=== PATIENT | female | born 1980 | race Hispanic/Latino ===

== ENCOUNTER 2018-06-11 21:26 | Emergency (ER) | payer MEDICAID | END 2018-06-11 21:52 | disposition home or self-care (01) | LOC: EDH 21:26 | DX: L73.8 Other specified follicular disorders (principal); E11.9 Type 2 diabetes mellitus without complications ==

== ENCOUNTER 2019-02-23 21:07 | Emergency (ER) | payer MEDICAID, OTHER ==
[2019-02-23] MEDS ORDERED: TETRACAINE HCL 0.5% 4 ML OPHTH SOLN ONE (21:20)
[2019-02-23] MEDS ORDERED: FLUORESCEIN SODIUM 1 STRIP STRIP ONE (21:21)
[2019-02-23] MEDS ORDERED: TETANUS/DIPHTHERIA TOXOID [ADULT] 0.5 ML VIAL IM ONE (21:21)
[2019-02-23] MEDS ORDERED: NA BORATE/BORIC AC/H2O/NACL 120 ML OPHTH IRRIG SOLN ONE (21:21)
[2019-02-23] MEDS ORDERED: ERYTHROMYCIN BASE 0.5% OPHTH OINT 1 GM TUBE ONE (21:48)
== END 2019-02-23 22:01 | disposition home or self-care (01) ==
LOC: EDH 21:07
DX: S05.01XA Injury of conjunctiva and corneal abrasion without foreign body, right eye, initial encounter (principal); E11.9 Type 2 diabetes mellitus without complications; I10 Essential (primary) hypertension; Z98.890 Other specified postprocedural states; Z98.51 Tubal ligation status; Z90.49 Acquired absence of other specified parts of digestive tract; X58.XXXA Exposure to other specified factors, initial encounter; Y93.89 Activity, other specified; Y92.89 Other specified places as the place of occurrence of the external cause; Y99.8 Other external cause status
CPT/HCPCS: 90471; 90714

== ENCOUNTER 2023-05-17 21:02 | Emergency (ER) | payer BC, OTHER ==
[~2023-05-17] VITALS: Ht 160 cm; Wt 97.1 kg
[2023-05-17 21:03] VITALS: BP 119/73; PULSE 87; RESP 16
[2023-05-17 21:47] LABS: SARS-CoV-2, RNA, NAAT NEGATIVE SARS CoV-2 (NEGATIVE)
[2023-05-17 21:51] LABS: INFLUENZA TYPE A Negative For Type A (NEGATIVE); INFLUENZA TYPE B Negative For Type B (NEGATIVE)
== END 2023-05-17 22:32 | disposition left against medical advice (07) ==
LOC: EDH 21:02
DX: H57.12 Ocular pain, left eye (principal); Z20.822 Contact with and (suspected) exposure to COVID-19; Z53.21 Procedure and treatment not carried out due to patient leaving prior to being seen by health care provider
CPT/HCPCS: 87635; 87804 ×2; C9803

== ENCOUNTER 2024-01-01 18:02 | Emergency (ER) | payer BC, OTHER ==
[~2024-01-01] VITALS: Ht 167.6 cm; Wt 90.7 kg
[2024-01-01 18:19] LABS: BASOPHILS # (AUTO) 0.04 K/uL (0.00-0.20); BASOPHILS % (AUTO) 0.3 % (0.0-5.0); EOSINOPHILS # (AUTO) 0.02 K/uL (0.00-0.70); EOSINOPHILS % (AUTO) 0.2 % (0.0-8.0); HEMATOCRIT 47.1 % (36-48); IMMATURE GRANULOCYTE ABSOLUTE 0.05 K/uL (0-1); LYMPHOCYTES # (AUTO) 2.2 K/uL (1.0-4.8); LYMPHOCYTES % (AUTO) 16.6 % (21.0-51.0); MEAN CORPUSCULAR HEMOGLOBIN 28.8 pg (27.0-33.0); MEAN CORPUSCULAR HGB CONC 34.4 g/dL (32.0-36.0); MEAN CORPUSCULAR VOLUME 83.8 fL (79-99); MONOCYTES # (AUTO) 0.6 K/uL (0.1-1.0); MONOCYTES % (AUTO) 4.3 % (3.0-13.0); NEUTROPHILS # (AUTO) 10.2 K/uL (1.8-7.7); NEUTROPHILS % (AUTO) 78.2 % (40.0-77.0); PLATELET COUNT (AUTO) 272 K/uL (130-400); RED BLOOD CELL COUNT(AUTO) 5.62 MIL/uL (4.00-5.50); RED CELL DISTRIBUTION WIDTH 12.7 % (11.0-15.5); WHITE BLOOD COUNT (AUTO) 13.1 K/uL (4.8-10.8)
[2024-01-01 18:38] LABS: MAGNESIUM 1.9 mg/dL (1.80-2.40)
[2024-01-01 19:35] VITALS: BP 148/84; PULSE 106; RESP 18; O2SAT 97
[2024-01-01] MEDS: INSULIN HUMULIN R 100 UNIT/ML 3ML IV ONE (20:03)
[2024-01-01] MEDS: 0.9%NACL 1000ML 1,000 ML IV ONE (20:06)
[2024-01-01] MEDS ORDERED: METF-446 PO (21:38)
== END 2024-01-01 21:52 | disposition home or self-care (01) ==
LOC: EDH 18:02
DX: R07.89 Other chest pain (principal); F41.1 Generalized anxiety disorder; F43.0 Acute stress reaction; E11.65 Type 2 diabetes mellitus with hyperglycemia; E86.0 Dehydration; E87.1 Hypo-osmolality and hyponatremia; E78.00 Pure hypercholesterolemia, unspecified; I10 Essential (primary) hypertension; M19.90 Unspecified osteoarthritis, unspecified site; Z79.84 Long term (current) use of oral hypoglycemic drugs; Z90.49 Acquired absence of other specified parts of digestive tract
CPT/HCPCS: 99285; 96374; 71045; 96361; 83735; 84484; 80048; 85025; 82948; 36415; 93005; J1815; J7030

== ENCOUNTER 2025-01-18 15:43 | Inpatient (IN) | payer SELFPAY ==
[~2025-01-18] VITALS: Ht 167.6 cm; Wt 103.7 kg
[~2025-01-18 15:43] MED LIST: METF-446 PO
[2025-01-18 18:24] LABS: IMMATURE GRANULOCYTE ABSOLUTE 1.06 K/uL (0-1); NUCLEATED RED BLOOD CELLS 0.0 % (0.0-0.19); PLATELET COUNT (AUTO) 351 K/uL (130-400); RED BLOOD CELL COUNT(AUTO) 4.67 MIL/uL (4.00-5.50); RED CELL DISTRIBUTION WIDTH 13.3 % (11.0-15.5)
[2025-01-18 18:26] LABS: WHITE BLOOD COUNT (AUTO) 32.8 K/uL (4.8-10.8)
[2025-01-18 18:30] LABS: CREATININE 0.7 mg/dL (0.5-1.0); GLOMERULAR FILTR. RATE CALC 109.0 mL/min (>90); GLUCOSE,RANDOM 327.0 mg/dL (70-105); SODIUM SERUM 134.0 mmol/L (136-145); UREA NITROGEN, BLOOD 15.0 mg/dL (7-18)
[2025-01-18 18:39] LABS: CREATINE KINASE, TOTAL 21.0 U/L (21-232)
[2025-01-18 18:47] LABS: PLATELET MORPHOLOGY COMMENT PLT CLUMPS PRESENT
[2025-01-18 18:56] LABS: ADD UA MICROSCOPIC YES; APPEARANCE,URINE CLEAR (CLEAR); GLUCOSE, URINE (UA) >=1000 mg/dL (NEGATIVE); LEUKOCYTE ESTERASE ,URINE NEGATIVE Leu/uL (NEGATIVE); NITRATE,URINE NEGATIVE (NEGATIVE); OCCULT BLOOD,URINE MODERATE (NEGATIVE)
[2025-01-18 18:57] LABS: SQUAMOUS EPITHELIAL CELL,UR FEW /HPF (0-2); YEAST,URINE BUDDING RARE /HPF (None Seen)
[2025-01-18] MEDS ORDERED: VANCOMYCIN HCL 1.5 GM/250 ML BAG IV STA (19:14)
--- NOTE | 2025-01-18 19:30 | NUR ---
PT CARE ASSUMED AT THIS TIME
[2025-01-18 19:32] LABS: ERYTHROCYTE SEDIMENTATION RATE 100 MM/HR (0-20)
--- NOTE | 2025-01-18 19:33 | ERN ---
ED Note History of Present Illness Stated Complaint: LEG PAIN, TOE ISSUE Chief Complaint: Wound Check Time Seen by MD: 16:21 Time Seen by Midlevel: 17:00 Dictation: 44-year-old female with a history of diabetes, noncompliant coming in with complaining of pain in wound to the right great toe. Patient states this has been going on since Friday, was seen by PCP but states did not give her any medications for the infection. Patient denies having any fevers at home, nausea vomiting or diarrhea. No other complaints. Allergies: Coded Allergies: No Known Allergies (Unverified Allergy, Unknown, 05/17/23) Home Meds Active Scripts Metformin HCl (Metformin HCl) 1,000 Mg Tablet, 1000 MG PO BIDMEALS, #60 TAB 1 Refill Prov:MARCELINA GOINS RECRUITING SCHEDULER 01/01/24 Past Medical History Past Medical History: Arthritis, Diabetes-Type II, High Cholesterol, Hypertension Surgical History: Cholecystectomy, History: Not Applicable Review of System Dictation Constitutional: Negative for fever,chills, and weight loss Eyes: Negative for injury, pain,redness, and discharge ENT: Negative for injury,pain or swelling Cardiovascular: Negative for chest pain, palpitations, and edema Respiratory: Negative for shortness of breath, cough, and wheezing, Abdomen/GI: Negative for abdominal pain, nausea, vomiting, diarrhea, and constipation Back: Negative for injury and pain : Negative for injury, bleeding and discharge MS/Extremity: Negative for injury and deformity Skin: Negative for rash, and discoloration, diabetic foot ulcer to the right toe Neuro: Negative for headache, weakness, numbness, tingling, and seizure Psych: Negative for suicide ideation, homicidal ideation, and hallucinations Review of Systems: was completed Initial Vital Sign VS Vital Signs Date Time Temp Pulse Resp B/P (MAP) Pulse Ox O2 Delivery O2 Flow Rate FiO2 01/18/25 15:54 100.2 105 16 131/75 97 Room Air 0 Physical Exam Dictation General: awake, alert, NAD Head/Face: Normocephalic, atraumatic Eyes: PERRL, EOMI, vision at baseline ENT: oral cavity clear, TMs clear, no signs of infection Neck: Trachea midline, supple, no nuchal rigidity Cardiovascular: RRR, normal S1/S2, No MRGs, no JVD Respiratory: CTAB, no respiratory distress, No rales or wheezes Abdomen: Soft, non-tender, non-distended, normal bowel sounds, no guarding or rebound. Skin: Warm, dry, normal turgor, no rash, diabetic foot ulcer to the right toe, extending senior living through the dose of the foot, red, streaking, foul smell MS/Extremity: Pulses equal, no cyanosis, neurovascular intact, FROM Neuro: COAx4, GCS 15, strength 5/5, CN 2-12 intact, normal cerebellar exam, normal gait, Psych: Normal behavior, mood, and affect normal Results (Laboratory/Radiology) Laboratory/Radiology Laboratory Tests Test 01/18/25 18:12 01/18/25 18:16 White Blood Count 32.8 K/uL (4.8-10.8) *H Red Blood Count 4.67 MIL/uL (4.00-5.50) Hemoglobin 13.3 g/dL (12.0-16.0) Hematocrit 41.1 % (36-48) Mean Corpuscular Volume 88.0 fL (79-99) Mean Corpuscular Hemoglobin 28.5 pg (27.0-33.0) Mean Corpuscular Hemoglobin Concent 32.4 g/dL (32.0-36.0) Red Cell Distribution Width 13.3 % (11.0-15.5) Platelet Count 351 K/uL (130-400) Mean Platelet Volume 11.0 fL (7.5-10.5) H Immature Granulocyte % (Auto) 3.2 % (0-1) H Neutrophils (%) (Auto) 80.8 % (40.0-77.0) H Lymphocytes (%) (Auto) 9.7 % (21.0-51.0) L Monocytes (%) (Auto) 5.9 % (3.0-13.0) Eosinophils (%) (Auto) 0.1 % (0.0-8.0) Basophils (%) (Auto) 0.3 % (0.0-5.0) Neutrophils # (Auto) 26.5 K/uL (1.8-7.7) H Lymphocytes # (Auto) 3.2 K/uL (1.0-4.8) Monocytes # (Auto) 1.9 K/uL (0.1-1.0) H Eosinophils # (Auto) 0.02 K/uL (0.00-0.70) Basophils # (Auto) 0.11 K/uL (0.00-0.20) Absolute Immature Granulocyte (auto 1.06 K/uL (0-1) H Nucleated Red Blood Cells 0.0 % (0.0-0.19) Differential Comment White Cell Morphology Comment See comments Platelet Morphology Comment PLT CLUMPS PRESENT Red Blood Cell Morphology Sodium Level 134 mmol/L (136-145) L Potassium Level 4.1 mmol/L (3.5-5.1) Chloride Level 97 mmol/L (101-111) L Carbon Dioxide Level 24 mmol/L (21-32) Blood Urea Nitrogen 15 mg/dL (7-18) Creatinine 0.7 mg/dL (0.5-1.0) Glomerular Filtration Rate Calc 109 mL/min (>90) Random Glucose 327 mg/dL (70-105) H Lactic Acid Level 1.7 mmol/L (0.8-2.5) Total Calcium 9.3 mg/dL (8.5-10.1) Total Creatine Kinase 21 U/L (21-232) Troponin I High Sensitivity < 4 ng/L (4-50) L C-Reactive Protein, Quantitative 338.00 mg/L (0.5-3.0) H Procalcitonin 0.69 ng/mL (0.05-0.5) H Urine Color LIGHT-YELLOW (YELLOW) Urine Appearance CLEAR (CLEAR) Urine pH 5.5 (5.0-8.0) Urine Specific [place] 1.040 (1.001-1.031) Urine Protein 10 mg/dL (NEGATIVE) H Urine Glucose (UA) >=1000 mg/dL (NEGATIVE) H Urine Ketones 150 mg/dL (NEGATIVE) H Urine Occult Blood MODERATE (NEGATIVE) H Urine Nitrate NEGATIVE (NEGATIVE) Urine Bilirubin NEGATIVE mg/dL (NEGATIVE) Urine Urobilinogen 0.2 mg/dL (0.2-1.0) Urine Leukocyte Esterase NEGATIVE Ericka/uL Labs Reviewed?: Yes ED Course ED Course Orders Procedure Category Date Status Time Cbc With Differential LAB 01/18/25 In Process 17:47 Blood Cult SOHAM 01/18/25 In Process 17:47 Urinalysis Profile LAB 01/18/25 In Process 17:47 Culture Urine SOHAM 01/18/25 Logged 17:47 0.9%Nacl 1000ml (Ns PHA 01/18/25 In Process 1000ml) 18:00 Creatine Kinase, Total LAB 01/18/25 Complete 17:47 Troponin I High LAB 01/18/25 Complete Sensitivity 17:47 Lactic Acid LAB 01/18/25 Complete 17:47 Basic Metabolic Panel LAB 01/18/25 Complete 17:47 Erythrocyte LAB 01/18/25 In Process Sedimentation Rate 17:47 Crp Quantitative LAB 01/18/25 Complete 17:47 Procalcitonin LAB 01/18/25 Complete 17:47 Foot Comp 3+Vws Rt RAD 01/18/25 Taken 17:47 Zosyn 3.375gm+Ns 50ml PHA 01/18/25 Complete (Zosyn 3.375gm+Ns 17:47 Manual Differential LAB 01/18/25 In Process 18:12 Current Medications Medications (Trade) Dose Ordered Sig/Padilla Route PRN Reason Start Time Stop Time Status Last Admin Dose Admin Piperacillin Sod/ Tazobactam Sod (Zosyn 3.375gm+NS 50ml) 3.375 gm ONCE STAT IVPB 01/18/25 17:47 01/18/25 17:51 DC Sodium Chloride 2,952 ml @ 984 mls/hr ONCE ONCE IV 01/18/25 18:00 01/18/25 20:59 Vital Signs Date Time Temp Pulse Resp B/P (MAP) Pulse Ox O2 Delivery O2 Flow Rate FiO2 01/18/25 15:54 100.2 105 16 131/75 97 Room Air 0 Medical Decision Making MDM MDM: 44-year-old female with a history of diabetes, noncompliant coming in with complaining of pain in wound to the right great toe. Patient states this has been going on since Friday, was seen by PCP but states did not give her any medications for the infection. Patient denies having any fevers at home, nausea vomiting or diarrhea. No other complaints.CBC shows leukocytosis of 32, no anemia, no thrombocytopenia. Chemistry shows hyperglycemia at 3:27 a.m.. Normal kidney function. C-reactive protein is 338. Procalcitonin is 0.69. Fluids and antibiotics initiated in the emergency room. Pending results from x- ray and ESR. Admitted the patient for diabetic foot ulcer, cellulitis, rule out osteomyelitis. Spoke to Concetta RECRUITING SCHEDULER for hospitalist. Okay to admit patient. Differential diagnosis: Cellulitis, osteomyelitis Rationale: Tests considered and ordered secondary to shared decision making include: labs, ECG and radiology Previous outside records reviewed: Old ER visits. Risk of complication and/or morbidity or mortality of patient management: None Medications-Per medication reconciliation Need for hospitalization: Patient does meet criteria for hospitalization. Need for emergency major/minor surgery: No There are no social concerns with this patient. Prescription drug management Prescriptions will include symptomatic care Patient's prior external medical records from other ER visits were reviewed by me as indicated. Prior testing and results from previous visits were reviewed. Prior tests were taken into account with medical decision making and resource utilization, independent historian/historians were used to obtain complete medical history. I independently interpreted the test that were performed, results were reviewed by me and considered findings on radiology if ordered. Medical management and examination interpretation discussions were had by me with other qualified healthcare professionals as indicated for the patient's care. DX & DISP Disposition: Inpatient Decision to Admit Date: Jan 18, 2025 Decision to Admit Time: 19:32 Departure Impression: Primary Impression: Diabetes mellitus with hyperglycemia Additional Impressions: Diabetic foot ulcer, Cellulitis, Osteomyelitis Condition: Stable Referrals: SELF,REFERRAL (PCP) Time of Disposition: 19:33 I have reviewed the case, and I agree with, Diagnosis and Plan SHARON ZHAO NP Jan 18, 2025 19:33
[2025-01-18] MEDS: ZOSYN 3.375GM +NS 50ML IVPB STA (19:34)
[2025-01-18] MEDS: [UNRECOGNIZED DRUG - OTHER] IV ONE (19:34)
--- NOTE | 2025-01-18 19:36 | HMCIMG ---
EXAM: CR right foot, 3 View. CLINICAL HISTORY: great toe wound COMPARISON: None provided. FINDINGS: Soft tissue edema and emphysema within the right great toe. There is no radiopaque foreign body identified. Bones appear within normal limits without fracture or evidence of periostitis. Joint spaces remain anatomically aligned. IMPRESSION: 1. Soft tissue edema and emphysema of the right great toe. There is no radiographic evidence for osteomyelitis; however, if clinical concern persists recommend contrast-enhanced MRI of the forefoot for further evaluation. /[place]
[2025-01-18] MEDS ORDERED: DEXTROSE 50%-WATER 50 ML DISP.SYRIN IV PRN (20:00)
[2025-01-18] MEDS ORDERED: GLUCAGON 1MG KIT 1 MG ML IM PRN (20:00)
[2025-01-18] MEDS ORDERED: PoTASSium chl 10% ELIXIR 20MEQ 20 MEQ/15 ML UDCUP PO PRN (20:00)
[2025-01-18] MEDS ORDERED: VANCOMYCIN 1G/250ML KIT 250 ML IV SCH (20:00)
[2025-01-18] MEDS ORDERED: MAGNESIUM 2GM PREMIX 50ML 50 ML IV PRN (20:00)
--- NOTE | 2025-01-18 20:00 | HP ---
[facility] HISTORY AND PHYSICAL Date of Service: Jan 18, 2025 Time of Service: 19:54 PCP: Self-referral HISTORY OF PRESENT ILLNESS: This is a 44-year-old female with past medical history of diabetes and medical noncompliance who presents to the ED for complaints of right great toe wound ulcer and right foot pain.Patient reports on of last week she did not feel good ,she was dizzy,having chills and shortness of breath so she went to a Day and night clinic were she was told she has Flu and was prescribed with prednisone 10 mg daily,Naproxen and Tamiflu and after taking it the following day she noticed her right great toe has purple and whitish discoloration so she went to [place] today where she was given an IM injection was told for infection she said and on her way back home she noticed that her right great toe was hurting and her foot was getting swollen and red and her right great toe ulcer was smelling foul odor .Patient states she does not have a PCP and that sheis not taking any medication at home except for those 3 new med prescribed for her Flu she said. Seen and examined patient in the ER awake,alert and coherent,appears comf ortable,patient denies sore throat, cough, nausea,vomiting ,abdominal pain,chest pain,palpitation and shortness of breath. Latest vital signs temperature a 100.2, heart rate 86, blood pressure 121/67 saturation 98% room air. WBC 32 with negative left shift of neutrophils 80, hemoglobin 13, hematocrit 41, platelet count 351. Sodium 124, chloride 97, glucose 327, CRP 338, procalc itonin 0.69. Urinalysis significant for protein, glucose, ketones, urine RBC 11-25, urine WBC 6-10. X-ray of the right foot result revealed soft tissues edema and emphysema of the right great toe there is no radiographic evidence for osteomyelitis however if clinical concern persists recommend contrast enhanced MRI of the right foot for further evaluation. While in the ER patient received fluid resuscitation of NS 30 mL/kilogram over 3 hours, Zosyn IV and vancomycin IV we will admit patient for further medical management. REVIEW OF SYSTEMS CONSTITUTIONAL: Positive fever Denies chills, or night sweats. No unintentional weight loss reported. NEUROLOGICAL: Denies headache, amaurosis fugax, motor weakness, sensory deficit, vertigo/spinning sensation, gait abnormalities, or tremors. ENT: No hearing loss, otalgia, otorrhea, rhinitis, rhinorrhea, hoarseness, or sore throat. CARDIOVASCULAR: Denies any exertional angina, dyspnea on exertion, orthopnea, paroxysmal nocturnal dyspnea, palpitations, life-threatening arrhythmias, claudication. PULMONARY: Denies any shortness of breath, cough, phlegm/sputum, hemoptysis, pleuritic chest pain. SLEEP: Denies morning headaches, daytime somnolence or napping. Denies difficulty falling asleep, staying asleep, waking from sleep. Denies knowledge of snoring. GASTROINTESTINAL: Denies any type of dysphagia to either liquids or solids. Denies nausea, vomiting, pyrosis, early satiety, abdominal pain, diarrhea, constipation, or changes in stool consistency or caliber. Denies coffee-ground emesis, hematemesis, hematochezia, or melanotic stools. GENITOURINARY: Denies frequency, urgency, nocturia, hematuria or incontinence (Storage/Irritative symptoms.) Low urinary stream, straining to void, urinary intermittency or hesitancy, splitting of the voiding stream, terminal dribbling. ENDOCRINOLOGIC: Denies polyuria, polydipsia, polyphagia or heat/cold intoleran master. HEMATOLOGIC: Denies thrombophilia/previous clots, or coagulopathy/bleeding disorders. ONCOLOGIC: Denies personal history of malignancy. DERMATOLOGIC: Denies rashes or pruritus. PSYCHIATRIC: Denies any suicidal or homicidal ideation. Denies hallucinations. PAST MEDICAL HISTORY: [ Diabetes ] PAST SURGICAL HISTORY: [ x4 and cholecystectomy ] PAST SOCIAL HISTORY: [Patient lives with family. Patient denies alcohol tobacco and recreational drug use ] FAMILY HISTORY: [ Noncontributory ] Coded Allergies: No Known Allergies (Unverified Allergy, Unknown, 05/17/23) PHYSICAL EXAM GENERAL APPEARANCE: The patient is awake, alert, and oriented, in no acute cardiopulmonary distress. NEUROLOGICAL: Cranial nerves II-XII grossly intact. Motor is 5/5 in bilateral upper and lower extremities proximal to distal. No sensory deficits. HEENT: Face is symmetric. Pupils are equal and reactive. Extraocular movements are intact. NECK: Supple. No JVD. No thyromegaly. No submental, submandibular, pre- /postauricular, occipital or supraclavicular lymphadenopathy. CHEST: Normal chest expansion. No Telemetry. LUNGS: Absence of any rales, rhonchi or any wheezing. CARDIOVASCULAR: Regular. S1 and S2 normal. No appreciable rubs, murmurs or gallops. ABDOMEN: Soft, nontender, and nondistended. There is no rebound, voluntary guarding, or rigidity. : Deferred. No [place]. EXTREMITIES: Right foot swollen positive erythema SKIN: Right great toe wound ulcer Vital Sign (Last 24 Hours) 01/18/25 19:47 Temp 100.2 Pulse 86 Resp 20 B/P (MAP) 121/67 Pulse Ox 98 O2 Delivery Room Air* O2 Flow Rate 0 FiO2 21 LABS: Laboratory: Test 01/18/25 18:16 01/18/25 18:12 Range/Units Urine Color LIGHT-YELLOW YELLOW Urine Appearance CLEAR CLEAR Urine pH 5.5 5.0-8.0 Urine Specific [place] 1.040 H 1.001-1.031 Urine Protein 10 H NEGATIVE mg/dL Urine Glucose (UA) >=1000 H NEGATIVE mg/dL Urine Ketones 150 H NEGATIVE mg/dL Urine Occult Blood MODERATE H NEGATIVE Urine Nitrate NEGATIVE NEGATIVE Urine Bilirubin NEGATIVE NEGATIVE mg/dL Urine Urobilinogen 0.2 0.2-1.0 mg/dL Urine Leukocyte Esterase NEGATIVE NEGATIVE Ericka/uL Urine RBC 11-25 H 0-1 /HPF Urine WBC 6-10 H 0-1 /HPF Urine Squamous Epithelial Cells FEW 0-2 /HPF Urine Bacteria RARE None Seen /HPF Urine Yeast RARE None Seen /HPF White Blood Count 32.8 *H 4.8-10.8 K/uL Red Blood Count 4.67 4.00-5.50 MIL/uL Hemoglobin 13.3 12.0-16.0 g/dL Hematocrit 41.1 36-48 % Mean Corpuscular Volume 88.0 79-99 fL Mean Corpuscular Hemoglobin 28.5 27.0-33.0 pg Mean Corpuscular Hemoglobin Concent 32.4 32.0-36.0 g/dL Red Cell Distribution Width 13.3 11.0-15.5 % Platelet Count 351 130-400 K/uL Mean Platelet Volume 11.0 H 7.5-10.5 fL Immature Granulocyte % (Auto) 3.2 H 0-1 % Neutrophils (%) (Auto) 80.8 H 40.0-77.0 % Lymphocytes (%) (Auto) 9.7 L 21.0-51.0 % Monocytes (%) (Auto) 5.9 3.0-13.0 % Eosinophils (%) (Auto) 0.1 0.0-8.0 % Basophils (%) (Auto) 0.3 0.0-5.0 % Neutrophils # (Auto) 26.5 H 1.8-7.7 K/uL Lymphocytes # (Auto) 3.2 1.0-4.8 K/uL Monocytes # (Auto) 1.9 H 0.1-1.0 K/uL Eosinophils # (Auto) 0.02 0.00-0.70 K/uL Basophils # (Auto) 0.11 0.00-0.20 K/uL Absolute Immature Granulocyte (auto 1.06 H 0-1 K/uL Nucleated Red Blood Cells 0.0 0.0-0.19 % Differential Comment White Cell Morphology Comment See comments Platelet Morphology Comment PLT CLUMPS PRESENT Red Blood Cell Morphology Erythrocyte Sedimentation Rate 100 H 0-20 MM/HR Sodium Level 134 L 136-145 mmol/L Potassium Level 4.1 3.5-5.1 mmol/L Chloride Level 97 L 101-111 mmol/L Carbon Dioxide Level 24 21-32 mmol/L Blood Urea Nitrogen 15 7-18 mg/dL Creatinine 0.7 0.5-1.0 mg/dL Glomerular Filtration Rate Calc 109 >90 mL/min Random Glucose 327 H 70-105 mg/dL Lactic Acid Level 1.7 0.8-2.5 mmol/L Total Calcium 9.3 8.5-10.1 mg/dL Total Creatine Kinase 21 21-232 U/L Troponin I High Sensitivity < 4 L 4-50 ng/L C-Reactive Protein, Quantitative 338.00 H 0.5-3.0 mg/L Procalcitonin 0.69 H 0.05-0.5 ng/mL Current Medications Medications (Trade) Dose Ordered Sig/Padilla Route PRN Reason Start Time Stop Time Status Last Admin Dose Admin Piperacillin Sod/ Tazobactam Sod (Zosyn 3.375gm+NS 50ml) 3.375 gm ONCE STAT IVPB 01/18/25 17:47 01/18/25 17:51 DC 01/18/25 19:34 3.375 GM Vancomycin HCl (Vancomycin 1.5 Gm/250 ml Bag) 1.5 gm ONCE STAT IV 01/18/25 19:14 01/18/25 19:36 DC DIAGNOSTICS / RADIOLOGY: [ ] ASSESSMENT: Infected right great toe diabetic wound ulcer rule out osteomyelitis POA Right foot cellulitis POA Hyperglycemia due to uncontrolled diabetes POA Severe leukocytosis POA Medical noncompliance POA Obesity POA Sirs with organ dysfunction POA Suspected urinary tract infection POA PLAN: We will admit patient in medical surgical We will start on consistent carb diet We will start NS @ 100 ml / hr x2 bags and re evaluate We will continue Zosyn and vancomycin for broad-spectrum coverage We will start on Famotidine 20 mg p.o. bid for GI prophylaxis We will replace electrolytes as needed per protocol We will start on insulin sliding scale AC & HS with hypoglycemia protocol We will add prn medication for fever,pain,cough, nausea and vomiting We will request neurovascular check q.4 hoursI We will seek podiatry consultation We will seek Infectious Disease consultation We will obtain MRI without contrast of the right foot We will request labs in am Follow-up urine culture result Further orders to follow depending on above results Case discussed with attending physician and came up with above treatment and plan of care. ADVANCED CARE PLANNING 1. Which of the following were discussed? Hospice Care - No Therapeutic options - Yes Advance Directives - No Other discussions - 2. Discussed with who? Patient 3. Voluntary nature of this service was explained to the patient? Yes 4. Amount of time spent - _22 5. Reviewed by Physician? (if this service was performed by NPP) Yes Patient seen and examined by me. Agree with note by AN/SYQ 13 NAV/C2 OPERATOR SEE ADDITIONAL ORDERS PER CHART DISCUSSED WITH NURSING STAFF IOGR GÓMEZP Jan 18, 2025 20:00
[2025-01-18] MEDS: VANCOMYCIN 1.5 GM/250 ML BAG 250 ML IV ONE (20:06)
[2025-01-18] MEDS ORDERED: VANCOMYCIN PROTOCOL PER PHARMACY IV SCH (21:00)
[2025-01-18] MEDS: FAMOTIDINE 20MG TAB PO SCH (21:17)
[2025-01-18] MEDS: 0.9%NACL 1000ML 1,779 ML IV ONE (21:36)
[2025-01-18] MEDS: 0.9%NACL 1000ML 1,000 ML IV SCH (21:37)
[2025-01-19] VITALS (18 sets, daily range): BP systolic 100–145; BP diastolic 57–85; PULSE 71–85; RESP 14–19; TEMP 96.2–98.8; O2SAT 98
[2025-01-19] MEDS: ZOSYN 3.375GM+NS 50ML 50 ML IV SCH (04:52)
[2025-01-19 07:16] LABS: IMMATURE GRANULOCYTE ABSOLUTE 0.67 K/uL (0-1); NUCLEATED RED BLOOD CELLS 0.0 % (0.0-0.19); PLATELET COUNT (AUTO) 334 K/uL (130-400); RED BLOOD CELL COUNT(AUTO) 4.12 MIL/uL (4.00-5.50); RED CELL DISTRIBUTION WIDTH 13.4 % (11.0-15.5); WHITE BLOOD COUNT (AUTO) 26.9 K/uL (4.8-10.8)
[2025-01-19 07:36] LABS: ASPARTATE AMINOTRANSFERASE 11.0 U/L (10-37); CREATININE 0.6 mg/dL (0.5-1.0); GLOMERULAR FILTR. RATE CALC 113.0 mL/min (>90); GLUCOSE,RANDOM 343.0 mg/dL (70-105); SODIUM SERUM 135.0 mmol/L (136-145); TOTAL PROTEIN, SERUM 6.8 g/dL (6.0-8.3); UREA NITROGEN, BLOOD 12.0 mg/dL (7-18)
[2025-01-19] MEDS: VANCOMYCIN 1.5 GM/250 ML BAG 250 ML IV SCH (08:00)
[2025-01-19 08:29] LABS: ERYTHROCYTE SEDIMENTATION RATE 105 MM/HR (0-20)
--- NOTE | 2025-01-19 09:41 | NUR ---
DCP: HOME Pt and her 4 kids live with her father Richard Hunter [phone] and his home. 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 Pt states despite her infection in toe/foot, she was able to walk with out DME and be independent of ADLS and driving. Pt has no insurance, no PCP, no in home care services. Sw provided community resources for future use. DCP is home Guero Maritza Leavitt [phone] Addendum: 01/19/25 at 0942 by CARLOS LOAIZA Amended: Links added.
--- NOTE | 2025-01-19 09:59 | CONS ---
CONSULTATION NOTE Date of Service: Jan 19, 2025 Reason for Consultation: This 44 years old female was admitted through the emergency room after two week duration infection on her right foot. History of diabetes. Seen two weeks ago by [facility] was started on antibiotics. Subsequently was seen in [place] also was given antibiotics at this time presented to the emergency room with worsening condition. Patient does not have primary care physician. Requesting Physician: Cris BOOTH HISTORY OF PRESENT ILLNESS: As stated above REVIEW OF SYSTEMS CONSTITUTIONAL: Positive for fevers and chills HEAD/FACE: No signs of trauma. EENT: Denies eye pain, blurred vision, double vision, or light sensitivity. RESPIRATORY: Denies shortness of breath, cough, wheezing CARDIOVASCULAR: Denies chest pain, palpitation, syncope foot warm but nonpalpable pulses on right foot GASTROINTESTINAL/ABDOMINAL: Denies abdominal pain, constipation, diarrhea, nausea or vomiting GENITOURINARY: Denies dysuria or hematuria. MUSCULOSKELETAL: Denies joint pain, tenderness, or trauma. INTEGUMENTARY: Gangrene cellulitis blister formation on right foot 1st toe and 1st metatarsal area arch and dorsal aspect of the foot. NEUROLOGICAL/PSYCH: Denies anxiety, depression, heat or cold intolerance. PAST MEDICAL HISTORY: Diabetes uncontrolled with no medical follow up as an outpatient. PAST SURGICAL HISTORY: by two and cholecystectomy PAST SOCIAL HISTORY: Denies any smoking or drinking or illicit drugs. FAMILY HISTORY: Noncontributory Coded Allergies: No Known Allergies (Unverified Allergy, Unknown, 05/17/23) PHYSICAL EXAM EYES: Anicteric. Pupils equal and reactive. HENT: No oral thrush seen, moist Oral mucosa NECK: Supple, no JVD or thyromegaly. LUNGS: Good air entry. No rales, no rhonchi. CARDIOVASCULAR: S1, S2 regular. No murmur heard. Nonpalpable pulses on foot right foot warm to touch. ABDOMEN: Soft, non tender, bowel sounds present, no organomegaly CENTRAL NERVOUS SYSTEM: Awake, alert, oriented x 3. No focal deficits. Loss of sensation possibly secondary to diabetic polyneuropathy SKIN: Right hallux gangrene with cellulitis and blister formation of the skin cellulitis extending to the dorsal and plantar aspect of the foot midfoot level. Medial aspect. LYMPHATICS: No peripheral lymphadenopathy MUSCULOSKELETAL: No joint swelling, erythema or tenderness. Gangrene to hallux right x-ray contributory for osteomyelitis and gas on the soft tissue. EXTREMITIES: No cyanosis or clubbing BACK: No deformity, no pressure ulcer. GENITOURINARY: No dysuria or hematuria Vital Sign (Last 24 Hours) 01/19/25 09:04 Temp 99.5 Pulse 89 Resp 17 B/P (MAP) 117/70 Pulse Ox 95 O2 Delivery Room Air* O2 Flow Rate 0 FiO2 21 LABS: Laboratory: Test 01/19/25 08:48 01/19/25 06:56 01/18/25 18:16 01/18/25 18:12 Range/Units Whole Blood Glucose 293 H 70-110 MG/DL White Blood Count 26.9 H 4.8-10.8 K/uL Red Blood Count 4.12 4.00-5.50 MIL/uL Hemoglobin 11.8 L 12.0-16.0 g/dL Hematocrit 35.7 L 36-48 % Mean Corpuscular Volume 86.7 79-99 fL Mean Corpuscular Hemoglobin 28.6 27.0-33.0 pg Mean Corpuscular Hemoglobin Concent 33.1 32.0-36.0 g/dL Red Cell Distribution Width 13.4 11.0-15.5 % Platelet Count 334 130-400 K/uL Mean Platelet Volume 11.0 H 7.5-10.5 fL Immature Granulocyte % (Auto) 2.5 H 0-1 % Neutrophils (%) (Auto) 77.4 H 40.0-77.0 % Lymphocytes (%) (Auto) 12.7 L 21.0-51.0 % Monocytes (%) (Auto) 7.1 3.0-13.0 % Eosinophils (%) (Auto) 0.0 0.0-8.0 % Basophils (%) (Auto) 0.3 0.0-5.0 % Neutrophils # (Auto) 20.8 H 1.8-7.7 K/uL Lymphocytes # (Auto) 3.4 1.0-4.8 K/uL Monocytes # (Auto) 1.9 H 0.1-1.0 K/uL Eosinophils # (Auto) 0.01 0.00-0.70 K/uL Basophils # (Auto) 0.07 0.00-0.20 K/uL Absolute Immature Granulocyte (auto 0.67 0-1 K/uL Nucleated Red Blood Cells 0.0 0.0-0.19 % Erythrocyte Sedimentation Rate 105 H 0-20 MM/HR Sodium Level 135 L 136-145 mmol/L Potassium Level 4.0 3.5-5.1 mmol/L Chloride Level 101 101-111 mmol/L Carbon Dioxide Level 23 21-32 mmol/L Blood Urea Nitrogen 12 7-18 mg/dL Creatinine 0.6 0.5-1.0 mg/dL Glomerular Filtration Rate Calc 113 >90 mL/min Random Glucose 343 H 70-105 mg/dL Total Calcium 8.2 L 8.5-10.1 mg/dL Magnesium Level 2.00 1.80-2.40 mg/dL Total Bilirubin 0.4 0.2-1.0 mg/dL Aspartate Amino Transf (AST/SGOT) 11 10-37 U/L Alanine Aminotransferase (ALT/SGPT) 24 12-78 U/L Alkaline Phosphatase 149 H 50-136 U/L C-Reactive Protein, Quantitative 311.80 H 0.5-3.0 mg/L Total Protein 6.8 6.0-8.3 g/dL Albumin 1.6 L 3.5-5.0 g/dL Urine Color LIGHT-YELLOW YELLOW Urine Appearance CLEAR CLEAR Urine pH 5.5 5.0-8.0 Urine Specific [place] 1.040 H 1.001-1.031 Urine Protein 10 H NEGATIVE mg/dL Urine Glucose (UA) >=1000 H NEGATIVE mg/dL Urine Ketones 150 H NEGATIVE mg/dL Urine Occult Blood MODERATE H NEGATIVE Urine Nitrate NEGATIVE NEGATIVE Urine Bilirubin NEGATIVE NEGATIVE mg/dL Urine Urobilinogen 0.2 0.2-1.0 mg/dL Urine Leukocyte Esterase NEGATIVE NEGATIVE Ericka/uL Urine RBC 11-25 H 0-1 /HPF Urine WBC 6-10 H 0-1 /HPF Urine Squamous Epithelial Cells FEW 0-2 /HPF Urine Bacteria RARE None Seen /HPF Urine Yeast RARE None Seen /HPF Differential Comment White Cell Morphology Comment See comments Platelet Morphology Comment PLT CLUMPS PRESENT Red Blood Cell Morphology Lactic Acid Level 1.7 0.8-2.5 mmol/L Total Creatine Kinase 21 21-232 U/L Troponin I High Sensitivity < 4 L 4-50 ng/L Procalcitonin 0.69 H 0.05-0.5 ng/mL DIAGNOSTICS / RADIOLOGY: X-ray demonstrated osteomyelitis gas gangrene of the soft tissue 1st metatarsal and hallux right. ASSESSMENT: Gas gangrene. Osteomyelitis of the right foot hallux and 1st metatarsal. Peripheral vascular disease. Diabetic polyneuropathy. Cellulitis and diabetic foot infection. Leukocytosis. PLAN: Due to the emergent situation on this case at this moment the recommendation is for 1st ray amputation as an emergency procedure to the gas gangrene patient is at high risk of losing the extremity right. Patient refuses amputation at this time she stated that she will like to go home and discuss it with her family members. The severity of the case was explained by myself and medical team at this moment the risk of losing the extremity loss of life sepsis and this or imminent in this type of infections. Early intervention is imperative at this point in order to salvage the extremity and prevent further complications. Patient voices that she will like to sign AMA we we will notify the emergency room team. Please reconsult if patient has change decisions. Patient was placed NPO if you change decision we will schedule her for surgery today. KIRK DURHAM DPM Jan 19, 2025 09:59
--- NOTE | 2025-01-19 11:36 | NUR ---
[facility] Consult: Patient assessed by wound healing team. See wound assessment. Assessment and recommendations provided. Education provided. Addendum: 01/19/25 at 1415 by CHON RAMÍREZ RN RN/CORRIE Amended: Links added.
--- NOTE | 2025-01-19 14:17 | PN ---
[facility] PROGRESS NOTE Date of Service: Jan 19, 2025 Time of Service: 14:16 SUBJECTIVE: This is a 44-year-old female with past medical history of diabetes and medical noncompliance who presents to the ED for complaints of right great toe wound ulcer and right foot pain.Patient reports on of last week she did not feel good ,she was dizzy,having chills and shortness of breath so she went to a Day and night clinic were she was told she has Flu and was prescribed with prednisone 10 mg daily,Naproxen and Tamiflu and after taking it the following day she noticed her right great toe has purple and whitish discoloration so she went to [place] today where she was given an IM injection was told for infection she said and on her way back home she noticed that her right great toe was hurting and her foot was getting swollen and red and her right great toe ulcer was smelling foul odor .Patient states she does not have a PCP and that sheis not taking any medication at home except for those 3 new med prescribed for her Flu she said. Seen and examined patient in the ER awake,alert and coherent,appears comfortable,patient denies sore throat, cough, nausea,vomiting ,abdominal pain,chest pain,palpitation and shortness of breath. Latest vital signs temperature a 100.2, heart rate 86, blood pressure 121/67 saturation 98% room air. WBC 32 with negative left shift of neutrophils 80, hemoglobin 13, he matocrit 41, platelet count 351. Sodium 124, chloride 97, glucose 327, CRP 338, procalcitonin 0.69. Urinalysis significant for protein, glucose, ketones, urine RBC 11-25, urine WBC 6-10. X-ray of the right foot result revealed soft tissues edema and emphysema of the right great toe there is no radiographic evidence for osteomyelitis however if clinical concern persists recommend contrast enhanced MRI of the right foot for further evaluation. While in the ER patient received fluid resuscitation of NS 30 mL/kilogram over 3 hours, Zosyn IV and vancomycin IV we will admit patient for further medical management. 01/19/25 Patient was seen and examined at bedside. She had a temperature of 100 last night, other vitals are stable. She does not take medications for diabetes and does not have a PCP. She first noticed an ulcer on her right foot two weeks ago that eventually developed into foul smelling gas gangrene. Podiatry consult was placed as X-rays showed evidence of osteomyelitis and soft tissue gangrene involving the right first metatarsal. Given the emergent nature of the infection, podiatry recommended a first-ray amputation on the same day. However, the patient initially declined the procedure, expressing a desire to first discuss the situation with family members. She also mentioned the possibility of signing AMA but was advised to reconsider if she changes her decision. In the meantime, an orthopedic surgery consult was placed to evaluate for the possibility of a below-knee amputation , given the extent of infection and urgency of intervention. REVIEW OF SYSTEMS CONSTITUTIONAL: Positive fever Denies chills, or night sweats. No unintentional weight loss reported. NEUROLOGICAL: Denies headache, amaurosis fugax, motor weakness, sensory deficit, vertigo/spinning sensation, gait abnormalities, or tremors. ENT: No hearing loss, otalgia, otorrhea, rhinitis, rhinorrhea, hoarseness, or sore throat. CARDIOVASCULAR: Denies any exertional angina, dyspnea on exertion, orthopnea, paroxysmal nocturnal dyspnea, palpitations, life-threatening arrhythmias, claudication. PULMONARY: Denies any shortness of breath, cough, phlegm/sputum, hemoptysis, pleuritic chest pain. SLEEP: Denies morning headaches, daytime somnolence or napping. Denies difficulty falling asleep, staying asleep, waking from sleep. Denies knowledge of snoring. GASTROINTESTINAL: Denies any type of dysphagia to either liquids or solids. Denies nausea, vomiting, pyrosis, early satiety, abdominal pain, diarrhea, constipation, or changes in stool consistency or caliber. Denies coffee-ground emesis, hematemesis, hematochezia, or melanotic stools. GENITOURINARY: Denies frequency, urgency, nocturia, hematuria or incontinence (Storage/Irritative symptoms.) Low urinary stream, straining to void, urinary intermittency or hesitancy, splitting of the voiding stream, terminal dribbling. ENDOCRINOLOGIC: Denies polyuria, polydipsia, polyphagia or heat/cold intolerances. HEMATOLOGIC: Denies thrombophilia/previous clots, or coagulopathy/bleeding di sorders. ONCOLOGIC: Denies personal history of malignancy. DERMATOLOGIC: Denies rashes or pruritus. PSYCHIATRIC: Denies any suicidal or homicidal ideation. Denies hallucinations. PHYSICAL EXAM GENERAL APPEARANCE: The patient is awake, alert, and oriented, in no acute cardiopulmonary distress. NEUROLOGICAL: Cranial nerves II-XII grossly intact. Motor is 5/5 in bilateral upper and lower extremities proximal to distal. No sensory deficits. HEENT: Face is symmetric. Pupils are equal and reactive. Extraocular movements are intact. NECK: Supple. No JVD. No thyromegaly. No submental, submandibular, pre- /postauricular, occipital or supraclavicular lymphadenopathy. CHEST: Normal chest expansion. No Telemetry. LUNGS: Absence of any rales, rhonchi or any wheezing. CARDIOVASCULAR: Regular. S1 and S2 normal. No appreciable rubs, murmurs or gallops. ABDOMEN: Soft, nontender, and nondistended. There is no rebound, voluntary guarding, or rigidity. : Deferred. No [place]. EXTREMITIES: Right foot swollen positive erythema SKIN: Right great toe wound ulcer Vital Signs (last 8hr) Date Time Temp Pulse Resp B/P (MAP) Pulse Ox O2 Delivery O2 Flow Rate FiO2 01/19/25 09:04 99.5 89 17 117/70 95 Room Air* 0 21 01/19/25 06:45 99.5 99 20 107/47 100 Room Air* 0 21 LABS: Laboratory: Test 01/19/25 12:54 01/19/25 06:56 01/18/25 18:16 01/18/25 18:12 Range/Units Whole Blood Glucose 198 H 70-110 MG/DL White Blood Count 26.9 H 4.8-10.8 K/uL Red Blood Count 4.12 4.00-5.50 MIL/uL Hemoglobin 11.8 L 12.0-16.0 g/dL Hematocrit 35.7 L 36-48 % Mean Corpuscular Volume 86.7 79-99 fL Mean Corpuscular Hemoglobin 28.6 27.0-33.0 pg Mean Corpuscular Hemoglobin Concent 33.1 32.0-36.0 g/dL Red Cell Distribution Width 13.4 11.0-15.5 % Platelet Count 334 130-400 K/uL Mean Platelet Volume 11.0 H 7.5-10.5 fL Immature Granulocyte % (Auto) 2.5 H 0-1 % Neutrophils (%) (Auto) 77.4 H 40.0-77.0 % Lymphocytes (%) (Auto) 12.7 L 21.0-51.0 % Monocytes (%) (Auto) 7.1 3.0-13.0 % Eosinophils (%) (Auto) 0.0 0.0-8.0 % Basophils (%) (Auto) 0.3 0.0-5.0 % Neutrophils # (Auto) 20.8 H 1.8-7.7 K/uL Lymphocytes # (Auto) 3.4 1.0-4.8 K/uL Monocytes # (Auto) 1.9 H 0.1-1.0 K/uL Eosinophils # (Auto) 0.01 0.00-0.70 K/uL Basophils # (Auto) 0.07 0.00-0.20 K/uL Absolute Immature Granulocyte (auto 0.67 0-1 K/uL Nucleated Red Blood Cells 0.0 0.0-0.19 % Erythrocyte Sedimentation Rate 105 H 0-20 MM/HR Sodium Level 135 L 136-145 mmol/L Potassium Level 4.0 3.5-5.1 mmol/L Chloride Level 101 101-111 mmol/L Carbon Dioxide Level 23 21-32 mmol/L Blood Urea Nitrogen 12 7-18 mg/dL Creatinine 0.6 0.5-1.0 mg/dL Glomerular Filtration Rate Calc 113 >90 mL/min Random Glucose 343 H 70-105 mg/dL Total Calcium 8.2 L 8.5-10.1 mg/dL Magnesium Level 2.00 1.80-2.40 mg/dL Total Bilirubin 0.4 0.2-1.0 mg/dL Aspartate Amino Transf (AST/SGOT) 11 10-37 U/L Alanine Aminotransferase (ALT/SGPT) 24 12-78 U/L Alkaline Phosphatase 149 H 50-136 U/L C-Reactive Protein, Quantitative 311.80 H 0.5-3.0 mg/L Total Protein 6.8 6.0-8.3 g/dL Albumin 1.6 L 3.5-5.0 g/dL Urine Color LIGHT-YELLOW YELLOW Urine Appearance CLEAR CLEAR Urine pH 5.5 5.0-8.0 Urine Specific [place] 1.040 H 1.001-1.031 Urine Protein 10 H NEGATIVE mg/dL Urine Glucose (UA) >=1000 H NEGATIVE mg/dL Urine Ketones 150 H NEGATIVE mg/dL Urine Occult Blood MODERATE H NEGATIVE Urine Nitrate NEGATIVE NEGATIVE Urine Bilirubin NEGATIVE NEGATIVE mg/dL Urine Urobilinogen 0.2 0.2-1.0 mg/dL Urine Leukocyte Esterase NEGATIVE NEGATIVE Ericka/uL Urine RBC 11-25 H 0-1 /HPF Urine WBC 6-10 H 0-1 /HPF Urine Squamous Epithelial Cells FEW 0-2 /HPF Urine Bacteria RARE None Seen /HPF Urine Yeast RARE None Seen /HPF Differential Comment White Cell Morphology Comment See comments Platelet Morphology Comment PLT CLUMPS PRESENT Red Blood Cell Morphology Lactic Acid Level 1.7 0.8-2.5 mmol/L Total Creatine Kinase 21 21-232 U/L Troponin I High Sensitivity < 4 L 4-50 ng/L Procalcitonin 0.69 H 0.05-0.5 ng/mL Current Medications Medications (Trade) Dose Ordered Sig/[place] Route PRN Reason Start Time Stop Time Status Last Admin Dose Admin Acetaminophen (TYLenol 325MG TAB) 650 mg Q4H PRN PO MILD PAIN (1-3) 01/18/25 20:00 02/17/25 19:59 Acetaminophen (TYLenol 325MG TAB) 650 mg Q6H PRN PO TEMPERATURE GREATER THAN 101.5 01/18/25 20:00 02/17/25 19:59 Acetaminophen/ Hydrocodone Bitart (NORco 5/325MG) 1 tab Q4H PRN PO MODERATE PAIN (4-6) 01/18/25 20:00 01/23/25 19:59 Acetaminophen/ Hydrocodone Bitart (NORco 5/325MG) 2 tab Q4H PRN PO SEVERE PAIN (7-10) 01/18/25 20:00 01/23/25 19:59 Dextrose (D50w) 50 ml AD PRN IV HYPOGLYCEMIA PROTOCOL 01/18/25 20:00 02/17/25 19:59 Famotidine (Pepcid 20mg Tab) 20 mg BID PO 01/18/25 21:00 02/17/25 20:59 01/18/25 21:17 20 MG Glucagon (Glucagon 1mg Kit) 1 mg AD PRN IM HYPOGLYCEMIA PROTOCOL 01/18/25 20:00 02/17/25 19:59 Insulin Human Regular (humuLIN R 100 UNIT/ML 3ML) INSULIN SLIDING SCAL... ACHS SQ 01/18/25 21:00 02/17/25 20:59 01/19/25 07:30 6 UNIT Magnesium Sulfate 50 ml @ 0 mls/hr PROTOCOL PRN IV OTHER [SEE ORDER COMMENTS] 01/18/25 20:00 02/17/25 19:59 Ondansetron HCl (zoFRAN 4MG INJ) 4 mg Q6H PRN IV NAUSEA/VOMITING 01/18/25 20:00 02/17/25 19:59 Piperacillin Sod/ Tazobactam Sod 50 ml @ 12.5 mls/hr Q8H IV 01/19/25 04:00 01/29/25 03:59 01/19/25 13:29 12.5 MLS/HR Piperacillin Sod/ Tazobactam Sod (Zosyn 3.375gm+NS 50ml) 3.375 gm ONCE STAT IVPB 01/18/25 17:47 01/18/25 17:51 DC 01/18/25 19:34 3.375 GM Potassium Chloride 100 ml @ 100 mls/hr AD PRN IV POTASSIUM PROTOCOL 01/18/25 20:00 02/17/25 19:59 Potassium Chloride (K-Dur/Klor-Con 20meq) 20 meq AD PRN PO POTASSIUM PROTOCOL 01/18/25 20:00 02/17/25 19:59 Potassium Chloride (KCl 10% Elixir 20meq/15ml) 20 meq AD PRN PO POTASSIUM PROTOCOL 01/18/25 20:00 02/17/25 19:59 Sodium Chloride 1,000 ml @ 100 mls/hr Q10H IV 01/18/25 20:00 01/19/25 15:59 01/19/25 06:15 100 MLS/HR Vancomycin HCl 250 ml @ 125 mls/hr ONCE IV 01/18/25 20:00 01/18/25 20:33 DC Vancomycin HCl 250 ml @ 125 mls/hr Q12H IV 01/19/25 08:00 01/29/25 07:59 01/19/25 08:00 125 MLS/HR Vancomycin HCl (Vancomycin Protocol) 1 each AD IV 01/18/25 21:00 02/01/25 20:59 Vancomycin HCl (Vancomycin 1.5 Gm/250 ml Bag) 1.5 gm ONCE STAT IV 01/18/25 19:14 01/18/25 19:36 DC DIAGNOSTICS / RADIOLOGY: [ ] ASSESSMENT: Infected right great toe diabetic wound ulcer rule out osteomyelitis POA Right foot cellulitis POA Hyperglycemia due to uncontrolled diabetes POA Severe leukocytosis POA Medical noncompliance POA Obesity POA Sirs with organ dysfunction POA Suspected urinary tract infection POA PLAN: We will admit patient in medical surgical We will start on consistent carb diet We will start NS @ 100 ml / hr x2 bags and re evaluate We will continue Zosyn and vancomycin for broad-spectrum coverage We will start on Famotidine 20 mg p.o. bid for GI prophylaxis We will replace electrolytes as needed per protocol We will start on insulin sliding scale AC & HS with hypoglycemia protocol We will add prn medication for fever,pain,cough, nausea and vomiting We will request neurovascular check q.4 hoursI We will seek podiatry consultation We will seek Infectious Disease consultation We will obtain MRI without contrast of the right foot We will request labs in am Follow-up urine culture result Further orders to follow depending on above results Case discussed with attending physician and came up with above treatment and plan of care. ATTESTATION BY PHYSICIAN I have seen and examined the patient. I reviewed the documentation, medical decision making, and treatment plan as noted by the resident provider above. I agree with the findings and plan of care. Aston Rascon MD, NIHITHA MD Jan 19, 2025 14:17
[2025-01-19] MEDS ORDERED: MIDAZOLAM HCL 1 MG/ML 2ML VIAL ONE ×2 (16:22→17:14)
[2025-01-19] MEDS ORDERED: LIDOCAINE PF 100MG/5ML (2%) SYRINGE 5ML ONE (16:22)
[2025-01-19] MEDS ORDERED: GLYCOPYRROLATE 0.2 MG/ML 5 ML VIAL ONE (16:24)
--- NOTE | 2025-01-19 17:53 | NUR ---
Attempted PT eval , Per order patient in ER 9. Per ER Charge patient went to OR. Per EMR patient out of surgery at 1740. PT team to follow in am
--- NOTE | 2025-01-19 19:35 | CONS ---
INFECTIOUS DISEASE CONSULTATION NOTE Date of Service: Jan 19, 2025 Reason for Consultation: [ ] Requesting Physician: [ ] HISTORY OF PRESENT ILLNESS: Patient is a 44 yr old female with a past medical history of Diabetes mellitus and medication non-compliance who presented to the emergency room with a 2 week history of ulceration and pain to the right great toe. Patient states that he went to [employer] was tolf he had an infection and was given an intramuscular injection. Patient states that the discoloration, selling and pain increased and she noticed a foul odor from the wound. Patient decided to come to the ER for evaluation and management. There is associated fever, chills, nausea or vomiting. States she has no PCP and does not take medications for her Diabetes. In the ED, patient was febrile with a temperature of 100.2F. Labs showed a WBC of 32 with a negative left shift of neutrophils, CRP 311, Procal 0.69 and [id number]. Xray of the foot showed soft tissue edema and emphysema within the right great toe. . No radiographihc evidence of osteomyelitis see. An MRI was ordered. Pending the results. Lying in bed at the time of evaluation. Alert and oriented and in no obvious distress. Patient was afebrile with a temperature of 99.5F Assessment of the patient showed a gangrenous right great toe with a foul odor emanating. Patient is currently on Vancomycin and Zosyn. Patient was seen by Dr Ariza the core man this morning. The need for an amputation was explained however patient refused to consent to the procedure. We will continue with the antibiotics and fluids as ordered. Pending results of blood, urine and wound cultures. REVIEW OF SYSTEMS CONSTITUTIONAL: Denies fever, chills, or fatigue. HEAD/FACE: No signs of trauma. EENT: Denies eye pain, blurred vision, double vision, or light sensitivity. RESPIRATORY: Denies shortness of breath, cough, wheezing CARDIOVASCULAR: Denies chest pain, palpitation, syncope GASTROINTESTINAL/ABDOMINAL: Denies abdominal pain, constipation, diarrhea, nausea or vomiting GENITOURINARY: Denies dysuria or hematuria. MUSCULOSKELETAL: Denies joint pain, Pain , discoloration and swelling of right great toe. INTEGUMENTARY: Denies rash or itchiness NEUROLOGICAL/PSYCH: Denies anxiety, depression, heat or cold intolerance. PAST MEDICAL HISTORY: Diabetes mellitus type 2 PAST SURGICAL HISTORY: [ ] PAST SOCIAL HISTORY: [ ] FAMILY HISTORY: [ ] Coded Allergies: No Known Allergies (Unverified Allergy, Unknown, 05/17/23) PHYSICAL EXAM EYES: Anicteric. Pupils equal and reactive. HENT: No oral thrush seen, moist Oral mucosa NECK: Supple, no JVD or thyromegaly. LUNGS: Good air entry. No rales, no rhonchi. CARDIOVASCULAR: S1, S2 regular. No murmur heard. ABDOMEN: Soft, non tender, bowel sounds present, no organomegaly CENTRAL NERVOUS SYSTEM: Awake, alert, oriented x 3. No focal deficits. SKIN: No rashes, no swelling. LYMPHATICS: No peripheral lymphadenopathy MUSCULOSKELETAL: No joint swelling, erythema or tenderness. EXTREMITIES: Gangrenous , foul smelling right great toe BACK: No deformity, no pressure ulcer. GENITOURINARY: No dysuria or hematuria Vital Sign (Last 24 Hours) 01/19/25 01/19/25 01/19/25 09:04 17:45 18:15 Temp 97.2 Pulse 73 Resp 16 B/P (MAP) 119/61 Pulse Ox 100 O2 Delivery Room Air O2 Flow Rate 10.0 FiO2 21 LABS: Laboratory: Test 01/19/25 12:54 01/19/25 06:56 01/18/25 18:16 01/18/25 18:12 Range/Units Whole Blood Glucose 198 H 70-110 MG/DL White Blood Count 26.9 H 4.8-10.8 K/uL Red Blood Count 4.12 4.00-5.50 MIL/uL Hemoglobin 11.8 L 12.0-16.0 g/dL Hematocrit 35.7 L 36-48 % Mean Corpuscular Volume 86.7 79-99 fL Mean Corpuscular Hemoglobin 28.6 27.0-33.0 pg Mean Corpuscular Hemoglobin Concent 33.1 32.0-36.0 g/dL Red Cell Distribution Width 13.4 11.0-15.5 % Platelet Count 334 130-400 K/uL Mean Platelet Volume 11.0 H 7.5-10.5 fL Immature Granulocyte % (Auto) 2.5 H 0-1 % Neutrophils (%) (Auto) 77.4 H 40.0-77.0 % Lymphocytes (%) (Auto) 12.7 L 21.0-51.0 % Monocytes (%) (Auto) 7.1 3.0-13.0 % Eosinophils (%) (Auto) 0.0 0.0-8.0 % Basophils (%) (Auto) 0.3 0.0-5.0 % Neutrophils # (Auto) 20.8 H 1.8-7.7 K/uL Lymphocytes # (Auto) 3.4 1.0-4.8 K/uL Monocytes # (Auto) 1.9 H 0.1-1.0 K/uL Eosinophils # (Auto) 0.01 0.00-0.70 K/uL Basophils # (Auto) 0.07 0.00-0.20 K/uL Absolute Immature Granulocyte (auto 0.67 0-1 K/uL Nucleated Red Blood Cells 0.0 0.0-0.19 % Erythrocyte Sedimentation Rate 105 H 0-20 MM/HR Sodium Level 135 L 136-145 mmol/L Potassium Level 4.0 3.5-5.1 mmol/L Chloride Level 101 101-111 mmol/L Carbon Dioxide Level 23 21-32 mmol/L Blood Urea Nitrogen 12 7-18 mg/dL Creatinine 0.6 0.5-1.0 mg/dL Glomerular Filtration Rate Calc 113 >90 mL/min Random Glucose 343 H 70-105 mg/dL Total Calcium 8.2 L 8.5-10.1 mg/dL Magnesium Level 2.00 1.80-2.40 mg/dL Total Bilirubin 0.4 0.2-1.0 mg/dL Aspartate Amino Transf (AST/SGOT) 11 10-37 U/L Alanine Aminotransferase (ALT/SGPT) 24 12-78 U/L Alkaline Phosphatase 149 H 50-136 U/L C-Reactive Protein, Quantitative 311.80 H 0.5-3.0 mg/L Total Protein 6.8 6.0-8.3 g/dL Albumin 1.6 L 3.5-5.0 g/dL Urine Color LIGHT-YELLOW YELLOW Urine Appearance CLEAR CLEAR Urine pH 5.5 5.0-8.0 Urine Specific [place] 1.040 H 1.001-1.031 Urine Protein 10 H NEGATIVE mg/dL Urine Glucose (UA) >=1000 H NEGATIVE mg/dL Urine Ketones 150 H NEGATIVE mg/dL Urine Occult Blood MODERATE H NEGATIVE Urine Nitrate NEGATIVE NEGATIVE Urine Bilirubin NEGATIVE NEGATIVE mg/dL Urine Urobilinogen 0.2 0.2-1.0 mg/dL Urine Leukocyte Esterase NEGATIVE NEGATIVE Ericka/uL Urine RBC 11-25 H 0-1 /HPF Urine WBC 6-10 H 0-1 /HPF Urine Squamous Epithelial Cells FEW 0-2 /HPF Urine Bacteria RARE None Seen /HPF Urine Yeast RARE None Seen /HPF Differential Comment White Cell Morphology Comment See comments Platelet Morphology Comment PLT CLUMPS PRESENT Red Blood Cell Morphology Lactic Acid Level 1.7 0.8-2.5 mmol/L Total Creatine Kinase 21 21-232 U/L Troponin I High Sensitivity < 4 L 4-50 ng/L Procalcitonin 0.69 H 0.05-0.5 ng/mL DIAGNOSTICS / RADIOLOGY: PATIENT: BHUMIKA OSWALD MR#: [id number] : 1980 SEX: F AGE: 44 LOCATION: [facility] ORDER 48 STATUS: [facility] REPORT#: [id number] SERVICE 46 REASON: great toe wound ORDERING PHYSICIAN: SHARON ZHAO NP PROCEDURE: FT 3VW RT - FOOT COMP 3+VWS RT EXAM: CR right foot, 3 View. CLINICAL HISTORY: great toe wound COMPARISON: None provided. FINDINGS: Soft tissue edema and emphysema within the right great toe. There is no radiopaque foreign body identified. Bones appear within normal limits without fracture or evidence of periostitis. Joint spaces remain anatomically aligned. IMPRESSION: 1. Soft tissue edema and emphysema of the right great toe. There is no radiographic evidence for osteomyelitis; however, if clinical concern persists recommend contrast-enhanced MRI of the forefoot for further evaluation. /[place] DICTATED BY: CEDRIC ROY Jr., MD DATE: 01/18/252034 ELECTRONICALLY SIGNED BY: CEDRIC ROY Jr., MD DATE: 01/18/252034 ASSESSMENT: Gangrenous right great toe POA Right foot cellulitis POA Hyperglycemia due to uncontrolled diabetes POA Severe leukocytosis POA Medical noncompliance POA Obesity PLAN: Continue Zosyn and vancomycin for broad-spectrum coverage Continue on NS @ 100 ml / hr x2 bags for adequate hydration Continue on Famotidine 20 mg p.o. bid for GI prophylaxis Replace electrolytes as needed per protocol Continue on insulin sliding scale AC & HS with hypoglycemia protocol Continue on prn medication for fever,pain,cough, nausea and vomiting Podiatry is on the case. MRI without contrast of the right foot ordered We will request labs in am Follow-up urine culture result ATTESTATION BY PHYSICIAN I have seen and examined the patient. I reviewed the documentation, medical decision making, and treatment plan as noted by the resident provider above. I agree with the findings and plan of care. Hunter Dewitt MD OBI,MARQUISE Diaz MD Jan 19, 2025 19:35
[2025-01-19] MEDS: HYDROcodone/APAP 5/325 1 TAB TABLET PO PRN (21:51)
[2025-01-20] VITALS (7 sets, daily range): BP systolic 102–138; BP diastolic 63–79; PULSE 83–91; RESP 18–19; TEMP 97.7–99.6; O2SAT 94–96
[2025-01-20] MEDS: CLINDAMYCIN IVPB 900MG/50ML 50 ML IV SCH (00:44)
[2025-01-20 06:48] LABS: IMMATURE GRANULOCYTE ABSOLUTE 0.47 K/uL (0-1); NUCLEATED RED BLOOD CELLS 0.0 % (0.0-0.19); PLATELET COUNT (AUTO) 293 K/uL (130-400); RED BLOOD CELL COUNT(AUTO) 3.85 MIL/uL (4.00-5.50); RED CELL DISTRIBUTION WIDTH 13.6 % (11.0-15.5); WHITE BLOOD COUNT (AUTO) 25.8 K/uL (4.8-10.8)
[2025-01-20 06:59] LABS: CREATININE 0.6 mg/dL (0.5-1.0); GLOMERULAR FILTR. RATE CALC 113.0 mL/min (>90); GLUCOSE,RANDOM 268.0 mg/dL (70-105); SODIUM SERUM 138.0 mmol/L (136-145); UREA NITROGEN, BLOOD 9.0 mg/dL (7-18)
--- NOTE | 2025-01-20 07:23 | HMCIMG ---
EXAMINATION: NONCONTRAST MRI OF THE RIGHT FOOT. CLINICAL HISTORY: Right foot pain. Suspected osteomyelitis. COMPARISON: None provided. TECHNIQUE: Multiplanar, multisequence MR images of the right foot were obtained. FINDINGS: There is cutaneous and subcutaneous irregularity involving the great toe with multifocal great toe distal phalanx erosions, osseous remodeling and associated mild marrow edema. There is diffuse moderate to marked forefoot cutaneous thickening along the medial aspect with associated moderate to marked subcutaneous edema and associated marked plantar intrinsic foot muscle edema. There is no discrete drainable collection is seen. There is advanced first metatarsophalangeal joint osteoarthrosis with joint fluid. There is small second and third metatarsophalangeal joint fluid. There is small second and third webspace fluid and metatarsal head level. Visualized extensor and flexor tendons are normal in course and morphology without evidence of tenosynovitis. IMPRESSION: 1. Findings concerning for right great toe osteomyelitis with osseous erosions, marrow edema, and associated soft tissue inflammation. 2. Advanced first metatarsophalangeal joint osteoarthrosis with joint effusion. /[place]
--- NOTE | 2025-01-20 09:23 | OP ---
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 PROCEDURE PERFORMED: Right transmetatarsal amputation. SURGEON: Maninder Pacheco MD ANESTHESIA: Sedation and block by BOO García. 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 ESTIMATED BLOOD LOSS: 100 mL. SPECIMEN: Right forefoot. COMPLICATIONS: None. INDICATIONS FOR PROCEDURE: This is a 44-year-old female, a longstanding diabetic who quit taking her metformin and insulin because she lost her insurance and could not afford it. She then began having pain and swelling in her great toe that progressed to her toe turning black, then became foul smelling. She came to the Emergency Room where she was diagnosed to have wet gangrene. Originally seen by Dr. Ariza and at the time, she was refusing surgery. After she consented to consider surgery, I was called for consultation. I recommended TMA and after lengthy discussions, the patient consented for the TMA. OPERATIVE COURSE: After informed written consent and identification of the correct operative site in the preoperative holding area, the patient was taken to the operating suite and placed in the supine position. She was then given blocks and sedation by BOO García, and the right lower extremity was prepped and draped in the usual sterile manner using Betadine scrub. After a timeout, we made a fish mouth incision slightly more distal on the plantar side and the mid forefoot. This was taken through the subcutaneous deep fascia. We opened across the metatarsals beveling proximally. We used electrocautery and 2-0 Vicryl sutures to obtain hemostasis. We completed full-thickness along the periosteum on the plantar side as well. We then used an oscillating microsaw doing osteotomies on all 5 metatarsals. We were then able to pass off the specimen. Again, using electrocautery and 2-0 Vicryl stitches for hemostasis. We then beveled, contoured our osteotomies with a saw. We irrigated thoroughly with saline. We removed some of the flexor tendons and extensor tendons that were exposed. We then closed full-thickness flaps, brought the plantar fascia up and placed multiple interrupted vertical mattress sutures. We then placed simple interrupted 2-0 nylon sutures. We applied a clean and dry sterile dressing to include Xeroform, 4 x 4's, and a Kerlix. The drapes were removed, the patient was transferred to the hospital bed, revived, and taken to the recovery room in satisfactory condition. All needle counts, sponge counts, and instrument counts were correct. TID: [id number] RECEIPT: [id number] [facility]
--- NOTE | 2025-01-20 10:24 | PN ---
INFECTIOUS DISEASE FOLLOWUP NOTE DATE OF SERVICE: 01/19/2025 SUBJECTIVE: The patient is seen and examined at bedside. The patient initially was evaluated by Podiatry and was refusing surgery. The patient remains septic. Tolerating antibiotics. PHYSICAL EXAMINATION: VITAL SIGNS: Temperature 99.8. EYES: No icterus. Pupils equal and reactive. HENT: No oral thrush seen. Moist oral mucosa. NECK: Supple. No JVD or thyromegaly. LUNGS: Good air entry. No rales. No rhonchi. CARDIOVASCULAR SYSTEM: S1 and S2 regular. No murmur heard. ABDOMEN: Full, soft, nontender. Bowel sounds are present. Obese. No organomegaly. CENTRAL NERVOUS SYSTEM: Awake, alert, oriented x 3. No focal deficits. SKIN: No rashes, no itchiness. LYMPHATIC: There is right inguinal lymphadenopathy. BACK: No deformity. No pressure ulcer. EXTREMITIES: Necrosis and gangrene involving the right foot particulary into right great toe. LABORATORY DATA: WBC 26.9, hemoglobin 11.8, platelets 334. Sodium 135, potassium 4.0, BUN 12, creatinine 0.6. ASSESSMENT: A 44-year-old female presented with right foot pain. CURRENT PROBLEMS: Include: * Right foot osteomyelitis. * Right foot gas gangrene. * Diabetic foot ulcer. * Leukocytosis. * The patient with medical noncompliance. PLAN: * Continue Zosyn. * Continue vancomycin. * The patient will be given . * Continue pain management. * Continue antidiabetic. * Continue nutritional support. * Monitor electrolytes. * The patient will be followed up closely. TID: [id number] RECEIPT: [id number]
--- NOTE | 2025-01-20 10:32 | PN ---
[facility] PROGRESS NOTE Date of Service: Jan 20, 2025 Time of Service: 10:13 SUBJECTIVE: This is a 44-year-old female with past medical history of diabetes and medical noncompliance who presents to the ED for complaints of right great toe wound ulcer and right foot pain.Patient reports on of last week she did not feel good ,she was dizzy,having chills and shortness of breath so she went to a [facility] clinic were she was told she has Flu and was prescribed with prednisone 10 mg daily,Naproxen and Tamiflu and after taking it the following day she noticed her right great toe has purple and whitish discoloration so she went to [place] today where she was given an IM injection was told for infection she said and on her way back home she noticed that her right great toe was hurting and her foot was getting swollen and red and her right great toe ulcer was smelling foul odor .Patient states she does not have a PCP and that sheis not taking any medication at home except for those 3 new med prescribed for her Flu she said. Seen and examined patient in the ER awake,alert and coherent,appears comfortable,patient denies sore throat, cough, nausea,vomiting ,abdominal pain,chest pain,palpitation and shortness of breath. Latest vital signs temperature a 100.2, heart rate 86, blood pressure 121/67 saturation 98% room air. WBC 32 with negative left shift of neutrophils 80, hemoglobin 13, he matocrit 41, platelet count 351. Sodium 124, chloride 97, glucose 327, CRP 338, procalcitonin 0.69. Urinalysis significant for protein, glucose, ketones, urine RBC 11-25, urine WBC 6-10. X-ray of the right foot result revealed soft tissues edema and emphysema of the right great toe there is no radiographic evidence for osteomyelitis however if clinical concern persists recommend contrast enhanced MRI of the right foot for further evaluation. While in the ER patient received fluid resuscitation of NS 30 mL/kilogram over 3 hours, Zosyn IV and vancomycin IV we will admit patient for further medical management. 01/19/25 Patient was seen and examined at bedside. She had a temperature of 100 last night, other vitals are stable. She does not take medications for diabetes and does not have a PCP. She first noticed an ulcer on her right foot two weeks ago that eventually developed into foul smelling gas gangrene. Podiatry consult was placed as X-rays showed evidence of osteomyelitis and soft tissue gangrene involving the right first metatarsal. Given the emergent nature of the infection, podiatry recommended a first-ray amputation on the same day. However, the patient initially declined the procedure, expressing a desire to first discuss the situation with family members. She also mentioned the possibility of signing AMA but was advised to reconsider if she changes her decision. In the meantime, an orthopedic surgery consult was placed to evaluate for the possibility of a below-knee amputation , given the extent of infection and urgency of intervention. 01/20/25 Patient was seen and examined at bedside. She had a TMA done by Dr. Pacheco yesterday with no complications. She is currently on vancomycin and zosyn. We will follow ID recommendations on IV antibiotics and discharge plan whether to send her to SNF or f/u outpatient at [facility] for iv antibiotics. She denies any pain or swelling or tenderness over the surgery site. Her glucose is uncontrolled and will adjust her insulin. REVIEW OF SYSTEMS CONSTITUTIONAL: Positive fever Denies chills, or night sweats. No unintentional weight loss reported. NEUROLOGICAL: Denies headache, amaurosis fugax, motor weakness, sensory deficit, vertigo/spinning sensation, gait abnormalities, or tremors. ENT: No hearing loss, otalgia, otorrhea, rhinitis, rhinorrhea, hoarseness, or sore throat. CARDIOVASCULAR: Denies any exertional angina, dyspnea on exertion, orthopnea, paroxysmal nocturnal dyspnea, palpitations, life-threatening arrhythmias, claudication. PULMONARY: Denies any shortness of breath, cough, phlegm/sputum, hemoptysis, pleuritic chest pain. SLEEP: Denies morning headaches, daytime somnolence or napping. Denies difficulty falling asleep, staying asleep, waking from sleep. Denies knowledge of snoring. GASTROINTESTINAL: Denies any type of dysphagia to either liquids or solids. De nies nausea, vomiting, pyrosis, early satiety, abdominal pain, diarrhea, constipation, or changes in stool consistency or caliber. Denies coffee-ground emesis, hematemesis, hematochezia, or melanotic stools. GENITOURINARY: Denies frequency, urgency, nocturia, hematuria or incontinence (Storage/Irritative symptoms.) Low urinary stream, straining to void, urinary intermittency or hesitancy, splitting of the voiding stream, terminal dribbling. ENDOCRINOLOGIC: Denies polyuria, polydipsia, polyphagia or heat/cold intolerances. HEMATOLOGIC: Denies thrombophilia/previous clots, or coagulopathy/bleeding disorders. ONCOLOGIC: Denies personal history of malignancy. DERMATOLOGIC: Denies rashes or pruritus. PSYCHIATRIC: Denies any suicidal or homicidal ideation. Denies hallucinations. PHYSICAL EXAM GENERAL APPEARANCE: The patient is awake, alert, and oriented, in no acute cardiopulmonary distress. NEUROLOGICAL: Cranial nerves II-XII grossly intact. Motor is 5/5 in bilateral upper and lower extremities proximal to distal. No sensory deficits. HEENT: Face is symmetric. Pupils are equal and reactive. Extraocular movements are intact. NECK: Supple. No JVD. No thyromegaly. No submental, submandibular, pre- /postauricular, occipital or supraclavicular lymphadenopathy. CHEST: Normal chest expansion. No Telemetry. LUNGS: Absence of any rales, rhonchi or any wheezing. CARDIOVASCULAR: Regular. S1 and S2 normal. No appreciable rubs, murmurs or gallops. ABDOMEN: Soft, nontender, and nondistended. There is no rebound, voluntary guarding, or rigidity. : Deferred. No [place]. EXTREMITIES: Right foot swollen positive erythema SKIN: Right great toe wound ulcer Vital Signs (last 8hr) Date Time Temp Pulse Resp B/P (MAP) Pulse Ox O2 Delivery O2 Flow Rate FiO2 01/20/25 08:00 99.5 84 18 138/69 99 Room Air 01/20/25 04:50 98.4 83 19 124/79 96 Room Air LABS: Laboratory: Test 01/20/25 06:41 01/20/25 06:13 01/19/25 06:56 01/18/25 18:16 Range/Units White Blood Count 25.8 H 4.8-10.8 K/uL Red Blood Count 3.85 L 4.00-5.50 MIL/uL Hemoglobin 11.0 L 12.0-16.0 g/dL Hematocrit 33.4 L 36-48 % Mean Corpuscular Volume 86.8 79-99 fL Mean Corpuscular Hemoglobin 28.6 27.0-33.0 pg Mean Corpuscular Hemoglobin Concent 32.9 32.0-36.0 g/dL Red Cell Distribution Width 13.6 11.0-15.5 % Platelet Count 293 130-400 K/uL Mean Platelet Volume 10.7 H 7.5-10.5 fL Immature Granulocyte % (Auto) 1.8 H 0-1 % Neutrophils (%) (Auto) 78.0 H 40.0-77.0 % Lymphocytes (%) (Auto) 12.1 L 21.0-51.0 % Monocytes (%) (Auto) 7.8 3.0-13.0 % Eosinophils (%) (Auto) 0.1 0.0-8.0 % Basophils (%) (Auto) 0.2 0.0-5.0 % Neutrophils # (Auto) 20.1 H 1.8-7.7 K/uL Lymphocytes # (Auto) 3.1 1.0-4.8 K/uL Monocytes # (Auto) 2.0 H 0.1-1.0 K/uL Eosinophils # (Auto) 0.03 0.00-0.70 K/uL Basophils # (Auto) 0.06 0.00-0.20 K/uL Absolute Immature Granulocyte (auto 0.47 0-1 K/uL Nucleated Red Blood Cells 0.0 0.0-0.19 % Sodium Level 138 136-145 mmol/L Potassium Level 3.9 3.5-5.1 mmol/L Chloride Level 104 101-111 mmol/L Carbon Dioxide Level 24 21-32 mmol/L Blood Urea Nitrogen 9 7-18 mg/dL Creatinine 0.6 0.5-1.0 mg/dL Glomerular Filtration Rate Calc 113 >90 mL/min Random Glucose 268 H 70-105 mg/dL Total Calcium 8.0 L 8.5-10.1 mg/dL Vancomycin Level Trough 11.4 10.0-20.0 UG/ML Whole Blood Glucose 254 H 70-110 MG/DL Erythrocyte Sedimentation Rate 105 H 0-20 MM/HR Magnesium Level 2.00 1.80-2.40 mg/dL Total Bilirubin 0.4 0.2-1.0 mg/dL Aspartate Amino Transf (AST/SGOT) 11 10-37 U/L Alanine Aminotransferase (ALT/SGPT) 24 12-78 U/L Alkaline Phosphatase 149 H 50-136 U/L C-Reactive Protein, Quantitative 311.80 H 0.5-3.0 mg/L Total Protein 6.8 6.0-8.3 g/dL Albumin 1.6 L 3.5-5.0 g/dL Urine Color LIGHT-YELLOW YELLOW Urine Appearance CLEAR CLEAR Urine pH 5.5 5.0-8.0 Urine Specific [place] 1.040 H 1.001-1.031 Urine Protein 10 H NEGATIVE mg/dL Urine Glucose (UA) >=1000 H NEGATIVE mg/dL Urine Ketones 150 H NEGATIVE mg/dL Urine Occult Blood MODERATE H NEGATIVE Urine Nitrate NEGATIVE NEGATIVE Urine Bilirubin NEGATIVE NEGATIVE mg/dL Urine Urobilinogen 0.2 0.2-1.0 mg/dL Urine Leukocyte Esterase NEGATIVE NEGATIVE Ericka/uL Urine RBC 11-25 H 0-1 /HPF Urine WBC 6-10 H 0-1 /HPF Urine Squamous Epithelial Cells FEW 0-2 /HPF Urine Bacteria RARE None Seen /HPF Urine Yeast RARE None Seen /HPF Test 01/18/25 18:12 Range/Units Differential Comment White Cell Morphology Comment See comments Platelet Morphology Comment PLT CLUMPS PRESENT Red Blood Cell Morphology Lactic Acid Level 1.7 0.8-2.5 mmol/L Total Creatine Kinase 21 21-232 U/L Troponin I High Sensitivity < 4 L 4-50 ng/L Procalcitonin 0.69 H 0.05-0.5 ng/mL Current Medications Medications (Trade) Dose Ordered Sig/Padilla Route PRN Reason Start Time Stop Time Status Last Admin Dose Admin Acetaminophen (TYLenol 325MG TAB) 650 mg Q4H PRN PO MILD PAIN (1-3) 01/18/25 20:00 02/17/25 19:59 Acetaminophen (TYLenol 325MG TAB) 650 mg Q6H PRN PO TEMPERATURE GREATER THAN 101.5 01/18/25 20:00 02/17/25 19:59 Acetaminophen/ Hydrocodone Bitart (NORco 5/325MG) 1 tab Q4H PRN PO MODERATE PAIN (4-6) 01/18/25 20:00 01/23/25 19:59 01/19/25 21:51 1 TAB Acetaminophen/ Hydrocodone Bitart (NORco 5/325MG) 2 tab Q4H PRN PO SEVERE PAIN (7-10) 01/18/25 20:00 01/23/25 19:59 Clindamycin HCl/ Dextrose 50 ml @ 100 mls/hr Q8H IV 01/20/25 00:30 01/20/25 09:36 DC 01/20/25 09:02 100 MLS/HR Dextrose (D50w) 50 ml AD PRN IV HYPOGLYCEMIA PROTOCOL 01/18/25 20:00 02/17/25 19:59 Famotidine (Pepcid 20mg Tab) 20 mg BID PO 01/18/25 21:00 02/17/25 20:59 01/20/25 09:02 20 MG Glucagon (Glucagon 1mg Kit) 1 mg AD PRN IM HYPOGLYCEMIA PROTOCOL 01/18/25 20:00 02/17/25 19:59 Insulin Human Regular (humuLIN R 100 UNIT/ML 3ML) INSULIN SLIDING SCAL... ACHS SQ 01/18/25 21:00 02/17/25 20:59 01/20/25 06:29 5 UNIT Magnesium Sulfate 50 ml @ 0 mls/hr PROTOCOL PRN IV OTHER [SEE ORDER COMMENTS] 01/18/25 20:00 02/17/25 19:59 Ondansetron HCl (zoFRAN 4MG INJ) 4 mg Q6H PRN IV NAUSEA/VOMITING 01/18/25 20:00 02/17/25 19:59 Piperacillin Sod/ Tazobactam Sod 50 ml @ 12.5 mls/hr Q8H IV 01/19/25 04:00 01/29/25 03:59 01/20/25 04:07 12.5 MLS/HR Piperacillin Sod/ Tazobactam Sod (Zosyn 3.375gm+NS 50ml) 3.375 gm ONCE STAT IVPB 01/18/25 17:47 01/18/25 17:51 DC 01/18/25 19:34 3.375 GM Potassium Chloride 100 ml @ 100 mls/hr AD PRN IV POTASSIUM PROTOCOL 01/18/25 20:00 02/17/25 19:59 Potassium Chloride (K-Dur/Klor-Con 20meq) 20 meq AD PRN PO POTASSIUM PROTOCOL 01/18/25 20:00 02/17/25 19:59 Potassium Chloride (KCl 10% Elixir 20meq/15ml) 20 meq AD PRN PO POTASSIUM PROTOCOL 01/18/25 20:00 02/17/25 19:59 Sodium Chloride 1,000 ml @ 100 mls/hr Q10H IV 01/18/25 20:00 01/19/25 15:59 DC 01/19/25 06:15 100 MLS/HR Vancomycin HCl 250 ml @ 125 mls/hr ONCE IV 01/18/25 20:00 01/18/25 20:33 DC Vancomycin HCl 250 ml @ 125 mls/hr Q12H IV 01/19/25 08:00 01/29/25 07:59 01/20/25 09:02 125 MLS/HR Vancomycin HCl (Vancomycin Protocol) 1 each AD IV 01/18/25 21:00 02/01/25 20:59 Vancomycin HCl (Vancomycin 1.5 Gm/250 ml Bag) 1.5 gm ONCE STAT IV 01/18/25 19:14 01/18/25 19:36 DC DIAGNOSTICS / RADIOLOGY: [ ] ASSESSMENT: Sepsis due to right freat toe osteomyelitis POA Infected right great toe diabetic wound ulcer rule out osteomyelitis POA Right foot cellulitis POA Hyperglycemia due to uncontrolled diabetes POA Severe leukocytosis POA Medical noncompliance POA Obesity POA Suspected urinary tract infection POA Post TMA of right foot day 1 PLAN: Everyday dressings and touch down weight bearing RLE with walker Consistent carb diet Continue Zosyn and vancomycin for broad-spectrum coverage Start on Famotidine 20 mg p.o. bid for GI prophylaxis Replace electrolytes as needed per protocol PT evaluation and CM evaluation ID, Ortho, Podiatry recommendations We will start on insulin sliding scale AC & HS with hypoglycemia protocol We will add prn medication for fever,pain,cough, nausea and vomiting We will request neurovascular check q.4 hours We will request labs in am Follow-up urine culture result Further orders to follow depending on above results ATTESTATION BY PHYSICIAN I have seen and examined the patient. I reviewed the documentation, medical decision making, and treatment plan as noted by the resident provider above. I agree with the findings and plan of care. Aston Rascon MD, NIHITHA MD Jan 20, 2025 10:32
--- NOTE | 2025-01-20 13:05 | CONS ---
ORTHOPEDIC CONSULTATION CHIEF COMPLAINT: Right foot and great toe pain, turning black and foul smelling. HISTORY OF PRESENT ILLNESS: This 44-year-old female who knows she has been a diabetic for many years, states that not long ago she lost her insurance. She had been taking metformin and insulin for her diabetes, but discontinued it due to her inability to buy it. Then, she states about a week ago, she noticed that her toe started swelling and then turning black and slowly worsening and began going up into the forefoot of her right foot. She subsequently came to the emergency room. She was diagnosed having dry gangrene of her right great toe with osteomyelitis and gas gangrene of the forefoot. Initially, Dr. Ariza saw her and recommended a first ray amputation that she initially refused. Subsequently, she consented, but Dr. Ariza has already doing cases, was not going to be able to see her until the next day and so, I was called for consultation. PAST MEDICAL HISTORY: The patient has a history of the above-mentioned longstanding diabetes and obesity. PAST SURGICAL HISTORY: Positive for cholecystectomy and section x 4. ALLERGIES: The patient has no known drug allergies. PHYSICAL EXAMINATION: GENERAL: A well-developed adult female appearing stated age of 44 years. She is pleasant, but very anxious and concerned. Her father and two children are at the bedside. EXTREMITIES: The patient's right foot is swollen and red with blisters around the medial and plantar side of her forefoot. Her great toe has frankly dry gangrenous up to the MTP joint. I cannot palpate a dorsal pedal pulse. Her foot is warm to the touch. 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 This tissue is relaxed and of normal color. It has more of a color distally of chronic vascular insufficiency. LABORATORY DATA: Upon admission, the patient's white count was 32.8 with a hemoglobin of 13.3. The patient's blood sugar was 268. IMAGING STUDIES: X-rays do show gas gangrene on the plantar side of her foot, more on the medial side. MRI scan demonstrates osteomyelitis of the toe with concerning for septic MTP joint. ASSESSMENT: Wet gangrene of the right forefoot. PLAN: After extensive discussions and explanations, the patient has consented to a TMA. I explained that she may eventually need a BKA, which she is very aggressive option and she is absolutely at this point is refusing. TID: [id number] RECEIPT: [id number] MTDD
--- NOTE | 2025-01-20 15:31 | PN ---
INFECTIOUS DISEASE PROGRESS NOTE Date of Service: Jan 20, 2025 SUBJECTIVE: Patient was seen at bedside in room 306. Patient is awake, alert and oriented x3. Patient is status post right transmetatarsal amputation day #1. Physical therapy to evaluate today. Patient had a low-grade fever of 99.5 this morning. There was a slight trending down of the WBC to 25.8. We will continue vancomycin and Zosyn and follow up on the cu ltures. PHYSICAL EXAM EYES: Anicteric. Pupils equal and reactive. HENT: No oral thrush seen, moist Oral mucosa. NECK: Supple, no JVD or thyromegaly. LUNGS: Good air entry. No rales, no rhonchi. CARDIOVASCULAR: S1, S2 regular. No murmur heard. ABDOMEN: Soft, non tender, bowel sounds present, no organomegaly. CENTRAL NERVOUS SYSTEM: Awake, alert, oriented x 3. SKIN: No rashes, no swelling. LYMPHATICS: No peripheral lymphadenopathy MUSCULOSKELETAL: No joint swelling, erythema or tenderness. EXTREMITIES: Right foot diabetic ulcer with gangrene, s/p right TMA BACK: No deformity, no pressure ulcer. GENITOURINARY: No dysuria or hematuria. Vital Sign (Last 12 Hours) 01/20/25 01/20/25 01/20/25 04:50 08:00 12:13 Temp 98.4 99.5 99.7 Pulse 83 84 91 Resp 19 18 18 B/P (MAP) 124/79 138/69 124/73 Pulse Ox 96 99 96 O2 Delivery Room Air Room Air Room Air LABS: Laboratory: Test 01/20/25 11:39 01/20/25 06:41 01/19/25 06:56 01/18/25 18:16 Range/Units Whole Blood Glucose 221 H 70-110 MG/DL White Blood Count 25.8 H 4.8-10.8 K/uL Red Blood Count 3.85 L 4.00-5.50 MIL/uL Hemoglobin 11.0 L 12.0-16.0 g/dL Hematocrit 33.4 L 36-48 % Mean Corpuscular Volume 86.8 79-99 fL Mean Corpuscular Hemoglobin 28.6 27.0-33.0 pg Mean Corpuscular Hemoglobin Concent 32.9 32.0-36.0 g/dL Red Cell Distribution Width 13.6 11.0-15.5 % Platelet Count 293 130-400 K/uL Mean Platelet Volume 10.7 H 7.5-10.5 fL Immature Granulocyte % (Auto) 1.8 H 0-1 % Neutrophils (%) (Auto) 78.0 H 40.0-77.0 % Lymphocytes (%) (Auto) 12.1 L 21.0-51.0 % Monocytes (%) (Auto) 7.8 3.0-13.0 % Eosinophils (%) (Auto) 0.1 0.0-8.0 % Basophils (%) (Auto) 0.2 0.0-5.0 % Neutrophils # (Auto) 20.1 H 1.8-7.7 K/uL Lymphocytes # (Auto) 3.1 1.0-4.8 K/uL Monocytes # (Auto) 2.0 H 0.1-1.0 K/uL Eosinophils # (Auto) 0.03 0.00-0.70 K/uL Basophils # (Auto) 0.06 0.00-0.20 K/uL Absolute Immature Granulocyte (auto 0.47 0-1 K/uL Nucleated Red Blood Cells 0.0 0.0-0.19 % Sodium Level 138 136-145 mmol/L Potassium Level 3.9 3.5-5.1 mmol/L Chloride Level 104 101-111 mmol/L Carbon Dioxide Level 24 21-32 mmol/L Blood Urea Nitrogen 9 7-18 mg/dL Creatinine 0.6 0.5-1.0 mg/dL Glomerular Filtration Rate Calc 113 >90 mL/min Random Glucose 268 H 70-105 mg/dL Total Calcium 8.0 L 8.5-10.1 mg/dL Vancomycin Level Trough 11.4 10.0-20.0 UG/ML Erythrocyte Sedimentation Rate 105 H 0-20 MM/HR Magnesium Level 2.00 1.80-2.40 mg/dL Total Bilirubin 0.4 0.2-1.0 mg/dL Aspartate Amino Transf (AST/SGOT) 11 10-37 U/L Alanine Aminotransferase (ALT/SGPT) 24 12-78 U/L Alkaline Phosphatase 149 H 50-136 U/L C-Reactive Protein, Quantitative 311.80 H 0.5-3.0 mg/L Total Protein 6.8 6.0-8.3 g/dL Albumin 1.6 L 3.5-5.0 g/dL Urine Color LIGHT-YELLOW YELLOW Urine Appearance CLEAR CLEAR Urine pH 5.5 5.0-8.0 Urine Specific [place] 1.040 H 1.001-1.031 Urine Protein 10 H NEGATIVE mg/dL Urine Glucose (UA) >=1000 H NEGATIVE mg/dL Urine Ketones 150 H NEGATIVE mg/dL Urine Occult Blood MODERATE H NEGATIVE Urine Nitrate NEGATIVE NEGATIVE Urine Bilirubin NEGATIVE NEGATIVE mg/dL Urine Urobilinogen 0.2 0.2-1.0 mg/dL Urine Leukocyte Esterase NEGATIVE NEGATIVE Ericka/uL Urine RBC 11-25 H 0-1 /HPF Urine WBC 6-10 H 0-1 /HPF Urine Squamous Epithelial Cells FEW 0-2 /HPF Urine Bacteria RARE None Seen /HPF Urine Yeast RARE None Seen /HPF Test 01/18/25 18:12 Range/Units Differential Comment White Cell Morphology Comment See comments Platelet Morphology Comment PLT CLUMPS PRESENT Red Blood Cell Morphology Hemoglobin A1c 13.9 H 4.8-5.6 % Lactic Acid Level 1.7 0.8-2.5 mmol/L Total Creatine Kinase 21 21-232 U/L Troponin I High Sensitivity < 4 L 4-50 ng/L Procalcitonin 0.69 H 0.05-0.5 ng/mL ASSESSMENT: Right foot diabetic ulcer with gas gangrene and osteomyelitis, s/p right transmetatarsal amputation. Leukocytosis. Uncontrolled diabetes mellitus, hemoglobin A1c 13.9.. Medical noncompliance. Obesity PLAN: Continue vancomycin per pharmacy protocol. Continue Zosyn. Continue GI prophylaxis. Continue antidiabetics. Continue pain management. Continue insulin coverage per pr protocol sliding scale. We will follow-up on the culture results This case was reviewed and discussed with my supervising physician and the above assessment and plan was formulated and agreed upon. ATTESTATION BY PHYSICIAN I have seen and examined the patient. I reviewed the documentation, medical decision making, and treatment plan as noted by the mid-level provider above. I agree with the findings and plan of care. GAUDENCIO SHANKAR MD, MIRTA L PSYCH SALES SPECIALIST Jan 20, 2025 15:31
[2025-01-20] MEDS: HYDROcodone/APAP 5/325 1 TAB TABLET PO PRN (16:03)
--- NOTE | 2025-01-20 19:53 | PN ---
PROGRESS NOTE SUBJECTIVE: The patient is postop day #1 from a right [facility]. She states she is already feeling better. She is having minimal pain. PHYSICAL EXAMINATION: GENERAL: The patient is lying in bed with her foot elevated and her daughter is at the bedside. The dressing is clean, dry, and in place. VITAL SIGNS: She is afebrile at 98.4 with a pulse of 82, respirations 19, blood pressure 124/79. LABORATORY DATA: White count has come down from 32.8 to 25.8, her hemoglobin is from 13.3 down to 11.0. The patient's blood sugar this morning is 293. ASSESSMENT: Postop day #1, right [facility]. PLAN: We will allow Internal Medicine to contour and prescribe antibiotic therapy. Pain medicines have already been written. She used to be touchdown weightbearing right lower extremity with a walker for transfers with physical therapy. TID: [id number] RECEIPT: [id number]
[2025-01-21] VITALS (9 sets, daily range): BP systolic 108–141; BP diastolic 63–78; PULSE 80–99; RESP 16–20; TEMP 97.4–99; O2SAT 94–97
[2025-01-21 06:06] LABS: IMMATURE GRANULOCYTE ABSOLUTE 0.58 K/uL (0-1); NUCLEATED RED BLOOD CELLS 0.0 % (0.0-0.19); PLATELET COUNT (AUTO) 281 K/uL (130-400); RED BLOOD CELL COUNT(AUTO) 3.60 MIL/uL (4.00-5.50); RED CELL DISTRIBUTION WIDTH 13.6 % (11.0-15.5); WHITE BLOOD COUNT (AUTO) 26.0 K/uL (4.8-10.8)
[2025-01-21 06:22] LABS: CREATININE 0.4 mg/dL (0.5-1.0); GLOMERULAR FILTR. RATE CALC 124.0 mL/min (>90); GLUCOSE,RANDOM 274.0 mg/dL (70-105); SODIUM SERUM 136.0 mmol/L (136-145); UREA NITROGEN, BLOOD 10.0 mg/dL (7-18)
[2025-01-21] MEDS: PoTASSium chloRIDE 20MEQ ER 20 MEQ ERTAB PO PRN (06:45)
--- NOTE | 2025-01-21 14:21 | PN ---
[facility] PROGRESS NOTE Date of Service: Jan 21, 2025 Time of Service: 14:18 SUBJECTIVE: This is a 44-year-old female with past medical history of diabetes and medical noncompliance who presents to the ED for complaints of right great toe wound ulcer and right foot pain.Patient reports on of last week she did not feel good ,she was dizzy,having chills and shortness of breath so she went to a [facility] night clinic were she was told she has Flu and was prescribed with prednisone 10 mg daily,Naproxen and Tamiflu and after taking it the following day she noticed her right great toe has purple and whitish discoloration so she went to [place] today where she was given an IM injection was told for infection she said and on her way back home she noticed that her right great toe was hurting and her foot was getting swollen and red and her right great toe ulcer was smelling foul odor .Patient states she does not have a PCP and that sheis not taking any medication at home except for those 3 new med prescribed for her Flu she said. Seen and examined patient in the ER awake,alert and coherent,appears comfortable,patient denies sore throat, cough, nausea,vomiting ,abdominal pain,chest pain,palpitation and shortness of breath. Latest vital signs temperature a 100.2, heart rate 86, blood pressure 121/67 saturation 98% room air. WBC 32 with negative left shift of neutrophils 80, hemoglobin 13, he matocrit 41, platelet count 351. Sodium 124, chloride 97, glucose 327, CRP 338, procalcitonin 0.69. Urinalysis significant for protein, glucose, ketones, urine RBC 11-25, urine WBC 6-10. X-ray of the right foot result revealed soft tissues edema and emphysema of the right great toe there is no radiographic evidence for osteomyelitis however if clinical concern persists recommend contrast enhanced MRI of the right foot for further evaluation. While in the ER patient received fluid resuscitation of NS 30 mL/kilogram over 3 hours, Zosyn IV and vancomycin IV we will admit patient for further medical management. 01/19/25 Patient was seen and examined at bedside. She had a temperature of 100 last night, other vitals are stable. She does not take medications for diabetes and does not have a PCP. She first noticed an ulcer on her right foot two weeks ago that eventually developed into foul smelling gas gangrene. Podiatry consult was placed as X-rays showed evidence of osteomyelitis and soft tissue gangrene involving the right first metatarsal. Given the emergent nature of the infection, podiatry recommended a first-ray amputation on the same day. However, the patient initially declined the procedure, expressing a desire to first discuss the situation with family members. She also mentioned the possibility of signing AMA but was advised to reconsider if she changes her decision. In the meantime, an orthopedic surgery consult was placed to evaluate for the possibility of a below-knee amputation , given the extent of infection and urgency of intervention. 01/20/25 Patient was seen and examined at bedside. She had a TMA done by Dr. Pacheco yesterday with no complications. She is currently on vancomycin and zosyn. We will follow ID recommendations on IV antibiotics and discharge plan whether to send her to SNF or f/u outpatient at [facility] for iv antibiotics. She denies any pain or swelling or tenderness over the surgery site. Her glucose is uncontrolled and will adjust her insulin. 01/21/25 Patient was seen and examined at bedside. She is hemodynamically stable, no acute events overnigt. She reports minimal pain to surgical site. As per Dr. Dewitt patient will stay over the weekend to complete the course of antibiotics. She is working with PT and is progressing towards goals. She denies any pain or swelling or tenderness over the surgery site REVIEW OF SYSTEMS CONSTITUTIONAL: Positive fever Denies chills, or night sweats. No unintentional weight loss reported. NEUROLOGICAL: Denies headache, amaurosis fugax, motor weakness, sensory deficit, vertigo/spinning sensation, gait abnormalities, or tremors. ENT: No hearing loss, otalgia, otorrhea, rhinitis, rhinorrhea, hoarseness, or so re throat. CARDIOVASCULAR: Denies any exertional angina, dyspnea on exertion, orthopnea, paroxysmal nocturnal dyspnea, palpitations, life-threatening arrhythmias, claudication. PULMONARY: Denies any shortness of breath, cough, phlegm/sputum, hemoptysis, pleuritic chest pain. SLEEP: Denies morning headaches, daytime somnolence or napping. Denies difficulty falling asleep, staying asleep, waking from sleep. Denies knowledge of snoring. GASTROINTESTINAL: Denies any type of dysphagia to either liquids or solids. Denies nausea, vomiting, pyrosis, early satiety, abdominal pain, diarrhea, constipation, or changes in stool consistency or caliber. Denies coffee-ground emesis, hematemesis, hematochezia, or melanotic stools. GENITOURINARY: Denies frequency, urgency, nocturia, hematuria or incontinence (Storage/Irritative symptoms.) Low urinary stream, straining to void, urinary intermittency or hesitancy, splitting of the voiding stream, terminal dribbling. ENDOCRINOLOGIC: Denies polyuria, polydipsia, polyphagia or heat/cold intolerances. HEMATOLOGIC: Denies thrombophilia/previous clots, or coagulopathy/bleeding disorders. ONCOLOGIC: Denies personal history of malignancy. DERMATOLOGIC: Denies rashes or pruritus. PSYCHIATRIC: Denies any suicidal or homicidal ideation. Denies hallucinations. PHYSICAL EXAM GENERAL APPEARANCE: The patient is awake, alert, and oriented, in no acute cardiopulmonary distress. NEUROLOGICAL: Cranial nerves II-XII grossly intact. Motor is 5/5 in bilateral upper and lower extremities proximal to distal. No sensory deficits. HEENT: Face is symmetric. Pupils are equal and reactive. Extraocular movements are intact. NECK: Supple. No JVD. No thyromegaly. No submental, submandibular, pre- /postauricular, occipital or supraclavicular lymphadenopathy. CHEST: Normal chest expansion. No Telemetry. LUNGS: Absence of any rales, rhonchi or any wheezing. CARDIOVASCULAR: Regular. S1 and S2 normal. No appreciable rubs, murmurs or gallops. ABDOMEN: Soft, nontender, and nondistended. There is no rebound, voluntary guarding, or rigidity. : Deferred. No Hyde. EXTREMITIES: Right foot swollen positive erythema SKIN: Right great toe wound ulcer Vital Signs (last 8hr) Date Time Temp Pulse Resp B/P (MAP) Pulse Ox O2 Delivery O2 Flow Rate FiO2 01/21/25 12:00 98.1 80 20 120/72 96 Room Air 21 01/21/25 08:59 97 Room Air* 0 21 01/21/25 08:00 97.9 85 19 118/74 97 Room Air 21 LABS: Laboratory: Test 01/21/25 11:39 01/21/25 05:26 01/20/25 06:41 Range/Units Whole Blood Glucose 260 H 70-110 MG/DL Bedside Glucose Comment Notified Nurse White Blood Count 26.0 H 4.8-10.8 K/uL Red Blood Count 3.60 L 4.00-5.50 MIL/uL Hemoglobin 10.2 L 12.0-16.0 g/dL Hematocrit 31.7 L 36-48 % Mean Corpuscular Volume 88.1 79-99 fL Mean Corpuscular Hemoglobin 28.3 27.0-33.0 pg Mean Corpuscular Hemoglobin Concent 32.2 32.0-36.0 g/dL Red Cell Distribution Width 13.6 11.0-15.5 % Platelet Count 281 130-400 K/uL Mean Platelet Volume 10.6 H 7.5-10.5 fL Immature Granulocyte % (Auto) 2.2 H 0-1 % Neutrophils (%) (Auto) 78.9 H 40.0-77.0 % Lymphocytes (%) (Auto) 11.5 L 21.0-51.0 % Monocytes (%) (Auto) 7.0 3.0-13.0 % Eosinophils (%) (Auto) 0.2 0.0-8.0 % Basophils (%) (Auto) 0.2 0.0-5.0 % Neutrophils # (Auto) 20.5 H 1.8-7.7 K/uL Lymphocytes # (Auto) 3.0 1.0-4.8 K/uL Monocytes # (Auto) 1.8 H 0.1-1.0 K/uL Eosinophils # (Auto) 0.06 0.00-0.70 K/uL Basophils # (Auto) 0.05 0.00-0.20 K/uL Absolute Immature Granulocyte (auto 0.58 0-1 K/uL Nucleated Red Blood Cells 0.0 0.0-0.19 % Sodium Level 136 136-145 mmol/L Potassium Level 3.5 3.5-5.1 mmol/L Chloride Level 103 101-111 mmol/L Carbon Dioxide Level 25 21-32 mmol/L Blood Urea Nitrogen 10 7-18 mg/dL Creatinine 0.4 L 0.5-1.0 mg/dL Glomerular Filtration Rate Calc 124 >90 mL/min Random Glucose 274 H 70-105 mg/dL Total Calcium 8.3 L 8.5-10.1 mg/dL Procalcitonin 0.30 0.05-0.5 ng/mL Vancomycin Level Trough 11.4 10.0-20.0 UG/ML Current Medications Medications (Trade) Dose Ordered Sig/Padilla Route PRN Reason Start Time Stop Time Status Last Admin Dose Admin Acetaminophen (TYLenol 325MG TAB) 650 mg Q4H PRN PO MILD PAIN (1-3) 01/18/25 20:00 02/17/25 19:59 Acetaminophen (TYLenol 325MG TAB) 650 mg Q6H PRN PO TEMPERATURE GREATER THAN 101.5 01/18/25 20:00 02/17/25 19:59 Acetaminophen/ Hydrocodone Bitart (NORco 5/325MG) 1 tab Q4H PRN PO MODERATE PAIN (4-6) 01/18/25 20:00 01/23/25 19:59 01/19/25 21:51 1 TAB Acetaminophen/ Hydrocodone Bitart (NORco 5/325MG) 2 tab Q4H PRN PO SEVERE PAIN (7-10) 01/18/25 20:00 01/23/25 19:59 01/20/25 22:27 2 TAB Clindamycin HCl/ Dextrose 50 ml @ 100 mls/hr Q8H IV 01/20/25 00:30 01/20/25 09:36 DC 01/20/25 09:02 100 MLS/HR Dextrose (D50w) 50 ml AD PRN IV HYPOGLYCEMIA PROTOCOL 01/18/25 20:00 02/17/25 19:59 Famotidine (Pepcid 20mg Tab) 20 mg BID PO 01/18/25 21:00 02/17/25 20:59 01/21/25 08:59 20 MG Glucagon (Glucagon 1mg Kit) 1 mg AD PRN IM HYPOGLYCEMIA PROTOCOL 01/18/25 20:00 02/17/25 19:59 Heparin Sodium (Porcine) (HEParin 5,000 UNIT VIAL) 5,000 unit Q12H SQ 01/21/25 09:00 02/20/25 08:59 01/21/25 09:06 5,000 UNIT Insulin Glargine (LANtus 100 UNITS/ML 10 ML VIAL) 9 units HS SQ 01/20/25 21:00 02/19/25 20:59 01/20/25 20:18 9 UNITS Insulin Human Regular (humuLIN R 100 UNIT/ML 3ML) 3 unit TIDAC SQ 01/21/25 07:30 02/20/25 07:29 01/21/25 13:03 3 UNIT Insulin Human Regular (humuLIN R 100 UNIT/ML 3ML) INSULIN SLIDING SCAL... ACHS SQ 01/18/25 21:00 02/17/25 20:59 01/21/25 13:04 5 UNIT Magnesium Sulfate 50 ml @ 0 mls/hr PROTOCOL PRN IV OTHER [SEE ORDER COMMENTS] 01/18/25 20:00 02/17/25 19:59 Ondansetron HCl (zoFRAN 4MG INJ) 4 mg Q6H PRN IV NAUSEA/VOMITING 01/18/25 20:00 02/17/25 19:59 Piperacillin Sod/ Tazobactam Sod 50 ml @ 12.5 mls/hr Q8H IV 01/19/25 04:00 01/29/25 03:59 01/21/25 12:57 12.5 MLS/HR Piperacillin Sod/ Tazobactam Sod (Zosyn 3.375gm+NS 50ml) 3.375 gm ONCE STAT IVPB 01/18/25 17:47 01/18/25 17:51 DC 01/18/25 19:34 3.375 GM Potassium Chloride 100 ml @ 100 mls/hr AD PRN IV POTASSIUM PROTOCOL 01/18/25 20:00 02/17/25 19:59 Potassium Chloride (K-Dur/Klor-Con 20meq) 20 meq AD PRN PO POTASSIUM PROTOCOL 01/18/25 20:00 02/17/25 19:59 01/21/25 06:45 20 MEQ Potassium Chloride (KCl 10% Elixir 20meq/15ml) 20 meq AD PRN PO POTASSIUM PROTOCOL 01/18/25 20:00 02/17/25 19:59 Sodium Chloride 1,000 ml @ 100 mls/hr Q10H IV 01/18/25 20:00 01/19/25 15:59 DC 01/19/25 06:15 100 MLS/HR Vancomycin HCl 250 ml @ 125 mls/hr ONCE IV 01/18/25 20:00 01/18/25 20:33 DC Vancomycin HCl 250 ml @ 125 mls/hr Q12H IV 01/19/25 08:00 01/29/25 07:59 01/21/25 08:59 125 MLS/HR Vancomycin HCl (Vancomycin Protocol) 1 each AD IV 01/18/25 21:00 02/01/25 20:59 Vancomycin HCl (Vancomycin 1.5 Gm/250 ml Bag) 1.5 gm ONCE STAT IV 01/18/25 19:14 01/18/25 19:36 DC DIAGNOSTICS / RADIOLOGY: [ ] ASSESSMENT: Sepsis due to right freat toe osteomyelitis POA Infected right great toe diabetic wound ulcer rule out osteomyelitis POA Right foot cellulitis POA Hyperglycemia due to uncontrolled diabetes POA Severe leukocytosis POA Medical noncompliance POA Obesity POA Suspected urinary tract infection POA Post TMA of right foot day 2 PLAN: Everyday dressings and touch down weight bearing RLE with walker Consistent carb diet Continue Zosyn and vancomycin for broad-spectrum coverage Start on Famotidine 20 mg p.o. bid for GI prophylaxis Replace electrolytes as needed per protocol PT evaluation and CM evaluation ID, Ortho, Podiatry recommendations We will start on insulin sliding scale AC & HS with hypoglycemia protocol We will add prn medication for fever,pain,cough, nausea and vomiting We will request neurovascular check q.4 hours We will request labs in am Follow-up urine culture result Further orders to follow depending on above results ATTESTATION BY PHYSICIAN I have seen and examined the patient. I reviewed the documentation, medical decision making, and treatment plan as noted by the resident provider above. I agree with the findings and plan of care. Aston Rascon MD, NIHITHA MD Jan 21, 2025 14:21
--- NOTE | 2025-01-21 14:31 | PN ---
SUBJECTIVE: The patient is postop day #2 from a right foot TMA for gangrene of the foot. She is having less pain today. Her dressing is removed and she still has one questionable area on the medial side just behind the base of the first metatarsal. Otherwise, the skin and the color looks good. There is trace drainage. Her white count is 26.0, hemoglobin of 10.2, hematocrit of 31.7, and 281,000 platelets. Her sodium 136, potassium 3.5, chloride of 101, and her blood sugar of 260. ASSESSMENT: Postop day #2 TMA, right foot. PLAN: We are going to have the nurse do daily dressing changes and let this declare itself. As I explained to her, the only other option surgically is a [id number] amputation. She is of course resisting and hoping to escape that. We will reassess tomorrow. TID: [id number] RECEIPT: [id number]
--- NOTE | 2025-01-21 14:46 | PN ---
INFECTIOUS DISEASE PROGRESS NOTE Date of Service: Jan 21, 2025 SUBJECTIVE: Patient was seen at bedside in room 306. Patient is awake, alert and oriented x3. Patient is status post right transmetatarsal amputation on 01/19/2025. Patient has remained afebrile for 24 hours and the WBC remaining at 26.0. We will follow-up on the final culture results and possibly keep patient over the weekend for IV antibiotics. We will continue vancomycin and Zosyn. PHYSICAL EXAM EYES: Anicteric. Pupils equal and reactive. HENT: No oral thrush seen, moist Oral mucosa. NECK: Supple, no JVD or thyromegaly. LUNGS: Good air entry. No rales, no rhonchi. CARDIOVASCULAR: S1, S2 regular. No murmur heard. ABDOMEN: Soft, non tender, bowel sounds present, no organomegaly. CENTRAL NERVOUS SYSTEM: Awake, alert, oriented x 3. SKIN: No rashes, no swelling. LYMPHATICS: No peripheral lymphadenopathy MUSCULOSKELETAL: No joint swelling, erythema or tenderness. EXTREMITIES: Right foot diabetic ulcer with gangrene, s/p right TMA BACK: No deformity, no pressure ulcer. GENITOURINARY: No dysuria or hematuria. Vital Sign (Last 12 Hours) 01/21/25 01/21/25 01/21/25 01/21/25 04:08 08:00 08:59 12:00 Temp 98.1 97.9 98.1 Pulse 82 85 80 Resp 19 19 20 B/P (MAP) 133/78 118/74 120/72 Pulse Ox 94 97 97 96 O2 Delivery Room Air Room Air Room Air* Room Air O2 Flow Rate 0 FiO2 21 21 21 Intake & Output (last 24hrs) 01/20/25 01/20/25 01/21/25 15:00 23:00 07:00 Intake Total 480 ml 240 ml Output Total 1300 ml 700 ml Balance -820 ml -460 ml LABS: Laboratory: Test 01/21/25 11:39 01/21/25 05:26 01/20/25 06:41 Range/Units Whole Blood Glucose 260 H 70-110 MG/DL Bedside Glucose Comment Notified Nurse White Blood Count 26.0 H 4.8-10.8 K/uL Red Blood Count 3.60 L 4.00-5.50 MIL/uL Hemoglobin 10.2 L 12.0-16.0 g/dL Hematocrit 31.7 L 36-48 % Mean Corpuscular Volume 88.1 79-99 fL Mean Corpuscular Hemoglobin 28.3 27.0-33.0 pg Mean Corpuscular Hemoglobin Concent 32.2 32.0-36.0 g/dL Red Cell Distribution Width 13.6 11.0-15.5 % Platelet Count 281 130-400 K/uL Mean Platelet Volume 10.6 H 7.5-10.5 fL Immature Granulocyte % (Auto) 2.2 H 0-1 % Neutrophils (%) (Auto) 78.9 H 40.0-77.0 % Lymphocytes (%) (Auto) 11.5 L 21.0-51.0 % Monocytes (%) (Auto) 7.0 3.0-13.0 % Eosinophils (%) (Auto) 0.2 0.0-8.0 % Basophils (%) (Auto) 0.2 0.0-5.0 % Neutrophils # (Auto) 20.5 H 1.8-7.7 K/uL Lymphocytes # (Auto) 3.0 1.0-4.8 K/uL Monocytes # (Auto) 1.8 H 0.1-1.0 K/uL Eosinophils # (Auto) 0.06 0.00-0.70 K/uL Basophils # (Auto) 0.05 0.00-0.20 K/uL Absolute Immature Granulocyte (auto 0.58 0-1 K/uL Nucleated Red Blood Cells 0.0 0.0-0.19 % Sodium Level 136 136-145 mmol/L Potassium Level 3.5 3.5-5.1 mmol/L Chloride Level 103 101-111 mmol/L Carbon Dioxide Level 25 21-32 mmol/L Blood Urea Nitrogen 10 7-18 mg/dL Creatinine 0.4 L 0.5-1.0 mg/dL Glomerular Filtration Rate Calc 124 >90 mL/min Random Glucose 274 H 70-105 mg/dL Total Calcium 8.3 L 8.5-10.1 mg/dL Procalcitonin 0.30 0.05-0.5 ng/mL Vancomycin Level Trough 11.4 10.0-20.0 UG/ML PATIENT: BHUMIKA OSWALD ACCT: [id number] LOC: [facility] U: [id number] AGE/SX: 44/F ROOM: 306 RE01/18/[address]: FREDERICK CANO MD : 1980 BED: 1 DIS: STATUS: ADM IN TLOC: DIAGNOSIS LAST RADIOLOGY. 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 Leukocytosis. Urinary tract infection with lactobacillus species. Uncontrolled diabetes mellitus, hemoglobin A1c 13.9.. Medical noncompliance. Obesity PLAN: Continue vancomycin per pharmacy protocol. Continue Zosyn. Continue GI prophylaxis. Continue antidiabetics. Continue pain management. Continue insulin coverage per pr protocol sliding scale. We will follow-up on the final culture results and possibly keep patient over the weekend for IV antibiotics. This case was reviewed and discussed with my supervising physician and the above assessment and plan was formulated and agreed upon. ATTESTATION BY PHYSICIAN I have seen and examined the patient. I reviewed the documentation, medical decision making, and treatment plan as noted by the mid-level provider above. I agree with the findings and plan of care. GAUDENCIO SHANKAR MD, MIRTA L [facility] Jan 21, 2025 14:46
[2025-01-22] VITALS (7 sets, daily range): BP systolic 100–170; BP diastolic 61–70; PULSE 75–98; RESP 16–20; TEMP 97.4–98.6; O2SAT 93–95
[2025-01-22 07:39] LABS: IMMATURE GRANULOCYTE ABSOLUTE 0.44 K/uL (0-1); NUCLEATED RED BLOOD CELLS 0.0 % (0.0-0.19); PLATELET COUNT (AUTO) 280 K/uL (130-400); RED BLOOD CELL COUNT(AUTO) 3.53 MIL/uL (4.00-5.50); RED CELL DISTRIBUTION WIDTH 13.7 % (11.0-15.5); WHITE BLOOD COUNT (AUTO) 23.6 K/uL (4.8-10.8)
[2025-01-22 07:48] LABS: CREATININE 0.6 mg/dL (0.5-1.0); GLOMERULAR FILTR. RATE CALC 113.0 mL/min (>90); GLUCOSE,RANDOM 239.0 mg/dL (70-105); SODIUM SERUM 140.0 mmol/L (136-145); UREA NITROGEN, BLOOD 9.0 mg/dL (7-18)
--- NOTE | 2025-01-22 11:38 | PN ---
INFECTIOUS DISEASE PROGRESS NOTE Date of Service: Jan 22, 2025 SUBJECTIVE: This 44 year old female patient is being seen today at bedside. Has no fever or chills. No nausea or vomiting. She remains on antibiotics tolerating well. Denies chest pain or shortness of breath. Patient is seating in chair. No dry dressing noted to right lower extremity. No over night events reported by nurse at this time. PHYSICAL EXAM EYES: Anicteric. Pupils equal and reactive. HENT: No oral thrush seen, moist Oral mucosa. NECK: Supple, no JVD or thyromegaly. LUNGS: Good air entry. No rales, no rhonchi. CARDIOVASCULAR: S1, S2 regular. No murmur heard. ABDOMEN: Soft, non tender, bowel sounds present, no organomegaly. CENTRAL NERVOUS SYSTEM: Awake, alert, oriented x 3. SKIN: No rashes, no swelling. LYMPHATICS: No peripheral lymphadenopathy MUSCULOSKELETAL: No joint swelling, erythema or tenderness. EXTREMITIES: Right foot diabetic ulcer with gangrene, s/p right TMA, Dry Kerlix dressing noted to right lower extremity. BACK: No deformity, no pressure ulcer. GENITOURINARY: No dysuria or hematuria. Vital Sign (Last 12 Hours) 01/21/25 01/22/25 01/22/25 01/22/25 23:49 03:57 08:00 08:31 Temp 98.4 97.3 97.9 Pulse 99 75 81 Resp 16 16 16 B/P (MAP) 108/73 170/66 104/62 Pulse Ox 95 96 95 95 O2 Delivery Room Air Room Air Room Air Room Air* O2 Flow Rate 0 FiO2 21 21 Intake & Output (last 24hrs) 01/21/25 01/21/25 01/22/25 15:00 23:00 07:00 Output Total 600 ml Balance -600 ml LABS: Laboratory: Test 01/22/25 11:20 01/22/25 07:26 01/21/25 15:50 01/21/25 05:26 Range/Units Whole Blood Glucose 226 H 70-110 MG/DL White Blood Count 23.6 H 4.8-10.8 K/uL Red Blood Count 3.53 L 4.00-5.50 MIL/uL Hemoglobin 10.0 L 12.0-16.0 g/dL Hematocrit 30.7 L 36-48 % Mean Corpuscular Volume 87.0 79-99 fL Mean Corpuscular Hemoglobin 28.3 27.0-33.0 pg Mean Corpuscular Hemoglobin Concent 32.6 32.0-36.0 g/dL Red Cell Distribution Width 13.7 11.0-15.5 % Platelet Count 280 130-400 K/uL Mean Platelet Volume 10.1 7.5-10.5 fL Immature Granulocyte % (Auto) 1.9 H 0-1 % Neutrophils (%) (Auto) 79.0 H 40.0-77.0 % Lymphocytes (%) (Auto) 11.9 L 21.0-51.0 % Monocytes (%) (Auto) 6.7 3.0-13.0 % Eosinophils (%) (Auto) 0.3 0.0-8.0 % Basophils (%) (Auto) 0.2 0.0-5.0 % Neutrophils # (Auto) 18.6 H 1.8-7.7 K/uL Lymphocytes # (Auto) 2.8 1.0-4.8 K/uL Monocytes # (Auto) 1.6 H 0.1-1.0 K/uL Eosinophils # (Auto) 0.08 0.00-0.70 K/uL Basophils # (Auto) 0.04 0.00-0.20 K/uL Absolute Immature Granulocyte (auto 0.44 0-1 K/uL Nucleated Red Blood Cells 0.0 0.0-0.19 % Sodium Level 140 136-145 mmol/L Potassium Level 3.9 3.5-5.1 mmol/L Chloride Level 103 101-111 mmol/L Carbon Dioxide Level 25 21-32 mmol/L Blood Urea Nitrogen 9 7-18 mg/dL Creatinine 0.6 0.5-1.0 mg/dL Glomerular Filtration Rate Calc 113 >90 mL/min Random Glucose 239 H 70-105 mg/dL Total Calcium 7.8 L 8.5-10.1 mg/dL Vancomycin Level Trough 15.6 # 10.0-20.0 UG/ML Bedside Glucose Comment Notified Nurse Procalcitonin 0.30 0.05-0.5 ng/mL PATIENT: BHUMIKA OSWALD ACCT: [id number] LOC: [facility] U: [id number] AGE/SX: 44/F ROOM: [facility] RE01/18/[address]: FREDERICK CANO MD : 1980 BED: 1 DIS: STATUS: ADM IN TLOC: DIAGNOSIS LAST RADIOLOGY. 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 Leukocytosis. Urinary tract infection with lactobacillus species. Uncontrolled diabetes mellitus, hemoglobin A1c 13.9.. Medical noncompliance. Obesity PLAN: Continue vancomycin per pharmacy protocol. Continue Zosyn. Continue GI prophylaxis. Continue antidiabetics. Continue pain management. Continue insulin coverage per pr protocol sliding scale. Antibiotics to be D/C once discharge. This case was reviewed and discussed with my supervising physician and the above assessment and plan was formulated and agreed upon. SUSANNAH SHEIKH [facility] Jan 22, 2025 11:38
--- NOTE | 2025-01-22 14:36 | PN ---
[facility] PROGRESS NOTE Date of Service: Jan 22, 2025 Time of Service: 14:34 SUBJECTIVE: This is a 44-year-old female with past medical history of diabetes and medical noncompliance who presents to the ED for complaints of right great toe wound ulcer and right foot pain.Patient reports on of last week she did not feel good ,she was dizzy,having chills and shortness of breath so she went to a [facility] night clinic were she was told she has Flu and was prescribed with prednisone 10 mg daily,Naproxen and Tamiflu and after taking it the following day she noticed her right great toe has purple and whitish discoloration so she went to [facility] today where she was given an IM injection was told for infection she said and on her way back home she noticed that her right great toe was hurting and her foot was getting swollen and red and her right great toe ulcer was smelling foul odor .Patient states she does not have a PCP and that sheis not taking any medication at home except for those 3 new med prescribed for her Flu she said. Seen and examined patient in the ER awake,alert and coherent,appears comfortable,patient denies sore throat, cough, nausea,vomiting ,abdominal pain,chest pain,palpitation and shortness of breath. Latest vital signs temperature a 100.2, heart rate 86, blood pressure 121/67 saturation 98% room air. WBC 32 with negative left shift of neutrophils 80, hemoglobin 13, he matocrit 41, platelet count 351. Sodium 124, chloride 97, glucose 327, CRP 338, procalcitonin 0.69. Urinalysis significant for protein, glucose, ketones, urine RBC 11-25, urine WBC 6-10. X-ray of the right foot result revealed soft tissues edema and emphysema of the right great toe there is no radiographic evidence for osteomyelitis however if clinical concern persists recommend contrast enhanced MRI of the right foot for further evaluation. While in the ER patient received fluid resuscitation of NS 30 mL/kilogram over 3 hours, Zosyn IV and vancomycin IV we will admit patient for further medical management. 01/19/25 Patient was seen and examined at bedside. She had a temperature of 100 last night, other vitals are stable. She does not take medications for diabetes and does not have a PCP. She first noticed an ulcer on her right foot two weeks ago that eventually developed into foul smelling gas gangrene. Podiatry consult was placed as X-rays showed evidence of osteomyelitis and soft tissue gangrene involving the right first metatarsal. Given the emergent nature of the infection, podiatry recommended a first-ray amputation on the same day. However, the patient initially declined the procedure, expressing a desire to first discuss the situation with family members. She also mentioned the possibility of signing AMA but was advised to reconsider if she changes her decision. In the meantime, an orthopedic surgery consult was placed to evaluate for the possibility of a below-knee amputation , given the extent of infection and urgency of intervention. 01/20/25 Patient was seen and examined at bedside. She had a TMA done by Dr. Pacheco yesterday with no complications. She is currently on vancomycin and zosyn. We will follow ID recommendations on IV antibiotics and discharge plan whether to send her to SNF or f/u outpatient at [facility] for iv antibiotics. She denies any pain or swelling or tenderness over the surgery site. Her glucose is uncontrolled and will adjust her insulin. 01/21/25 Patient was seen and examined at bedside. She is hemodynamically stable, no acute events overnigt. She reports minimal pain to surgical site. As per Dr. Dewitt patient will stay over the weekend to complete the course of antibiotics. She is working with PT and is progressing towards goals. She denies any pain or swelling or tenderness over the surgery site 01/22/25 Patient seen at bedside. Reports no fevers or chills in the past 24 hours. WBC remains elevated at 23.6 despite ongoing treatment with vancomycin and Zosyn. No acute events overnight. Plan to continue current antibiotic therapy and follow Infectious Disease recommendations on discharge planning. REVIEW OF SYSTEMS CONSTITUTIONAL: Positive fever Denies chills, or night sweats. No unint entional weight loss reported. NEUROLOGICAL: Denies headache, amaurosis fugax, motor weakness, sensory deficit, vertigo/spinning sensation, gait abnormalities, or tremors. ENT: No hearing loss, otalgia, otorrhea, rhinitis, rhinorrhea, hoarseness, or sore throat. CARDIOVASCULAR: Denies any exertional angina, dyspnea on exertion, orthopnea, paroxysmal nocturnal dyspnea, palpitations, life-threatening arrhythmias, claudication. PULMONARY: Denies any shortness of breath, cough, phlegm/sputum, hemoptysis, pleuritic chest pain. SLEEP: Denies morning headaches, daytime somnolence or napping. Denies difficulty falling asleep, staying asleep, waking from sleep. Denies knowledge of snoring. GASTROINTESTINAL: Denies any type of dysphagia to either liquids or solids. Denies nausea, vomiting, pyrosis, early satiety, abdominal pain, diarrhea, constipation, or changes in stool consistency or caliber. Denies coffee-ground emesis, hematemesis, hematochezia, or melanotic stools. GENITOURINARY: Denies frequency, urgency, nocturia, hematuria or incontinence (Storage/Irritative symptoms.) Low urinary stream, straining to void, urinary intermittency or hesitancy, splitting of the voiding stream, terminal dribbling. ENDOCRINOLOGIC: Denies polyuria, polydipsia, polyphagia or heat/cold intolerances. HEMATOLOGIC: Denies thrombophilia/previous clots, or coagulopathy/bleeding disorders. ONCOLOGIC: Denies personal history of malignancy. DERMATOLOGIC: Denies rashes or pruritus. PSYCHIATRIC: Denies any suicidal or homicidal ideation. Denies hallucinations. PHYSICAL EXAM GENERAL APPEARANCE: The patient is awake, alert, and oriented, in no acute cardiopulmonary distress. NEUROLOGICAL: Cranial nerves II-XII grossly intact. Motor is 5/5 in bilateral upper and lower extremities proximal to distal. No sensory deficits. HEENT: Face is symmetric. Pupils are equal and reactive. Extraocular movements are intact. NECK: Supple. No JVD. No thyromegaly. No submental, submandibular, pre- /postauricular, occipital or supraclavicular lymphadenopathy. CHEST: Normal chest expansion. No Telemetry. LUNGS: Absence of any rales, rhonchi or any wheezing. CARDIOVASCULAR: Regular. S1 and S2 normal. No appreciable rubs, murmurs or gallops. ABDOMEN: Soft, nontender, and nondistended. There is no rebound, voluntary guarding, or rigidity. : Deferred. No Hyde. EXTREMITIES: Right foot swollen positive erythema SKIN: Right great toe wound ulcer Vital Signs (last 8hr) Date Time Temp Pulse Resp B/P (MAP) Pulse Ox O2 Delivery O2 Flow Rate FiO2 01/22/25 08:31 95 Room Air* 0 21 01/22/25 08:00 97.9 81 16 104/62 95 Room Air 21 LABS: Laboratory: Test 7/5/25 11:20 01/22/25 07:26 01/21/25 15:50 01/21/25 05:26 Range/Units Whole Blood Glucose 226 H 70-110 MG/DL White Blood Count 23.6 H 4.8-10.8 K/uL Red Blood Count 3.53 L 4.00-5.50 MIL/uL Hemoglobin 10.0 L 12.0-16.0 g/dL Hematocrit 30.7 L 36-48 % Mean Corpuscular Volume 87.0 79-99 fL Mean Corpuscular Hemoglobin 28.3 27.0-33.0 pg Mean Corpuscular Hemoglobin Concent 32.6 32.0-36.0 g/dL Red Cell Distribution Width 13.7 11.0-15.5 % Platelet Count 280 130-400 K/uL Mean Platelet Volume 10.1 7.5-10.5 fL Immature Granulocyte % (Auto) 1.9 H 0-1 % Neutrophils (%) (Auto) 79.0 H 40.0-77.0 % Lymphocytes (%) (Auto) 11.9 L 21.0-51.0 % Monocytes (%) (Auto) 6.7 3.0-13.0 % Eosinophils (%) (Auto) 0.3 0.0-8.0 % Basophils (%) (Auto) 0.2 0.0-5.0 % Neutrophils # (Auto) 18.6 H 1.8-7.7 K/uL Lymphocytes # (Auto) 2.8 1.0-4.8 K/uL Monocytes # (Auto) 1.6 H 0.1-1.0 K/uL Eosinophils # (Auto) 0.08 0.00-0.70 K/uL Basophils # (Auto) 0.04 0.00-0.20 K/uL Absolute Immature Granulocyte (auto 0.44 0-1 K/uL Nucleated Red Blood Cells 0.0 0.0-0.19 % Sodium Level 140 136-145 mmol/L Potassium Level 3.9 3.5-5.1 mmol/L Chloride Level 103 101-111 mmol/L Carbon Dioxide Level 25 21-32 mmol/L Blood Urea Nitrogen 9 7-18 mg/dL Creatinine 0.6 0.5-1.0 mg/dL Glomerular Filtration Rate Calc 113 >90 mL/min Random Glucose 239 H 70-105 mg/dL Total Calcium 7.8 L 8.5-10.1 mg/dL Vancomycin Level Trough 15.6 # 10.0-20.0 UG/ML Bedside Glucose Comment Notified Nurse Procalcitonin 0.30 0.05-0.5 ng/mL Current Medications Medications (Trade) Dose Ordered Sig/Padilla Route PRN Reason Start Time Stop Time Status Last Admin Dose Admin Acetaminophen (TYLenol 325MG TAB) 650 mg Q4H PRN PO MILD PAIN (1-3) 01/18/25 20:00 02/17/25 19:59 Acetaminophen (TYLenol 325MG TAB) 650 mg Q6H PRN PO TEMPERATURE GREATER THAN 101.5 01/18/25 20:00 02/17/25 19:59 Acetaminophen/ Hydrocodone Bitart (NORco 5/325MG) 1 tab Q4H PRN PO MODERATE PAIN (4-6) 01/18/25 20:00 01/23/25 19:59 01/19/25 21:51 1 TAB Acetaminophen/ Hydrocodone Bitart (NORco 5/325MG) 2 tab Q4H PRN PO SEVERE PAIN (7-10) 01/18/25 20:00 01/23/25 19:59 01/21/25 23:30 2 TAB Clindamycin HCl/ Dextrose 50 ml @ 100 mls/hr Q8H IV 01/20/25 00:30 01/20/25 09:36 DC 01/20/25 09:02 100 MLS/HR Dextrose (D50w) 50 ml AD PRN IV HYPOGLYCEMIA PROTOCOL 01/18/25 20:00 02/17/25 19:59 Famotidine (Pepcid 20mg Tab) 20 mg BID PO 01/18/25 21:00 02/17/25 20:59 01/22/25 08:31 20 MG Glucagon (Glucagon 1mg Kit) 1 mg AD PRN IM HYPOGLYCEMIA PROTOCOL 01/18/25 20:00 02/17/25 19:59 Heparin Sodium (Porcine) (HEParin 5,000 UNIT VIAL) 5,000 unit Q12H SQ 01/21/25 09:00 02/20/25 08:59 01/22/25 08:36 5,000 UNIT Insulin Glargine (LANtus 100 UNITS/ML 10 ML VIAL) 9 units HS SQ 01/20/25 21:00 02/19/25 20:59 01/21/25 21:35 9 UNITS Insulin Human Regular (humuLIN R 100 UNIT/ML 3ML) 3 unit TIDAC SQ 01/21/25 07:30 02/20/25 07:29 01/22/25 13:01 3 UNIT Insulin Human Regular (humuLIN R 100 UNIT/ML 3ML) INSULIN SLIDING SCAL... ACHS SQ 01/18/25 21:00 02/17/25 20:59 01/22/25 13:00 4 UNIT Magnesium Sulfate 50 ml @ 0 mls/hr PROTOCOL PRN IV OTHER [SEE ORDER COMMENTS] 01/18/25 20:00 02/17/25 19:59 Ondansetron HCl (zoFRAN 4MG INJ) 4 mg Q6H PRN IV NAUSEA/VOMITING 01/18/25 20:00 02/17/25 19:59 Piperacillin Sod/ Tazobactam Sod 50 ml @ 12.5 mls/hr Q8H IV 01/19/25 04:00 01/29/25 03:59 01/22/25 12:57 12.5 MLS/HR Piperacillin Sod/ Tazobactam Sod (Zosyn 3.375gm+NS 50ml) 3.375 gm ONCE STAT IVPB 01/18/25 17:47 01/18/25 17:51 DC 01/18/25 19:34 3.375 GM Potassium Chloride 100 ml @ 100 mls/hr AD PRN IV POTASSIUM PROTOCOL 01/18/25 20:00 02/17/25 19:59 Potassium Chloride (K-Dur/Klor-Con 20meq) 20 meq AD PRN PO POTASSIUM PROTOCOL 01/18/25 20:00 02/17/25 19:59 01/21/25 16:46 20 MEQ Potassium Chloride (KCl 10% Elixir 20meq/15ml) 20 meq AD PRN PO POTASSIUM PROTOCOL 01/18/25 20:00 02/17/25 19:59 Sodium Chloride 1,000 ml @ 100 mls/hr Q10H IV 01/18/25 20:00 01/19/25 15:59 DC 01/19/25 06:15 100 MLS/HR Vancomycin HCl 250 ml @ 125 mls/hr ONCE IV 01/18/25 20:00 01/18/25 20:33 DC Vancomycin HCl 250 ml @ 125 mls/hr Q12H IV 01/19/25 08:00 01/29/25 07:59 01/22/25 08:31 125 MLS/HR Vancomycin HCl (Vancomycin Protocol) 1 each AD IV 01/18/25 21:00 02/01/25 20:59 Vancomycin HCl (Vancomycin 1.5 Gm/250 ml Bag) 1.5 gm ONCE STAT IV 01/18/25 19:14 01/18/25 19:36 DC DIAGNOSTICS / RADIOLOGY: [ ] ASSESSMENT: Sepsis due to right freat toe osteomyelitis POA Infected right great toe diabetic wound ulcer rule out osteomyelitis POA Right foot cellulitis POA Hyperglycemia due to uncontrolled diabetes POA Severe leukocytosis POA Medical noncompliance POA Obesity POA Suspected urinary tract infection POA Post TMA of right foot day 3 PLAN: Everyday dressings and touch down weight bearing RLE with walker Consistent carb diet Continue Zosyn and vancomycin for broad-spectrum coverage Start on Famotidine 20 mg p.o. bid for GI prophylaxis Replace electrolytes as needed per protocol PT evaluation and CM evaluation ID, Ortho, Podiatry recommendations We will start on insulin sliding scale AC & HS with hypoglycemia protocol We will add prn medication for fever,pain,cough, nausea and vomiting We will request neurovascular check q.4 hours We will request labs in am Follow-up urine culture result Further orders to follow depending on above results ATTESTATION BY PHYSICIAN I have seen and examined the patient. I reviewed the documentation, medical decision making, and treatment plan as noted by the resident provider above. I agree with the findings and plan of care. Aston Rascon MD, NIHITHA MD Jan 22, 2025 14:36
[2025-01-22] MEDS: guaiFENesin-DM 200/20MG 10ML PO PRN (17:19)
--- NOTE | 2025-01-22 18:28 | PN ---
SUBJECTIVE: The patient is alert and pleasant, sitting in the bed. Her dressing is clean and dry on her right foot TMA. OBJECTIVE: VITAL SIGNS: She remains afebrile at 97.3 with a blood pressure of 102/70 and a pulse of 82, respirations of 16. LABORATORY DATA: Her white count today is down to 23.6 with a hemoglobin of 10.0. Her blood sugar today is 226 and vancomycin at 15.6. ASSESSMENT: Postoperative day 2 right TMA. PLAN: We will await this surgery to declare itself to see whether or not we get to heal at this level or as I explained to the patient, she may have to go for a BKA in the future. She understands this. We will follow along during her IV antibiotics. TID: [id number] RECEIPT: [id number]
--- NOTE | 2025-01-22 20:10 | NUR ---
MEDS SHIFT ASSESSMENT DONE, PLEASE REFER TO CHART. DUE MEDS ADMINISTERED, TOLERATED WELL. KEPT RESTED AND COMFORTABLE IN BED. CALL LIGHT WITHIN REACH. FAMILY AT BEDSIDE.
[2025-01-23] VITALS (8 sets, daily range): BP systolic 96–122; BP diastolic 60–71; PULSE 76–109; RESP 18–20; TEMP 97.6–100.6; O2SAT 92–93
[2025-01-23 04:39] LABS: IMMATURE GRANULOCYTE ABSOLUTE 0.48 K/uL (0-1); NUCLEATED RED BLOOD CELLS 0.1 % (0.0-0.19); PLATELET COUNT (AUTO) 305 K/uL (130-400); RED BLOOD CELL COUNT(AUTO) 3.24 MIL/uL (4.00-5.50); RED CELL DISTRIBUTION WIDTH 13.5 % (11.0-15.5); WHITE BLOOD COUNT (AUTO) 22.8 K/uL (4.8-10.8)
[2025-01-23 05:02] LABS: CREATININE 1.0 mg/dL (0.5-1.0); GLOMERULAR FILTR. RATE CALC 71.0 mL/min (>90); GLUCOSE,RANDOM 251.0 mg/dL (70-105); SODIUM SERUM 140.0 mmol/L (136-145); UREA NITROGEN, BLOOD 10.0 mg/dL (7-18)
--- NOTE | 2025-01-23 06:14 | NUR ---
MEDS PT AWAKENED WHEN ELECTRICAL SUPERVISOR ENTERED ROOM. NO CONCERNS VERBALIZED. NO DISTRESS NOTED. DUE INSULIN DOSE ADMINISTERED, TOLERATED WELL. FOR MORE CARE.
[2025-01-23 08:36] LABS: LACTATE DEHYDROGENASE 135.0 U/L (81-234)
--- NOTE | 2025-01-23 13:55 | PN ---
[facility] PROGRESS NOTE Date of Service: Jan 23, 2025 Time of Service: 13:49 SUBJECTIVE: This is a 44-year-old female with past medical history of diabetes and medical noncompliance who presents to the ED for complaints of right great toe wound ulcer and right foot pain.Patient reports on of last week she did not feel good ,she was dizzy,having chills and shortness of breath so she went to a [facility] clinic were she was told she has Flu and was prescribed with prednisone 10 mg daily,Naproxen and Tamiflu and after taking it the following day she noticed her right great toe has purple and whitish discoloration so she went to [facility] today where she was given an IM injection was told for infection she said and on her way back home she noticed that her right great toe was hurting and her foot was getting swollen and red and her right great toe ulcer was smelling foul odor .Patient states she does not have a PCP and that sheis not taking any medication at home except for those 3 new med prescribed for her Flu she said. Seen and examined patient in the ER awake,alert and coherent,appears comfortable,patient denies sore throat, cough, nausea,vomiting ,abdominal pain,chest pain,palpitation and shortness of breath. Latest vital signs temperature a 100.2, heart rate 86, blood pressure 121/67 saturation 98% room air. WBC 32 with negative left shift of neutrophils 80, hemoglobin 13, he matocrit 41, platelet count 351. Sodium 124, chloride 97, glucose 327, CRP 338, procalcitonin 0.69. Urinalysis significant for protein, glucose, ketones, urine RBC 11-25, urine WBC 6-10. X-ray of the right foot result revealed soft tissues edema and emphysema of the right great toe there is no radiographic evidence for osteomyelitis however if clinical concern persists recommend contrast enhanced MRI of the right foot for further evaluation. While in the ER patient received fluid resuscitation of NS 30 mL/kilogram over 3 hours, Zosyn IV and vancomycin IV we will admit patient for further medical management. 01/19/25 Patient was seen and examined at bedside. She had a temperature of 100 last night, other vitals are stable. She does not take medications for diabetes and does not have a PCP. She first noticed an ulcer on her right foot two weeks ago that eventually developed into foul smelling gas gangrene. Podiatry consult was placed as X-rays showed evidence of osteomyelitis and soft tissue gangrene involving the right first metatarsal. Given the emergent nature of the infection, podiatry recommended a first-ray amputation on the same day. However, the patient initially declined the procedure, expressing a desire to first discuss the situation with family members. She also mentioned the possibility of signing AMA but was advised to reconsider if she changes her decision. In the meantime, an orthopedic surgery consult was placed to evaluate for the possibility of a below-knee amputation , given the extent of infection and urgency of intervention. 01/20/25 Patient was seen and examined at bedside. She had a TMA done by Dr. Pacheco yesterday with no complications. She is currently on vancomycin and zosyn. We will follow ID recommendations on IV antibiotics and discharge plan whether to send her to SNF or f/u outpatient at [facility] for iv antibiotics. She denies any pain or swelling or tenderness over the surgery site. Her glucose is uncontrolled and will adjust her insulin. 01/21/25 Patient was seen and examined at bedside. She is hemodynamically stable, no acute events overnigt. She reports minimal pain to surgical site. As per Dr. Dewitt patient will stay over the weekend to complete the course of antibiotics. She is working with PT and is progressing towards goals. She denies any pain or swelling or tenderness over the surgery site 01/22/25 Patient seen at bedside. Reports no fevers or chills in the past 24 hours. WBC remains elevated at 23.6 despite ongoing treatment with vancomycin and Zosyn. No acute events overnight. Plan to continue current antibiotic therapy and follow Infectious Disease recommendations on discharge planning. 01/23/25 Patient was seen at bedside and appears to be doing well overall, ambulating with physical therapy without difficulty. White blood cell count remains elevated at 22.8, and she had a low-grade fever of 100.6F this morning. Blood cultures remain negative. Hemoglobin is trending down slowly, though LDH is within normal limits and stool guaiac is negative , possible dilutional effect. BNP is mildly elevated at 119, and CRP has decreased from 311 to 182. She will need to continue IV antibiotics and may require a below-knee amputation in the future given her diabetes and the non-healing wound at the TMA site. A social work consult will be requested, as the patient lacks access to a primary care provider due to financial constraints. REVIEW OF SYSTEMS CONSTITUTIONAL: Positive fever Denies chills, or night sweats. No unintentional weight loss reported. NEUROLOGICAL: Denies headache, amaurosis fugax, motor weakness, sensory deficit, vertigo/spinning sensation, gait abnormalities, or tremors. ENT: No hearing loss, otalgia, otorrhea, rhinitis, rhinorrhea, hoarseness, or sore throat. CARDIOVASCULAR: Denies any exertional angina, dyspnea on exertion, orthopnea, paroxysmal nocturnal dyspnea, palpitations, life-threatening arrhythmias, claudication. PULMONARY: Denies any shortness of breath, cough, phlegm/sputum, hemoptysis, pleuritic chest pain. SLEEP: Denies morning headaches, daytime somnolence or napping. Denies difficulty falling asleep, staying asleep, waking from sleep. Denies knowledge of snoring. GASTROINTESTINAL: Denies any type of dysphagia to either liquids or solids. Denies nausea, vomiting, pyrosis, early satiety, abdominal pain, diarrhea, constipation, or changes in stool consistency or caliber. Denies coffee-ground emesis, hematemesis, hematochezia, or melanotic stools. GENITOURINARY: Denies frequency, urgency, nocturia, hematuria or incontinence (Storage/Irritative symptoms.) Low urinary stream, straining to void, urinary intermittency or hesitancy, splitting of the voiding stream, terminal dribbling. ENDOCRINOLOGIC: Denies polyuria, polydipsia, polyphagia or heat/cold intolerances. HEMATOLOGIC: Denies thrombophilia/previous clots, or coagulopathy/bleeding disorders. ONCOLOGIC: Denies personal history of malignancy. DERMATOLOGIC: Denies rashes or pruritus. PSYCHIATRIC: Denies any suicidal or homicidal ideation. Denies hallucinations. PHYSICAL EXAM GENERAL APPEARANCE: The patient is awake, alert, and oriented, in no acute cardiopulmonary distress. NEUROLOGICAL: Cranial nerves II-XII grossly intact. Motor is 5/5 in bilateral upper and lower extremities proximal to distal. No sensory deficits. HEENT: Face is symmetric. Pupils are equal and reactive. Extraocular movements are intact. NECK: Supple. No JVD. No thyromegaly. No submental, submandibular, pre- /postauricular, occipital or supraclavicular lymphadenopathy. CHEST: Normal chest expansion. No Telemetry. LUNGS: Absence of any rales, rhonchi or any wheezing. CARDIOVASCULAR: Regular. S1 and S2 normal. No appreciable rubs, murmurs or gallops. ABDOMEN: Soft, nontender, and nondistended. There is no rebound, voluntary guarding, or rigidity. : Deferred. No Hyde. EXTREMITIES: Right foot swollen positive erythema SKIN: Right great toe wound ulcer Vital Signs (last 8hr) Date Time Temp Pulse Resp B/P (MAP) Pulse Ox O2 Delivery O2 Flow Rate FiO2 01/23/25 12:00 97.5 78 20 96/61 98 Room Air 21 01/23/25 08:36 92 Room Air* 0 21 01/23/25 08:36 100.6 01/23/25 08:01 100.6 83 18 101/71 92 Room Air LABS: Laboratory: Test 01/23/25 11:46 01/23/25 11:30 01/23/25 04:23 01/22/25 07:26 Range/Units Whole Blood Glucose 252 H 70-110 MG/DL Bedside Glucose Comment Notified Nurse Stool Occult Blood NEGATIVE NEGATIVE White Blood Count 22.8 H 4.8-10.8 K/uL Red Blood Count 3.24 L 4.00-5.50 MIL/uL Hemoglobin 9.3 L 12.0-16.0 g/dL Hematocrit 28.1 L 36-48 % Mean Corpuscular Volume 86.7 79-99 fL Mean Corpuscular Hemoglobin 28.7 27.0-33.0 pg Mean Corpuscular Hemoglobin Concent 33.1 32.0-36.0 g/dL Red Cell Distribution Width 13.5 11.0-15.5 % Platelet Count 305 130-400 K/uL Mean Platelet Volume 10.4 7.5-10.5 fL Immature Granulocyte % (Auto) 2.1 H 0-1 % Neutrophils (%) (Auto) 74.5 40.0-77.0 % Lymphocytes (%) (Auto) 14.6 L 21.0-51.0 % Monocytes (%) (Auto) 8.2 3.0-13.0 % Eosinophils (%) (Auto) 0.4 0.0-8.0 % Basophils (%) (Auto) 0.2 0.0-5.0 % Neutrophils # (Auto) 17.0 H 1.8-7.7 K/uL Lymphocytes # (Auto) 3.3 1.0-4.8 K/uL Monocytes # (Auto) 1.9 H 0.1-1.0 K/uL Eosinophils # (Auto) 0.09 0.00-0.70 K/uL Basophils # (Auto) 0.05 0.00-0.20 K/uL Absolute Immature Granulocyte (auto 0.48 0-1 K/uL Nucleated Red Blood Cells 0.1 0.0-0.19 % Sodium Level 140 136-145 mmol/L Potassium Level 3.8 3.5-5.1 mmol/L Chloride Level 105 101-111 mmol/L Carbon Dioxide Level 24 21-32 mmol/L Blood Urea Nitrogen 10 7-18 mg/dL Creatinine 1.0 0.5-1.0 mg/dL Glomerular Filtration Rate Calc 71 >90 mL/min Random Glucose 251 H 70-105 mg/dL Total Calcium 8.0 L 8.5-10.1 mg/dL Total Bilirubin 0.4 0.2-1.0 mg/dL Direct Bilirubin 0.2 0.0-0.3 mg/dL Lactate Dehydrogenase 135 81-234 U/L C-Reactive Protein, Quantitative 182.80 H 0.5-3.0 mg/L B-Type Natriuretic Peptide 119 H 0-100 pg/mL Vancomycin Level Trough 15.6 # 10.0-20.0 UG/ML Current Medications Medications (Trade) Dose Ordered Sig/Padilla Route PRN Reason Start Time Stop Time Status Last Admin Dose Admin Acetaminophen (TYLenol 325MG TAB) 650 mg Q4H PRN PO MILD PAIN (1-3) 01/18/25 20:00 02/17/25 19:59 Acetaminophen (TYLenol 325MG TAB) 650 mg Q6H PRN PO TEMPERATURE GREATER THAN 101.5 01/18/25 20:00 02/17/25 19:59 01/23/25 08:36 650 MG Acetaminophen/ Hydrocodone Bitart (NORco 5/325MG) 1 tab Q4H PRN PO MODERATE PAIN (4-6) 01/18/25 20:00 01/23/25 19:59 01/19/25 21:51 1 TAB Acetaminophen/ Hydrocodone Bitart (NORco 5/325MG) 2 tab Q4H PRN PO SEVERE PAIN (7-10) 01/18/25 20:00 01/23/25 19:59 01/21/25 23:30 2 TAB Clindamycin HCl/ Dextrose 50 ml @ 100 mls/hr Q8H IV 01/20/25 00:30 01/20/25 09:36 DC 01/20/25 09:02 100 MLS/HR Dextrose (D50w) 50 ml AD PRN IV HYPOGLYCEMIA PROTOCOL 01/18/25 20:00 02/17/25 19:59 Famotidine (Pepcid 20mg Tab) 20 mg BID PO 01/18/25 21:00 02/17/25 20:59 01/23/25 08:37 20 MG Glucagon (Glucagon 1mg Kit) 1 mg AD PRN IM HYPOGLYCEMIA PROTOCOL 01/18/25 20:00 02/17/25 19:59 Guaifenesin/ Dextromethorphan (RobiTUSSin DM 200/20MG 10ML) 10 ml Q4H PRN PO COUGH 01/22/25 17:00 02/21/25 16:59 01/22/25 23:20 10 ML Heparin Sodium (Porcine) (HEParin 5,000 UNIT VIAL) 5,000 unit Q12H SQ 01/21/25 09:00 02/20/25 08:59 01/23/25 08:46 5,000 UNIT Insulin Glargine (LANtus 100 UNITS/ML 10 ML VIAL) 9 units HS SQ 01/20/25 21:00 02/19/25 20:59 01/22/25 20:03 9 UNITS Insulin Human Regular (humuLIN R 100 UNIT/ML 3ML) 3 unit TIDAC SQ 01/21/25 07:30 02/20/25 07:29 01/23/25 12:53 3 UNIT Insulin Human Regular (humuLIN R 100 UNIT/ML 3ML) INSULIN SLIDING SCAL... ACHS SQ 01/18/25 21:00 02/17/25 20:59 01/23/25 12:52 5 UNIT Magnesium Sulfate 50 ml @ 0 mls/hr PROTOCOL PRN IV OTHER [SEE ORDER COMMENTS] 01/18/25 20:00 02/17/25 19:59 Ondansetron HCl (zoFRAN 4MG INJ) 4 mg Q6H PRN IV NAUSEA/VOMITING 01/18/25 20:00 02/17/25 19:59 7/5/25 16:13 4 MG Piperacillin Sod/ Tazobactam Sod 50 ml @ 12.5 mls/hr Q8H IV 01/19/25 04:00 01/29/25 03:59 01/23/25 12:46 12.5 MLS/HR Piperacillin Sod/ Tazobactam Sod (Zosyn 3.375gm+NS 50ml) 3.375 gm ONCE STAT IVPB 01/18/25 17:47 01/18/25 17:51 DC 01/18/25 19:34 3.375 GM Potassium Chloride 100 ml @ 100 mls/hr AD PRN IV POTASSIUM PROTOCOL 01/18/25 20:00 02/17/25 19:59 Potassium Chloride (K-Dur/Klor-Con 20meq) 20 meq AD PRN PO POTASSIUM PROTOCOL 01/18/25 20:00 02/17/25 19:59 01/21/25 16:46 20 MEQ Potassium Chloride (KCl 10% Elixir 20meq/15ml) 20 meq AD PRN PO POTASSIUM PROTOCOL 01/18/25 20:00 02/17/25 19:59 Sodium Chloride 1,000 ml @ 100 mls/hr Q10H IV 01/18/25 20:00 01/19/25 15:59 DC 01/19/25 06:15 100 MLS/HR Vancomycin HCl 250 ml @ 125 mls/hr ONCE IV 01/18/25 20:00 01/18/25 20:33 DC Vancomycin HCl 250 ml @ 125 mls/hr Q12H IV 01/19/25 08:00 01/29/25 07:59 01/23/25 08:36 125 MLS/HR Vancomycin HCl (Vancomycin Protocol) 1 each AD IV 01/18/25 21:00 02/01/25 20:59 Vancomycin HCl (Vancomycin 1.5 Gm/250 ml Bag) 1.5 gm ONCE STAT IV 01/18/25 19:14 01/18/25 19:36 DC DIAGNOSTICS / RADIOLOGY: [ ] ASSESSMENT: Sepsis due to right great toe osteomyelitis POA Infected right great toe diabetic wound ulcer rule out osteomyelitis POA Right foot cellulitis POA Hyperglycemia due to uncontrolled diabetes POA Severe leukocytosis POA Medical noncompliance POA Obesity POA Suspected urinary tract infection POA Post TMA of right foot day 4 PLAN: Everyday dressings and touch down weight bearing RLE with walker Consistent carb diet Continue Zosyn and vancomycin for broad-spectrum coverage Start on Famotidine 20 mg p.o. bid for GI prophylaxis Replace electrolytes as needed per protocol PT evaluation and CM evaluation ID, Ortho, Podiatry recommendations We will start on insulin sliding scale AC & HS with hypoglycemia protocol We will add prn medication for fever,pain,cough, nausea and vomiting We will request neurovascular check q.4 hours We will request labs in am Further orders to follow depending on above results ATTESTATION BY PHYSICIAN I have seen and examined the patient. I reviewed the documentation, medical decision making, and treatment plan as noted by the resident provider above. I agree with the findings and plan of care. Aston Rsacon MD, NIHITHA MD Jan 23, 2025 13:55
--- NOTE | 2025-01-23 18:00 | NUR ---
SOCIAL SERVICE CONSULT: REQUEST FREE CLINICS INFO [place] met with patient and daughter. Patient states she has no insurance or benefits. She states she applied for Medicaid and just received denial letter. Patient unable to recall reason for denial. Patient was provided with community resources for post hospitalization follow up. Patient was also provided with Good RX card for prescriptions and educated on [facility] $4 medication program and [facility] $5 medication program. Patient is being assisted by [facility] Eligibility Specialists for financial matters.
[2025-01-23] MEDS: VANCOMYCIN 1.5 GM/250 ML BAG 250 ML IV SCH (20:30)
--- NOTE | 2025-01-23 20:35 | NUR ---
MEDS SHIFT ASSESSMENT DONE, PLEASE REFER TO CHART. DUE MEDS ADMINISTERED, TOLERATED WELL. KEPT RESTED AND COMFORTABLE IN BED. CALL LIGHT WITHIN REACH. FAMILY AT BEDSIDE AND WILL STAY THE NIGHT.
[2025-01-24] VITALS (9 sets, daily range): BP systolic 91–133; BP diastolic 54–76; PULSE 65–91; RESP 16–20; TEMP 97.9–98.7; O2SAT 95–97
--- NOTE | 2025-01-24 05:20 | NUR ---
CHANGE PT HAD AN ACCIDENT, URINATED IN BED. BED BATH DONE AND WET LINEN AND GOWN CHANGED. RE-POSITIONED COMFORTABLY IN BED. CALL LIGHT WITHIN REACH. FOR MORE CARE.
[2025-01-24 05:40] LABS: IMMATURE GRANULOCYTE ABSOLUTE 0.36 K/uL (0-1); NUCLEATED RED BLOOD CELLS 0.0 % (0.0-0.19); PLATELET COUNT (AUTO) 329 K/uL (130-400); RED BLOOD CELL COUNT(AUTO) 3.29 MIL/uL (4.00-5.50); RED CELL DISTRIBUTION WIDTH 13.6 % (11.0-15.5); WHITE BLOOD COUNT (AUTO) 21.4 K/uL (4.8-10.8)
[2025-01-24 06:02] LABS: CREATININE 1.2 mg/dL (0.5-1.0); GLOMERULAR FILTR. RATE CALC 57.0 mL/min (>90); GLUCOSE,RANDOM 247.0 mg/dL (70-105); SODIUM SERUM 139.0 mmol/L (136-145); UREA NITROGEN, BLOOD 10.0 mg/dL (7-18)
[2025-01-24] MEDS: LACTULOSE 20 GM/30 ML UDCUP PO PRN (08:54)
[2025-01-24] MEDS: 0.9%NACL 1000ML 1,000 ML IV SCH (12:37)
[2025-01-24] MEDS: VANCOMYCIN 1G/250ML KIT 250 ML IV SCH (13:00)
--- NOTE | 2025-01-24 14:07 | PN ---
[facility] PROGRESS NOTE Date of Service: Jan 24, 2025 Time of Service: 13:54 SUBJECTIVE: This is a 44-year-old female with past medical history of diabetes and medical noncompliance who presents to the ED for complaints of right great toe wound ulcer and right foot pain.Patient reports on of last week she did not feel good ,she was dizzy,having chills and shortness of breath so she went to a [facility] clinic were she was told she has Flu and was prescribed with prednisone 10 mg daily,Naproxen and Tamiflu and after taking it the following day she noticed her right great toe has purple and whitish discoloration so she went to [facility] today where she was given an IM injection was told for infection she said and on her way back home she noticed that her right great toe was hurting and her foot was getting swollen and red and her right great toe ulcer was smelling foul odor .Patient states she does not have a PCP and that sheis not taking any medication at home except for those 3 new med prescribed for her Flu she said. Seen and examined patient in the ER awake,alert and coherent,appears comfortable,patient denies sore throat, cough, nausea,vomiting ,abdominal pain,chest pain,palpitation and shortness of breath. Latest vital signs temperature a 100.2, heart rate 86, blood pressure 121/67 saturation 98% room air. WBC 32 with negative left shift of neutrophils 80, hemoglobin 13, he matocrit 41, platelet count 351. Sodium 124, chloride 97, glucose 327, CRP 338, procalcitonin 0.69. Urinalysis significant for protein, glucose, ketones, urine RBC 11-25, urine WBC 6-10. X-ray of the right foot result revealed soft tissues edema and emphysema of the right great toe there is no radiographic evidence for osteomyelitis however if clinical concern persists recommend contrast enhanced MRI of the right foot for further evaluation. While in the ER patient received fluid resuscitation of NS 30 mL/kilogram over 3 hours, Zosyn IV and vancomycin IV we will admit patient for further medical management. 01/19/25 Patient was seen and examined at bedside. She had a temperature of 100 last night, other vitals are stable. She does not take medications for diabetes and does not have a PCP. She first noticed an ulcer on her right foot two weeks ago that eventually developed into foul smelling gas gangrene. Podiatry consult was placed as X-rays showed evidence of osteomyelitis and soft tissue gangrene involving the right first metatarsal. Given the emergent nature of the infection, podiatry recommended a first-ray amputation on the same day. However, the patient initially declined the procedure, expressing a desire to first discuss the situation with family members. She also mentioned the possibility of signing AMA but was advised to reconsider if she changes her decision. In the meantime, an orthopedic surgery consult was placed to evaluate for the possibility of a below-knee amputation , given the extent of infection and urgency of intervention. 01/20/25 Patient was seen and examined at bedside. She had a TMA done by Dr. Pacheco yesterday with no complications. She is currently on vancomycin and zosyn. We will follow ID recommendations on IV antibiotics and discharge plan whether to send her to SNF or f/u outpatient at [facility] for iv antibiotics. She denies any pain or swelling or tenderness over the surgery site. Her glucose is uncontrolled and will adjust her insulin. 01/21/25 Patient was seen and examined at bedside. She is hemodynamically stable, no acute events overnigt. She reports minimal pain to surgical site. As per Dr. Dewitt patient will stay over the weekend to complete the course of antibiotics. She is working with PT and is progressing towards goals. She denies any pain or swelling or tenderness over the surgery site 01/22/25 Patient seen at bedside. Reports no fevers or chills in the past 24 hours. WBC remains elevated at 23.6 despite ongoing treatment with vancomycin and Zosyn. No acute events overnight. Plan to continue current antibiotic therapy and follow Infectious Disease recommendations on discharge planning. 01/23/25 Patient was seen at bedside and appears to be doing well overall, ambulating with physical therapy without difficulty. White blood cell count remains elevated at 22.8, and she had a low-grade fever of 100.6F this morning. Blood cultures remain negative. Hemoglobin is trending down slowly, though LDH is within normal limits and stool guaiac is negative , possible dilutional effect. BNP is mildly elevated at 119, and CRP has decreased from 311 to 182. She will need to continue IV antibiotics and may require a below-knee amputation in the future given her diabetes and the non-healing wound at the TMA site. A social work consult will be requested, as the patient lacks access to a primary care provider due to financial constraints. 01/24/25 Patient was seen at bedside and appears to be doing well overall, ambulating with physical therapy without difficulty. White blood cell count slowly trending downwards from 22.8 to 21.4, CRP from 182.8 to 161.8. Her vancomycin trough is high at 31.7 and Cr is 1.2. We will hold vancomycin for today and give her fluids and recheck in the morning. She had no temperature in the last 24 hours. Pending ID recommendations on plan of discharge REVIEW OF SYSTEMS CONSTITUTIONAL: Positive fever Denies chills, or night sweats. No unintentional weight loss reported. NEUROLOGICAL: Denies headache, amaurosis fugax, motor weakness, sensory deficit, vertigo/spinning sensation, gait abnormalities, or tremors. ENT: No hearing loss, otalgia, otorrhea, rhinitis, rhinorrhea, hoarseness, or sore throat. CARDIOVASCULAR: Denies any exertional angina, dyspnea on exertion, orthopnea, paroxysmal nocturnal dyspnea, palpitations, life-threatening arrhythmias, claudication. PULMONARY: Denies any shortness of breath, cough, phlegm/sputum, hemoptysis, pleuritic chest pain. SLEEP: Denies morning headaches, daytime somnolence or napping. Denies difficulty falling asleep, staying asleep, waking from sleep. Denies knowledge of snoring. GASTROINTESTINAL: Denies any type of dysphagia to either liquids or solids. Denies nausea, vomiting, pyrosis, early satiety, abdominal pain, diarrhea, constipation, or changes in stool consistency or caliber. Denies coffee-ground emesis, hematemesis, hematochezia, or melanotic stools. GENITOURINARY: Denies frequency, urgency, nocturia, hematuria or incontinence (Storage/Irritative symptoms.) Low urinary stream, straining to void, urinary intermittency or hesitancy, splitting of the voiding stream, terminal dribbling. ENDOCRINOLOGIC: Denies polyuria, polydipsia, polyphagia or heat/cold intolerances. HEMATOLOGIC: Denies thrombophilia/previous clots, or coagulopathy/bleeding d isorders. ONCOLOGIC: Denies personal history of malignancy. DERMATOLOGIC: Denies rashes or pruritus. PSYCHIATRIC: Denies any suicidal or homicidal ideation. Denies hallucinations. PHYSICAL EXAM GENERAL APPEARANCE: The patient is awake, alert, and oriented, in no acute cardiopulmonary distress. NEUROLOGICAL: Cranial nerves II-XII grossly intact. Motor is 5/5 in bilateral upper and lower extremities proximal to distal. No sensory deficits. HEENT: Face is symmetric. Pupils are equal and reactive. Extraocular movements are intact. NECK: Supple. No JVD. No thyromegaly. No submental, submandibular, pre- /postauricular, occipital or supraclavicular lymphadenopathy. CHEST: Normal chest expansion. No Telemetry. LUNGS: Absence of any rales, rhonchi or any wheezing. CARDIOVASCULAR: Regular. S1 and S2 normal. No appreciable rubs, murmurs or gallops. ABDOMEN: Soft, nontender, and nondistended. There is no rebound, voluntary guarding, or rigidity. : Deferred. No Hyde. EXTREMITIES: Right foot swollen positive erythema SKIN: Right great toe wound ulcer Vital Signs (last 8hr) Date Time Temp Pulse Resp B/P (MAP) Pulse Ox O2 Delivery O2 Flow Rate FiO2 01/24/25 12:58 98.8 71 16 133/76 94 Room Air 01/24/25 08:08 98.1 76 20 128/74 95 Room Air LABS: Laboratory: Test 01/24/25 11:46 01/24/25 11:28 01/24/25 04:59 01/23/25 18:37 Range/Units Whole Blood Glucose 257 H 70-110 MG/DL Vancomycin Level 15.8 L 20.0-30.0 mcg/mL White Blood Count 21.4 H 4.8-10.8 K/uL Red Blood Count 3.29 L 4.00-5.50 MIL/uL Hemoglobin 9.3 L 12.0-16.0 g/dL Hematocrit 29.0 L 36-48 % Mean Corpuscular Volume 88.1 79-99 fL Mean Corpuscular Hemoglobin 28.3 27.0-33.0 pg Mean Corpuscular Hemoglobin Concent 32.1 32.0-36.0 g/dL Red Cell Distribution Width 13.6 11.0-15.5 % Platelet Count 329 130-400 K/uL Mean Platelet Volume 10.3 7.5-10.5 fL Immature Granulocyte % (Auto) 1.7 H 0-1 % Neutrophils (%) (Auto) 75.1 40.0-77.0 % Lymphocytes (%) (Auto) 13.8 L 21.0-51.0 % Monocytes (%) (Auto) 8.8 3.0-13.0 % Eosinophils (%) (Auto) 0.4 0.0-8.0 % Basophils (%) (Auto) 0.2 0.0-5.0 % Neutrophils # (Auto) 16.1 H 1.8-7.7 K/uL Lymphocytes # (Auto) 3.0 1.0-4.8 K/uL Monocytes # (Auto) 1.9 H 0.1-1.0 K/uL Eosinophils # (Auto) 0.08 0.00-0.70 K/uL Basophils # (Auto) 0.05 0.00-0.20 K/uL Absolute Immature Granulocyte (auto 0.36 0-1 K/uL Nucleated Red Blood Cells 0.0 0.0-0.19 % Sodium Level 139 136-145 mmol/L Potassium Level 3.9 3.5-5.1 mmol/L Chloride Level 105 101-111 mmol/L Carbon Dioxide Level 26 21-32 mmol/L Blood Urea Nitrogen 10 7-18 mg/dL Creatinine 1.2 H 0.5-1.0 mg/dL Glomerular Filtration Rate Calc 57 >90 mL/min Random Glucose 247 H 70-105 mg/dL Total Calcium 8.2 L 8.5-10.1 mg/dL C-Reactive Protein, Quantitative 161.80 H 0.5-3.0 mg/L Procalcitonin 0.40 0.05-0.5 ng/mL Vancomycin Level Trough 31.7 #*H 10.0-20.0 UG/ML Test 01/23/25 14:54 01/23/25 11:30 01/23/25 04:23 Range/Units Bedside Glucose Comment Notified Nurse Stool Occult Blood NEGATIVE NEGATIVE Total Bilirubin 0.4 0.2-1.0 mg/dL Direct Bilirubin 0.2 0.0-0.3 mg/dL Lactate Dehydrogenase 135 81-234 U/L B-Type Natriuretic Peptide 119 H 0-100 pg/mL Current Medications Medications (Trade) Dose Ordered Sig/Padilla Route PRN Reason Start Time Stop Time Status Last Admin Dose Admin Acetaminophen (TYLenol 325MG TAB) 650 mg Q4H PRN PO MILD PAIN (1-3) 01/18/25 20:00 02/17/25 19:59 01/24/25 12:43 650 MG Acetaminophen (TYLenol 325MG TAB) 650 mg Q6H PRN PO TEMPERATURE GREATER THAN 101.5 01/18/25 20:00 02/17/25 19:59 01/23/25 08:36 650 MG Acetaminophen/ Hydrocodone Bitart (NORco 5/325MG) 1 tab Q4H PRN PO MODERATE PAIN (4-6) 01/18/25 20:00 01/23/25 19:59 DC 01/19/25 21:51 1 TAB Acetaminophen/ Hydrocodone Bitart (NORco 5/325MG) 2 tab Q4H PRN PO SEVERE PAIN (7-10) 01/18/25 20:00 01/23/25 19:59 DC 01/21/25 23:30 2 TAB Clindamycin HCl/ Dextrose 50 ml @ 100 mls/hr Q8H IV 01/20/25 00:30 01/20/25 09:36 DC 01/20/25 09:02 100 MLS/HR Dextrose (D50w) 50 ml AD PRN IV HYPOGLYCEMIA PROTOCOL 01/18/25 20:00 02/17/25 19:59 Docusate Sodium (COLace 100MG CAP) 100 mg BID PO 01/24/25 09:00 02/23/25 08:59 01/24/25 08:40 100 MG Famotidine (Pepcid 20mg Tab) 20 mg BID PO 01/18/25 21:00 02/17/25 20:59 01/24/25 08:40 20 MG Glucagon (Glucagon 1mg Kit) 1 mg AD PRN IM HYPOGLYCEMIA PROTOCOL 01/18/25 20:00 02/17/25 19:59 Guaifenesin/ Dextromethorphan (RobiTUSSin DM 200/20MG 10ML) 10 ml Q4H PRN PO COUGH 01/22/25 17:00 02/21/25 16:59 01/24/25 05:58 10 ML Heparin Sodium (Porcine) (HEParin 5,000 UNIT VIAL) 5,000 unit Q12H SQ 01/21/25 09:00 02/20/25 08:59 01/24/25 08:42 5,000 UNIT Insulin Glargine (LANtus 100 UNITS/ML 10 ML VIAL) 9 units HS SQ 01/20/25 21:00 01/24/25 12:05 DC 01/23/25 20:35 9 UNITS Insulin Glargine (LANtus 100 UNITS/ML 10 ML VIAL) 12 units HS SQ 01/24/25 21:00 02/23/25 20:59 Insulin Human Regular (humuLIN R 100 UNIT/ML 3ML) 3 unit TIDAC SQ 01/21/25 07:30 01/24/25 12:05 DC 01/24/25 05:56 3 UNIT Insulin Human Regular (humuLIN R 100 UNIT/ML 3ML) 5 unit TIDAC SQ 01/24/25 17:00 02/23/25 16:59 Insulin Human Regular (humuLIN R 100 UNIT/ML 3ML) INSULIN SLIDING SCAL... ACHS SQ 01/18/25 21:00 02/17/25 20:59 01/24/25 12:13 5 UNIT Lactulose (Constulose 20gm/ 30ml Udcup) 20 gm BID PRN PO CONSTIPATION 01/24/25 04:30 02/23/25 04:29 01/24/25 08:54 20 GM Magnesium Sulfate 50 ml @ 0 mls/hr PROTOCOL PRN IV OTHER [SEE ORDER COMMENTS] 01/18/25 20:00 02/17/25 19:59 Ondansetron HCl (zoFRAN 4MG INJ) 4 mg Q6H PRN IV NAUSEA/VOMITING 01/18/25 20:00 02/17/25 19:59 01/22/25 16:13 4 MG Piperacillin Sod/ Tazobactam Sod 50 ml @ 12.5 mls/hr Q8H IV 01/19/25 04:00 01/29/25 03:59 01/24/25 12:13 12.5 MLS/HR Piperacillin Sod/ Tazobactam Sod (Zosyn 3.375gm+NS 50ml) 3.375 gm ONCE STAT IVPB 01/18/25 17:47 01/18/25 17:51 DC 01/18/25 19:34 3.375 GM Polyethylene Glycol (MIRalax 3350 17 GM POWD.PACK) 17 gm DAILY PRN PO CONSTIPATION 01/24/25 09:00 02/23/25 08:59 Potassium Chloride 100 ml @ 100 mls/hr AD PRN IV POTASSIUM PROTOCOL 01/18/25 20:00 02/17/25 19:59 Potassium Chloride (K-Dur/Klor-Con 20meq) 20 meq AD PRN PO POTASSIUM PROTOCOL 01/18/25 20:00 02/17/25 19:59 01/23/25 19:43 20 MEQ Potassium Chloride (KCl 10% Elixir 20meq/15ml) 20 meq AD PRN PO POTASSIUM PROTOCOL 01/18/25 20:00 02/17/25 19:59 Sodium Chloride 1,000 ml @ 100 mls/hr Q10H IV 01/18/25 20:00 01/19/25 15:59 DC 01/19/25 06:15 100 MLS/HR Sodium Chloride 1,000 ml @ 125 mls/hr Q8H IV 01/24/25 12:00 02/23/25 11:59 01/24/25 12:37 125 MLS/HR Vancomycin HCl 250 ml @ 125 mls/hr ONCE IV 01/18/25 20:00 01/18/25 20:33 DC Vancomycin HCl 250 ml @ 125 mls/hr Q12H IV 01/19/25 08:00 01/23/25 20:28 DC 01/23/25 08:36 125 MLS/HR Vancomycin HCl 250 ml @ 125 mls/hr Q12H IV 01/23/25 20:30 01/24/25 00:19 DC Vancomycin HCl 250 ml @ 166.667 mls/hr Q12H IV 01/24/25 13:00 02/03/25 12:59 Vancomycin HCl (Vancomycin Protocol) 1 each AD IV 01/18/25 21:00 02/01/25 20:59 Vancomycin HCl (Vancomycin 1.5 Gm/250 ml Bag) 1.5 gm ONCE STAT IV 01/18/25 19:14 01/18/25 19:36 DC DIAGNOSTICS / RADIOLOGY: [ ] ASSESSMENT: YINKA possibly secondary to vancomycin induced nephrotoxicity, not POA Sepsis due to right great toe osteomyelitis POA Infected right great toe diabetic wound ulcer rule out osteomyelitis POA Right foot cellulitis POA Hyperglycemia due to uncontrolled diabetes POA Severe leukocytosis POA Medical noncompliance POA Obesity POA Suspected urinary tract infection POA Post TMA of right foot day 4 PLAN: Everyday dressings and touch down weight bearing RLE with walker Consistent carb diet Continue Zosyn and vancomycin for broad-spectrum coverage Start on Famotidine 20 mg p.o. bid for GI prophylaxis Replace electrolytes as needed per protocol PT evaluation and CM evaluation ID, Ortho, Podiatry recommendations We will start on insulin sliding scale AC & HS with hypoglycemia protocol We will add prn medication for fever,pain,cough, nausea and vomiting We will request neurovascular check q.4 hours We will request labs in am Further orders to follow depending on above results ATTESTATION BY PHYSICIAN I have seen and examined the patient. I reviewed the documentation, medical decision making, and treatment plan as noted by the resident provider above. I agree with the findings and plan of care. Aston Rascon MD, NIHITHA MD Jan 24, 2025 14:07
--- NOTE | 2025-01-24 14:10 | NUR ---
MD ROUNDS DR SHANKAR AT BEDSIDE. WOUND DRESSING WAS REMOVED FOR MD TO ASSESS SITE.
--- NOTE | 2025-01-24 14:52 | NUR ---
WOUND CARE WOUND CARE PROVIDED. PT TOLERATED WELL. DENIES ANY PAIN AT THE MOMENT.
--- NOTE | 2025-01-24 22:55 | PN ---
INFECTIOUS DISEASE PROGRESS NOTE Date of Service: Jan 24, 2025 SUBJECTIVE: This 44 year old female patient who is status post right TMA on 01/19/2025. There is some discoloration of the right foot and large amount of drainage present. The WBC remains elevated at 21.4. Patient was explained that she may need a right BKA. Family member present at bedside. No fever this morning, temperature is 98.1. Continues on vancomycin and Zosyn IV. PHYSICAL EXAM EYES: Anicteric. Pupils equal and reactive. HENT: No oral thrush seen, moist Oral mucosa. NECK: Supple, no JVD or thyromegaly. LUNGS: Good air entry. No rales, no rhonchi. CARDIOVASCULAR: S1, S2 regular. No murmur heard. ABDOMEN: Soft, non tender, bowel sounds present, no organomegaly. CENTRAL NERVOUS SYSTEM: Awake, alert, oriented x 3. SKIN: No rashes, no swelling. LYMPHATICS: No peripheral lymphadenopathy MUSCULOSKELETAL: No joint swelling, erythema or tenderness. 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 BACK: No deformity, no pressure ulcer. GENITOURINARY: No dysuria or hematuria. Vital Sign (Last 12 Hours) 01/24/25 01/24/25 01/24/25 01/24/25 12:58 16:30 19:30 19:58 Temp 98.8 97.9 98.2 Pulse 71 65 74 Resp 16 20 18 B/P (MAP) 133/76 111/71 115/72 Pulse Ox 94 94 97 97 O2 Delivery Room Air Room Air Room Air* Room Air O2 Flow Rate 0 FiO2 21 Intake & Output (last 24hrs) 01/23/25 01/23/25 01/24/25 15:00 23:00 07:00 Intake Total 355.0 ml 200 ml 70.0 ml Balance 355.0 ml 200 ml 70.0 ml LABS: Laboratory: Test 01/24/25 19:45 01/24/25 11:28 01/24/25 04:59 01/23/25 18:37 Range/Units Whole Blood Glucose 202 H 70-110 MG/DL Vancomycin Level 15.8 L 20.0-30.0 mcg/mL White Blood Count 21.4 H 4.8-10.8 K/uL Red Blood Count 3.29 L 4.00-5.50 MIL/uL Hemoglobin 9.3 L 12.0-16.0 g/dL Hematocrit 29.0 L 36-48 % Mean Corpuscular Volume 88.1 79-99 fL Mean Corpuscular Hemoglobin 28.3 27.0-33.0 pg Mean Corpuscular Hemoglobin Concent 32.1 32.0-36.0 g/dL Red Cell Distribution Width 13.6 11.0-15.5 % Platelet Count 329 130-400 K/uL Mean Platelet Volume 10.3 7.5-10.5 fL Immature Granulocyte % (Auto) 1.7 H 0-1 % Neutrophils (%) (Auto) 75.1 40.0-77.0 % Lymphocytes (%) (Auto) 13.8 L 21.0-51.0 % Monocytes (%) (Auto) 8.8 3.0-13.0 % Eosinophils (%) (Auto) 0.4 0.0-8.0 % Basophils (%) (Auto) 0.2 0.0-5.0 % Neutrophils # (Auto) 16.1 H 1.8-7.7 K/uL Lymphocytes # (Auto) 3.0 1.0-4.8 K/uL Monocytes # (Auto) 1.9 H 0.1-1.0 K/uL Eosinophils # (Auto) 0.08 0.00-0.70 K/uL Basophils # (Auto) 0.05 0.00-0.20 K/uL Absolute Immature Granulocyte (auto 0.36 0-1 K/uL Nucleated Red Blood Cells 0.0 0.0-0.19 % Sodium Level 139 136-145 mmol/L Potassium Level 3.9 3.5-5.1 mmol/L Chloride Level 105 101-111 mmol/L Carbon Dioxide Level 26 21-32 mmol/L Blood Urea Nitrogen 10 7-18 mg/dL Creatinine 1.2 H 0.5-1.0 mg/dL Glomerular Filtration Rate Calc 57 >90 mL/min Random Glucose 247 H 70-105 mg/dL Total Calcium 8.2 L 8.5-10.1 mg/dL C-Reactive Protein, Quantitative 161.80 H 0.5-3.0 mg/L Procalcitonin 0.40 0.05-0.5 ng/mL Vancomycin Level Trough 31.7 #*H 10.0-20.0 UG/ML Test 7/6/25 14:54 01/23/25 11:30 01/23/25 04:23 Range/Units Bedside Glucose Comment Notified Nurse Stool Occult Blood NEGATIVE NEGATIVE Total Bilirubin 0.4 0.2-1.0 mg/dL Direct Bilirubin 0.2 0.0-0.3 mg/dL Lactate Dehydrogenase 135 81-234 U/L B-Type Natriuretic Peptide 119 H 0-100 pg/mL PATIENT: BHUMIKA OSWALD ACCT: [id number] LOC: [facility] U: [id number] AGE/SX: 44/F ROOM: [facility] RE01/18/[address]: FREDERICK CANO MD : 1980 BED: 1 DIS: STATUS: ADM IN TLOC: DIAGNOSIS LAST RADIOLOGY. SPEC: [id number] LAY: 01/18/25-1430 STATUS: COMP REQ: [id number] RECD: 01/20/[address]: SHARON ZHAO NP SOURCE: [facility] ENTR: 01/20/25 MELVIN JACOB: NONE SPDESC: CLEAN CAT SELF,REFERRAL ORDERED: AERO ID & SENS Procedure Result Ricky Date-Time AEROBIC ID & SENSITIVITIES Final 01/21/25-1109 MRL COLONY DESCRIPTION: DAY 1: COLONY COUNT: 10,000 - 20,000 CFU/ML LACTOBACILLUS SPECIES NO FURTHER WORK-UP DONE LACTOBACILLUS SPECIES Test(s) performed by: [facility] [address] [place] [address] ASSESSMENT: Right foot diabetic ulcer with gas gangrene and osteomyelitis, s/p right transmetatarsal amputation on 01/19/2025. Leukocytosis. Urinary tract infection with lactobacillus species. Uncontrolled diabetes mellitus, hemoglobin A1c 13.9.. Medical noncompliance. Obesity PLAN: Continue vancomycin per pharmacy protocol. Continue Zosyn. Continue GI prophylaxis. Continue pain management. Continue insulin coverage per protocol sliding scale. Continue wound care. Patient will possibly need a right BKA. This case was reviewed and discussed with my supervising physician and the above assessment and plan was formulated and agreed upon. ATTESTATION BY PHYSICIAN I have seen and examined the patient. I reviewed the documentation, medical decision making, and treatment plan as noted by the mid-level provider above. I agree with the findings and plan of care. GAUDENCIO SHANKAR MD, MIRTA L [facility] Jan 24, 2025 22:55
[2025-01-25] VITALS (8 sets, daily range): BP systolic 109–137; BP diastolic 65–77; PULSE 74–79; RESP 17–19; TEMP 97.9–98.4; O2SAT 95–97
[2025-01-25] MEDS: VANCOMYCIN 1G/250ML KIT 250 ML IV SCH (00:18)
[2025-01-25] MEDS ORDERED: VANCOMYCIN 1G/250ML KIT 250 ML IV SCH (00:30)
[2025-01-25 05:12] LABS: IMMATURE GRANULOCYTE ABSOLUTE 0.17 K/uL (0-1); NUCLEATED RED BLOOD CELLS 0.0 % (0.0-0.19); PLATELET COUNT (AUTO) 387 K/uL (130-400); RED BLOOD CELL COUNT(AUTO) 3.19 MIL/uL (4.00-5.50); RED CELL DISTRIBUTION WIDTH 13.6 % (11.0-15.5); WHITE BLOOD COUNT (AUTO) 15.6 K/uL (4.8-10.8)
[2025-01-25 05:37] LABS: CREATININE 1.1 mg/dL (0.5-1.0); GLOMERULAR FILTR. RATE CALC 63.0 mL/min (>90); GLUCOSE,RANDOM 205.0 mg/dL (70-105); SODIUM SERUM 140.0 mmol/L (136-145); UREA NITROGEN, BLOOD 8.0 mg/dL (7-18)
--- NOTE | 2025-01-25 10:37 | PN ---
[facility] PROGRESS NOTE Date of Service: Jan 25, 2025 Time of Service: 10:32 SUBJECTIVE: This is a 44-year-old female with past medical history of diabetes and medical noncompliance who presents to the ED for complaints of right great toe wound ulcer and right foot pain.Patient reports on of last week she did not feel good ,she was dizzy,having chills and shortness of breath so she went to a [facility] night clinic were she was told she has Flu and was prescribed with prednisone 10 mg daily,Naproxen and Tamiflu and after taking it the following day she noticed her right great toe has purple and whitish discoloration so she went to [facility] today where she was given an IM injection was told for infection she said and on her way back home she noticed that her right great toe was hurting and her foot was getting swollen and red and her right great toe ulcer was smelling foul odor .Patient states she does not have a PCP and that sheis not taking any medication at home except for those 3 new med prescribed for her Flu she said. Seen and examined patient in the ER awake,alert and coherent,appears comfortable,patient denies sore throat, cough, nausea,vomiting ,abdominal pain,chest pain,palpitation and shortness of breath. Latest vital signs temperature a 100.2, heart rate 86, blood pressure 121/67 saturation 98% room air. WBC 32 with negative left shift of neutrophils 80, hemoglobin 13, he matocrit 41, platelet count 351. Sodium 124, chloride 97, glucose 327, CRP 338, procalcitonin 0.69. Urinalysis significant for protein, glucose, ketones, urine RBC 11-25, urine WBC 6-10. X-ray of the right foot result revealed soft tissues edema and emphysema of the right great toe there is no radiographic evidence for osteomyelitis however if clinical concern persists recommend contrast enhanced MRI of the right foot for further evaluation. While in the ER patient received fluid resuscitation of NS 30 mL/kilogram over 3 hours, Zosyn IV and vancomycin IV we will admit patient for further medical management. 01/19/25 Patient was seen and examined at bedside. She had a temperature of 100 last night, other vitals are stable. She does not take medications for diabetes and does not have a PCP. She first noticed an ulcer on her right foot two weeks ago that eventually developed into foul smelling gas gangrene. Podiatry consult was placed as X-rays showed evidence of osteomyelitis and soft tissue gangrene involving the right first metatarsal. Given the emergent nature of the infection, podiatry recommended a first-ray amputation on the same day. However, the patient initially declined the procedure, expressing a desire to first discuss the situation with family members. She also mentioned the possibility of signing AMA but was advised to reconsider if she changes her decision. In the meantime, an orthopedic surgery consult was placed to evaluate for the possibility of a below-knee amputation , given the extent of infection and urgency of intervention. 01/20/25 Patient was seen and examined at bedside. She had a TMA done by Dr. Pacheco yesterday with no complications. She is currently on vancomycin and zosyn. We will follow ID recommendations on IV antibiotics and discharge plan whether to send her to SNF or f/u outpatient at [facility] for iv antibiotics. She denies any pain or swelling or tenderness over the surgery site. Her glucose is uncontrolled and will adjust her insulin. 01/21/25 Patient was seen and examined at bedside. She is hemodynamically stable, no acute events overnigt. She reports minimal pain to surgical site. As per Dr. Dewitt patient will stay over the weekend to complete the course of antibiotics. She is working with PT and is progressing towards goals. She denies any pain or swelling or tenderness over the surgery site 01/22/25 Patient seen at bedside. Reports no fevers or chills in the past 24 hours. WBC remains elevated at 23.6 despite ongoing treatment with vancomycin and Zosyn. No acute events overnight. Plan to continue current antibiotic therapy and follow Infectious Disease recommendations on discharge planning. 01/23/25 Patient was seen at bedside and appears to be doing well overall, ambulating with physical therapy without difficulty. White blood cell count remains elevated at 22.8, and she had a low-grade fever of 100.6F this morning. Blood cultures remain negative. Hemoglobin is trending down slowly, though LDH is within normal limits and stool guaiac is negative , possible dilutional effect. BNP is mildly elevated at 119, and CRP has decreased from 311 to 182. She will need to continue IV antibiotics and may require a below-knee amputation in the future given her diabetes and the non-healing wound at the TMA site. A social work consult will be requested, as the patient lacks access to a primary care provider due to financial constraints. 01/24/25 Patient was seen at bedside and appears to be doing well overall, ambulating with physical therapy without difficulty. White blood cell count slowly trending downwards from 22.8 to 21.4, CRP from 182.8 to 161.8. Her vancomycin trough is high at 31.7 and Cr is 1.2. We will hold vancomycin for today and give her fluids and recheck in the morning. She had no temperature in the last 24 hours. Pending ID recommendations on plan of discharge. 01/25/25 Patient was seen at bedside and appears to be doing well overall, ambulating wit h physical therapy without difficulty. Her vitals are stable. White blood cell count slowly trending downwards from 21.4 to 15.6, CRP from 161.8 to 137. Her vancomycin trough was at 31.7 on 01/24/25 and today vancomycin level is 15.8. Her serum Cr is 1.1 and ca is 8.1. She had no temperature in the last 24 hours. ID has recommended for possible below knee amputation. Case management team reemay talked with Dr Pacheco. And Dr. Paiz has been consulted for lower right limb arterial doppler ultrasound. REVIEW OF SYSTEMS CONSTITUTIONAL: Positive fever Denies chills, or night sweats. No unin tentional weight loss reported. NEUROLOGICAL: Denies headache, amaurosis fugax, motor weakness, sensory deficit, vertigo/spinning sensation, gait abnormalities, or tremors. ENT: No hearing loss, otalgia, otorrhea, rhinitis, rhinorrhea, hoarseness, or sore throat. CARDIOVASCULAR: Denies any exertional angina, dyspnea on exertion, orthopnea, paroxysmal nocturnal dyspnea, palpitations, life-threatening arrhythmias, claudication. PULMONARY: Denies any shortness of breath, cough, phlegm/sputum, hemoptysis, pleuritic chest pain. SLEEP: Denies morning headaches, daytime somnolence or napping. Denies difficulty falling asleep, staying asleep, waking from sleep. Denies knowledge of snoring. GASTROINTESTINAL: Denies any type of dysphagia to either liquids or solids. Denies nausea, vomiting, pyrosis, early satiety, abdominal pain, diarrhea, constipation, or changes in stool consistency or caliber. Denies coffee-ground emesis, hematemesis, hematochezia, or melanotic stools. GENITOURINARY: Denies frequency, urgency, nocturia, hematuria or incontinence (Storage/Irritative symptoms.) Low urinary stream, straining to void, urinary intermittency or hesitancy, splitting of the voiding stream, terminal dribbling. ENDOCRINOLOGIC: Denies polyuria, polydipsia, polyphagia or heat/cold intolerances. HEMATOLOGIC: Denies thrombophilia/previous clots, or coagulopathy/bleeding disorders. ONCOLOGIC: Denies personal history of malignancy. DERMATOLOGIC: Denies rashes or pruritus. PSYCHIATRIC: Denies any suicidal or homicidal ideation. Denies hallucinations. PHYSICAL EXAM GENERAL APPEARANCE: The patient is awake, alert, and oriented, in no acute cardiopulmonary distress. NEUROLOGICAL: Cranial nerves II-XII grossly intact. Motor is 5/5 in bilateral upper and lower extremities proximal to distal. No sensory deficits. HEENT: Face is symmetric. Pupils are equal and reactive. Extraocular movements are intact. NECK: Supple. No JVD. No thyromegaly. No submental, submandibular, pre- /postauricular, occipital or supraclavicular lymphadenopathy. CHEST: Normal chest expansion. No Telemetry. LUNGS: Absence of any rales, rhonchi or any wheezing. CARDIOVASCULAR: Regular. S1 and S2 normal. No appreciable rubs, murmurs or gallops. ABDOMEN: Soft, nontender, and nondistended. There is no rebound, voluntary guarding, or rigidity. : Deferred. No Hyde. EXTREMITIES: Right foot swollen positive erythema SKIN: Right great toe wound ulcer Vital Signs (last 8hr) Date Time Temp Pulse Resp B/P (MAP) Pulse Ox O2 Delivery O2 Flow Rate FiO2 01/25/25 08:00 98.2 76 19 109/67 97 Room Air 21 01/25/25 04:00 97.9 77 18 130/77 96 Room Air LABS: Laboratory: Test 01/25/25 05:30 01/25/25 04:42 01/24/25 11:28 01/24/25 04:59 Range/Units Whole Blood Glucose 191 H 70-110 MG/DL White Blood Count 15.6 #H 4.8-10.8 K/uL Red Blood Count 3.19 L 4.00-5.50 MIL/uL Hemoglobin 9.3 L 12.0-16.0 g/dL Hematocrit 28.1 L 36-48 % Mean Corpuscular Volume 88.1 79-99 fL Mean Corpuscular Hemoglobin 29.2 27.0-33.0 pg Mean Corpuscular Hemoglobin Concent 33.1 32.0-36.0 g/dL Red Cell Distribution Width 13.6 11.0-15.5 % Platelet Count 387 130-400 K/uL Mean Platelet Volume 10.5 7.5-10.5 fL Immature Granulocyte % (Auto) 1.1 H 0-1 % Neutrophils (%) (Auto) 69.8 40.0-77.0 % Lymphocytes (%) (Auto) 18.6 L 21.0-51.0 % Monocytes (%) (Auto) 9.1 3.0-13.0 % Eosinophils (%) (Auto) 1.1 0.0-8.0 % Basophils (%) (Auto) 0.3 0.0-5.0 % Neutrophils # (Auto) 10.9 H 1.8-7.7 K/uL Lymphocytes # (Auto) 2.9 1.0-4.8 K/uL Monocytes # (Auto) 1.4 H 0.1-1.0 K/uL Eosinophils # (Auto) 0.17 0.00-0.70 K/uL Basophils # (Auto) 0.05 0.00-0.20 K/uL Absolute Immature Granulocyte (auto 0.17 0-1 K/uL Nucleated Red Blood Cells 0.0 0.0-0.19 % Sodium Level 140 136-145 mmol/L Potassium Level 3.7 3.5-5.1 mmol/L Chloride Level 106 101-111 mmol/L Carbon Dioxide Level 27 21-32 mmol/L Blood Urea Nitrogen 8 7-18 mg/dL Creatinine 1.1 H 0.5-1.0 mg/dL Glomerular Filtration Rate Calc 63 >90 mL/min Random Glucose 205 H 70-105 mg/dL Total Calcium 8.1 L 8.5-10.1 mg/dL C-Reactive Protein, Quantitative 137.00 H 0.5-3.0 mg/L Vancomycin Level 15.8 L 20.0-30.0 mcg/mL Procalcitonin 0.40 0.05-0.5 ng/mL Test 01/23/25 18:37 01/23/25 14:54 01/23/25 11:30 Range/Units Vancomycin Level Trough 31.7 #*H 10.0-20.0 UG/ML Bedside Glucose Comment Notified Nurse Stool Occult Blood NEGATIVE NEGATIVE Current Medications Medications (Trade) Dose Ordered Sig/Padilla Route PRN Reason Start Time Stop Time Status Last Admin Dose Admin Acetaminophen (TYLenol 325MG TAB) 650 mg Q4H PRN PO MILD PAIN (1-3) 01/18/25 20:00 02/17/25 19:59 01/24/25 12:43 650 MG Acetaminophen (TYLenol 325MG TAB) 650 mg Q6H PRN PO TEMPERATURE GREATER THAN 101.5 01/18/25 20:00 02/17/25 19:59 01/23/25 08:36 650 MG Acetaminophen/ Hydrocodone Bitart (NORco 5/325MG) 1 tab Q4H PRN PO MODERATE PAIN (4-6) 01/18/25 20:00 01/23/25 19:59 DC 01/19/25 21:51 1 TAB Acetaminophen/ Hydrocodone Bitart (NORco 5/325MG) 2 tab Q4H PRN PO SEVERE PAIN (7-10) 01/18/25 20:00 01/23/25 19:59 DC 01/21/25 23:30 2 TAB Clindamycin HCl/ Dextrose 50 ml @ 100 mls/hr Q8H IV 01/20/25 00:30 01/20/25 09:36 DC 01/20/25 09:02 100 MLS/HR Dextrose (D50w) 50 ml AD PRN IV HYPOGLYCEMIA PROTOCOL 01/18/25 20:00 02/17/25 19:59 Docusate Sodium (COLace 100MG CAP) 100 mg BID PO 01/24/25 09:00 02/23/25 08:59 01/25/25 10:02 100 MG Famotidine (Pepcid 20mg Tab) 20 mg BID PO 01/18/25 21:00 02/17/25 20:59 01/25/25 10:00 20 MG Glucagon (Glucagon 1mg Kit) 1 mg AD PRN IM HYPOGLYCEMIA PROTOCOL 01/18/25 20:00 02/17/25 19:59 Guaifenesin/ Dextromethorphan (RobiTUSSin DM 200/20MG 10ML) 10 ml Q4H PRN PO COUGH 01/22/25 17:00 02/21/25 16:59 01/24/25 20:41 10 ML Heparin Sodium (Porcine) (HEParin 5,000 UNIT VIAL) 5,000 unit Q12H SQ 01/21/25 09:00 02/20/25 08:59 01/25/25 10:05 5,000 UNIT Insulin Glargine (LANtus 100 UNITS/ML 10 ML VIAL) 9 units HS SQ 01/20/25 21:00 01/24/25 12:05 DC 01/23/25 20:35 9 UNITS Insulin Glargine (LANtus 100 UNITS/ML 10 ML VIAL) 12 units HS SQ 01/24/25 21:00 02/23/25 20:59 01/24/25 20:53 12 UNITS Insulin Human Regular (humuLIN R 100 UNIT/ML 3ML) 3 unit TIDAC SQ 01/21/25 07:30 01/24/25 12:05 DC 01/24/25 05:56 3 UNIT Insulin Human Regular (humuLIN R 100 UNIT/ML 3ML) 5 unit TIDAC SQ 01/24/25 17:00 02/23/25 16:59 01/25/25 06:07 5 UNIT Insulin Human Regular (humuLIN R 100 UNIT/ML 3ML) INSULIN SLIDING SCAL... ACHS SQ 01/18/25 21:00 02/17/25 20:59 01/25/25 06:05 2 UNIT Lactulose (Constulose 20gm/ 30ml Udcup) 20 gm BID PRN PO CONSTIPATION 01/24/25 04:30 02/23/25 04:29 01/24/25 08:54 20 GM Magnesium Sulfate 50 ml @ 0 mls/hr PROTOCOL PRN IV OTHER [SEE ORDER COMMENTS] 01/18/25 20:00 02/17/25 19:59 Ondansetron HCl (zoFRAN 4MG INJ) 4 mg Q6H PRN IV NAUSEA/VOMITING 01/18/25 20:00 02/17/25 19:59 01/22/25 16:13 4 MG Piperacillin Sod/ Tazobactam Sod 50 ml @ 12.5 mls/hr Q8H IV 01/19/25 04:00 01/29/25 03:59 01/25/25 03:20 12.5 MLS/HR Piperacillin Sod/ Tazobactam Sod (Zosyn 3.375gm+NS 50ml) 3.375 gm ONCE STAT IVPB 01/18/25 17:47 01/18/25 17:51 DC 01/18/25 19:34 3.375 GM Polyethylene Glycol (MIRalax 3350 17 GM POWD.PACK) 17 gm DAILY PRN PO CONSTIPATION 01/24/25 09:00 02/23/25 08:59 Potassium Chloride 100 ml @ 100 mls/hr AD PRN IV POTASSIUM PROTOCOL 01/18/25 20:00 02/17/25 19:59 Potassium Chloride (K-Dur/Klor-Con 20meq) 20 meq AD PRN PO POTASSIUM PROTOCOL 01/18/25 20:00 02/17/25 19:59 01/25/25 05:42 20 MEQ Potassium Chloride (KCl 10% Elixir 20meq/15ml) 20 meq AD PRN PO POTASSIUM PROTOCOL 01/18/25 20:00 02/17/25 19:59 Sodium Chloride 1,000 ml @ 100 mls/hr Q10H IV 01/18/25 20:00 01/19/25 15:59 DC 01/19/25 06:15 100 MLS/HR Sodium Chloride 1,000 ml @ 125 mls/hr Q8H IV 01/24/25 12:00 02/23/25 11:59 01/24/25 12:37 125 MLS/HR Vancomycin HCl 250 ml @ 125 mls/hr ONCE IV 01/18/25 20:00 01/18/25 20:33 DC Vancomycin HCl 250 ml @ 125 mls/hr Q12H IV 01/19/25 08:00 01/23/25 20:28 DC 01/23/25 08:36 125 MLS/HR Vancomycin HCl 250 ml @ 125 mls/hr Q12H IV 01/23/25 20:30 01/24/25 00:19 DC Vancomycin HCl 250 ml @ 166.667 mls/hr Q12H IV 01/24/25 13:00 01/25/25 00:06 DC Vancomycin HCl 250 ml @ 166.667 mls/hr Q12H IV 01/25/25 00:30 01/25/25 00:09 DC Vancomycin HCl 250 ml @ 166.667 mls/hr Q12H IV 01/25/25 01:00 02/04/25 00:59 01/25/25 00:18 166.667 MLS/HR Vancomycin HCl (Vancomycin Protocol) 1 each AD IV 01/18/25 21:00 02/01/25 20:59 Vancomycin HCl (Vancomycin 1.5 Gm/250 ml Bag) 1.5 gm ONCE STAT IV 01/18/25 19:14 01/18/25 19:36 DC DIAGNOSTICS / RADIOLOGY: [ ] ASSESSMENT: YINKA possibly secondary to vancomycin induced nephrotoxicity, not POA Sepsis due to right great toe osteomyelitis POA Infected right great toe diabetic wound ulcer rule out osteomyelitis POA Right foot cellulitis POA Hyperglycemia due to uncontrolled diabetes POA Severe leukocytosis POA Medical noncompliance POA Obesity POA Suspected urinary tract infection POA Post TMA of right foot day 4 PLAN: Everyday dressings and touch down weight bearing RLE with walker Consistent carb diet Continue Zosyn and vancomycin for broad-spectrum coverage Start on Famotidine 20 mg p.o. bid for GI prophylaxis Replace electrolytes as needed per protocol PT evaluation and CM evaluation ID, Ortho, Podiatry recommendations We will start on insulin sliding scale AC & HS with hypoglycemia protocol We will add prn medication for fever,pain,cough, nausea and vomiting We will request neurovascular check q.4 hours We will request labs in am Further orders to follow depending on above results SOLE TERRY MD Jan 25, 2025 10:37
--- NOTE | 2025-01-25 11:54 | CONS ---
Cardiology Consult Note Attending Engraver Pantograph: Dr. Yaya Paiz Consulting Physician: Hospitalist Date of Service: 01/25/2025 Reason for Consult: Suspected PAD HPI: This is a 44y/o female with a past medical history of uncontrolled DM2 and noncompliance who presents with a nonhealing ulcer affecting the right foot of 2 week in duration. The patient does not know how the ulcer began, but over the ensuing timeframe, the ulcer has failed to heal and increased in size despite antibiotic therapy. Associated symptoms right foot pain. Pertinent negatives include headache, dizziness, syncope, chest pain, chest pressure, palpitations, shortness of breath, PND, orthopnea, abdominal pain, nausea, vomiting, weight g ain, lower extremity swelling, diaphoresis, fever, or chills. The patient's progression of symptoms prompted her to seek a higher level of care. Cardiology was consulted due to concern due to concern for PAD. PMH: Listed above PSH: Listed above FH: Noncontributory SH: Denies alcohol, tobacco, or illicit drug use. Allergies: Coded Allergies: No Known Allergies (Unverified Allergy, Unknown, 05/17/23) Review of systems: General: Denies fever or chills HEENT: Denies changes in vision, earache or sore throat Neck: Denies pain or stiffness Cardio: Denies chest pain, chest pressure, palpitations, or edema Pulm: Denies SOB, coughing or wheezing GI: Denies abdominal pain, nausea, vomiting, diarrhea, or constipation MSK: As per the HPI Skin: As per the HPI Heme: Denies anemia, easy bruising, or bleeding Neuro: Denies headache, dizziness, or syncope Psyche: Denies anxiety, depression, or suicidal ideation Physical Exam: Vital Signs Date Time Temp Pulse Resp B/P (MAP) Pulse Ox O2 Delivery O2 Flow Rate FiO2 01/25/25 08:00 98.2 76 19 109/67 97 Room Air 21 01/24/25 19:30 0 General: Alert and oriented. NAD HEENT: NC/AT. Oral mucosa is moist. Neck: No masses, JVD, or carotid bruits Lungs: NRD. SCM. B/L CTA. No wheezing, rales or rhonchi. Cardio: Regular rate. Normal S1 and S2. +S4. PMI was not displaced. Abdomen: Soft. NT. ND. Normal active bowel sounds x 4 quadrants. Extremities: The right foot is wrapped in a bulky dressing. Neuro: CN II-XII were grossly intact. No focal deficits. Labs: Laboratory Tests Test 01/24/25 11:46 01/24/25 16:05 01/24/25 19:45 01/25/25 04:42 Range/Units Whole Blood Glucose 257 H 241 H 202 H 70-110 MG/DL White Blood Count 15.6 #H 4.8-10.8 K/uL Red Blood Count 3.19 L 4.00-5.50 MIL/uL Hemoglobin 9.3 L 12.0-16.0 g/dL Hematocrit 28.1 L 36-48 % Mean Corpuscular Volume 88.1 79-99 fL Mean Corpuscular Hemoglobin 29.2 27.0-33.0 pg Mean Corpuscular Hemoglobin Concent 33.1 32.0-36.0 g/dL Red Cell Distribution Width 13.6 11.0-15.5 % Platelet Count 387 130-400 K/uL Mean Platelet Volume 10.5 7.5-10.5 fL Immature Granulocyte % (Auto) 1.1 H 0-1 % Neutrophils (%) (Auto) 69.8 40.0-77.0 % Lymphocytes (%) (Auto) 18.6 L 21.0-51.0 % Monocytes (%) (Auto) 9.1 3.0-13.0 % Eosinophils (%) (Auto) 1.1 0.0-8.0 % Basophils (%) (Auto) 0.3 0.0-5.0 % Neutrophils # (Auto) 10.9 H 1.8-7.7 K/uL Lymphocytes # (Auto) 2.9 1.0-4.8 K/uL Monocytes # (Auto) 1.4 H 0.1-1.0 K/uL Eosinophils # (Auto) 0.17 0.00-0.70 K/uL Basophils # (Auto) 0.05 0.00-0.20 K/uL Absolute Immature Granulocyte (auto 0.17 0-1 K/uL Nucleated Red Blood Cells 0.0 0.0-0.19 % Sodium Level 140 136-145 mmol/L Potassium Level 3.7 3.5-5.1 mmol/L Chloride Level 106 101-111 mmol/L Carbon Dioxide Level 27 21-32 mmol/L Blood Urea Nitrogen 8 7-18 mg/dL Creatinine 1.1 H 0.5-1.0 mg/dL Glomerular Filtration Rate Calc 63 >90 mL/min Random Glucose 205 H 70-105 mg/dL Total Calcium 8.1 L 8.5-10.1 mg/dL C-Reactive Protein, Quantitative 137.00 H 0.5-3.0 mg/L Test 01/25/25 05:30 01/25/25 11:29 Range/Units Whole Blood Glucose 191 H 187 H 70-110 MG/DL Assessment: -Sepsis -Leukocytosis -Wet gangrene with osteomyelitis affecting the 1st digit of the right foot s/p right TMA done on 01/19/2025 -Uncontrolled DM2 -Noncompliance Plan: 1. Wet gangrene with osteomyelitis affecting the 1st digit of the right foot s/p right TMA done on 01/19/2025 -Lower extremity arterial Dopplers are pending. -The TCOM analysis done today identified insufficient blood flow for wound healing, thus we recommend that she undergo a right lower extremity peripheral angiogram with possible intervention. The risks and benefits of the procedure have been explained to the patient and she wishes to proceed. -We will tentatively schedule the procedure for tomorrow to be done by Dr. Yaya Paiz. Access: Left COMPUTATIONAL SCIENTIST. -In addition, we will start the patient on aspirin 81 mg daily and atorvastatin 20 mg QHS (which may need to be increased depending on the results of her lipid panel). -In the meantime, the patient should continue on IV antibiotic therapy, with aggressive wound care, and recommend strict blood glucose control. Thank you for this interesting consult and allowing us to participate in the care of your patient. This case was discussed with my Supervising Physician, Dr. Yaya Paiz, and the above mentioned plan was formulated and agreed upon. -Consult Note written by Shiva Simon, MSN, HANDBOOK WRITER, AGACNP-BC SHIVA SIMON NP Jan 25, 2025 11:54
--- NOTE | 2025-01-25 13:08 | NUR ---
[facility] Follow-up: Patient re-assessed by wound healing team. See wound assessment. Assessment and recommendations provided to primary nurse. Education provided. Wound care done. Addendum: 01/25/25 at 1545 by CHON RAMÍREZ RN RN/ Amended: Links added.
[2025-01-25] MEDS: ASPIRIN 81MG CHEW TAB PO SCH (13:13)
[2025-01-25 16:22] LABS: INR 1.17 (0.85-1.15)
[2025-01-25] MEDS ORDERED: ZOSYN 3.375GM+NS 50ML 50 ML IV SCH (18:30)
--- NOTE | 2025-01-25 18:45 | PN ---
INFECTIOUS DISEASE PROGRESS NOTE Date of Service: Jan 25, 2025 SUBJECTIVE: This is a 44 year old female patient who is status post right TMA on 01/19/2025. Patient is afebrile this morning, temperature is 98.2 and the WBC has trended down to 15.6. No reports of nausea or vomiting. We will continue on vancomycin and Zosyn IV. PHYSICAL EXAM EYES: Anicteric. Pupils equal and reactive. HENT: No oral thrush seen, moist Oral mucosa. NECK: Supple, no JVD or thyromegaly. LUNGS: Good air entry. No rales, no rhonchi. CARDIOVASCULAR: S1, S2 regular. No murmur heard. ABDOMEN: Soft, non tender, bowel sounds present, no organomegaly. CENTRAL NERVOUS SYSTEM: Awake, alert, oriented x 3. SKIN: No rashes, no swelling. LYMPHATICS: No peripheral lymphadenopathy MUSCULOSKELETAL: No joint swelling, erythema or tenderness. 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 BACK: No deformity, no pressure ulcer. GENITOURINARY: No dysuria or hematuria. Vital Sign (Last 12 Hours) 01/25/25 01/25/25 01/25/25 08:00 11:51 16:00 Temp 98.2 98.2 98.4 Pulse 76 78 79 Resp 19 18 18 B/P (MAP) 109/67 113/69 137/75 Pulse Ox 97 97 91 O2 Delivery Room Air Room Air Room Air FiO2 21 21 21 Intake & Output (last 24hrs) 01/24/25 01/24/25 01/25/25 15:00 23:00 07:00 Intake Total 60.0 ml Balance 60.0 ml LABS: Laboratory: Test 01/25/25 16:03 01/25/25 15:56 01/25/25 04:42 01/24/25 11:28 Range/Units Prothrombin Time 12.2 H 9.6-11.6 SEC Prothromb Time International Ratio 1.17 H 0.85-1.15 Activated Partial Thromboplast Time 27.0 26.3-35.5 SEC Whole Blood Glucose 247 H 70-110 MG/DL White Blood Count 15.6 #H 4.8-10.8 K/uL Red Blood Count 3.19 L 4.00-5.50 MIL/uL Hemoglobin 9.3 L 12.0-16.0 g/dL Hematocrit 28.1 L 36-48 % Mean Corpuscular Volume 88.1 79-99 fL Mean Corpuscular Hemoglobin 29.2 27.0-33.0 pg Mean Corpuscular Hemoglobin Concent 33.1 32.0-36.0 g/dL Red Cell Distribution Width 13.6 11.0-15.5 % Platelet Count 387 130-400 K/uL Mean Platelet Volume 10.5 7.5-10.5 fL Immature Granulocyte % (Auto) 1.1 H 0-1 % Neutrophils (%) (Auto) 69.8 40.0-77.0 % Lymphocytes (%) (Auto) 18.6 L 21.0-51.0 % Monocytes (%) (Auto) 9.1 3.0-13.0 % Eosinophils (%) (Auto) 1.1 0.0-8.0 % Basophils (%) (Auto) 0.3 0.0-5.0 % Neutrophils # (Auto) 10.9 H 1.8-7.7 K/uL Lymphocytes # (Auto) 2.9 1.0-4.8 K/uL Monocytes # (Auto) 1.4 H 0.1-1.0 K/uL Eosinophils # (Auto) 0.17 0.00-0.70 K/uL Basophils # (Auto) 0.05 0.00-0.20 K/uL Absolute Immature Granulocyte (auto 0.17 0-1 K/uL Nucleated Red Blood Cells 0.0 0.0-0.19 % Sodium Level 140 136-145 mmol/L Potassium Level 3.7 3.5-5.1 mmol/L Chloride Level 106 101-111 mmol/L Carbon Dioxide Level 27 21-32 mmol/L Blood Urea Nitrogen 8 7-18 mg/dL Creatinine 1.1 H 0.5-1.0 mg/dL Glomerular Filtration Rate Calc 63 >90 mL/min Random Glucose 205 H 70-105 mg/dL Total Calcium 8.1 L 8.5-10.1 mg/dL C-Reactive Protein, Quantitative 137.00 H 0.5-3.0 mg/L Vancomycin Level 15.8 L 20.0-30.0 mcg/mL Test 01/24/25 04:59 Range/Units Procalcitonin 0.40 0.05-0.5 ng/mL DIAGNOSIS LAST RADIOLOGY. PATIENT: BHUMIKA OSWALD ACCT: [id number] LOC: 3B U: [id number] AGE/SX: 44/F ROOM: 306 RE01/18/[address]: FREDERICK CANO MD : 1980 BED: 1 DIS: STATUS: ADM IN TLOC: SPEC: [id number] LAY: 01/18/25-1430 STATUS: COMP REQ: [id number] RECD: 01/20/[address]: SHARON ZHAO NP SOURCE: [facility] [place] ENTR: 01/20/[address]: NONE SPDESC: CLEAN CAT SELF,REFERRAL ORDERED: AERO ID & SENS - Procedure Result Ricky Date-Time AEROBIC ID & SENSITIVITIES Final 01/21/25-1109 MRL COLONY DESCRIPTION: DAY 1: COLONY COUNT: 10,000 - 20,000 CFU/ML LACTOBACILLUS SPECIES NO FURTHER WORK-UP DONE LACTOBACILLUS SPECIES Test(s) performed by: [facility] [address] [place] [address] ASSESSMENT: 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 Leukocytosis. Urinary tract infection with lactobacillus species. Uncontrolled diabetes mellitus, hemoglobin A1c 13.9.. Medical noncompliance. Obesity PLAN: Continue vancomycin per pharmacy protocol. Continue Zosyn. Continue GI prophylaxis. Continue pain management. Continue insulin coverage per protocol sliding scale. Continue wound care. Patient will possibly need a right BKA. This case was reviewed and discussed with my supervising physician and the above assessment and plan was formulated and agreed upon. ATTESTATION BY PHYSICIAN I have seen and examined the patient. I reviewed the documentation, medical decision making, and treatment plan as noted by the mid-level provider above. I agree with the findings and plan of care. GAUDENCIO SHANKAR MD, [facility] Jan 25, 2025 18:45
[2025-01-25] MEDS: ZOSYN 3.375GM+NS 50ML 50 ML IV SCH (20:48)
[2025-01-26] VITALS (16 sets, daily range): BP systolic 102–135; BP diastolic 45–73; PULSE 60–78; RESP 16–18; TEMP 97.4–98.8; O2SAT 93–94
[2025-01-26] MEDS: VANCOMYCIN 1G/250ML KIT 250 ML IV SCH (05:16)
[2025-01-26 06:30] LABS: IMMATURE GRANULOCYTE ABSOLUTE 0.16 K/uL (0-1); NUCLEATED RED BLOOD CELLS 0.0 % (0.0-0.19); PLATELET COUNT (AUTO) 434 K/uL (130-400); RED BLOOD CELL COUNT(AUTO) 3.15 MIL/uL (4.00-5.50); RED CELL DISTRIBUTION WIDTH 13.8 % (11.0-15.5); WHITE BLOOD COUNT (AUTO) 14.1 K/uL (4.8-10.8)
--- NOTE | 2025-01-26 06:47 | HMCIMG ---
EXAMINATION: DUPLEX ULTRASOUND EXAMINATION OF THE BILATERAL LOWER EXTREMITY ARTERIES. CLINICAL HISTORY: Right great toe ulcer. COMPARISON: None. FINDINGS: Peak systolic velocities within the right lower arteries are as follows: Common femoral artery: 95 cm/s. Superficial femoral artery: 106 cm/s at proximal, 130 cm/s at mid, and 120 cm/s at distal segments. Popliteal artery: 73 cm/s at proximal and 97 cm/s at distal segments. Posterior tibial artery: 131 cm/s. Anterior tibial artery: 94 cm/s. Dorsalis pedis artery: 75 cm/s. The right lower limb arteries demonstrate monophasic waveforms in all arteries except the common femoral, proximal and mid superficial femoral arteries which demonstrate triphasic waveforms. Peak systolic velocities within the left lower arteries are as follows: Common femoral artery: 105 cm/s. Superficial femoral artery: 97 cm/s at proximal, 79 cm/s at mid, and 67 cm/s at distal segments. Popliteal artery: 87 cm/s at proximal and 78 cm/s at distal segments. Posterior tibial artery: 113 cm/s. Anterior tibial artery: 67 cm/s. Dorsalis pedis artery: 51 cm/s. The left lower limb arteries demonstrate triphasic waveforms in all arteries except the posterior tibial artery which demonstrates monophasic waveforms. There is intimal wall thickening in both the lower limb arteries. There is mild subcutaneous edema in the bilateral legs. IMPRESSION: Mild intimal wall thickening in both the lower limb arteries. The right lower limb arteries demonstrate monophasic waveforms in all arteries except the common femoral, proximal and mid superficial femoral arteries which demonstrate triphasic waveforms The left lower limb arteries demonstrate triphasic waveforms in all arteries except the posterior tibial artery which demonstrates monophasic waveforms. No flow limiting lesions. Mild subcutaneous edema in the bilateral legs. /[place]
[2025-01-26 06:52] LABS: CREATININE 1.2 mg/dL (0.5-1.0); GLOMERULAR FILTR. RATE CALC 57.0 mL/min (>90); GLUCOSE,RANDOM 226.0 mg/dL (70-105); LDL DIRECT 53.0 mg/dL (0-99); SODIUM SERUM 143.0 mmol/L (136-145); UREA NITROGEN, BLOOD 12.0 mg/dL (7-18)
--- NOTE | 2025-01-26 09:09 | PN ---
[facility] PROGRESS NOTE Date of Service: Jan 26, 2025 Time of Service: 09:05 SUBJECTIVE: This is a 44-year-old female with past medical history of diabetes and medical noncompliance who presents to the ED for complaints of right great toe wound ulcer and right foot pain.Patient reports on of last week she did not feel good ,she was dizzy,having chills and shortness of breath so she went to a Day and night clinic were she was told she has Flu and was prescribed with prednisone 10 mg daily,Naproxen and Tamiflu and after taking it the following day she noticed her right great toe has purple and whitish discoloration so she went to [place] today where she was given an IM injection was told for infection she said and on her way back home she noticed that her right great toe was hurting and her foot was getting swollen and red and her right great toe ulcer was smelling foul odor .Patient states she does not have a PCP and that sheis not taking any medication at home except for those 3 new med prescribed for her Flu she said. Seen and examined patient in the ER awake,alert and coherent,appears comfortable,patient denies sore throat, cough, nausea,vomiting ,abdominal pain,chest pain,palpitation and shortness of breath. Latest vital signs temperature a 100.2, heart rate 86, blood pressure 121/67 saturation 98% room air. WBC 32 with negative left shift of neutrophils 80, hemoglobin 13, he matocrit 41, platelet count 351. Sodium 124, chloride 97, glucose 327, CRP 338, procalcitonin 0.69. Urinalysis significant for protein, glucose, ketones, urine RBC 11-25, urine WBC 6-10. X-ray of the right foot result revealed soft tissues edema and emphysema of the right great toe there is no radiographic evidence for osteomyelitis however if clinical concern persists recommend contrast enhanced MRI of the right foot for further evaluation. While in the ER patient received fluid resuscitation of NS 30 mL/kilogram over 3 hours, Zosyn IV and vancomycin IV we will admit patient for further medical management. 01/19/25 Patient was seen and examined at bedside. She had a temperature of 100 last night, other vitals are stable. She does not take medications for diabetes and does not have a PCP. She first noticed an ulcer on her right foot two weeks ago that eventually developed into foul smelling gas gangrene. Podiatry consult was placed as X-rays showed evidence of osteomyelitis and soft tissue gangrene involving the right first metatarsal. Given the emergent nature of the infection, podiatry recommended a first-ray amputation on the same day. However, the patient initially declined the procedure, expressing a desire to first discuss the situation with family members. She also mentioned the possibility of signing AMA but was advised to reconsider if she changes her decision. In the meantime, an orthopedic surgery consult was placed to evaluate for the possibility of a below-knee amputation , given the extent of infection and urgency of intervention. 01/20/25 Patient was seen and examined at bedside. She had a TMA done by Dr. Pacheco yesterday with no complications. She is currently on vancomycin and zosyn. We will follow ID recommendations on IV antibiotics and discharge plan whether to send her to SNF or f/u outpatient at [facility] for iv antibiotics. She denies any pain or swelling or tenderness over the surgery site. Her glucose is uncontrolled and will adjust her insulin. 01/21/25 Patient was seen and examined at bedside. She is hemodynamically stable, no acute events overnigt. She reports minimal pain to surgical site. As per Dr. Dewitt patient will stay over the weekend to complete the course of antibiotics. She is working with PT and is progressing towards goals. She denies any pain or swelling or tenderness over the surgery site 01/22/25 Patient seen at bedside. Reports no fevers or chills in the past 24 hours. WBC remains elevated at 23.6 despite ongoing treatment with vancomycin and Zosyn. No acute events overnight. Plan to continue current antibiotic therapy and follow Infectious Disease recommendations on discharge planning. 01/23/25 Patient was seen at bedside and appears to be doing well overall, ambulating with physical therapy without difficulty. White blood cell count remains elevated at 22.8, and she had a low-grade fever of 100.6F this morning. Blood cultures remain negative. Hemoglobin is trending down slowly, though LDH is within normal limits and stool guaiac is negative , possible dilutional effect. BNP is mildly elevated at 119, and CRP has decreased from 311 to 182. She will need to continue IV antibiotics and may require a below-knee amputation in the future given her diabetes and the non-healing wound at the TMA site. A social work consult will be requested, as the patient lacks access to a primary care provider due to financial constraints. 01/24/25 Patient was seen at bedside and appears to be doing well overall, ambulating with physical therapy without difficulty. White blood cell count slowly trending downwards from 22.8 to 21.4, CRP from 182.8 to 161.8. Her vancomycin trough is high at 31.7 and Cr is 1.2. We will hold vancomycin for today and give her fluids and recheck in the morning. She had no temperature in the last 24 hours. Pending ID recommendations on plan of discharge. 01/25/25 Patient was seen at bedside and appears to be doing well overall, ambulating wit h physical therapy without difficulty. Her vitals are stable. White blood cell count slowly trending downwards from 21.4 to 15.6, CRP from 161.8 to 137. Her vancomycin trough was at 31.7 on 01/24/25 and today vancomycin level is 15.8. Her serum Cr is 1.1 and ca is 8.1. She had no temperature in the last 24 hours. ID has recommended for possible below knee amputation. Case management team anish talked with Dr Pacheco. And Dr. Paiz has been consulted for lower right limb arterial doppler ultrasound. 01/25/25 Patient was seen at bedside and appears to be doing well overall. Her vitals are stable. White blood cell count slowly trending downwards from 15.6 to 14.1 and Hgb is 8.9 today. She has bilateral lower limb edema, more on the right side. Her wound is slightly wet and soaked. The TCOM analysis done yesterday identified insufficient blood flow for wound healing. So, today she will undergo a right lower extremity peripheral angiogram with possible intervention. REVIEW OF SYSTEMS CONSTITUTIONAL: Positive fever Denies chills, or night sweats. No unintentional weight loss reported. NEUROLOGICAL: Denies headache, amaurosis fugax, motor weakness, sensory deficit, vertigo/spinning sensation, gait abnormalities, or tremors. ENT: No hearing loss, otalgia, otorrhea, rhinitis, rhinorrhea, hoarseness, or sore throat. CARDIOVASCULAR: Denies any exertional angina, dyspnea on exertion, orthopnea, paroxysmal nocturnal dyspnea, palpitations, life-threatening arrhythmias, claudication. PULMONARY: Denies any shortness of breath, cough, phlegm/sputum, hemoptysis, pleuritic chest pain. SLEEP: Denies morning headaches, daytime somnolence or napping. Denies difficulty falling asleep, staying asleep, waking from sleep. Denies knowledge of snoring. GASTROINTESTINAL: Denies any type of dysphagia to either liquids or solids. Denies nausea, vomiting, pyrosis, early satiety, abdominal pain, diarrhea, constipation, or changes in stool consistency or caliber. Denies coffee-ground emesis, hematemesis, hematochezia, or melanotic stools. GENITOURINARY: Denies frequency, urgency, nocturia, hematuria or incontinence (Storage/Irritative symptoms.) Low urinary stream, straining to void, urinary intermittency or hesitancy, splitting of the voiding stream, terminal dribbling. ENDOCRINOLOGIC: Denies polyuria, polydipsia, polyphagia or heat/cold intolerances. HEMATOLOGIC: Denies thrombophilia/previous clots, or coagulopathy/bleeding disorders. ONCOLOGIC: Denies personal history of malignancy. DERMATOLOGIC: Denies rashes or pruritus. PSYCHIATRIC: Denies any suicidal or homicidal ideation. Denies hallucinations. PHYSICAL EXAM GENERAL APPEARANCE: The patient is awake, alert, and oriented, in no acute cardiopulmonary distress. NEUROLOGICAL: Cranial nerves II-XII grossly intact. Motor is 5/5 in bilateral upper and lower extremities proximal to distal. No sensory deficits. HEENT: Face is symmetric. Pupils are equal and reactive. Extraocular movements are intact. NECK: Supple. No JVD. No thyromegaly. No submental, submandibular, pre- /postauricular, occipital or supraclavicular lymphadenopathy. CHEST: Normal chest expansion. No Telemetry. LUNGS: Absence of any rales, rhonchi or any wheezing. CARDIOVASCULAR: Regular. S1 and S2 normal. No appreciable rubs, murmurs or gallops. ABDOMEN: Soft, nontender, and nondistended. There is no rebound, voluntary guarding, or rigidity. : Deferred. No [place]. EXTREMITIES: Right foot swollen positive erythema SKIN: Right great toe wound ulcer Vital Signs (last 8hr) Date Time Temp Pulse Resp B/P (MAP) Pulse Ox O2 Delivery O2 Flow Rate FiO2 01/26/25 07:59 93 Room Air* 0 21 01/26/25 07:49 98.8 74 18 124/71 93 Room Air 01/26/25 04:00 98.4 78 18 120/73 97 Room Air LABS: Laboratory: Test 01/26/25 06:04 01/26/25 05:51 01/25/25 16:03 01/25/25 04:42 Range/Units Whole Blood Glucose 214 H 70-110 MG/DL White Blood Count 14.1 H 4.8-10.8 K/uL Red Blood Count 3.15 L 4.00-5.50 MIL/uL Hemoglobin 8.9 L 12.0-16.0 g/dL Hematocrit 28.4 L 36-48 % Mean Corpuscular Volume 90.2 79-99 fL Mean Corpuscular Hemoglobin 28.3 27.0-33.0 pg Mean Corpuscular Hemoglobin Concent 31.3 L 32.0-36.0 g/dL Red Cell Distribution Width 13.8 11.0-15.5 % Platelet Count 434 H 130-400 K/uL Mean Platelet Volume 10.0 7.5-10.5 fL Immature Granulocyte % (Auto) 1.1 H 0-1 % Neutrophils (%) (Auto) 70.3 40.0-77.0 % Lymphocytes (%) (Auto) 17.7 L 21.0-51.0 % Monocytes (%) (Auto) 9.3 3.0-13.0 % Eosinophils (%) (Auto) 1.4 0.0-8.0 % Basophils (%) (Auto) 0.2 0.0-5.0 % Neutrophils # (Auto) 9.9 H 1.8-7.7 K/uL Lymphocytes # (Auto) 2.5 1.0-4.8 K/uL Monocytes # (Auto) 1.3 H 0.1-1.0 K/uL Eosinophils # (Auto) 0.20 0.00-0.70 K/uL Basophils # (Auto) 0.03 0.00-0.20 K/uL Absolute Immature Granulocyte (auto 0.16 0-1 K/uL Nucleated Red Blood Cells 0.0 0.0-0.19 % Sodium Level 143 136-145 mmol/L Potassium Level 4.1 3.5-5.1 mmol/L Chloride Level 109 101-111 mmol/L Carbon Dioxide Level 27 21-32 mmol/L Blood Urea Nitrogen 12 7-18 mg/dL Creatinine 1.2 H 0.5-1.0 mg/dL Glomerular Filtration Rate Calc 57 >90 mL/min Random Glucose 226 H 70-105 mg/dL Total Calcium 8.1 L 8.5-10.1 mg/dL Triglycerides Level 136 30-200 mg/dL Cholesterol Level 90 <200 mg/dL LDL Cholesterol 53 0-99 mg/dL HDL Cholesterol 22 L 35-85 mg/dL Prothrombin Time 12.2 H 9.6-11.6 SEC Prothromb Time International Ratio 1.17 H 0.85-1.15 Activated Partial Thromboplast Time 27.0 26.3-35.5 SEC C-Reactive Protein, Quantitative 137.00 H 0.5-3.0 mg/L Test 01/24/25 11:28 Range/Units Vancomycin Level 15.8 L 20.0-30.0 mcg/mL Current Medications Medications (Trade) Dose Ordered Sig/Padilla Route PRN Reason Start Time Stop Time Status Last Admin Dose Admin Acetaminophen (TYLenol 325MG TAB) 650 mg Q4H PRN PO MILD PAIN (1-3) 01/18/25 20:00 02/17/25 19:59 01/24/25 12:43 650 MG Acetaminophen (TYLenol 325MG TAB) 650 mg Q6H PRN PO TEMPERATURE GREATER THAN 101.5 01/18/25 20:00 02/17/25 19:59 01/23/25 08:36 650 MG Acetaminophen/ Hydrocodone Bitart (NORco 5/325MG) 1 tab Q4H PRN PO MODERATE PAIN (4-6) 01/18/25 20:00 01/23/25 19:59 DC 01/19/25 21:51 1 TAB Acetaminophen/ Hydrocodone Bitart (NORco 5/325MG) 2 tab Q4H PRN PO SEVERE PAIN (7-10) 01/18/25 20:00 01/23/25 19:59 DC 01/21/25 23:30 2 TAB Aspirin (Aspirin 81mg Chew Tab) 81 mg DAILY PO 01/25/25 12:00 02/24/25 11:59 01/25/25 13:13 81 MG Atorvastatin Calcium (LIPItor 20MG) 20 mg HS PO 01/25/25 21:00 02/24/25 20:59 01/25/25 20:48 20 MG Clindamycin HCl/ Dextrose 50 ml @ 100 mls/hr Q8H IV 01/20/25 00:30 01/20/25 09:36 DC 01/20/25 09:02 100 MLS/HR Dextrose (D50w) 50 ml AD PRN IV HYPOGLYCEMIA PROTOCOL 01/18/25 20:00 02/17/25 19:59 Docusate Sodium (COLace 100MG CAP) 100 mg BID PO 01/24/25 09:00 02/23/25 08:59 01/25/25 20:48 100 MG Famotidine (Pepcid 20mg Tab) 20 mg BID PO 01/18/25 21:00 02/17/25 20:59 01/25/25 20:48 20 MG Glucagon (Glucagon 1mg Kit) 1 mg AD PRN IM HYPOGLYCEMIA PROTOCOL 01/18/25 20:00 02/17/25 19:59 Guaifenesin/ Dextromethorphan (RobiTUSSin DM 200/20MG 10ML) 10 ml Q4H PRN PO COUGH 01/22/25 17:00 02/21/25 16:59 01/26/25 00:25 10 ML Heparin Sodium (Porcine) (HEParin 5,000 UNIT VIAL) 5,000 unit Q12H SQ 01/21/25 09:00 02/20/25 08:59 01/25/25 20:51 5,000 UNIT Insulin Glargine (LANtus 100 UNITS/ML 10 ML VIAL) 9 units HS SQ 01/20/25 21:00 01/24/25 12:05 DC 01/23/25 20:35 9 UNITS Insulin Glargine (LANtus 100 UNITS/ML 10 ML VIAL) 12 units HS SQ 01/24/25 21:00 02/23/25 20:59 01/25/25 20:54 12 UNITS Insulin Human Regular (humuLIN R 100 UNIT/ML 3ML) 3 unit TIDAC SQ 01/21/25 07:30 01/24/25 12:05 DC 01/24/25 05:56 3 UNIT Insulin Human Regular (humuLIN R 100 UNIT/ML 3ML) 5 unit TIDAC SQ 01/24/25 17:00 02/23/25 16:59 01/25/25 17:29 5 UNIT Insulin Human Regular (humuLIN R 100 UNIT/ML 3ML) INSULIN SLIDING SCAL... ACHS SQ 01/18/25 21:00 02/17/25 20:59 01/26/25 06:46 3 UNIT Lactulose (Constulose 20gm/ 30ml Udcup) 20 gm BID PRN PO CONSTIPATION 01/24/25 04:30 02/23/25 04:29 01/24/25 08:54 20 GM Magnesium Sulfate 50 ml @ 0 mls/hr PROTOCOL PRN IV OTHER [SEE ORDER COMMENTS] 01/18/25 20:00 02/17/25 19:59 Ondansetron HCl (zoFRAN 4MG INJ) 4 mg Q6H PRN IV NAUSEA/VOMITING 01/18/25 20:00 02/17/25 19:59 01/22/25 16:13 4 MG Piperacillin Sod/ Tazobactam Sod 50 ml @ 12.5 mls/hr Q8H IV 01/19/25 04:00 01/25/25 16:06 DC 01/25/25 03:20 12.5 MLS/HR Piperacillin Sod/ Tazobactam Sod 50 ml @ 12.5 mls/hr Q8H IV 01/25/25 18:30 01/25/25 18:34 DC Piperacillin Sod/ Tazobactam Sod 50 ml @ 12.5 mls/hr Q8H IV 01/25/25 21:00 02/04/25 20:59 01/26/25 05:15 12.5 MLS/HR Piperacillin Sod/ Tazobactam Sod (Zosyn 3.375gm+NS 50ml) 3.375 gm ONCE STAT IVPB 01/18/25 17:47 01/18/25 17:51 DC 01/18/25 19:34 3.375 GM Polyethylene Glycol (MIRalax 3350 17 GM POWD.PACK) 17 gm DAILY PRN PO CONSTIPATION 01/24/25 09:00 02/23/25 08:59 Potassium Chloride 100 ml @ 100 mls/hr AD PRN IV POTASSIUM PROTOCOL 01/18/25 20:00 02/17/25 19:59 Potassium Chloride (K-Dur/Klor-Con 20meq) 20 meq AD PRN PO POTASSIUM PROTOCOL 01/18/25 20:00 02/17/25 19:59 01/25/25 05:42 20 MEQ Potassium Chloride (KCl 10% Elixir 20meq/15ml) 20 meq AD PRN PO POTASSIUM PROTOCOL 01/18/25 20:00 02/17/25 19:59 Sodium Chloride 1,000 ml @ 100 mls/hr Q10H IV 01/18/25 20:00 01/19/25 15:59 DC 01/19/25 06:15 100 MLS/HR Sodium Chloride 1,000 ml @ 125 mls/hr Q8H IV 01/24/25 12:00 02/23/25 11:59 01/26/25 05:16 125 MLS/HR Vancomycin HCl 250 ml @ 125 mls/hr ONCE IV 01/18/25 20:00 01/18/25 20:33 DC Vancomycin HCl 250 ml @ 125 mls/hr Q12H IV 01/19/25 08:00 01/23/25 20:28 DC 01/23/25 08:36 125 MLS/HR Vancomycin HCl 250 ml @ 125 mls/hr Q12H IV 01/23/25 20:30 01/24/25 00:19 DC Vancomycin HCl 250 ml @ 166.667 mls/hr Q12H IV 01/24/25 13:00 01/25/25 00:06 DC Vancomycin HCl 250 ml @ 166.667 mls/hr Q12H IV 01/25/25 00:30 01/25/25 00:09 DC Vancomycin HCl 250 ml @ 166.667 mls/hr Q12H IV 01/25/25 01:00 01/25/25 18:38 DC 01/25/25 12:40 166.667 MLS/HR Vancomycin HCl 250 ml @ 166.667 mls/hr Q12H IV 01/26/25 06:00 02/05/25 05:59 01/26/25 05:16 166.667 MLS/HR Vancomycin HCl (Vancomycin Protocol) 1 each AD IV 01/18/25 21:00 02/01/25 20:59 Vancomycin HCl (Vancomycin 1.5 Gm/250 ml Bag) 1.5 gm ONCE STAT IV 01/18/25 19:14 01/18/25 19:36 DC DIAGNOSTICS / RADIOLOGY: [ ] ASSESSMENT: YINKA possibly secondary to vancomycin induced nephrotoxicity, not POA Sepsis due to right great toe osteomyelitis POA Infected right great toe diabetic wound ulcer rule out osteomyelitis POA Right foot cellulitis POA Hyperglycemia due to uncontrolled diabetes POA Severe leukocytosis POA Medical noncompliance POA Obesity POA Suspected urinary tract infection POA Post TMA of right foot day 4 PLAN: Everyday dressings and touch down weight bearing RLE with walker Consistent carb diet Continue Zosyn and vancomycin for broad-spectrum coverage Start on Famotidine 20 mg p.o. bid for GI prophylaxis Replace electrolytes as needed per protocol PT evaluation and CM evaluation ID, Ortho, Podiatry recommendations We will start on insulin sliding scale AC & HS with hypoglycemia protocol We will add prn medication for fever,pain,cough, nausea and vomiting We will request neurovascular check q.4 hours We will request labs in am Further orders to follow depending on above results SOLE TERRY MD Jan 26, 2025 09:08
--- NOTE | 2025-01-26 09:13 | PN ---
[facility] PROGRESS NOTE Date of Service: Jan 26, 2025 Time of Service: 09:10 SUBJECTIVE: This is a 44-year-old female with past medical history of diabetes and medical noncompliance who presents to the ED for complaints of right great toe wound ulcer and right foot pain.Patient reports on of last week she did not feel good ,she was dizzy,having chills and shortness of breath so she went to a [facility] night clinic were she was told she has Flu and was prescribed with prednisone 10 mg daily,Naproxen and Tamiflu and after taking it the following day she noticed her right great toe has purple and whitish discoloration so she went to [place] today where she was given an IM injection was told for infection she said and on her way back home she noticed that her right great toe was hurting and her foot was getting swollen and red and her right great toe ulcer was smelling foul odor .Patient states she does not have a PCP and that sheis not taking any medication at home except for those 3 new med prescribed for her Flu she said. Seen and examined patient in the ER awake,alert and coherent,appears comfortable,patient denies sore throat, cough, nausea,vomiting ,abdominal pain,chest pain,palpitation and shortness of breath. Latest vital signs temperature a 100.2, heart rate 86, blood pressure 121/67 saturation 98% room air. WBC 32 with negative left shift of neutrophils 80, hemoglobin 13, he matocrit 41, platelet count 351. Sodium 124, chloride 97, glucose 327, CRP 338, procalcitonin 0.69. Urinalysis significant for protein, glucose, ketones, urine RBC 11-25, urine WBC 6-10. X-ray of the right foot result revealed soft tissues edema and emphysema of the right great toe there is no radiographic evidence for osteomyelitis however if clinical concern persists recommend contrast enhanced MRI of the right foot for further evaluation. While in the ER patient received fluid resuscitation of NS 30 mL/kilogram over 3 hours, Zosyn IV and vancomycin IV we will admit patient for further medical management. 01/19/25 Patient was seen and examined at bedside. She had a temperature of 100 last night, other vitals are stable. She does not take medications for diabetes and does not have a PCP. She first noticed an ulcer on her right foot two weeks ago that eventually developed into foul smelling gas gangrene. Podiatry consult was placed as X-rays showed evidence of osteomyelitis and soft tissue gangrene involving the right first metatarsal. Given the emergent nature of the infection, podiatry recommended a first-ray amputation on the same day. However, the patient initially declined the procedure, expressing a desire to first discuss the situation with family members. She also mentioned the possibility of signing AMA but was advised to reconsider if she changes her decision. In the meantime, an orthopedic surgery consult was placed to evaluate for the possibility of a below-knee amputation , given the extent of infection and urgency of intervention. 01/20/25 Patient was seen and examined at bedside. She had a TMA done by Dr. Wakefield yesterday with no complications. She is currently on vancomycin and zosyn. We will follow ID recommendations on IV antibiotics and discharge plan whether to send her to SNF or f/u outpatient at [facility] for iv antibiotics. She denies any pain or swelling or tenderness over the surgery site. Her glucose is uncontrolled and will adjust her insulin. 01/21/25 Patient was seen and examined at bedside. She is hemodynamically stable, no acute events overnigt. She reports minimal pain to surgical site. As per Dr. Dewitt patient will stay over the weekend to complete the course of antibiotics. She is working with PT and is progressing towards goals. She denies any pain or swelling or tenderness over the surgery site 01/22/25 Patient seen at bedside. Reports no fevers or chills in the past 24 hours. WBC remains elevated at 23.6 despite ongoing treatment with vancomycin and Zosyn. No acute events overnight. Plan to continue current antibiotic therapy and follow Infectious Disease recommendations on discharge planning. 01/23/25 Patient was seen at bedside and appears to be doing well overall, ambulating with physical therapy without difficulty. White blood cell count remains elevated at 22.8, and she had a low-grade fever of 100.6F this morning. Blood cultures remain negative. Hemoglobin is trending down slowly, though LDH is within normal limits and stool guaiac is negative , possible dilutional effect. BNP is mildly elevated at 119, and CRP has decreased from 311 to 182. She will need to continue IV antibiotics and may require a below-knee amputation in the future given her diabetes and the non-healing wound at the TMA site. A social work consult will be requested, as the patient lacks access to a primary care provider due to financial constraints. 01/24/25 Patient was seen at bedside and appears to be doing well overall, ambulating with physical therapy without difficulty. White blood cell count slowly trending downwards from 22.8 to 21.4, CRP from 182.8 to 161.8. Her vancomycin trough is high at 31.7 and Cr is 1.2. We will hold vancomycin for today and give her fluids and recheck in the morning. She had no temperature in the last 24 hours. Pending ID recommendations on plan of discharge. 01/25/25 Patient was seen at bedside and appears to be doing well overall, ambulating wit h physical therapy without difficulty. Her vitals are stable. White blood cell count slowly trending downwards from 21.4 to 15.6, CRP from 161.8 to 137. Her vancomycin trough was at 31.7 on 01/24/25 and today vancomycin level is 15.8. Her serum Cr is 1.1 and ca is 8.1. She had no temperature in the last 24 hours. ID has recommended for possible below knee amputation. Case management team anish talked with Dr Wakefield. And Dr. Paiz has been consulted for lower right limb arterial doppler ultrasound. 01/26/25 Patient was seen at bedside and appears to be doing well overall. Her vitals are stable. White blood cell count slowly trending downwards from 15.6 to 14.1 and Hgb is 8.9 today. She has bilateral lower limb edema, more on the right side. Her wound is slightly wet and soaked. Cardiology was consulted due to concern for PAD. The TCOM analysis done yesterday identified insufficient blood flow for wound healing. So, today she will undergo a right lower extremity peripheral angiogram with possible intervention. She will be continued on Vancomycin and IV Zoysn. Arterial ultrasound done yesterday demonstrated monophasic waveforms in p roximal artery on left lower extremity and all arteries except common femoral, proximal and mid superficial femoral arteries on right lower extremity. REVIEW OF SYSTEMS CONSTITUTIONAL: No fever, chills, or night sweats. NEUROLOGICAL: Denies headache, motor weakness, sensory deficit. CARDIOVASCULAR: Denies any exertional angina, dyspnea on exertion, orthopnea, palpitations PULMONARY: Denies any shortness of breath, cough, hemoptysis, pleuritic chest pain. GASTROINTESTINAL:Denies nausea, vomiting, abdominal pain, diarrhea, constipation GENITOURINARY: Denies frequency, urgency, nocturia, hematuria or incontinence. PHYSICAL EXAM General: Alert and oriented. Lungs: .No wheezing, rales or rhonchi. Cardio: Regular rate. Normal S1 and S2. +S4. Abdomen: Soft. NT. ND. Normal active bowel sounds x 4 quadrants. Extremities: The right foot is wrapped in a bulky dressing, s/p, right TMA. Neuro: No focal deficits. Vital Signs (last 8hr) Date Time Temp Pulse Resp B/P (MAP) Pulse Ox O2 Delivery O2 Flow Rate FiO2 01/26/25 07:59 93 Room Air* 0 21 01/26/25 07:49 98.8 74 18 124/71 93 Room Air 01/26/25 04:00 98.4 78 18 120/73 97 Room Air LABS: Laboratory: Test 01/26/25 06:04 01/26/25 05:51 01/25/25 16:03 01/25/25 04:42 Range/Units Whole Blood Glucose 214 H 70-110 MG/DL White Blood Count 14.1 H 4.8-10.8 K/uL Red Blood Count 3.15 L 4.00-5.50 MIL/uL Hemoglobin 8.9 L 12.0-16.0 g/dL Hematocrit 28.4 L 36-48 % Mean Corpuscular Volume 90.2 79-99 fL Mean Corpuscular Hemoglobin 28.3 27.0-33.0 pg Mean Corpuscular Hemoglobin Concent 31.3 L 32.0-36.0 g/dL Red Cell Distribution Width 13.8 11.0-15.5 % Platelet Count 434 H 130-400 K/uL Mean Platelet Volume 10.0 7.5-10.5 fL Immature Granulocyte % (Auto) 1.1 H 0-1 % Neutrophils (%) (Auto) 70.3 40.0-77.0 % Lymphocytes (%) (Auto) 17.7 L 21.0-51.0 % Monocytes (%) (Auto) 9.3 3.0-13.0 % Eosinophils (%) (Auto) 1.4 0.0-8.0 % Basophils (%) (Auto) 0.2 0.0-5.0 % Neutrophils # (Auto) 9.9 H 1.8-7.7 K/uL Lymphocytes # (Auto) 2.5 1.0-4.8 K/uL Monocytes # (Auto) 1.3 H 0.1-1.0 K/uL Eosinophils # (Auto) 0.20 0.00-0.70 K/uL Basophils # (Auto) 0.03 0.00-0.20 K/uL Absolute Immature Granulocyte (auto 0.16 0-1 K/uL Nucleated Red Blood Cells 0.0 0.0-0.19 % Sodium Level 143 136-145 mmol/L Potassium Level 4.1 3.5-5.1 mmol/L Chloride Level 109 101-111 mmol/L Carbon Dioxide Level 27 21-32 mmol/L Blood Urea Nitrogen 12 7-18 mg/dL Creatinine 1.2 H 0.5-1.0 mg/dL Glomerular Filtration Rate Calc 57 >90 mL/min Random Glucose 226 H 70-105 mg/dL Total Calcium 8.1 L 8.5-10.1 mg/dL Triglycerides Level 136 30-200 mg/dL Cholesterol Level 90 <200 mg/dL LDL Cholesterol 53 0-99 mg/dL HDL Cholesterol 22 L 35-85 mg/dL Prothrombin Time 12.2 H 9.6-11.6 SEC Prothromb Time International Ratio 1.17 H 0.85-1.15 Activated Partial Thromboplast Time 27.0 26.3-35.5 SEC C-Reactive Protein, Quantitative 137.00 H 0.5-3.0 mg/L Test 01/24/25 11:28 Range/Units Vancomycin Level 15.8 L 20.0-30.0 mcg/mL Current Medications Medications (Trade) Dose Ordered Sig/Padilla Route PRN Reason Start Time Stop Time Status Last Admin Dose Admin Acetaminophen (TYLenol 325MG TAB) 650 mg Q4H PRN PO MILD PAIN (1-3) 01/18/25 20:00 02/17/25 19:59 01/24/25 12:43 650 MG Acetaminophen (TYLenol 325MG TAB) 650 mg Q6H PRN PO TEMPERATURE GREATER THAN 101.5 01/18/25 20:00 02/17/25 19:59 01/23/25 08:36 650 MG Acetaminophen/ Hydrocodone Bitart (NORco 5/325MG) 1 tab Q4H PRN PO MODERATE PAIN (4-6) 01/18/25 20:00 7/6/25 19:59 DC 01/19/25 21:51 1 TAB Acetaminophen/ Hydrocodone Bitart (NORco 5/325MG) 2 tab Q4H PRN PO SEVERE PAIN (7-10) 01/18/25 20:00 01/23/25 19:59 DC 01/21/25 23:30 2 TAB Aspirin (Aspirin 81mg Chew Tab) 81 mg DAILY PO 01/25/25 12:00 02/24/25 11:59 01/25/25 13:13 81 MG Atorvastatin Calcium (LIPItor 20MG) 20 mg HS PO 01/25/25 21:00 02/24/25 20:59 01/25/25 20:48 20 MG Clindamycin HCl/ Dextrose 50 ml @ 100 mls/hr Q8H IV 01/20/25 00:30 01/20/25 09:36 DC 01/20/25 09:02 100 MLS/HR Dextrose (D50w) 50 ml AD PRN IV HYPOGLYCEMIA PROTOCOL 01/18/25 20:00 02/17/25 19:59 Docusate Sodium (COLace 100MG CAP) 100 mg BID PO 01/24/25 09:00 02/23/25 08:59 01/25/25 20:48 100 MG Famotidine (Pepcid 20mg Tab) 20 mg BID PO 01/18/25 21:00 02/17/25 20:59 01/25/25 20:48 20 MG Glucagon (Glucagon 1mg Kit) 1 mg AD PRN IM HYPOGLYCEMIA PROTOCOL 01/18/25 20:00 02/17/25 19:59 Guaifenesin/ Dextromethorphan (RobiTUSSin DM 200/20MG 10ML) 10 ml Q4H PRN PO COUGH 01/22/25 17:00 02/21/25 16:59 01/26/25 00:25 10 ML Heparin Sodium (Porcine) (HEParin 5,000 UNIT VIAL) 5,000 unit Q12H SQ 01/21/25 09:00 02/20/25 08:59 01/25/25 20:51 5,000 UNIT Insulin Glargine (LANtus 100 UNITS/ML 10 ML VIAL) 9 units HS SQ 01/20/25 21:00 01/24/25 12:05 DC 01/23/25 20:35 9 UNITS Insulin Glargine (LANtus 100 UNITS/ML 10 ML VIAL) 12 units HS SQ 01/24/25 21:00 02/23/25 20:59 01/25/25 20:54 12 UNITS Insulin Human Regular (humuLIN R 100 UNIT/ML 3ML) 3 unit TIDAC SQ 01/21/25 07:30 01/24/25 12:05 DC 01/24/25 05:56 3 UNIT Insulin Human Regular (humuLIN R 100 UNIT/ML 3ML) 5 unit TIDAC SQ 01/24/25 17:00 02/23/25 16:59 01/25/25 17:29 5 UNIT Insulin Human Regular (humuLIN R 100 UNIT/ML 3ML) INSULIN SLIDING SCAL... ACHS SQ 01/18/25 21:00 02/17/25 20:59 01/26/25 06:46 3 UNIT Lactulose (Constulose 20gm/ 30ml Udcup) 20 gm BID PRN PO CONSTIPATION 01/24/25 04:30 02/23/25 04:29 01/24/25 08:54 20 GM Magnesium Sulfate 50 ml @ 0 mls/hr PROTOCOL PRN IV OTHER [SEE ORDER COMMENTS] 01/18/25 20:00 02/17/25 19:59 Ondansetron HCl (zoFRAN 4MG INJ) 4 mg Q6H PRN IV NAUSEA/VOMITING 01/18/25 20:00 02/17/25 19:59 01/22/25 16:13 4 MG Piperacillin Sod/ Tazobactam Sod 50 ml @ 12.5 mls/hr Q8H IV 01/19/25 04:00 01/25/25 16:06 DC 01/25/25 03:20 12.5 MLS/HR Piperacillin Sod/ Tazobactam Sod 50 ml @ 12.5 mls/hr Q8H IV 01/25/25 18:30 01/25/25 18:34 DC Piperacillin Sod/ Tazobactam Sod 50 ml @ 12.5 mls/hr Q8H IV 01/25/25 21:00 02/04/25 20:59 01/26/25 05:15 12.5 MLS/HR Piperacillin Sod/ Tazobactam Sod (Zosyn 3.375gm+NS 50ml) 3.375 gm ONCE STAT IVPB 01/18/25 17:47 01/18/25 17:51 DC 01/18/25 19:34 3.375 GM Polyethylene Glycol (MIRalax 3350 17 GM POWD.PACK) 17 gm DAILY PRN PO CONSTIPATION 01/24/25 09:00 02/23/25 08:59 Potassium Chloride 100 ml @ 100 mls/hr AD PRN IV POTASSIUM PROTOCOL 01/18/25 20:00 02/17/25 19:59 Potassium Chloride (K-Dur/Klor-Con 20meq) 20 meq AD PRN PO POTASSIUM PROTOCOL 01/18/25 20:00 02/17/25 19:59 01/25/25 05:42 20 MEQ Potassium Chloride (KCl 10% Elixir 20meq/15ml) 20 meq AD PRN PO POTASSIUM PROTOCOL 01/18/25 20:00 02/17/25 19:59 Sodium Chloride 1,000 ml @ 100 mls/hr Q10H IV 01/18/25 20:00 01/19/25 15:59 DC 01/19/25 06:15 100 MLS/HR Sodium Chloride 1,000 ml @ 125 mls/hr Q8H IV 01/24/25 12:00 02/23/25 11:59 01/26/25 05:16 125 MLS/HR Vancomycin HCl 250 ml @ 125 mls/hr ONCE IV 01/18/25 20:00 01/18/25 20:33 DC Vancomycin HCl 250 ml @ 125 mls/hr Q12H IV 01/19/25 08:00 01/23/25 20:28 DC 01/23/25 08:36 125 MLS/HR Vancomycin HCl 250 ml @ 125 mls/hr Q12H IV 01/23/25 20:30 01/24/25 00:19 DC Vancomycin HCl 250 ml @ 166.667 mls/hr Q12H IV 01/24/25 13:00 01/25/25 00:06 DC Vancomycin HCl 250 ml @ 166.667 mls/hr Q12H IV 01/25/25 00:30 01/25/25 00:09 DC Vancomycin HCl 250 ml @ 166.667 mls/hr Q12H IV 01/25/25 01:00 01/25/25 18:38 DC 01/25/25 12:40 166.667 MLS/HR Vancomycin HCl 250 ml @ 166.667 mls/hr Q12H IV 01/26/25 06:00 02/05/25 05:59 01/26/25 05:16 166.667 MLS/HR Vancomycin HCl (Vancomycin Protocol) 1 each AD IV 01/18/25 21:00 02/01/25 20:59 Vancomycin HCl (Vancomycin 1.5 Gm/250 ml Bag) 1.5 gm ONCE STAT IV 01/18/25 19:14 01/18/25 19:36 DC DIAGNOSTICS / RADIOLOGY: PATIENT: BHUMIKA OSWALD MR#: [id number] : 1980 SEX: F AGE: 44 LOCATION: 3BH ORDER 1105 STATUS: ADM IN REPORT#: [id number] SERVICE 1056 REASON: right great toes ulcer/ s/p tma ORDERING PHYSICIAN: SONIA WAKEFIELD DO PROCEDURE: ART B LE - US ARTERIAL BILAT LOW EXT DUPL EXAMINATION: DUPLEX ULTRASOUND EXAMINATION OF THE BILATERAL LOWER EXTREMITY ARTERIES. CLINICAL HISTORY: Right great toe ulcer. COMPARISON: None. FINDINGS: Peak systolic velocities within the right lower arteries are as follows: Common femoral artery: 95 cm/s. Superficial femoral artery: 106 cm/s at proximal, 130 cm/s at mid, and 120 cm/s at distal segments. Popliteal artery: 73 cm/s at proximal and 97 cm/s at distal segments. Posterior tibial artery: 131 cm/s. Anterior tibial artery: 94 cm/s. Dorsalis pedis artery: 75 cm/s. The right lower limb arteries demonstrate monophasic waveforms in all arteries except the common femoral, proximal and mid superficial femoral arteries which demonstrate triphasic waveforms. Peak systolic velocities within the left lower arteries are as follows: Common femoral artery: 105 cm/s. Superficial femoral artery: 97 cm/s at proximal, 79 cm/s at mid, and 67 cm/s at distal segments. Popliteal artery: 87 cm/s at proximal and 78 cm/s at distal segments. Posterior tibial artery: 113 cm/s. Anterior tibial artery: 67 cm/s. Dorsalis pedis artery: 51 cm/s. The left lower limb arteries demonstrate triphasic waveforms in all arteries except the posterior tibial artery which demonstrates monophasic waveforms. There is intimal wall thickening in both the lower limb arteries. There is mild subcutaneous edema in the bilateral legs. IMPRESSION: Mild intimal wall thickening in both the lower limb arteries. The right lower limb arteries demonstrate monophasic waveforms in all arteries except the common femoral, proximal and mid superficial femoral arteries which demonstrate triphasic waveforms The left lower limb arteries demonstrate triphasic waveforms in all arteries except the posterior tibial artery which demonstrates monophasic waveforms. No flow limiting lesions. Mild subcutaneous edema in the bilateral legs. /[place] DICTATED BY: KIMBERLY ARTHUR MD DATE: 01/26/25745 ELECTRONICALLY SIGNED BY: KIBMERLY ARTHUR MD DATE: 01/26/25745 ASSESSMENT: YINKA possibly secondary to vancomycin induced nephrotoxicity, not POA Sepsis due to right great toe osteomyelitis POA Infected right great toe diabetic wound ulcer osteomyelitis POA Right foot cellulitis POA Hyperglycemia due to uncontrolled diabetes POA Severe leukocytosis POA Medical noncompliance POA Obesity POA Suspected urinary tract infection, ruled out PAD, POA PLAN: Right lower extremity peripheral angiogram with possible intervention by Dr Paiz today Everyday dressings and touch down weight bearing RLE with walker Started on aspirin 81mg and statin 20mg for PAD Consistent carb diet Continue Zosyn and vancomycin for broad-spectrum coverage Famotidine 20 mg p.o. bid for GI prophylaxis Replace electrolytes as needed per protocol PT evaluation and treatment CM evaluation for discharge planning, patient is uninsured Continue insulin sliding scale AC & HS with hypoglycemia protocol Continue prn medication for fever,pain,cough, nausea and vomiting Neurovascular check q.4 hours We will request labs in am Further orders to follow depending on above results ATTESTATION BY PHYSICIAN I have seen and examined the patient. I reviewed the documentation, medical decision making, and treatment plan as noted by the resident provider above. I agree with the findings and plan of care. Aston Rascon MD [facility] MD Jan 26, 2025 09:13 BRITT DE LA PAZ MD Jan 26, 2025 19:03
[2025-01-26] MEDS ORDERED: LIDOCAINE HCL 400MG/20ML VIAL ONE (13:06)
[2025-01-26] MEDS ORDERED: HEParin-NS 1,000 UNIT/500 ML 500 ML IV ONE ×2 (13:06→15:15)
[2025-01-26] MEDS ORDERED: IODIXANOL 320 MG/ML 100 ML VIAL ONE (13:06)
[2025-01-26] MEDS ORDERED: NITROGLYCERIN 50MG VIAL ONE ×2 (13:07→15:08)
--- NOTE | 2025-01-26 13:15 | NUR ---
TAKEN OFF UNIT TO ABRASIVE WORKER VIA HOSPITAL BED
[2025-01-26] MEDS ORDERED: MIDAZOLAM HCL 1 MG/ML 2ML VIAL ONE ×2 (13:32→15:40)
[2025-01-26] MEDS ORDERED: ASPIRIN 325MG EC TAB PO ONE (16:24)
--- NOTE | 2025-01-26 16:57 | PRN ---
Procedure:Peripheral Angiogram Procedure Note Procedure Note: Peripheral Angiogram Date/Time of Service: 01/26/2025 Referring Physician: Hospitalist Procedures Performed: Lower abdominal aortogram, peripheral angiogram with lower extremity arterial runoff, unsuccessful orbital atherectomy of the right anterior tibial artery, successful balloon angioplasty of the right anterior and posterior pedal arch Indications for Procedure: PAD, Winfield category 5 symptoms (right lower extremity) Nonhealing right-sided TMA surgical site Description of Procedure: [After informed consent was obtained the patient was prepped and draped in the usual sterile fashion a 6 [place]ian arterial sheath with a hemostatic valve was inserted into the left common femoral artery using a modified Salinger technique on the first pass front wall puncture. A 5 [place]ian Omni Flush catheter was then advanced over a soft angled Glidewire into the abdominal aorta and a lower abdominal aortogram with runoff was obtained. The findings are listed below. The Omni flush catheter was then advanced to the right common femoral artery and right lower extremity arteriogram was obtained. The findings listed below.] Findings: Lower abdominal aorta: patent Right common iliac artery: patent Right external iliac artery: patent Right internal iliac artery: patent Right common femoral artery: patent Right profunda artery: patent Right superficial femoral artery: patent Right popliteal artery: patent Right anterior tibial artery: 100% stenosis (TOP WADDY = 200mm) in the mid segment of the artery. The artery does not reconstitute distally Right tibialperoneal artery: patent Right peroneal artery: patent Right posterior tibial artery: patent Right pedal arch: Incomplete, with two-vessel runoff supplying the posterior segment of the pedal arch. Left common iliac artery: patent Left external iliac artery: patent Left internal iliac artery: patent Left common femoral artery: patent Left profunda artery: patent Intervention: After reviewing the above-mentioned findings the decision was made to intervene on the right anterior tibial artery. The soft angled glidewire was inserted into the Omni flush catheter and was advanced to the right popliteal artery. We then removed the Omni flush catheter and exchanged the short 6 [place]ian arterial sheath for a 65 cm 6 [place]ian destination arterial sheath, which was then placed in the mid right superficial femoral artery. We then administered heparin 75 units/kg x1 dose and clopidogrel 600 mg x 1 dose and aspirin 325 mg x 1 dose. We then advanced a 0.014 whisper guidewire and 0.014 quick cross guide catheter across the area of stenosis and into the right dorsalis pedis artery. We then removed the whisper guidewire and injected contrast into the quick cross guide catheter, which identified they were in the true lumen of the right dorsalis pedis artery. We then advanced a Viper guidewire into the Quick Cross catheter and placed it in the mid right dorsalis pedis artery. We then removed the quick cross catheter and performed multiple passes of orbital atherectomy in the proximal and mid right anterior tibial artery. We were unable to advance the orbital atherectomy yan into the distal right anterior tibial artery so the decision was made to stop and pull the orbital atherectomy yan and Viper wire out. We then injected contrast which revealed 100% stenosis in the mid right anterior tibial artery. The decision was made to then address the dorsalis pedis artery via a retrograde approach. We advanced a 0.014 whisper guidewire and quick cross catheter into the right posterior tibial artery, inferior pedal arch and into the anterior pedal arch. We then performed balloon angioplasty (1.25 x 20 mm > 2.0 x 100 mm) in the mid and distal right dorsalis pedis artery. We then pulled the balloons out and repeat angiography was performed, which revealed improved blood flow into the right dorsalis pedis artery, anterior and posterior segments of the right pedal arch. The guidewire and 65 cm 6 [place]ian destination arterial sheath were then removed and the arteriotomy site in the left common femoral artery was successfully closed using a 6 [place] Angio-Seal device. The patient tolerated the procedure well and without issue. Estimated Blood Loss: [40]mL Complications: [ None] Conclusion: 1. PAD, Winfield category 3 symptoms (right lower extremity), 100% stenosis in the mid right anterior tibial artery status post unsuccessful orbital atherectomy, 100% stenosis in the right dorsalis pedis artery/anterior pedal arch s /p successful treatment with balloon angioplasty, resulting in improved blood flow, and brisk two-vessel runoff supplying the pedal arch 2. Nonhealing right-sided TMA surgical site 3. Uncontrolled DM II 4. Medical noncompliance Recommendations/Instructions: 1. Continue Goal-directed medical therapy. 2. Start clopidogrel 75 mg daily. Continue aspirin 81 mg daily. 3. Groin precautions 4. 4 hours of bedrest 5. Start NS at 100 mL/hour x3 hours. 6. Recommend consulting Wound Care for hyperbaric oxygen therapy to ensure proper wound healing 7. Continue IV antibiotics of address infection at the TMA site. 8. We do not recommend any further intervention of the right anterior tibial artery, because it does not reconstitute distally 7. If the groins are free of significant bruising and hematoma formation, then we will discharge the patient in the AM BREE MCGRATH MD Jan 26, 2025 16:57
[2025-01-26] MEDS ORDERED: GLUCAGON 1MG KIT 1 MG ML IM PRN (17:00)
[2025-01-26] MEDS ORDERED: DEXTROSE 50%-WATER 50 ML DISP.SYRIN IV PRN (17:00)
--- NOTE | 2025-01-26 17:04 | NUR ---
RETURNED FROM ARCHITECTURE ANALYST. DRESSING TO RIGHT GROIN CLEAN AND INTACT. TO REMAIN IN BED FOR 4 HOURS.
--- NOTE | 2025-01-26 20:09 | NUR ---
WOUND CARE TO RIGHT TMA DONE. NO WEEKLY WOUND PHOTO TAKEN I PAD WAS NOT FOUND. Addendum: 01/26/25 at 2025 by FREEDOM SEXTON RN RN I PAD LOCATED AND WEEKLY WOUND PHOTO TAKEN
[2025-01-26] MEDS: 0.9%NACL 1000ML 1,000 ML IV SCH (20:36)
--- NOTE | 2025-01-26 21:35 | PN ---
INFECTIOUS DISEASE PROGRESS NOTE Date of Service: Jan 26, 2025 SUBJECTIVE: This is a 44 year old female patient who is status post right TMA on 01/19/2025. Patient is out for a scheduled peripheral angiogram for today. No reports of fever, nausea nor vomiting. and the WBC has trended down to 15.6. The WBC continues slowly trending down and is 14.1 today. We will continue on vancomycin and Zosyn IV. PHYSICAL EXAM EYES: Anicteric. Pupils equal and reactive. HENT: No oral thrush seen, moist Oral mucosa. NECK: Supple, no JVD or thyromegaly. LUNGS: Good air entry. No rales, no rhonchi. CARDIOVASCULAR: S1, S2 regular. No murmur heard. ABDOMEN: Soft, non tender, bowel sounds present, no organomegaly. CENTRAL NERVOUS SYSTEM: Awake, alert, oriented x 3. SKIN: No rashes, no swelling. LYMPHATICS: No peripheral lymphadenopathy MUSCULOSKELETAL: No joint swelling, erythema or tenderness. 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 BACK: No deformity, no pressure ulcer. GENITOURINARY: No dysuria or hematuria. Vital Sign (Last 12 Hours) 01/26/25 01/26/25 01/26/25 01/26/25 11:25 17:00 17:15 17:30 Temp 98.8 98.1 Pulse 70 67 60 74 Resp 18 18 18 18 B/P (MAP) 131/73 120/65 105/63 108/56 Pulse Ox 93 92 92 94 O2 Delivery Room Air Room Air Room Air Room Air 01/26/25 01/26/25 01/26/25 01/26/25 17:45 18:00 18:30 19:00 Pulse 69 70 64 68 Resp 18 18 18 18 B/P (MAP) 102/45 103/55 103/54 103/47 Pulse Ox 94 95 94 94 O2 Delivery Room Air Room Air Room Air Room Air 01/26/25 01/26/25 19:45 20:45 Temp 97.3 Pulse 61 66 Resp 16 B/P (MAP) 124/68 135/73 Pulse Ox 94 O2 Delivery Room Air Intake & Output (last 24hrs) 01/25/25 01/25/25 01/26/25 15:00 23:00 07:00 Intake Total 2050.0 ml Balance 2050.0 ml LABS: Laboratory: Test 01/26/25 19:55 01/26/25 17:08 01/26/25 05:51 01/25/25 16:03 Range/Units Whole Blood Glucose 328 #H 70-110 MG/DL Vancomycin Level Trough 22.4 #H 10.0-20.0 UG/ML White Blood Count 14.1 H 4.8-10.8 K/uL Red Blood Count 3.15 L 4.00-5.50 MIL/uL Hemoglobin 8.9 L 12.0-16.0 g/dL Hematocrit 28.4 L 36-48 % Mean Corpuscular Volume 90.2 79-99 fL Mean Corpuscular Hemoglobin 28.3 27.0-33.0 pg Mean Corpuscular Hemoglobin Concent 31.3 L 32.0-36.0 g/dL Red Cell Distribution Width 13.8 11.0-15.5 % Platelet Count 434 H 130-400 K/uL Mean Platelet Volume 10.0 7.5-10.5 fL Immature Granulocyte % (Auto) 1.1 H 0-1 % Neutrophils (%) (Auto) 70.3 40.0-77.0 % Lymphocytes (%) (Auto) 17.7 L 21.0-51.0 % Monocytes (%) (Auto) 9.3 3.0-13.0 % Eosinophils (%) (Auto) 1.4 0.0-8.0 % Basophils (%) (Auto) 0.2 0.0-5.0 % Neutrophils # (Auto) 9.9 H 1.8-7.7 K/uL Lymphocytes # (Auto) 2.5 1.0-4.8 K/uL Monocytes # (Auto) 1.3 H 0.1-1.0 K/uL Eosinophils # (Auto) 0.20 0.00-0.70 K/uL Basophils # (Auto) 0.03 0.00-0.20 K/uL Absolute Immature Granulocyte (auto 0.16 0-1 K/uL Nucleated Red Blood Cells 0.0 0.0-0.19 % Sodium Level 143 136-145 mmol/L Potassium Level 4.1 3.5-5.1 mmol/L Chloride Level 109 101-111 mmol/L Carbon Dioxide Level 27 21-32 mmol/L Blood Urea Nitrogen 12 7-18 mg/dL Creatinine 1.2 H 0.5-1.0 mg/dL Glomerular Filtration Rate Calc 57 >90 mL/min Random Glucose 226 H 70-105 mg/dL Total Calcium 8.1 L 8.5-10.1 mg/dL Triglycerides Level 136 30-200 mg/dL Cholesterol Level 90 <200 mg/dL LDL Cholesterol 53 0-99 mg/dL HDL Cholesterol 22 L 35-85 mg/dL Prothrombin Time 12.2 H 9.6-11.6 SEC Prothromb Time International Ratio 1.17 H 0.85-1.15 Activated Partial Thromboplast Time 27.0 26.3-35.5 SEC Test 01/25/25 04:42 Range/Units C-Reactive Protein, Quantitative 137.00 H 0.5-3.0 mg/L ASSESSMENT: 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 Leukocytosis. Urinary tract infection with lactobacillus species. Uncontrolled diabetes mellitus, hemoglobin A1c 13.9.. Medical noncompliance. Obesity PLAN: Continue vancomycin per pharmacy protocol. Continue Zosyn. Continue GI prophylaxis. Continue pain management. Continue insulin coverage per protocol sliding scale. Continue wound care. Patient will possibly need a right BKA. This case was reviewed and discussed with my supervising physician and the above assessment and plan was formulated and agreed upon. ATTESTATION BY PHYSICIAN I have seen and examined the patient. I reviewed the documentation, medical decision making, and treatment plan as noted by the mid-level provider above. I agree with the findings and plan of care. GAUDENCIO SHANKAR MD, [facility] Jan 26, 2025 21:35
[2025-01-27] VITALS (8 sets, daily range): BP systolic 94–122; BP diastolic 51–73; PULSE 69–80; RESP 17–19; TEMP 97.6–98.3; O2SAT 97
[2025-01-27] MEDS: VANCOMYCIN 1G/250ML KIT 250 ML IV SCH ×2 (05:36→18:00)
[2025-01-27 06:16] LABS: IMMATURE GRANULOCYTE ABSOLUTE 0.12 K/uL (0-1); NUCLEATED RED BLOOD CELLS 0.0 % (0.0-0.19); PLATELET COUNT (AUTO) 446 K/uL (130-400); RED BLOOD CELL COUNT(AUTO) 2.96 MIL/uL (4.00-5.50); RED CELL DISTRIBUTION WIDTH 13.7 % (11.0-15.5); WHITE BLOOD COUNT (AUTO) 12.4 K/uL (4.8-10.8)
[2025-01-27 06:30] LABS: CREATININE 1.1 mg/dL (0.5-1.0); GLOMERULAR FILTR. RATE CALC 63.0 mL/min (>90); GLUCOSE,RANDOM 185.0 mg/dL (70-105); SODIUM SERUM 143.0 mmol/L (136-145); UREA NITROGEN, BLOOD 9.0 mg/dL (7-18)
--- NOTE | 2025-01-27 10:29 | PN ---
[facility] PROGRESS NOTE Date of Service: Jan 27, 2025 Time of Service: 10:25 SUBJECTIVE: This is a 44-year-old female with past medical history of diabetes and medical noncompliance who presents to the ED for complaints of right great toe wound ulcer and right foot pain.Patient reports on of last week she did not feel good ,she was dizzy,having chills and shortness of breath so she went to a [facility] and night clinic were she was told she has Flu and was prescribed with prednisone 10 mg daily,Naproxen and Tamiflu and after taking it the following day she noticed her right great toe has purple and whitish discoloration so she went to [place] today where she was given an IM injection was told for infection she said and on her way back home she noticed that her right great toe was hurting and her foot was getting swollen and red and her right great toe ulcer was smelling foul odor .Patient states she does not have a PCP and that sheis not taking any medication at home except for those 3 new med prescribed for her Flu she said. Seen and examined patient in the ER awake,alert and coherent,appears comfortable,patient denies sore throat, cough, nausea,vomiting ,abdominal pain,chest pain,palpitation and shortness of breath. Latest vital signs temperature a 100.2, heart rate 86, blood pressure 121/67 saturation 98% room air. WBC 32 with negative left shift of neutrophils 80, hemoglobin 13, h ematocrit 41, platelet count 351. Sodium 124, chloride 97, glucose 327, CRP 338, procalcitonin 0.69. Urinalysis significant for protein, glucose, ketones, urine RBC 11-25, urine WBC 6-10. X-ray of the right foot result revealed soft tissues edema and emphysema of the right great toe there is no radiographic evidence for osteomyelitis however if clinical concern persists recommend contrast enhanced MRI of the right foot for further evaluation. While in the ER patient received fluid resuscitation of NS 30 mL/kilogram over 3 hours, Zosyn IV and vancomycin IV we will admit patient for further medical management. 01/19/25 Patient was seen and examined at bedside. She had a temperature of 100 last night, other vitals are stable. She does not take medications for diabetes and does not have a PCP. She first noticed an ulcer on her right foot two weeks ago that eventually developed into foul smelling gas gangrene. Podiatry consult was placed as X-rays showed evidence of osteomyelitis and soft tissue gangrene involving the right first metatarsal. Given the emergent nature of the infection, podiatry recommended a first-ray amputation on the same day. However, the patient initially declined the procedure, expressing a desire to first discuss the situation with family members. She also mentioned the possibility of signing AMA but was advised to reconsider if she changes her decision. In the meantime, an orthopedic surgery consult was placed to evaluate for the possibility of a below-knee amputation , given the extent of infection and urgency of intervention. 01/20/25 Patient was seen and examined at bedside. She had a TMA done by Dr. Pacheco yesterday with no complications. She is currently on vancomycin and zosyn. We will follow ID recommendations on IV antibiotics and discharge plan whether to send her to SNF or f/u outpatient at [facility] for iv antibiotics. She denies any pain or swelling or tenderness over the surgery site. Her glucose is uncontrolled and will adjust her insulin. 01/21/25 Patient was seen and examined at bedside. She is hemodynamically stable, no acute events overnigt. She reports minimal pain to surgical site. As per Dr. Dewitt patient will stay over the weekend to complete the course of antibiotics. She is working with PT and is progressing towards goals. She denies any pain or swelling or tenderness over the surgery site 01/22/25 Patient seen at bedside. Reports no fevers or chills in the past 24 hours. WBC remains elevated at 23.6 despite ongoing treatment with vancomycin and Zosyn. No acute events overnight. Plan to continue current antibiotic therapy and follow Infectious Disease recommendations on discharge planning. 01/23/25 Patient was seen at bedside and appears to be doing well overall, ambulating with physical therapy without difficulty. White blood cell count remains elevated at 22.8, and she had a low-grade fever of 100.6F this morning. Blood cultures remain negative. Hemoglobin is trending down slowly, though LDH is within normal limits and stool guaiac is negative , possible dilutional effect. BNP is mildly elevated at 119, and CRP has decreased from 311 to 182. She will need to continue IV antibiotics and may require a below-knee amputation in the future given her diabetes and the non-healing wound at the TMA site. A social work consult will be requested, as the patient lacks access to a primary care provider due to financial constraints. 01/24/25 Patient was seen at bedside and appears to be doing well overall, ambulating with physical therapy without difficulty. White blood cell count slowly trending downwards from 22.8 to 21.4, CRP from 182.8 to 161.8. Her vancomycin trough is high at 31.7 and Cr is 1.2. We will hold vancomycin for today and give her fluids and recheck in the morning. She had no temperature in the last 24 hours. Pending ID recommendations on plan of discharge. 01/25/25 Patient was seen at bedside and appears to be doing well overall, ambulating wi th physical therapy without difficulty. Her vitals are stable. White blood cell count slowly trending downwards from 21.4 to 15.6, CRP from 161.8 to 137. Her vancomycin trough was at 31.7 on 01/24/25 and today vancomycin level is 15.8. Her serum Cr is 1.1 and ca is 8.1. She had no temperature in the last 24 hours. ID has recommended for possible below knee amputation. Case management team reemay talked with Dr Pacheco. And Dr. Paiz has been consulted for lower right limb arterial doppler ultrasound. 01/26/25 Patient was seen at bedside and appears to be doing well overall. Her vitals are stable. White blood cell count slowly trending downwards from 15.6 to 14.1 and Hgb is 8.9 today. She has bilateral lower limb edema, more on the right side. Her wound is slightly wet and soaked. Cardiology was consulted due to concern for PAD. The TCOM analysis done yesterday identified insufficient blood flow for wound healing. So, today she will undergo a right lower extremity peripheral angiogram with possible intervention. She will be continued on Vancomycin and IV Zoysn. Arterial ultrasound done yesterday demonstrated monophasic waveforms in proximal artery on left lower extremity and all arteries except common femoral, proximal and mid superficial femoral arteries on right lower extremity. 01/27/25 Patient was seen at bedside and appears to be doing well overall. Her vitals are stable except her blood pressure is 98/51. White blood cell count slowly trending downwards from 14.1 to 12.4 and Hgb is 8.3 today. She has bilateral lower limb edema, more on the right side. She underwent angiogram yesterday which revealed 100% stenosis of Right anterior tibial artery. Dr Pacheco will be consulted for possible below knee amputation. She will be continued on Vancomycin and IV Zoysn along with aggressive wound care, and recommend strict blood glucose control. She will be started on Clopidogrel, Aspirin and statin for the peripheral artery disease. REVIEW OF SYSTEMS CONSTITUTIONAL: No fever, chills, or night sweats. NEUROLOGICAL: Denies headache, motor weakness, sensory deficit. CARDIOVASCULAR: Denies any exertional angina, dyspnea on exertion, orthopnea, palpitations PULMONARY: Denies any shortness of breath, cough, hemoptysis, pleuritic chest pain. GASTROINTESTINAL:Denies nausea, vomiting, abdominal pain, diarrhea, constipation GENITOURINARY: Denies frequency, urgency, nocturia, hematuria or incontinence. PHYSICAL EXAM General: Alert and oriented. Lungs: .No wheezing, rales or rhonchi. Cardio: Regular rate. Normal S1 and S2. +S4. Abdomen: Soft. NT. ND. Normal active bowel sounds x 4 quadrants. Extremities: Bilateral lower limb edema. The right foot is wrapped in a bulky dressing, s/p, right TMA. Neuro: No focal deficits. Vital Signs (last 8hr) Date Time Temp Pulse Resp B/P (MAP) Pulse Ox O2 Delivery O2 Flow Rate FiO2 01/27/25 08:15 98.2 70 18 96/54 96 Room Air 01/27/25 04:17 97.7 76 17 98/51 98 Room Air LABS: Laboratory: Test 01/27/25 05:30 01/27/25 04:55 01/26/25 17:08 01/26/25 05:51 Range/Units White Blood Count 12.4 H 4.8-10.8 K/uL Red Blood Count 2.96 L 4.00-5.50 MIL/uL Hemoglobin 8.3 L 12.0-16.0 g/dL Hematocrit 27.0 L 36-48 % Mean Corpuscular Volume 91.2 79-99 fL Mean Corpuscular Hemoglobin 28.0 27.0-33.0 pg Mean Corpuscular Hemoglobin Concent 30.7 L 32.0-36.0 g/dL Red Cell Distribution Width 13.7 11.0-15.5 % Platelet Count 446 H 130-400 K/uL Mean Platelet Volume 10.2 7.5-10.5 fL Immature Granulocyte % (Auto) 1.0 0-1 % Neutrophils (%) (Auto) 66.0 40.0-77.0 % Lymphocytes (%) (Auto) 22.1 21.0-51.0 % Monocytes (%) (Auto) 8.8 3.0-13.0 % Eosinophils (%) (Auto) 1.8 0.0-8.0 % Basophils (%) (Auto) 0.3 0.0-5.0 % Neutrophils # (Auto) 8.2 H 1.8-7.7 K/uL Lymphocytes # (Auto) 2.7 1.0-4.8 K/uL Monocytes # (Auto) 1.1 H 0.1-1.0 K/uL Eosinophils # (Auto) 0.22 0.00-0.70 K/uL Basophils # (Auto) 0.04 0.00-0.20 K/uL Absolute Immature Granulocyte (auto 0.12 0-1 K/uL Nucleated Red Blood Cells 0.0 0.0-0.19 % Red Blood Cell Morphology See comments Sodium Level 143 136-145 mmol/L Potassium Level 4.2 3.5-5.1 mmol/L Chloride Level 108 101-111 mmol/L Carbon Dioxide Level 26 21-32 mmol/L Blood Urea Nitrogen 9 7-18 mg/dL Creatinine 1.1 H 0.5-1.0 mg/dL Glomerular Filtration Rate Calc 63 >90 mL/min Random Glucose 185 H 70-105 mg/dL Total Calcium 7.6 L 8.5-10.1 mg/dL C-Reactive Protein, Quantitative 85.20 H 0.5-3.0 mg/L Whole Blood Glucose 176 H 70-110 MG/DL Vancomycin Level Trough 22.4 #H 10.0-20.0 UG/ML Triglycerides Level 136 30-200 mg/dL Cholesterol Level 90 <200 mg/dL LDL Cholesterol 53 0-99 mg/dL HDL Cholesterol 22 L 35-85 mg/dL Test 01/25/25 16:03 Range/Units Prothrombin Time 12.2 H 9.6-11.6 SEC Prothromb Time International Ratio 1.17 H 0.85-1.15 Activated Partial Thromboplast Time 27.0 26.3-35.5 SEC Current Medications Medications (Trade) Dose Ordered Sig/Padilla Route PRN Reason Start Time Stop Time Status Last Admin Dose Admin Acetaminophen (TYLenol 325MG TAB) 650 mg Q4H PRN PO MILD PAIN (1-3) 01/18/25 20:00 02/17/25 19:59 01/24/25 12:43 650 MG Acetaminophen (TYLenol 325MG TAB) 650 mg Q6H PRN PO TEMPERATURE GREATER THAN 101.5 01/18/25 20:00 02/17/25 19:59 01/23/25 08:36 650 MG Acetaminophen/ Hydrocodone Bitart (NORco 5/325MG) 1 tab Q4H PRN PO MODERATE PAIN (4-6) 01/18/25 20:00 01/23/25 19:59 DC 01/19/25 21:51 1 TAB Acetaminophen/ Hydrocodone Bitart (NORco 5/325MG) 2 tab Q4H PRN PO SEVERE PAIN (7-10) 01/18/25 20:00 01/23/25 19:59 DC 01/21/25 23:30 2 TAB Aspirin (Aspirin 81mg Chew Tab) 81 mg DAILY PO 01/25/25 12:00 02/24/25 11:59 01/27/25 08:26 81 MG Atorvastatin Calcium (LIPItor 20MG) 20 mg HS PO 01/25/25 21:00 02/24/25 20:59 01/26/25 20:53 20 MG Clindamycin HCl/ Dextrose 50 ml @ 100 mls/hr Q8H IV 01/20/25 00:30 01/20/25 09:36 DC 01/20/25 09:02 100 MLS/HR Clopidogrel Bisulfate (plaVIX 75MG) 75 mg DAILY PO 01/27/25 09:00 02/26/25 08:59 01/27/25 08:25 75 MG Dextrose (D50w) 50 ml AD PRN IV HYPOGLYCEMIA PROTOCOL 01/18/25 20:00 01/26/25 17:16 DC Dextrose (D50w) 50 ml AD PRN IV HYPOGLYCEMIA PROTOCOL 01/26/25 17:00 02/25/25 16:59 Docusate Sodium (COLace 100MG CAP) 100 mg BID PO 01/24/25 09:00 02/23/25 08:59 01/27/25 08:25 100 MG Famotidine (Pepcid 20mg Tab) 20 mg BID PO 01/18/25 21:00 02/17/25 20:59 01/27/25 08:25 20 MG Glucagon (Glucagon 1mg Kit) 1 mg AD PRN IM HYPOGLYCEMIA PROTOCOL 01/18/25 20:00 01/26/25 17:16 DC Glucagon (Glucagon 1mg Kit) 1 mg AD PRN IM HYPOGLYCEMIA PROTOCOL 01/26/25 17:00 02/25/25 16:59 Guaifenesin/ Dextromethorphan (RobiTUSSin DM 200/20MG 10ML) 10 ml Q4H PRN PO COUGH 01/22/25 17:00 02/21/25 16:59 01/27/25 00:25 10 ML Heparin Sodium (Porcine) (HEParin 5,000 UNIT VIAL) 5,000 unit Q12H SQ 01/21/25 09:00 02/20/25 08:59 01/27/25 08:24 5,000 UNIT Insulin Glargine (LANtus 100 UNITS/ML 10 ML VIAL) 9 units HS SQ 01/20/25 21:00 01/24/25 12:05 DC 01/23/25 20:35 9 UNITS Insulin Glargine (LANtus 100 UNITS/ML 10 ML VIAL) 12 units HS SQ 01/24/25 21:00 02/23/25 20:59 01/26/25 20:55 12 UNITS Insulin Human Regular (humuLIN R 100 UNIT/ML 3ML) 3 unit TIDAC SQ 01/21/25 07:30 01/24/25 12:05 DC 01/24/25 05:56 3 UNIT Insulin Human Regular (humuLIN R 100 UNIT/ML 3ML) 5 unit TIDAC SQ 01/24/25 17:00 02/23/25 16:59 01/27/25 06:22 5 UNIT Insulin Human Regular (humuLIN R 100 UNIT/ML 3ML) INSULIN SLIDING SCAL... ACHS SQ 01/18/25 21:00 02/17/25 20:59 01/27/25 06:22 2 UNIT Lactulose (Constulose 20gm/ 30ml Udcup) 20 gm BID PRN PO CONSTIPATION 01/24/25 04:30 02/23/25 04:29 01/24/25 08:54 20 GM Magnesium Sulfate 50 ml @ 0 mls/hr PROTOCOL PRN IV OTHER [SEE ORDER COMMENTS] 01/18/25 20:00 02/17/25 19:59 Ondansetron HCl (zoFRAN 4MG INJ) 4 mg Q6H PRN IV NAUSEA/VOMITING 01/18/25 20:00 02/17/25 19:59 01/22/25 16:13 4 MG Piperacillin Sod/ Tazobactam Sod 50 ml @ 12.5 mls/hr Q8H IV 01/19/25 04:00 01/25/25 16:06 DC 01/25/25 03:20 12.5 MLS/HR Piperacillin Sod/ Tazobactam Sod 50 ml @ 12.5 mls/hr Q8H IV 01/25/25 18:30 01/25/25 18:34 DC Piperacillin Sod/ Tazobactam Sod 50 ml @ 12.5 mls/hr Q8H IV 01/25/25 21:00 02/04/25 20:59 01/27/25 05:18 12.5 MLS/HR Piperacillin Sod/ Tazobactam Sod (Zosyn 3.375gm+NS 50ml) 3.375 gm ONCE STAT IVPB 01/18/25 17:47 01/18/25 17:51 DC 01/18/25 19:34 3.375 GM Polyethylene Glycol (MIRalax 3350 17 GM POWD.PACK) 17 gm DAILY PRN PO CONSTIPATION 01/24/25 09:00 02/23/25 08:59 Potassium Chloride 100 ml @ 100 mls/hr AD PRN IV POTASSIUM PROTOCOL 01/18/25 20:00 02/17/25 19:59 Potassium Chloride (K-Dur/Klor-Con 20meq) 20 meq AD PRN PO POTASSIUM PROTOCOL 01/18/25 20:00 02/17/25 19:59 01/25/25 05:42 20 MEQ Potassium Chloride (KCl 10% Elixir 20meq/15ml) 20 meq AD PRN PO POTASSIUM PROTOCOL 01/18/25 20:00 02/17/25 19:59 Sodium Chloride 1,000 ml @ 100 mls/hr Q10H IV 01/18/25 20:00 01/19/25 15:59 DC 01/19/25 06:15 100 MLS/HR Sodium Chloride 1,000 ml @ 100 mls/hr Q10H IV 01/26/25 17:00 01/26/25 19:59 DC 01/26/25 20:36 100 MLS/HR Sodium Chloride 1,000 ml @ 125 mls/hr Q8H IV 01/24/25 12:00 01/26/25 17:15 DC 01/26/25 05:16 125 MLS/HR Vancomycin HCl 250 ml @ 125 mls/hr ONCE IV 01/18/25 20:00 01/18/25 20:33 DC Vancomycin HCl 250 ml @ 125 mls/hr Q12H IV 01/27/25 06:00 02/06/25 05:59 Hold 01/27/25 05:36 125 MLS/HR Vancomycin HCl 250 ml @ 125 mls/hr Q12H IV 01/19/25 08:00 01/23/25 20:28 DC 01/23/25 08:36 125 MLS/HR Vancomycin HCl 250 ml @ 125 mls/hr Q12H IV 01/23/25 20:30 01/24/25 00:19 DC Vancomycin HCl 250 ml @ 166.667 mls/hr Q12H IV 01/24/25 13:00 01/25/25 00:06 DC Vancomycin HCl 250 ml @ 166.667 mls/hr Q12H IV 01/25/25 00:30 01/25/25 00:09 DC Vancomycin HCl 250 ml @ 166.667 mls/hr Q12H IV 01/25/25 01:00 01/25/25 18:38 DC 01/25/25 12:40 166.667 MLS/HR Vancomycin HCl 250 ml @ 166.667 mls/hr Q12H IV 01/26/25 06:00 01/26/25 17:59 DC 01/26/25 05:16 166.667 MLS/HR Vancomycin HCl (Vancomycin Protocol) 1 each AD IV 01/18/25 21:00 02/01/25 20:59 Vancomycin HCl (Vancomycin 1.5 Gm/250 ml Bag) 1.5 gm ONCE STAT IV 01/18/25 19:14 01/18/25 19:36 DC DIAGNOSTICS / RADIOLOGY: [ ] ASSESSMENT: Non healing right sided TMA surgical site YINKA possibly secondary to vancomycin induced nephrotoxicity, not POA Sepsis due to right great toe osteomyelitis POA Infected right great toe diabetic wound ulcer osteomyelitis POA Right foot cellulitis POA Hyperglycemia due to uncontrolled diabetes POA Severe leukocytosis POA Medical noncompliance POA Obesity POA Suspected urinary tract infection, ruled out PAD, POA Preble Category 3 PLAN: Per Dr Pacheco, Dr. Ariza a front counter attendant will be consulted as to whether or not there is any survival procedure at her foot. Wound care for hyperbaric oxygen Pending anemia panel Increase the dose of Insulin Right lower extremity peripheral angiogram Everyday dressings and touch down weight bearing RLE with walker Started on aspirin 81mg and statin 20mg for PAD Consistent carb diet Continue Zosyn and vancomycin for broad-spectrum coverage Famotidine 20 mg p.o. bid for GI prophylaxis Replace electrolytes as needed per protocol PT evaluation and treatment CM evaluation for discharge planning, patient is uninsured Continue insulin sliding scale AC & HS with hypoglycemia protocol Continue prn medication for fever,pain,cough, nausea and vomiting Neurovascular check q.4 hours We will request labs in am Further orders to follow depending on above results ATTESTATION BY PHYSICIAN I have seen and examined the patient. I reviewed the documentation, medical decision making, and treatment plan as noted by the resident provider above. I agree with the findings and plan of care. Aston Rascon MD [facility] Jan 27, 2025 10:29
--- NOTE | 2025-01-27 11:13 | PN ---
Cardiology Progress Note Date of Service: 01/27/2025 Attending Application Support: Dr. 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 The patient denies any active complaints including chest pain, chest pressure, palpitations, or shortness of breath. As per the nurse, there were no overnight events. Vitals/Labs Vital Signs Date Time Temp Pulse Resp B/P (MAP) Pulse Ox O2 Delivery O2 Flow Rate FiO2 01/27/25 08:15 98.2 70 18 96/54 96 Room Air 01/26/25 19:15 0 21 General: Alert and oriented. NAD HEENT: NC/AT. Oral mucosa is moist. Neck: No masses, JVD, or carotid bruits Lungs: NRD. SCM. Bilaterally CTA. No wheezing, rales or rhonchi. Cardio: Regular rate. Normal S1 and S2. +S4. PMI was not displaced. Abdomen: Soft. NT. ND. Normal active bowel sounds x 4 quadrants. Extremities:2+ edema seen in the right lower extremity. The right foot is wrapped in a bulky dressing. The left groin access site is soft to palpation and free of significant bleeding, bruising, or hematoma formation. Neuro: CN II-XII were grossly intact. No focal deficits. 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 PAD, [place] category 5 symptoms (RLE) s/p unsuccessful orbital atherectomy of the mid ANAMIKA s/p successful treatment with balloon angioplasty in the DPA/anterior pedal arch done on 01/26/2025 -The patient should continue on goal directed medical therapy which includes aspirin 81 mg daily, clopidogrel 75 mg daily, and atorvastatin 20 mg QHS. -In addition, the patient should continue on antibiotic therapy, with aggressive wound care, and with strict blood glucose control. -Lastly, we recommend that the patient undergo HBO therapy in order to further optimize her chances of wound healing. We will be signing off of the case. Please have the patient follow up with Cardiology, Dr. Yaya Paiz, 2 weeks after discharge. This case was discussed with my Supervising Physician, Dr. Yaya Paiz, and the above mentioned plan was formulated and agreed upon. -Progress Note written by Shiva Simon, MSN, [employer], AGACNP-BC SHIVA SIMON NP Jan 27, 2025 11:13
--- NOTE | 2025-01-27 15:40 | NUR ---
[facility] Follow-up: Patient re-assessed by wound healing team. Wound pending to be assessed by Dr. Pacheco, per primary nurse wound deteriorating. Recommendations provided to primary nurse. Education provided. Addendum: 01/28/25 at 1627 by CHON RAMÍREZ RN RN/ Amended: Links added.
--- NOTE | 2025-01-27 19:00 | PN ---
ORTHOPEDIC PROGRESS NOTE SUBJECTIVE: The patient is postop day 7 from a right TMA. Her white count has continued to come down and her blood sugars have continued to come down as well. We reevaluate her foot and note that she continues to have a dry necrotic area on the medial side of the plantar flap. I am concerned that this goes deeper into the bone and it is starting to generate a little bit of purulence to compression. The patient's white count today is down to 22.4 and she was 32.8 on admit. Her blood sugar today is 198. The patient was 268 upon admission and has gotten up to 328. ASSESSMENT: Diabetic peripheral vascular disease with gangrene of the right foot, status post TMA that is now beginning to dehisce. PLAN: We are going to ask Dr. 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 We will consider his recommendations and then consider further treatment at that time. TID: [id number] RECEIPT: [id number]
--- NOTE | 2025-01-27 23:37 | PN ---
INFECTIOUS DISEASE PROGRESS NOTE Date of Service: Jan 27, 2025 SUBJECTIVE: This is a 44 year old female patient who is status post right TMA on 01/19/2025. Patient with a nonhealing right TMA surgical site, status post peripheral angiogram day # 1 with abnormal findings. HBO therapy has been recommended by Cardiology. Patient is afebrile, temperature is 98.2 and the WBC continues trending down and is 12.4 today. We will continue on vancomycin and Zosyn IV. PHYSICAL EXAM EYES: Anicteric. Pupils equal and reactive. HENT: No oral thrush seen, moist Oral mucosa. NECK: Supple, no JVD or thyromegaly. LUNGS: Good air entry. No rales, no rhonchi. CARDIOVASCULAR: S1, S2 regular. No murmur heard. ABDOMEN: Soft, non tender, bowel sounds present, no organomegaly. CENTRAL NERVOUS SYSTEM: Awake, alert, oriented x 3. SKIN: No rashes, no swelling. LYMPHATICS: No peripheral lymphadenopathy MUSCULOSKELETAL: No joint swelling, erythema or tenderness. 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 Nonhealing right TMA. BACK: No deformity, no pressure ulcer. GENITOURINARY: No dysuria or hematuria. Vital Sign (Last 12 Hours) 01/27/25 01/27/25 01/27/25 01/27/25 11:53 16:02 20:00 20:35 Temp 98.2 98.2 97.5 Pulse 72 71 72 69 Resp 18 18 19 B/P (MAP) 112/63 120/68 122/64 Pulse Ox 96 97 97 O2 Delivery Room Air Room Air Room Air Intake & Output (last 24hrs) 01/26/25 01/26/25 01/27/25 15:00 23:00 07:00 Intake Total 210.0 ml 1250.0 ml Balance 210.0 ml 1250.0 ml LABS: Laboratory: Test 01/27/25 20:11 01/27/25 16:47 01/27/25 05:30 01/26/25 17:08 Range/Units Whole Blood Glucose 253 H 70-110 MG/DL Vancomycin Level 13.2 L 20.0-30.0 mcg/mL White Blood Count 12.4 H 4.8-10.8 K/uL Red Blood Count 2.96 L 4.00-5.50 MIL/uL Hemoglobin 8.3 L 12.0-16.0 g/dL Hematocrit 27.0 L 36-48 % Mean Corpuscular Volume 91.2 79-99 fL Mean Corpuscular Hemoglobin 28.0 27.0-33.0 pg Mean Corpuscular Hemoglobin Concent 30.7 L 32.0-36.0 g/dL Red Cell Distribution Width 13.7 11.0-15.5 % Platelet Count 446 H 130-400 K/uL Mean Platelet Volume 10.2 7.5-10.5 fL Immature Granulocyte % (Auto) 1.0 0-1 % Neutrophils (%) (Auto) 66.0 40.0-77.0 % Lymphocytes (%) (Auto) 22.1 21.0-51.0 % Monocytes (%) (Auto) 8.8 3.0-13.0 % Eosinophils (%) (Auto) 1.8 0.0-8.0 % Basophils (%) (Auto) 0.3 0.0-5.0 % Neutrophils # (Auto) 8.2 H 1.8-7.7 K/uL Lymphocytes # (Auto) 2.7 1.0-4.8 K/uL Monocytes # (Auto) 1.1 H 0.1-1.0 K/uL Eosinophils # (Auto) 0.22 0.00-0.70 K/uL Basophils # (Auto) 0.04 0.00-0.20 K/uL Absolute Immature Granulocyte (auto 0.12 0-1 K/uL Nucleated Red Blood Cells 0.0 0.0-0.19 % Red Blood Cell Morphology See comments Sodium Level 143 136-145 mmol/L Potassium Level 4.2 3.5-5.1 mmol/L Chloride Level 108 101-111 mmol/L Carbon Dioxide Level 26 21-32 mmol/L Blood Urea Nitrogen 9 7-18 mg/dL Creatinine 1.1 H 0.5-1.0 mg/dL Glomerular Filtration Rate Calc 63 >90 mL/min Random Glucose 185 H 70-105 mg/dL Total Calcium 7.6 L 8.5-10.1 mg/dL C-Reactive Protein, Quantitative 85.20 H 0.5-3.0 mg/L Vancomycin Level Trough 22.4 #H 10.0-20.0 UG/ML Test 01/26/25 05:51 Range/Units Triglycerides Level 136 30-200 mg/dL Cholesterol Level 90 <200 mg/dL LDL Cholesterol 53 0-99 mg/dL HDL Cholesterol 22 L 35-85 mg/dL ASSESSMENT: Right foot diabetic ulcer with gas gangrene and osteomyelitis, s/p right transmetatarsal amputation on 01/19/2025. Nonhealing right TMA surgical site, status post peripheral angiogram with abnormal findings. Leukocytosis. Urinary tract infection with lactobacillus species. Uncontrolled diabetes mellitus, hemoglobin A1c 13.9. Medical noncompliance. Obesity PLAN: Continue vancomycin per pharmacy protocol. Continue Zosyn. Continue GI prophylaxis. Continue pain management. Continue insulin coverage per protocol sliding scale. Continue wound care. Patient will possibly need a right BKA. HBO therapy has been recommended by Cardiology. This case was reviewed and discussed with my supervising physician and the above assessment and plan was formulated and agreed upon. ATTESTATION BY PHYSICIAN I have seen and examined the patient. I reviewed the documentation, medical decision making, and treatment plan as noted by the mid-level provider above. I agree with the findings and plan of care. GAUDENCIO SHANKAR MD, [facility] Jan 27, 2025 23:37
[2025-01-28] VITALS (8 sets, daily range): BP systolic 125–146; BP diastolic 59–77; PULSE 61–72; RESP 17–20; TEMP 97.5–98.7; O2SAT 95–97
[2025-01-28 05:55] LABS: NUCLEATED RED BLOOD CELLS 0.0 % (0.0-0.19); PLATELET COUNT (AUTO) 467.0 K/uL (130-400); RED BLOOD CELL COUNT(AUTO) 3.12 MIL/uL (4.00-5.50); RED CELL DISTRIBUTION WIDTH 13.5 % (11.0-15.5); WHITE BLOOD COUNT (AUTO) 12.3 K/uL (4.8-10.8)
[2025-01-28 06:09] LABS: CREATININE 1.1 mg/dL (0.5-1.0); GLOMERULAR FILTR. RATE CALC 63.0 mL/min (>90); GLUCOSE,RANDOM 156.0 mg/dL (70-105); SODIUM SERUM 142.0 mmol/L (136-145); UREA NITROGEN, BLOOD 8.0 mg/dL (7-18)
--- NOTE | 2025-01-28 12:42 | PN ---
[facility] PROGRESS NOTE Date of Service: Jan 28, 2025 Time of Service: 12:25 SUBJECTIVE: This is a 44-year-old female with past medical history of diabetes and medical noncompliance who presents to the ED for complaints of right great toe wound ulcer and right foot pain.Patient reports on of last week she did not feel good ,she was dizzy,having chills and shortness of breath so she went to a [facility] clinic were she was told she has Flu and was prescribed with prednisone 10 mg daily,Naproxen and Tamiflu and after taking it the following day she noticed her right great toe has purple and whitish discoloration so she went to [facility] today where she was given an IM injection was told for infection she said and on her way back home she noticed that her right great toe was hurting and her foot was getting swollen and red and her right great toe ulcer was smelling foul odor .Patient states she does not have a PCP and that sheis not taking any medication at home except for those 3 new med prescribed for her Flu she said. Seen and examined patient in the ER awake,alert and coherent,appears comfortable,patient denies sore throat, cough, nausea,vomiting ,abdominal pain,chest pain,palpitation and shortness of breath. Latest vital signs temperature a 100.2, heart rate 86, blood pressure 121/67 saturation 98% room air. WBC 32 with negative left shift of neutrophils 80, hemoglobin 13, h ematocrit 41, platelet count 351. Sodium 124, chloride 97, glucose 327, CRP 338, procalcitonin 0.69. Urinalysis significant for protein, glucose, ketones, urine RBC 11-25, urine WBC 6-10. X-ray of the right foot result revealed soft tissues edema and emphysema of the right great toe there is no radiographic evidence for osteomyelitis however if clinical concern persists recommend contrast enhanced MRI of the right foot for further evaluation. While in the ER patient received fluid resuscitation of NS 30 mL/kilogram over 3 hours, Zosyn IV and vancomycin IV we will admit patient for further medical management. 01/19/25 Patient was seen and examined at bedside. She had a temperature of 100 last night, other vitals are stable. She does not take medications for diabetes and does not have a PCP. She first noticed an ulcer on her right foot two weeks ago that eventually developed into foul smelling gas gangrene. Podiatry consult was placed as X-rays showed evidence of osteomyelitis and soft tissue gangrene involving the right first metatarsal. Given the emergent nature of the infection, podiatry recommended a first-ray amputation on the same day. However, the patient initially declined the procedure, expressing a desire to first discuss the situation with family members. She also mentioned the possibility of signing AMA but was advised to reconsider if she changes her decision. In the meantime, an orthopedic surgery consult was placed to evaluate for the possibility of a below-knee amputation , given the extent of infection and urgency of intervention. 01/20/25 Patient was seen and examined at bedside. She had a TMA done by Dr. Pacheco yesterday with no complications. She is currently on vancomycin and zosyn. We will follow ID recommendations on IV antibiotics and discharge plan whether to send her to SNF or f/u outpatient at [facility] for iv antibiotics. She denies any pain or swelling or tenderness over the surgery site. Her glucose is uncontrolled and will adjust her insulin. 01/21/25 Patient was seen and examined at bedside. She is hemodynamically stable, no acute events overnigt. She reports minimal pain to surgical site. As per Dr. Dewitt patient will stay over the weekend to complete the course of antibiotics. She is working with PT and is progressing towards goals. She denies any pain or swelling or tenderness over the surgery site 01/22/25 Patient seen at bedside. Reports no fevers or chills in the past 24 hours. WBC remains elevated at 23.6 despite ongoing treatment with vancomycin and Zosyn. No acute events overnight. Plan to continue current antibiotic therapy and follow Infectious Disease recommendations on discharge planning. 01/23/25 Patient was seen at bedside and appears to be doing well overall, ambulating with physical therapy without difficulty. White blood cell count remains elevated at 22.8, and she had a low-grade fever of 100.6F this morning. Blood cultures remain negative. Hemoglobin is trending down slowly, though LDH is within normal limits and stool guaiac is negative , possible dilutional effect. BNP is mildly elevated at 119, and CRP has decreased from 311 to 182. She will need to continue IV antibiotics and may require a below-knee amputation in the future given her diabetes and the non-healing wound at the TMA site. A social work consult will be requested, as the patient lacks access to a primary care provider due to financial constraints. 01/24/25 Patient was seen at bedside and appears to be doing well overall, ambulating with physical therapy without difficulty. White blood cell count slowly trending downwards from 22.8 to 21.4, CRP from 182.8 to 161.8. Her vancomycin trough is high at 31.7 and Cr is 1.2. We will hold vancomycin for today and give her fluids and recheck in the morning. She had no temperature in the last 24 hours. Pending ID recommendations on plan of discharge. 01/25/25 Patient was seen at bedside and appears to be doing well overall, ambulating wi th physical therapy without difficulty. Her vitals are stable. White blood cell count slowly trending downwards from 21.4 to 15.6, CRP from 161.8 to 137. Her vancomycin trough was at 31.7 on 01/24/25 and today vancomycin level is 15.8. Her serum Cr is 1.1 and ca is 8.1. She had no temperature in the last 24 hours. ID has recommended for possible below knee amputation. Case management team reemay talked with Dr Pacheco. And Dr. Paiz has been consulted for lower right limb arterial doppler ultrasound. 01/26/25 Patient was seen at bedside and appears to be doing well overall. Her vitals are stable. White blood cell count slowly trending downwards from 15.6 to 14.1 and Hgb is 8.9 today. She has bilateral lower limb edema, more on the right side. Her wound is slightly wet and soaked. Cardiology was consulted due to concern for PAD. The TCOM analysis done yesterday identified insufficient blood flow for wound healing. So, today she will undergo a right lower extremity peripheral angiogram with possible intervention. She will be continued on Vancomycin and IV Zoysn. Arterial ultrasound done yesterday demonstrated monophasic waveforms in proximal artery on left lower extremity and all arteries except common femoral, proximal and mid superficial femoral arteries on right lower extremity. 01/27/25 Patient was seen at bedside and appears to be doing well overall. Her vitals are stable except her blood pressure is 98/51. White blood cell count slowly trending downwards from 14.1 to 12.4 and Hgb is 8.3 today. She has bilateral lower limb edema, more on the right side. She underwent angiogram yesterday which revealed 100% stenosis of Right anterior tibial artery. Dr Pacheco will be consulted for possible below knee amputation. She will be continued on Vancomycin and IV Zoysn along with aggressive wound care, and recommend strict blood glucose control. She will be started on Clopidogrel, Aspirin and statin for the peripheral artery disease. 01/28/25 Patient was seen at bedside and appears to be doing well overall. Her vitals are stable. White blood cell count slowly trending downwards and is 12.3 and Hgb is 8.8 today. Her creatinine is 1.1 and random blood glucose is 156. She has bilateral lower limb edema, more on the right side. As per Dr Pacheco, Dr. Ariza will be consulted as a creative services director as to whether or not there is any survivable procedure at the level of the foot. She will be continued on Vancomycin and IV Zoysn along with aggressive wound care, and recommend strict blood glucose control. REVIEW OF SYSTEMS CONSTITUTIONAL: No fever, chills, or night sweats. NEUROLOGICAL: Denies headache, motor weakness, sensory deficit. CARDIOVASCULAR: Denies any exertional angina, dyspnea on exertion, orthopnea, palpitations PULMONARY: Denies any shortness of breath, cough, hemoptysis, pleuritic chest pain. GASTROINTESTINAL:Denies nausea, vomiting, abdominal pain, diarrhea, constipation GENITOURINARY: Denies frequency, urgency, nocturia, hematuria or incontinence. PHYSICAL EXAM General: Alert and oriented. Lungs: .No wheezing, rales or rhonchi. Cardio: Regular rate. Normal S1 and S2. +S4. Abdomen: Soft. NT. ND. Normal active bowel sounds x 4 quadrants. Extremities: Bilateral lower limb edema. The right foot is wrapped in a bulky dressing, s/p, right TMA. Neuro: No focal deficits. Vital Signs (last 8hr) Date Time Temp Pulse Resp B/P (MAP) Pulse Ox O2 Delivery O2 Flow Rate FiO2 01/28/25 12:00 98.8 61 18 127/67 96 Room Air 01/28/25 08:00 97.5 65 18 142/77 97 Room Air LABS: Laboratory: Test 01/28/25 11:14 01/28/25 05:32 01/27/25 16:47 01/27/25 05:30 Range/Units Whole Blood Glucose 99 70-110 MG/DL White Blood Count 12.3 H 4.8-10.8 K/uL Red Blood Count 3.12 L 4.00-5.50 MIL/uL Hemoglobin 8.8 L 12.0-16.0 g/dL Hematocrit 27.9 L 36-48 % Mean Corpuscular Volume 89.4 79-99 fL Mean Corpuscular Hemoglobin 28.2 27.0-33.0 pg Mean Corpuscular Hemoglobin Concent 31.5 L 32.0-36.0 g/dL Red Cell Distribution Width 13.5 11.0-15.5 % Platelet Count 467 H 130-400 K/uL Mean Platelet Volume 9.9 7.5-10.5 fL Nucleated Red Blood Cells 0.0 0.0-0.19 % Sodium Level 142 136-145 mmol/L Potassium Level 3.9 3.5-5.1 mmol/L Chloride Level 106 101-111 mmol/L Carbon Dioxide Level 26 21-32 mmol/L Blood Urea Nitrogen 8 7-18 mg/dL Creatinine 1.1 H 0.5-1.0 mg/dL Glomerular Filtration Rate Calc 63 >90 mL/min Random Glucose 156 H 70-105 mg/dL Total Calcium 8.1 L 8.5-10.1 mg/dL Vancomycin Level 13.2 L 20.0-30.0 mcg/mL Immature Granulocyte % (Auto) 1.0 0-1 % Neutrophils (%) (Auto) 66.0 40.0-77.0 % Lymphocytes (%) (Auto) 22.1 21.0-51.0 % Monocytes (%) (Auto) 8.8 3.0-13.0 % Eosinophils (%) (Auto) 1.8 0.0-8.0 % Basophils (%) (Auto) 0.3 0.0-5.0 % Neutrophils # (Auto) 8.2 H 1.8-7.7 K/uL Lymphocytes # (Auto) 2.7 1.0-4.8 K/uL Monocytes # (Auto) 1.1 H 0.1-1.0 K/uL Eosinophils # (Auto) 0.22 0.00-0.70 K/uL Basophils # (Auto) 0.04 0.00-0.20 K/uL Absolute Immature Granulocyte (auto 0.12 0-1 K/uL Red Blood Cell Morphology See comments C-Reactive Protein, Quantitative 85.20 H 0.5-3.0 mg/L Test 01/26/25 17:08 01/26/25 16:20 Range/Units Vancomycin Level Trough 22.4 #H 10.0-20.0 UG/ML Activated Clotting Time 236 H 100-180 SEC Current Medications Medications (Trade) Dose Ordered Sig/Padilla Route PRN Reason Start Time Stop Time Status Last Admin Dose Admin Acetaminophen (TYLenol 325MG TAB) 650 mg Q4H PRN PO MILD PAIN (1-3) 01/18/25 20:00 02/17/25 19:59 01/24/25 12:43 650 MG Acetaminophen (TYLenol 325MG TAB) 650 mg Q6H PRN PO TEMPERATURE GREATER THAN 101.5 01/18/25 20:00 02/17/25 19:59 01/23/25 08:36 650 MG Acetaminophen/ Hydrocodone Bitart (NORco 5/325MG) 1 tab Q4H PRN PO MODERATE PAIN (4-6) 01/18/25 20:00 01/23/25 19:59 DC 01/19/25 21:51 1 TAB Acetaminophen/ Hydrocodone Bitart (NORco 5/325MG) 2 tab Q4H PRN PO SEVERE PAIN (7-10) 01/18/25 20:00 01/23/25 19:59 DC 01/21/25 23:30 2 TAB Aspirin (Aspirin 81mg Chew Tab) 81 mg DAILY PO 01/25/25 12:00 02/24/25 11:59 01/28/25 11:15 81 MG Atorvastatin Calcium (LIPItor 20MG) 20 mg HS PO 01/25/25 21:00 02/24/25 20:59 01/27/25 21:10 20 MG Clindamycin HCl/ Dextrose 50 ml @ 100 mls/hr Q8H IV 01/20/25 00:30 01/20/25 09:36 DC 01/20/25 09:02 100 MLS/HR Clopidogrel Bisulfate (plaVIX 75MG) 75 mg DAILY PO 01/27/25 09:00 02/26/25 08:59 01/28/25 11:15 75 MG Dextrose (D50w) 50 ml AD PRN IV HYPOGLYCEMIA PROTOCOL 01/18/25 20:00 01/26/25 17:16 DC Dextrose (D50w) 50 ml AD PRN IV HYPOGLYCEMIA PROTOCOL 01/26/25 17:00 02/25/25 16:59 Docusate Sodium (COLace 100MG CAP) 100 mg BID PO 01/24/25 09:00 02/23/25 08:59 01/28/25 11:15 100 MG Famotidine (Pepcid 20mg Tab) 20 mg BID PO 01/18/25 21:00 02/17/25 20:59 01/28/25 11:16 20 MG Glucagon (Glucagon 1mg Kit) 1 mg AD PRN IM HYPOGLYCEMIA PROTOCOL 01/18/25 20:00 01/26/25 17:16 DC Glucagon (Glucagon 1mg Kit) 1 mg AD PRN IM HYPOGLYCEMIA PROTOCOL 01/26/25 17:00 02/25/25 16:59 Guaifenesin/ Dextromethorphan (RobiTUSSin DM 200/20MG 10ML) 10 ml Q4H PRN PO COUGH 01/22/25 17:00 02/21/25 16:59 01/27/25 00:25 10 ML Heparin Sodium (Porcine) (HEParin 5,000 UNIT VIAL) 5,000 unit Q12H SQ 01/21/25 09:00 02/20/25 08:59 01/28/25 11:22 5,000 UNIT Insulin Glargine (LANtus 100 UNITS/ML 10 ML VIAL) 9 units HS SQ 01/20/25 21:00 01/24/25 12:05 DC 01/23/25 20:35 9 UNITS Insulin Glargine (LANtus 100 UNITS/ML 10 ML VIAL) 12 units HS SQ 01/24/25 21:00 01/27/25 13:50 DC 01/26/25 20:55 12 UNITS Insulin Glargine (LANtus 100 UNITS/ML 10 ML VIAL) 17 units HS SQ 01/27/25 21:00 02/26/25 20:59 01/27/25 21:12 17 UNITS Insulin Human Regular (humuLIN R 100 UNIT/ML 3ML) 3 unit TIDAC SQ 01/21/25 07:30 01/24/25 12:05 DC 01/24/25 05:56 3 UNIT Insulin Human Regular (humuLIN R 100 UNIT/ML 3ML) 5 unit TIDAC SQ 01/24/25 17:00 01/27/25 13:50 DC 01/27/25 11:43 5 UNIT Insulin Human Regular (humuLIN R 100 UNIT/ML 3ML) 7 unit TIDAC SQ 01/27/25 17:00 02/26/25 16:59 01/28/25 06:17 7 UNIT Insulin Human Regular (humuLIN R 100 UNIT/ML 3ML) INSULIN SLIDING SCAL... ACHS SQ 01/18/25 21:00 02/17/25 20:59 01/27/25 21:13 5 UNIT Lactulose (Constulose 20gm/ 30ml Udcup) 20 gm BID PRN PO CONSTIPATION 01/24/25 04:30 02/23/25 04:29 01/24/25 08:54 20 GM Magnesium Sulfate 50 ml @ 0 mls/hr PROTOCOL PRN IV OTHER [SEE ORDER COMMENTS] 01/18/25 20:00 02/17/25 19:59 Ondansetron HCl (zoFRAN 4MG INJ) 4 mg Q6H PRN IV NAUSEA/VOMITING 01/18/25 20:00 02/17/25 19:59 01/22/25 16:13 4 MG Piperacillin Sod/ Tazobactam Sod 50 ml @ 12.5 mls/hr Q8H IV 01/19/25 04:00 01/25/25 16:06 DC 01/25/25 03:20 12.5 MLS/HR Piperacillin Sod/ Tazobactam Sod 50 ml @ 12.5 mls/hr Q8H IV 01/25/25 18:30 01/25/25 18:34 DC Piperacillin Sod/ Tazobactam Sod 50 ml @ 12.5 mls/hr Q8H IV 01/25/25 21:00 02/04/25 20:59 01/28/25 05:28 12.5 MLS/HR Piperacillin Sod/ Tazobactam Sod (Zosyn 3.375gm+NS 50ml) 3.375 gm ONCE STAT IVPB 01/18/25 17:47 01/18/25 17:51 DC 01/18/25 19:34 3.375 GM Polyethylene Glycol (MIRalax 3350 17 GM POWD.PACK) 17 gm DAILY PRN PO CONSTIPATION 01/24/25 09:00 02/23/25 08:59 Potassium Chloride 100 ml @ 100 mls/hr AD PRN IV POTASSIUM PROTOCOL 01/18/25 20:00 02/17/25 19:59 Potassium Chloride (K-Dur/Klor-Con 20meq) 20 meq AD PRN PO POTASSIUM PROTOCOL 01/18/25 20:00 02/17/25 19:59 01/25/25 05:42 20 MEQ Potassium Chloride (KCl 10% Elixir 20meq/15ml) 20 meq AD PRN PO POTASSIUM PROTOCOL 01/18/25 20:00 02/17/25 19:59 Sodium Chloride 1,000 ml @ 100 mls/hr Q10H IV 01/18/25 20:00 01/19/25 15:59 DC 01/19/25 06:15 100 MLS/HR Sodium Chloride 1,000 ml @ 100 mls/hr Q10H IV 01/26/25 17:00 01/26/25 19:59 DC 01/26/25 20:36 100 MLS/HR Sodium Chloride 1,000 ml @ 125 mls/hr Q8H IV 01/24/25 12:00 01/26/25 17:15 DC 01/26/25 05:16 125 MLS/HR Vancomycin HCl 250 ml @ 125 mls/hr ONCE IV 01/18/25 20:00 01/18/25 20:33 DC Vancomycin HCl 250 ml @ 125 mls/hr Q12H IV 01/27/25 06:00 01/27/25 17:46 DC 01/27/25 05:36 125 MLS/HR Vancomycin HCl 250 ml @ 125 mls/hr Q12H IV 01/27/25 18:00 02/06/25 17:59 01/28/25 05:50 125 MLS/HR Vancomycin HCl 250 ml @ 125 mls/hr Q12H IV 01/19/25 08:00 01/23/25 20:28 DC 01/23/25 08:36 125 MLS/HR Vancomycin HCl 250 ml @ 125 mls/hr Q12H IV 01/23/25 20:30 01/24/25 00:19 DC Vancomycin HCl 250 ml @ 166.667 mls/hr Q12H IV 01/24/25 13:00 01/25/25 00:06 DC Vancomycin HCl 250 ml @ 166.667 mls/hr Q12H IV 01/25/25 00:30 01/25/25 00:09 DC Vancomycin HCl 250 ml @ 166.667 mls/hr Q12H IV 01/25/25 01:00 01/25/25 18:38 DC 01/25/25 12:40 166.667 MLS/HR Vancomycin HCl 250 ml @ 166.667 mls/hr Q12H IV 01/26/25 06:00 01/26/25 17:59 DC 01/26/25 05:16 166.667 MLS/HR Vancomycin HCl (Vancomycin Protocol) 1 each AD IV 01/18/25 21:00 02/01/25 20:59 Vancomycin HCl (Vancomycin 1.5 Gm/250 ml Bag) 1.5 gm ONCE STAT IV 01/18/25 19:14 01/18/25 19:36 DC DIAGNOSTICS / RADIOLOGY: [ ] ASSESSMENT: Non healing right sided TMA surgical site YINKA possibly secondary to vancomycin induced nephrotoxicity, not POA Sepsis due to right great toe osteomyelitis POA Infected right great toe diabetic wound ulcer osteomyelitis POA Right foot cellulitis POA Hyperglycemia due to uncontrolled diabetes POA Severe leukocytosis POA Medical noncompliance POA Obesity POA Suspected urinary tract infection, ruled out PAD, POA [place] Category 3 PLAN: Per Dr Ariza, At this moment the recommendation will be [id number] amputation this will have better chance of healing. Wound care for hyperbaric oxygen Continue insulin coverage per protocol sliding scale. Right lower extremity peripheral angiogram, completed Everyday dressings and touch down weight bearing RLE with walker Consistent carb diet Continue Zosyn and vancomycin for broad-spectrum coverage Famotidine 20 mg p.o. bid for GI prophylaxis Replace electrolytes as needed per protocol PT evaluation and treatment CM evaluation for discharge planning, patient is uninsured Continue insulin sliding scale AC & HS with hypoglycemia protocol Continue prn medication for fever,pain,cough, nausea and vomiting Neurovascular check q.4 hours We will request labs in am Further orders to follow depending on above results ATTESTATION BY PHYSICIAN I have seen and examined the patient. I reviewed the documentation, medical decision making, and treatment plan as noted by the resident provider above. I agree with the findings and plan of care. Aston Rascon MD [facility],[place] Jan 28, 2025 12:42 BRITT DE LA PAZ MD Jan 28, 2025 21:00
--- NOTE | 2025-01-28 13:16 | CONS ---
CONSULTATION NOTE Date of Service: Jan 28, 2025 Reason for Consultation: 2nd opinion consultation regarding the possibility of distal foot amputation or surgery in an attempt to salvage the lower extremity. Requesting Physician: Dr. Pacheco HISTORY OF PRESENT ILLNESS: This 44 years old female with history of gas gangrene and severe diabetic foot infection status post transmetatarsal amputation continued with deterioration of the foot and continued with gangrene changes to the foot despite of IV antibiotics local wound care and medical management. At this time debating a [id number] amputation versus a higher foot amputation. REVIEW OF SYSTEMS CONSTITUTIONAL: Positive for fevers and chills HEAD/FACE: No signs of trauma. EENT: Denies eye pain, blurred vision, double vision, or light sensitivity. RESPIRATORY: Denies shortness of breath, cough, wheezing CARDIOVASCULAR: Denies chest pain, palpitation, syncope foot warm but nonpalpable pulses on right foot GASTROINTESTINAL/ABDOMINAL: Denies abdominal pain, constipation, diarrhea, nausea or vomiting GENITOURINARY: Denies dysuria or hematuria. MUSCULOSKELETAL: Denies joint pain, tenderness, or trauma. INTEGUMENTARY: Gangrene cellulitis blister formation on right foot 1st metatarsal area arch and dorsal aspect of the foot. NEUROLOGICAL/PSYCH: Denies anxiety, depression, heat or cold intolerance. PAST MEDICAL HISTORY: Diabetes obesity peripheral vascular disease PAST SURGICAL HISTORY: Transmetatarsal amputation PAST SOCIAL HISTORY: Denies smoking drinking or illicit drug FAMILY HISTORY: Noncontributory Coded Allergies: No Known Allergies (Unverified Allergy, Unknown, 05/17/23) PHYSICAL EXAM EYES: Anicteric. Pupils equal and reactive. HENT: No oral thrush seen, moist Oral mucosa NECK: Supple, no JVD or thyromegaly. LUNGS: Good air entry. No rales, no rhonchi. CARDIOVASCULAR: S1, S2 regular. No murmur heard. Nonpalpable pulses on foot right foot warm to touch. ABDOMEN: Soft, non tender, bowel sounds present, no organomegaly CENTRAL NERVOUS SYSTEM: Awake, alert, oriented x 3. No focal deficits. Loss of sensation possibly secondary to diabetic polyneuropathy SKIN: Right hallux gangrene with cellulitis and blister formation of the skin cellulitis extending to the dorsal and plantar aspect of the foot midfoot level. Medial aspect. LYMPHATICS: No peripheral lymphadenopathy MUSCULOSKELETAL: No joint swelling, erythema or tenderness. Gangrene gangrene 1st metatarsal area medial aspect of the foot extending to the medial arch and medial ankle. EXTREMITIES: No cyanosis or clubbing BACK: No deformity, no pressure ulcer. GENITOURINARY: No dysuria or hematuria Vital Sign (Last 24 Hours) 01/27/25 01/28/25 20:45 12:00 Temp 98.8 Pulse 61 Resp 18 B/P (MAP) 127/67 Pulse Ox 96 O2 Delivery Room Air O2 Flow Rate 0 FiO2 21 Intake & Output (last 24hrs) 01/27/25 01/27/25 01/28/25 15:00 23:00 07:00 Intake Total 300 ml 370.0 ml 300.0 ml Balance 300 ml 370.0 ml 300.0 ml LABS: Laboratory: Test 01/28/25 11:14 01/28/25 05:32 01/27/25 16:47 01/27/25 05:30 Range/Units Whole Blood Glucose 99 70-110 MG/DL White Blood Count 12.3 H 4.8-10.8 K/uL Red Blood Count 3.12 L 4.00-5.50 MIL/uL Hemoglobin 8.8 L 12.0-16.0 g/dL Hematocrit 27.9 L 36-48 % Mean Corpuscular Volume 89.4 79-99 fL Mean Corpuscular Hemoglobin 28.2 27.0-33.0 pg Mean Corpuscular Hemoglobin Concent 31.5 L 32.0-36.0 g/dL Red Cell Distribution Width 13.5 11.0-15.5 % Platelet Count 467 H 130-400 K/uL Mean Platelet Volume 9.9 7.5-10.5 fL Nucleated Red Blood Cells 0.0 0.0-0.19 % Sodium Level 142 136-145 mmol/L Potassium Level 3.9 3.5-5.1 mmol/L Chloride Level 106 101-111 mmol/L Carbon Dioxide Level 26 21-32 mmol/L Blood Urea Nitrogen 8 7-18 mg/dL Creatinine 1.1 H 0.5-1.0 mg/dL Glomerular Filtration Rate Calc 63 >90 mL/min Random Glucose 156 H 70-105 mg/dL Total Calcium 8.1 L 8.5-10.1 mg/dL Vancomycin Level 13.2 L 20.0-30.0 mcg/mL Immature Granulocyte % (Auto) 1.0 0-1 % Neutrophils (%) (Auto) 66.0 40.0-77.0 % Lymphocytes (%) (Auto) 22.1 21.0-51.0 % Monocytes (%) (Auto) 8.8 3.0-13.0 % Eosinophils (%) (Auto) 1.8 0.0-8.0 % Basophils (%) (Auto) 0.3 0.0-5.0 % Neutrophils # (Auto) 8.2 H 1.8-7.7 K/uL Lymphocytes # (Auto) 2.7 1.0-4.8 K/uL Monocytes # (Auto) 1.1 H 0.1-1.0 K/uL Eosinophils # (Auto) 0.22 0.00-0.70 K/uL Basophils # (Auto) 0.04 0.00-0.20 K/uL Absolute Immature Granulocyte (auto 0.12 0-1 K/uL Red Blood Cell Morphology See comments C-Reactive Protein, Quantitative 85.20 H 0.5-3.0 mg/L Test 01/26/25 17:08 01/26/25 16:20 Range/Units Vancomycin Level Trough 22.4 #H 10.0-20.0 UG/ML Activated Clotting Time 236 H 100-180 SEC DIAGNOSTICS / RADIOLOGY: X-ray demonstrated osteomyelitis gas gangrene of the soft tissue 1st metatarsal and hallux right. ASSESSMENT: Gas gangrene. Osteomyelitis of the right foot hallux and 1st metatarsal. Peripheral vascular disease. Diabetic polyneuropathy. Cellulitis and diabetic foot infection. Leukocytosis. PLAN: Patient educated on her problem due to the extent of the gangrene at this point distal amputation or further distal amputation has a high rate of failure also n ewly found anterior tibialis occlusion. Stenosis. At this moment the recommendation will be [id number] amputation this will have better chance of healing. We will notify Dr. Pacheco. Thank you very much for allowing to participate in this case continued IV antibiotics in the meanwhile. Questions were answered from patient and patient's family it seems that the patient will be agree into the amputation of the lower extremity. Please reconsult if necessary. Thanks KIRK DURHAM DPM Jan 28, 2025 13:16
[2025-01-29] VITALS (25 sets, daily range): BP systolic 94–133; BP diastolic 55–72; PULSE 2–102; RESP 13–20; TEMP 97.6–98.6; O2SAT 95–97
[2025-01-29 05:10] LABS: IMMATURE GRANULOCYTE ABSOLUTE 0.07 K/uL (0-1); NUCLEATED RED BLOOD CELLS 0.0 % (0.0-0.19); PLATELET COUNT (AUTO) 425 K/uL (130-400); RED BLOOD CELL COUNT(AUTO) 3.11 MIL/uL (4.00-5.50); RED CELL DISTRIBUTION WIDTH 13.6 % (11.0-15.5); WHITE BLOOD COUNT (AUTO) 9.8 K/uL (4.8-10.8)
[2025-01-29 05:32] LABS: CREATININE 1.2 mg/dL (0.5-1.0); GLOMERULAR FILTR. RATE CALC 57.0 mL/min (>90); GLUCOSE,RANDOM 174.0 mg/dL (70-105); SODIUM SERUM 143.0 mmol/L (136-145); UREA NITROGEN, BLOOD 7.0 mg/dL (7-18)
[2025-01-29 05:33] LABS: VANCOMYCIN TROUGH 30.4 UG/ML (10.0-20.0)
--- NOTE | 2025-01-29 07:30 | NUR ---
PT TAKEN DOWN FOR BKA SURGERY WITH DR WAKEFIELD
[2025-01-29] MEDS ORDERED: MIDAZOLAM HCL 1 MG/ML 2ML VIAL ONE ×2 (07:57→08:19)
--- NOTE | 2025-01-29 10:05 | NUR ---
PT RETURN FROM SURGERY. STABLE VITAL SIGNS. DRESSING DRY AND INTACT. RIGHT LOWER EXTREMITY ELEVATED. PT DENIES ANY PAIN AT THE MOMENT.
--- NOTE | 2025-01-29 10:59 | OP ---
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 PROCEDURE PERFORMED: Right [id number] amputation. SURGEON: Maninder Pacheco DO ANESTHESIA: General by BOO García SURVEILLANCE TECHNICIAN: ALEXIA Fernando ESTIMATED BLOOD LOSS: Less than 500 mL, but more than 400 mL. SPECIMEN: Right hindfoot in lower leg. COMPLICATIONS: None. INDICATIONS FOR PROCEDURE: This 44-year-old female longstanding type 2 diabetic states that she lost her insurance a few months ago. She is therefore not able to afford her insulin or her metformin and quit taking them. Then a little over a week prior to her arrival to the Emergency Room, she began having some increasing pain in her foot and noticed that her toe began getting red and swollen and then began turning black at the tip, so she came to the Emergency Room. By the time she did come in, her entire great toe and MTP region on her right foot was dry, gangrenous. I was called for consultation and I recommended a BKA at that time. She absolutely refused, but did subsequently consent to a TMA. We performed the highest TMA we could, but could not get rid of all the necrotic tissue on the medial side of her foot. She then was admitted with IV antibiotics and as the time has gone on, she began to declare itself that this gangrene was continuing on the medial side of the foot. The patient now consents for the below-knee amputation. OPERATIVE COURSE: After informed written consent, identification of the correct operative site in the preoperative holding area, the patient was taken to the operating suite and placed in supine position. General anesthetic was administered by BOO García and a block placed. The right lower extremity was then prepped and draped in the usual sterile manner using Betadine scrub. After a timeout, we made a fish-mouth incision in the middle third of the right lower leg taken through the subcutaneous deep fascia. We opened the deep fascia across its fibers anteriorly. There was a lot of revascularization attempts of hypertrophies of other small vessels. We used electrocautery and #1 Vicryl to obtain hemostasis. We then elevated the periosteum on the tibia approximately 5 cm. We cut through the tibialis anterior muscle belly and identified the fibula. We used the oscillating saw to osteotomize the tibia and fibula about 5 cm proximal to the skin incision. We completed the amputation through the posterior compartments with a #10 blade. We used hemostats to attain hemostasis. We then began using interrupted simple and interrupted [id number] # 1 Vicryl sutures to obtain hemostasis and remove the hemostat. At this point, we beveled and contoured the tibial osteotomy as well as the fibular one. We irrigated thoroughly with saline. We then closed the fascia anterior to posterior with interrupted [id number] #1 Vicryl sutures in two layers. We closed the subcutaneous with inverted interrupted 2-0 Vicryl sutures and the skin with skin clips. We applied a clean, dry, sterile dressing to include Xeroform, 4 x 4s, ABD, Kerlix, and an Ish wrap. The drapes were removed, the patient was transferred to a hospital bed, revived, and taken to the recovery room in satisfactory condition. All needle counts, sponge counts, and instrument counts were correct. TID: [id number] RECEIPT: [id number] [facility]
--- NOTE | 2025-01-29 13:40 | PN ---
[facility] PROGRESS NOTE Date of Service: Jan 29, 2025 Time of Service: 13:13 SUBJECTIVE: This is a 44-year-old female with past medical history of diabetes and medical noncompliance who presents to the ED for complaints of right great toe wound ulcer and right foot pain.Patient reports on of last week she did not feel good ,she was dizzy,having chills and shortness of breath so she went to a Day and night clinic were she was told she has Flu and was prescribed with prednisone 10 mg daily,Naproxen and Tamiflu and after taking it the following day she noticed her right great toe has purple and whitish discoloration so she went to [place] today where she was given an IM injection was told for infection she said and on her way back home she noticed that her right great toe was hurting and her foot was getting swollen and red and her right great toe ulcer was smelling foul odor .Patient states she does not have a PCP and that sheis not taking any medication at home except for those 3 new med prescribed for her Flu she said. Seen and examined patient in the ER awake,alert and coherent,appears comfortable,patient denies sore throat, cough, nausea,vomiting ,abdominal pain,chest pain,palpitation and shortness of breath. Latest vital signs temperature a 100.2, heart rate 86, blood pressure 121/67 saturation 98% room air. WBC 32 with negative left shift of neutrophils 80, hemoglobin 13, h ematocrit 41, platelet count 351. Sodium 124, chloride 97, glucose 327, CRP 338, procalcitonin 0.69. Urinalysis significant for protein, glucose, ketones, urine RBC 11-25, urine WBC 6-10. X-ray of the right foot result revealed soft tissues edema and emphysema of the right great toe there is no radiographic evidence for osteomyelitis however if clinical concern persists recommend contrast enhanced MRI of the right foot for further evaluation. While in the ER patient received fluid resuscitation of NS 30 mL/kilogram over 3 hours, Zosyn IV and vancomycin IV we will admit patient for further medical management. 01/19/25 Patient was seen and examined at bedside. She had a temperature of 100 last night, other vitals are stable. She does not take medications for diabetes and does not have a PCP. She first noticed an ulcer on her right foot two weeks ago that eventually developed into foul smelling gas gangrene. Podiatry consult was placed as X-rays showed evidence of osteomyelitis and soft tissue gangrene involving the right first metatarsal. Given the emergent nature of the infection, podiatry recommended a first-ray amputation on the same day. However, the patient initially declined the procedure, expressing a desire to first discuss the situation with family members. She also mentioned the possibility of signing AMA but was advised to reconsider if she changes her decision. In the meantime, an orthopedic surgery consult was placed to evaluate for the possibility of a below-knee amputation , given the extent of infection and urgency of intervention. 01/20/25 Patient was seen and examined at bedside. She had a TMA done by Dr. Pacheco yesterday with no complications. She is currently on vancomycin and zosyn. We will follow ID recommendations on IV antibiotics and discharge plan whether to send her to SNF or f/u outpatient at [facility] for iv antibiotics. She denies any pain or swelling or tenderness over the surgery site. Her glucose is uncontrolled and will adjust her insulin. 01/21/25 Patient was seen and examined at bedside. She is hemodynamically stable, no acute events overnigt. She reports minimal pain to surgical site. As per Dr. Dewitt patient will stay over the weekend to complete the course of antibiotics. She is working with PT and is progressing towards goals. She denies any pain or swelling or tenderness over the surgery site 01/22/25 Patient seen at bedside. Reports no fevers or chills in the past 24 hours. WBC remains elevated at 23.6 despite ongoing treatment with vancomycin and Zosyn. No acute events overnight. Plan to continue current antibiotic therapy and follow Infectious Disease recommendations on discharge planning. 01/23/25 Patient was seen at bedside and appears to be doing well overall, ambulating with physical therapy without difficulty. White blood cell count remains elevated at 22.8, and she had a low-grade fever of 100.6F this morning. Blood cultures remain negative. Hemoglobin is trending down slowly, though LDH is within normal limits and stool guaiac is negative , possible dilutional effect. BNP is mildly elevated at 119, and CRP has decreased from 311 to 182. She will need to continue IV antibiotics and may require a below-knee amputation in the future given her diabetes and the non-healing wound at the TMA site. A social work consult will be requested, as the patient lacks access to a primary care provider due to financial constraints. 01/24/25 Patient was seen at bedside and appears to be doing well overall, ambulating with physical therapy without difficulty. White blood cell count slowly trending downwards from 22.8 to 21.4, CRP from 182.8 to 161.8. Her vancomycin trough is high at 31.7 and Cr is 1.2. We will hold vancomycin for today and give her fluids and recheck in the morning. She had no temperature in the last 24 hours. Pending ID recommendations on plan of discharge. 01/25/25 Patient was seen at bedside and appears to be doing well overall, ambulating wi th physical therapy without difficulty. Her vitals are stable. White blood cell count slowly trending downwards from 21.4 to 15.6, CRP from 161.8 to 137. Her vancomycin trough was at 31.7 on 01/24/25 and today vancomycin level is 15.8. Her serum Cr is 1.1 and ca is 8.1. She had no temperature in the last 24 hours. ID has recommended for possible below knee amputation. Case management team reemay talked with Dr Pacheco. And Dr. Paiz has been consulted for lower right limb arterial doppler ultrasound. 01/26/25 Patient was seen at bedside and appears to be doing well overall. Her vitals are stable. White blood cell count slowly trending downwards from 15.6 to 14.1 and Hgb is 8.9 today. She has bilateral lower limb edema, more on the right side. Her wound is slightly wet and soaked. Cardiology was consulted due to concern for PAD. The TCOM analysis done yesterday identified insufficient blood flow for wound healing. So, today she will undergo a right lower extremity peripheral angiogram with possible intervention. She will be continued on Vancomycin and IV Zoysn. Arterial ultrasound done yesterday demonstrated monophasic waveforms in proximal artery on left lower extremity and all arteries except common femoral, proximal and mid superficial femoral arteries on right lower extremity. 01/27/25 Patient was seen at bedside and appears to be doing well overall. Her vitals are stable except her blood pressure is 98/51. White blood cell count slowly trending downwards from 14.1 to 12.4 and Hgb is 8.3 today. She has bilateral lower limb edema, more on the right side. She underwent angiogram yesterday which revealed 100% stenosis of Right anterior tibial artery. Dr Pacheco will be consulted for possible below knee amputation. She will be continued on Vancomycin and IV Zoysn along with aggressive wound care, and recommend strict blood glucose control. She will be started on Clopidogrel, Aspirin and statin for the peripheral artery disease. 01/28/25 Patient was seen at bedside and appears to be doing well overall. Her vitals are stable. White blood cell count slowly trending downwards and is 12.3 and Hgb is 8.8 today. Her creatinine is 1.1 and random blood glucose is 156. She has bilateral lower limb edema, more on the right side. As per Dr Pacheco, Dr. Ariza will be consulted as a industrial gas servicer helper as to whether or not there is any survivable procedure at the level of the foot. She will be continued on Vancomycin and IV Zoysn along with aggressive wound care, and recommend strict blood glucose control. 01/29/25 Patient was taken today for below knee amputation by Dr Pacheco and the team. After completion of the procedure, the drapes were removed, the patient was transferred to a hospital bed, revived, and taken to the recovery room in satisfactory condition. Patient has stable vitals. The dressing is dry and intact. Right lower extremity is elevated and doesn't complain of pain. WBC has been trending down from 12. 3 to 9.8. hemoglobin is 8.9 and creatinine 1.2. REVIEW OF SYSTEMS CONSTITUTIONAL: No fever, chills, or night sweats. NEUROLOGICAL: Denies headache, motor weakness, sensory deficit. CARDIOVASCULAR: Denies any exertional angina, dyspnea on exertion, orthopnea, palpitations PULMONARY: Denies any shortness of breath, cough, hemoptysis, pleuritic chest pain. GASTROINTESTINAL:Denies nausea, vomiting, abdominal pain, diarrhea, constipation GENITOURINARY: Denies frequency, urgency, nocturia, hematuria or incontinence. PHYSICAL EXAM General: Alert and oriented. Lungs: .No wheezing, rales or rhonchi. Cardio: Regular rate. Normal S1 and S2. +S4. Abdomen: Soft. NT. ND. Normal active bowel sounds x 4 quadrants. Extremities: Dressing dry and intact, s/p Day 0, right below knee amputation Neuro: No focal deficits. Vital Signs (last 8hr) Date Time Temp Pulse Resp B/P (MAP) Pulse Ox O2 Delivery O2 Flow Rate FiO2 01/29/25 10:05 79 133/65 97 01/29/25 10:02 97.9 76 15 115/67 95 Room Air 21 01/29/25 09:57 74 15 109/63 95 Room Air 21 01/29/25 09:52 2 16 122/65 95 Room Air 21 01/29/25 09:47 77 17 124/68 97 Room Air 21 01/29/25 09:42 75 14 125/62 97 Room Air 21 01/29/25 09:37 74 16 121/64 100 Nonrebreathing Mask 10.0 100 01/29/25 09:32 78 16 112/56 100 Nonrebreathing Mask 10.0 100 01/29/25 09:27 75 16 117/57 100 Nonrebreathing Mask 10.0 100 01/29/25 09:22 72 15 110/64 100 Nonrebreathing Mask 10.0 100 01/29/25 09:17 97.5 65 13 107/55 100 Nonrebreathing Mask 10.0 100 LABS: Laboratory: Test 01/29/25 11:17 01/29/25 05:06 01/28/25 20:09 01/27/25 16:47 Range/Units Whole Blood Glucose 171 H 70-110 MG/DL White Blood Count 9.8 4.8-10.8 K/uL Red Blood Count 3.11 L 4.00-5.50 MIL/uL Hemoglobin 8.8 L 12.0-16.0 g/dL Hematocrit 28.3 L 36-48 % Mean Corpuscular Volume 91.0 79-99 fL Mean Corpuscular Hemoglobin 28.3 27.0-33.0 pg Mean Corpuscular Hemoglobin Concent 31.1 L 32.0-36.0 g/dL Red Cell Distribution Width 13.6 11.0-15.5 % Platelet Count 425 H 130-400 K/uL Mean Platelet Volume 9.7 7.5-10.5 fL Immature Granulocyte % (Auto) 0.7 0-1 % Neutrophils (%) (Auto) 64.0 40.0-77.0 % Lymphocytes (%) (Auto) 23.9 21.0-51.0 % Monocytes (%) (Auto) 7.9 3.0-13.0 % Eosinophils (%) (Auto) 3.0 0.0-8.0 % Basophils (%) (Auto) 0.5 0.0-5.0 % Neutrophils # (Auto) 6.3 1.8-7.7 K/uL Lymphocytes # (Auto) 2.4 1.0-4.8 K/uL Monocytes # (Auto) 0.8 0.1-1.0 K/uL Eosinophils # (Auto) 0.29 0.00-0.70 K/uL Basophils # (Auto) 0.05 0.00-0.20 K/uL Absolute Immature Granulocyte (auto 0.07 0-1 K/uL Nucleated Red Blood Cells 0.0 0.0-0.19 % Sodium Level 143 136-145 mmol/L Potassium Level 4.3 3.5-5.1 mmol/L Chloride Level 109 101-111 mmol/L Carbon Dioxide Level 27 21-32 mmol/L Blood Urea Nitrogen 7 7-18 mg/dL Creatinine 1.2 H 0.5-1.0 mg/dL Glomerular Filtration Rate Calc 57 >90 mL/min Random Glucose 174 H 70-105 mg/dL Total Calcium 8.4 L 8.5-10.1 mg/dL C-Reactive Protein, Quantitative 61.20 H 0.5-3.0 mg/L Vancomycin Level Trough 30.4 #*H 10.0-20.0 UG/ML Bedside Glucose Comment Notified Nurse Vancomycin Level 13.2 L 20.0-30.0 mcg/mL Current Medications Medications (Trade) Dose Ordered Sig/Padilla Route PRN Reason Start Time Stop Time Status Last Admin Dose Admin Acetaminophen (TYLenol 325MG TAB) 650 mg Q4H PRN PO MILD PAIN (1-3) 01/18/25 20:00 02/17/25 19:59 01/28/25 22:12 650 MG Acetaminophen (TYLenol 325MG TAB) 650 mg Q6H PRN PO TEMPERATURE GREATER THAN 101.5 01/18/25 20:00 02/17/25 19:59 01/23/25 08:36 650 MG Acetaminophen/ Hydrocodone Bitart (NORco 5/325MG) 1 tab Q4H PRN PO MODERATE PAIN (4-6) 01/18/25 20:00 01/23/25 19:59 DC 01/19/25 21:51 1 TAB Acetaminophen/ Hydrocodone Bitart (NORco 5/325MG) 2 tab Q4H PRN PO SEVERE PAIN (7-10) 01/18/25 20:00 01/23/25 19:59 DC 01/21/25 23:30 2 TAB Aspirin (Aspirin 81mg Chew Tab) 81 mg DAILY PO 01/25/25 12:00 02/24/25 11:59 01/28/25 11:15 81 MG Atorvastatin Calcium (LIPItor 20MG) 20 mg HS PO 01/25/25 21:00 02/24/25 20:59 01/28/25 21:46 20 MG Clindamycin HCl/ Dextrose 50 ml @ 100 mls/hr Q8H IV 01/20/25 00:30 01/20/25 09:36 DC 01/20/25 09:02 100 MLS/HR Clopidogrel Bisulfate (plaVIX 75MG) 75 mg DAILY PO 01/27/25 09:00 02/26/25 08:59 01/28/25 11:15 75 MG Dextrose (D50w) 50 ml AD PRN IV HYPOGLYCEMIA PROTOCOL 01/18/25 20:00 01/26/25 17:16 DC Dextrose (D50w) 50 ml AD PRN IV HYPOGLYCEMIA PROTOCOL 01/26/25 17:00 02/25/25 16:59 Docusate Sodium (COLace 100MG CAP) 100 mg BID PO 01/24/25 09:00 02/23/25 08:59 01/28/25 21:46 100 MG Famotidine (Pepcid 20mg Tab) 20 mg BID PO 01/18/25 21:00 02/17/25 20:59 01/28/25 21:47 20 MG Glucagon (Glucagon 1mg Kit) 1 mg AD PRN IM HYPOGLYCEMIA PROTOCOL 01/18/25 20:00 01/26/25 17:16 DC Glucagon (Glucagon 1mg Kit) 1 mg AD PRN IM HYPOGLYCEMIA PROTOCOL 01/26/25 17:00 02/25/25 16:59 Guaifenesin/ Dextromethorphan (RobiTUSSin DM 200/20MG 10ML) 10 ml Q4H PRN PO COUGH 01/22/25 17:00 02/21/25 16:59 01/27/25 00:25 10 ML Heparin Sodium (Porcine) (HEParin 5,000 UNIT VIAL) 5,000 unit Q12H SQ 01/21/25 09:00 02/20/25 08:59 01/28/25 21:47 5,000 UNIT Insulin Glargine (LANtus 100 UNITS/ML 10 ML VIAL) 9 units HS SQ 01/20/25 21:00 01/24/25 12:05 DC 01/23/25 20:35 9 UNITS Insulin Glargine (LANtus 100 UNITS/ML 10 ML VIAL) 12 units HS SQ 01/24/25 21:00 01/27/25 13:50 DC 01/26/25 20:55 12 UNITS Insulin Glargine (LANtus 100 UNITS/ML 10 ML VIAL) 17 units HS SQ 01/27/25 21:00 02/26/25 20:59 01/28/25 21:48 17 UNITS Insulin Human Regular (humuLIN R 100 UNIT/ML 3ML) 3 unit TIDAC SQ 01/21/25 07:30 01/24/25 12:05 DC 01/24/25 05:56 3 UNIT Insulin Human Regular (humuLIN R 100 UNIT/ML 3ML) 5 unit TIDAC SQ 01/24/25 17:00 01/27/25 13:50 DC 01/27/25 11:43 5 UNIT Insulin Human Regular (humuLIN R 100 UNIT/ML 3ML) 7 unit TIDAC SQ 01/27/25 17:00 02/26/25 16:59 01/28/25 18:54 7 UNIT Insulin Human Regular (humuLIN R 100 UNIT/ML 3ML) INSULIN SLIDING SCAL... ACHS SQ 01/18/25 21:00 02/17/25 20:59 01/28/25 21:49 3 UNIT Lactulose (Constulose 20gm/ 30ml Udcup) 20 gm BID PRN PO CONSTIPATION 01/24/25 04:30 02/23/25 04:29 01/28/25 22:15 20 GM Magnesium Sulfate 50 ml @ 0 mls/hr PROTOCOL PRN IV OTHER [SEE ORDER COMMENTS] 01/18/25 20:00 02/17/25 19:59 Ondansetron HCl (zoFRAN 4MG INJ) 4 mg Q6H PRN IV NAUSEA/VOMITING 01/18/25 20:00 02/17/25 19:59 01/29/25 04:45 4 MG Piperacillin Sod/ Tazobactam Sod 50 ml @ 12.5 mls/hr Q8H IV 01/19/25 04:00 01/25/25 16:06 DC 01/25/25 03:20 12.5 MLS/HR Piperacillin Sod/ Tazobactam Sod 50 ml @ 12.5 mls/hr Q8H IV 01/25/25 18:30 01/25/25 18:34 DC Piperacillin Sod/ Tazobactam Sod 50 ml @ 12.5 mls/hr Q8H IV 01/25/25 21:00 02/04/25 20:59 01/29/25 04:45 12.5 MLS/HR Piperacillin Sod/ Tazobactam Sod (Zosyn 3.375gm+NS 50ml) 3.375 gm ONCE STAT IVPB 01/18/25 17:47 01/18/25 17:51 DC 01/18/25 19:34 3.375 GM Polyethylene Glycol (MIRalax 3350 17 GM POWD.PACK) 17 gm DAILY PRN PO CONSTIPATION 01/24/25 09:00 02/23/25 08:59 Potassium Chloride 100 ml @ 100 mls/hr AD PRN IV POTASSIUM PROTOCOL 01/18/25 20:00 02/17/25 19:59 Potassium Chloride (K-Dur/Klor-Con 20meq) 20 meq AD PRN PO POTASSIUM PROTOCOL 01/18/25 20:00 02/17/25 19:59 01/25/25 05:42 20 MEQ Potassium Chloride (KCl 10% Elixir 20meq/15ml) 20 meq AD PRN PO POTASSIUM PROTOCOL 01/18/25 20:00 02/17/25 19:59 Sodium Chloride 1,000 ml @ 100 mls/hr Q10H IV 01/18/25 20:00 01/19/25 15:59 DC 01/19/25 06:15 100 MLS/HR Sodium Chloride 1,000 ml @ 100 mls/hr Q10H IV 01/26/25 17:00 01/26/25 19:59 DC 01/26/25 20:36 100 MLS/HR Sodium Chloride 1,000 ml @ 125 mls/hr Q8H IV 01/24/25 12:00 01/26/25 17:15 DC 01/26/25 05:16 125 MLS/HR Vancomycin HCl 250 ml @ 125 mls/hr ONCE IV 01/18/25 20:00 01/18/25 20:33 DC Vancomycin HCl 250 ml @ 125 mls/hr Q12H IV 01/27/25 06:00 01/27/25 17:46 DC 01/27/25 05:36 125 MLS/HR Vancomycin HCl 250 ml @ 125 mls/hr Q12H IV 01/27/25 18:00 02/06/25 17:59 Hold 01/29/25 04:45 125 MLS/HR Vancomycin HCl 250 ml @ 125 mls/hr Q12H IV 01/19/25 08:00 01/23/25 20:28 DC 01/23/25 08:36 125 MLS/HR Vancomycin HCl 250 ml @ 125 mls/hr Q12H IV 01/23/25 20:30 01/24/25 00:19 DC Vancomycin HCl 250 ml @ 166.667 mls/hr Q12H IV 01/24/25 13:00 01/25/25 00:06 DC Vancomycin HCl 250 ml @ 166.667 mls/hr Q12H IV 01/25/25 00:30 01/25/25 00:09 DC Vancomycin HCl 250 ml @ 166.667 mls/hr Q12H IV 01/25/25 01:00 01/25/25 18:38 DC 01/25/25 12:40 166.667 MLS/HR Vancomycin HCl 250 ml @ 166.667 mls/hr Q12H IV 01/26/25 06:00 01/26/25 17:59 DC 01/26/25 05:16 166.667 MLS/HR Vancomycin HCl (Vancomycin Protocol) 1 each AD IV 01/18/25 21:00 02/01/25 20:59 Vancomycin HCl (Vancomycin 1.5 Gm/250 ml Bag) 1.5 gm ONCE STAT IV 01/18/25 19:14 01/18/25 19:36 DC DIAGNOSTICS / RADIOLOGY: [ ] ASSESSMENT: Status Post Right Below knee amputation (Post-op Day 0) Non healing right sided TMA surgical site YINKA possibly secondary to vancomycin induced nephrotoxicity, not POA Sepsis due to right great toe osteomyelitis POA Infected right great toe diabetic wound ulcer osteomyelitis POA Gas gangrene POA Hyperglycemia due to uncontrolled diabetes POA Severe leukocytosis POA Medical noncompliance POA Obesity POA Suspected urinary tract infection, ruled out PAD, POA [place] Category 3 PLAN: Status Post Right Below knee amputation (Post-op Day 0) Underwent right BKA earlier today Continue post operative wound care and dressing changes Monitor for signs of infection, bleeding Right lower extremity peripheral angiogram, completed Hyperglycemia due to uncontrolled diabetes Continue insulin coverage per protocol sliding scale Monitor glucose levels Maintain Consistent carb diet Peripheral arterial disease Peripheral angiogram showed Right anterior tibial artery 100% stenosis Osteomyelitis Continue Zosyn (Day 5)for broad-spectrum coverage Supportive measures Famotidine 20 mg p.o. bid for GI prophylaxis Replace electrolytes as needed per protocol PT evaluation and treatment CM evaluation for discharge planning, patient is uninsured Continue prn medication for fever,pain,cough, nausea and vomiting Neurovascular check q.4 hours We will request labs in am Further orders to follow depending on above results ATTESTATION BY PHYSICIAN I have seen and examined the patient. I reviewed the documentation, medical decision making, and treatment plan as noted by the resident provider above. I agree with the findings and plan of care. Aston Rascon MD [facility] MD Jan 29, 2025 13:40 BRITT DE LA PAZ MD Jan 30, 2025 00:07
--- NOTE | 2025-01-29 20:24 | PN ---
INFECTIOUS DISEASE PROGRESS NOTE Date of Service: Jan 29, 2025 SUBJECTIVE: Patient with a nonhealing right TMA and during rounding today patient is out for a Right [id number] amputation. No fever reported throughout the night and the WBC has trended down to 9.8. Vancomycin on hold due to elevated vanco trough. Continues on Zosyn IV. We will continue to follow patient's care. PHYSICAL EXAM EYES: Anicteric. Pupils equal and reactive. HENT: No oral thrush seen, moist Oral mucosa. NECK: Supple, no JVD or thyromegaly. LUNGS: Good air entry. No rales, no rhonchi. CARDIOVASCULAR: S1, S2 regular. No murmur heard. ABDOMEN: Soft, non tender, bowel sounds present, no organomegaly. CENTRAL NERVOUS SYSTEM: Awake, alert, oriented x 3. SKIN: No rashes, no swelling. LYMPHATICS: No peripheral lymphadenopathy MUSCULOSKELETAL: No joint swelling, erythema or tenderness. 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 BACK: No deformity, no pressure ulcer. GENITOURINARY: No dysuria or hematuria. Vital Sign (Last 12 Hours) 01/29/25 01/29/25 01/29/25 01/29/25 09:17 09:22 09:27 09:32 Temp 97.5 Pulse 65 72 75 78 Resp 13 15 16 16 B/P (MAP) 107/55 110/64 117/57 112/56 Pulse Ox 100 100 100 100 O2 Delivery Nonrebreathing Mask Nonrebreathing Mask Nonrebreathing Mask Nonrebreathing Mask O2 Flow Rate 10.0 10.0 10.0 10.0 FiO2 100 100 100 100 01/29/25 01/29/25 01/29/25 01/29/25 09:37 09:42 09:47 09:52 Pulse 74 75 77 72 Resp 16 14 17 16 B/P (MAP) 121/64 125/62 124/68 122/65 Pulse Ox 100 97 97 95 O2 Delivery Nonrebreathing Mask Room Air Room Air Room Air O2 Flow Rate 10.0 FiO2 100 21 21 21 01/29/25 01/29/25 01/29/25 01/29/25 09:57 10:02 10:05 10:05 Temp 97.9 Pulse 74 76 79 Resp 15 15 B/P (MAP) 109/63 115/67 133/65 Pulse Ox 95 95 97 97 O2 Delivery Room Air Room Air Room Air* O2 Flow Rate 0 FiO2 21 21 21 01/29/25 01/29/25 01/29/25 01/29/25 11:16 11:31 11:45 12:00 Pulse 74 69 82 68 B/P (MAP) 116/63 112/64 110/65 124/64 Pulse Ox 92 92 93 100 01/29/25 01/29/25 01/29/25 01/29/25 12:15 12:45 13:15 14:15 Pulse 78 77 67 70 B/P (MAP) 114/65 102/60 100/59 120/68 Pulse Ox 97 97 94 01/29/25 16:00 Temp 98.4 Pulse 83 Resp 18 B/P (MAP) 118/70 Pulse Ox 94 O2 Delivery Room Air Intake & Output (last 24hrs) 01/28/25 01/28/25 01/29/25 15:00 23:00 07:00 Intake Total 290.0 ml 540.0 ml 50.0 ml Balance 290.0 ml 540.0 ml 50.0 ml LABS: Laboratory: Test 01/29/25 19:38 01/29/25 17:25 01/29/25 05:06 Range/Units Whole Blood Glucose 231 H 70-110 MG/DL Bedside Glucose Comment Notified Nurse Vancomycin Level Trough 17.5 # 10.0-20.0 UG/ML White Blood Count 9.8 4.8-10.8 K/uL Red Blood Count 3.11 L 4.00-5.50 MIL/uL Hemoglobin 8.8 L 12.0-16.0 g/dL Hematocrit 28.3 L 36-48 % Mean Corpuscular Volume 91.0 79-99 fL Mean Corpuscular Hemoglobin 28.3 27.0-33.0 pg Mean Corpuscular Hemoglobin Concent 31.1 L 32.0-36.0 g/dL Red Cell Distribution Width 13.6 11.0-15.5 % Platelet Count 425 H 130-400 K/uL Mean Platelet Volume 9.7 7.5-10.5 fL Immature Granulocyte % (Auto) 0.7 0-1 % Neutrophils (%) (Auto) 64.0 40.0-77.0 % Lymphocytes (%) (Auto) 23.9 21.0-51.0 % Monocytes (%) (Auto) 7.9 3.0-13.0 % Eosinophils (%) (Auto) 3.0 0.0-8.0 % Basophils (%) (Auto) 0.5 0.0-5.0 % Neutrophils # (Auto) 6.3 1.8-7.7 K/uL Lymphocytes # (Auto) 2.4 1.0-4.8 K/uL Monocytes # (Auto) 0.8 0.1-1.0 K/uL Eosinophils # (Auto) 0.29 0.00-0.70 K/uL Basophils # (Auto) 0.05 0.00-0.20 K/uL Absolute Immature Granulocyte (auto 0.07 0-1 K/uL Nucleated Red Blood Cells 0.0 0.0-0.19 % Sodium Level 143 136-145 mmol/L Potassium Level 4.3 3.5-5.1 mmol/L Chloride Level 109 101-111 mmol/L Carbon Dioxide Level 27 21-32 mmol/L Blood Urea Nitrogen 7 7-18 mg/dL Creatinine 1.2 H 0.5-1.0 mg/dL Glomerular Filtration Rate Calc 57 >90 mL/min Random Glucose 174 H 70-105 mg/dL Total Calcium 8.4 L 8.5-10.1 mg/dL C-Reactive Protein, Quantitative 61.20 H 0.5-3.0 mg/L ASSESSMENT: 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 Nonhealing right TMA surgical site, status post peripheral angiogram with abnormal findings. Leukocytosis. Urinary tract infection with lactobacillus species. Uncontrolled diabetes mellitus, hemoglobin A1c 13.9. Medical noncompliance. Obesity. PLAN: Continue vancomycin per pharmacy protocol. Continue Zosyn. Continue GI prophylaxis. Continue pain management. Continue insulin coverage per protocol sliding scale. Continue wound care. Patient undergoing a right BKA today. This case was reviewed and discussed with my supervising physician and the above assessment and plan was formulated and agreed upon. ATTESTATION BY PHYSICIAN I have seen and examined the patient. I reviewed the documentation, medical decision making, and treatment plan as noted by the mid-level provider above. I agree with the findings and plan of care. VONNIE, SALINA COSTA MD [facility] Jan 29, 2025 20:24
[2025-01-29] MEDS: VANCOMYCIN 750MG VIAL IVPB SCH (22:12)
[2025-01-30 04:00] VITALS: BP 93/52; PULSE 76; RESP 20; TEMP 98.8
[2025-01-30 05:39] LABS: CREATININE 1.2 mg/dL (0.5-1.0); GLOMERULAR FILTR. RATE CALC 57.0 mL/min (>90); GLUCOSE,RANDOM 142.0 mg/dL (70-105); SODIUM SERUM 142.0 mmol/L (136-145); UREA NITROGEN, BLOOD 9.0 mg/dL (7-18)
[2025-01-30 06:14] LABS: IMMATURE GRANULOCYTE ABSOLUTE 0.12 K/uL (0-1); NUCLEATED RED BLOOD CELLS 0.0 % (0.0-0.19); PLATELET COUNT (AUTO) 366 K/uL (130-400); RED BLOOD CELL COUNT(AUTO) 2.34 MIL/uL (4.00-5.50); RED CELL DISTRIBUTION WIDTH 13.5 % (11.0-15.5); WHITE BLOOD COUNT (AUTO) 13.2 K/uL (4.8-10.8)
--- NOTE | 2025-01-30 06:36 | NUR ---
PATIENT UPDATE PT S/P RT BKA 01/29/25, HB THIS AM REPORTED AT 6.6 AND HCT OF 21.6, CALL PLACED TO HOSPITALIST GENERATING STATION MECHANIC. DR. BHATIA CALLED BACK WITH ORDERS TO TRANSFUSE 1 UNIT OF PRBC AFTER A TYPE AND SCREEN. PT MADE AWARE ABOUT THE PLAN AND AGREED FOR THE TRANSFUSION OF 1 UNIT OF PRBC.
[2025-01-30 08:00] VITALS: BP 112/68; PULSE 78; RESP 18; TEMP 97.4
--- NOTE | 2025-01-30 09:19 | PN ---
SUBJECTIVE: The patient is postop day #1 from right BKA. She states she is already actually feeling less stressed. She has pain locally in the area but otherwise feels better today. OBJECTIVE: GENERAL: She is alert, pleasant, and cooperative. Her daughter is at the bedside. The dressing is clean and dry. VITAL SIGNS: She remains afebrile at 97.3 with blood pressure 112/68, pulse is 78, respirations of 18. LABORATORY DATA: Her white count today is 13.2 and her hemoglobin is 6.6, hematocrit 21.6, and a blood sugar of 132. ASSESSMENT: Postoperative day #1 right BKA with postoperative anemia. PLAN: I agree with giving the patient one unit of packed red blood cells. We will begin dressing changes. Pending H and H tomorrow if being normal, she will be Ortho stable for discharge. TID: [id number] RECEIPT: [id number]
[2025-01-30 09:40] VITALS: O2SAT 95
[2025-01-30] MEDS: HYDROcodone/APAP 5/325 1 TAB TABLET PO PRN ×2 (09:42→20:24)
--- NOTE | 2025-01-30 10:30 | NUR ---
MD ROUNDS DR Giuseppe BHATIA AT BEDSIDE WITH PT EXPLAINING PO MEDS. MD WAS NOTIFIED OF PAIN LEVEL 1 HOUR AFTER MEDICATION GIVEN . DR BHATIA PROVIDED TEACHING ON PO PAIN MEDS. PT STATES WILL WAIT FOR PO PAIN MED TO TAKE EFFECT. .
[2025-01-30 12:00] VITALS: BP 112/64; PULSE 79; RESP 18; TEMP 98.1
--- NOTE | 2025-01-30 15:05 | PN ---
INFECTIOUS DISEASE PROGRESS NOTE Date of Service: Jan 30, 2025 SUBJECTIVE: Patient was seen and examined at bedside in room 306. Patient is awake, alert and oriented x3. Patient is status post Right [id number] amputation day # 1 due to failed right TMA and gangrene. During rounding today patient is pending a unit of PRBC transfusion for hemoglobin of 6.6. The right stump dressing is clean and dry. No fever, temperature is 98.1 and a WBC of 13.2. Vancomycin has been resumed and also continues on Zosyn IV. We will continue to follow patient's care. PHYSICAL EXAM EYES: Anicteric. Pupils equal and reactive. HENT: No oral thrush seen, moist Oral mucosa. NECK: Supple, no JVD or thyromegaly. LUNGS: Good air entry. No rales, no rhonchi. CARDIOVASCULAR: S1, S2 regular. No murmur heard. ABDOMEN: Soft, non tender, bowel sounds present, no organomegaly. CENTRAL NERVOUS SYSTEM: Awake, alert, oriented x 3. SKIN: No rashes, no swelling. LYMPHATICS: No peripheral lymphadenopathy MUSCULOSKELETAL: No joint swelling, erythema or tenderness. EXTREMITIES: Failed right TMA, s/p right [id number] amputation. BACK: No deformity, no pressure ulcer. GENITOURINARY: No dysuria or hematuria. Vital Sign (Last 12 Hours) 01/30/25 01/30/25 01/30/25 04:00 08:00 12:00 Temp 98.8 97.3 98.1 Pulse 76 78 79 Resp 20 18 18 B/P (MAP) 93/52 112/68 112/64 Pulse Ox 92 95 95 O2 Delivery Room Air Room Air Room Air Intake & Output (last 24hrs) 01/29/25 01/29/25 01/30/25 15:00 23:00 07:00 Intake Total 240 ml 570.0 ml 50.0 ml Output Total 1100 ml 1300 ml Balance -860 ml -730.0 ml 50.0 ml LABS: Laboratory: Test 01/30/25 11:07 01/30/25 05:40 01/30/25 04:45 01/29/25 19:38 Range/Units Whole Blood Glucose 218 #H 70-110 MG/DL White Blood Count 13.2 H 4.8-10.8 K/uL Red Blood Count 2.34 L 4.00-5.50 MIL/uL Hemoglobin 6.6 #*L 12.0-16.0 g/dL Hematocrit 21.6 #L 36-48 % Mean Corpuscular Volume 92.3 79-99 fL Mean Corpuscular Hemoglobin 28.2 27.0-33.0 pg Mean Corpuscular Hemoglobin Concent 30.6 L 32.0-36.0 g/dL Red Cell Distribution Width 13.5 11.0-15.5 % Platelet Count 366 130-400 K/uL Mean Platelet Volume 9.6 7.5-10.5 fL Immature Granulocyte % (Auto) 0.9 0-1 % Neutrophils (%) (Auto) 66.3 40.0-77.0 % Lymphocytes (%) (Auto) 22.4 21.0-51.0 % Monocytes (%) (Auto) 8.6 3.0-13.0 % Eosinophils (%) (Auto) 1.5 0.0-8.0 % Basophils (%) (Auto) 0.3 0.0-5.0 % Neutrophils # (Auto) 8.7 H 1.8-7.7 K/uL Lymphocytes # (Auto) 3.0 1.0-4.8 K/uL Monocytes # (Auto) 1.1 H 0.1-1.0 K/uL Eosinophils # (Auto) 0.20 0.00-0.70 K/uL Basophils # (Auto) 0.04 0.00-0.20 K/uL Absolute Immature Granulocyte (auto 0.12 0-1 K/uL Nucleated Red Blood Cells 0.0 0.0-0.19 % Sodium Level 142 136-145 mmol/L Potassium Level 4.2 3.5-5.1 mmol/L Chloride Level 108 101-111 mmol/L Carbon Dioxide Level 29 21-32 mmol/L Blood Urea Nitrogen 9 7-18 mg/dL Creatinine 1.2 H 0.5-1.0 mg/dL Glomerular Filtration Rate Calc 57 >90 mL/min Random Glucose 142 H 70-105 mg/dL Total Calcium 8.0 L 8.5-10.1 mg/dL Bedside Glucose Comment Notified Nurse Test 01/29/25 17:25 01/29/25 05:06 Range/Units Vancomycin Level Trough 17.5 # 10.0-20.0 UG/ML C-Reactive Protein, Quantitative 61.20 H 0.5-3.0 mg/L ASSESSMENT: Failed right TMA and gangrene, status post right [id number] amputation. Nonhealing right TMA surgical site, s/p peripheral angiogram with abnormal findings on 01/26/2025. 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 Leukocytosis. Urinary tract infection with lactobacillus species. Uncontrolled diabetes mellitus, hemoglobin A1c 13.9. Medical noncompliance. Obesity. PLAN: Continue vancomycin per pharmacy protocol. Continue Zosyn. Wound care as recommended by the orthopedic surgeon. Continue GI prophylaxis. Continue pain management. Continue antidiabetics. This case was reviewed and discussed with my supervising physician and the above assessment and plan was formulated and agreed upon. ATTESTATION BY PHYSICIAN I have seen and examined the patient. I reviewed the documentation, medical decision making, and treatment plan as noted by the mid-level provider above. I agree with the findings and plan of care. GAUDENCIO SHANKAR MD, [facility] Jan 30, 2025 15:05
--- NOTE | 2025-01-30 15:41 | PN ---
[facility] PROGRESS NOTE Date of Service: Jan 30, 2025 Time of Service: 15:41 SUBJECTIVE: This is a 44-year-old female with past medical history of diabetes and medical noncompliance who presents to the ED for complaints of right great toe wound ulcer and right foot pain.Patient reports on of last week she did not feel good ,she was dizzy,having chills and shortness of breath so she went to a [facility] night clinic were she was told she has Flu and was prescribed with prednisone 10 mg daily,Naproxen and Tamiflu and after taking it the following day she noticed her right great toe has purple and whitish discoloration so she went to [place] today where she was given an IM injection was told for infection she said and on her way back home she noticed that her right great toe was hurting and her foot was getting swollen and red and her right great toe ulcer was smelling foul odor .Patient states she does not have a PCP and that sheis not taking any medication at home except for those 3 new med prescribed for her Flu she said. Seen and examined patient in the ER awake,alert and coherent,appears comfortable,patient denies sore throat, cough, nausea,vomiting ,abdominal pain,chest pain,palpitation and shortness of breath. Latest vital signs temperature a 100.2, heart rate 86, blood pressure 121/67 saturation 98% room air. WBC 32 with negative left shift of neutrophils 80, hemoglobin 13, hematocrit 41, platelet count 351. Sodium 124, chloride 97, glucose 327, CRP 338, procalcitonin 0.69. Urinalysis significant for protein, glucose, ketones, urine RBC 11-25, urine WBC 6-10. X-ray of the right foot result revealed soft tissues edema and emphysema of the right great toe there is no radiographic evidence for osteomyelitis however if clinical concern persists recommend contrast enhanced MRI of the right foot for further evaluation. While in the ER patient received fluid resuscitation of NS 30 mL/kilogram over 3 hours, Zosyn IV and vancomycin IV we will admit patient for further medical management. 01/19/25 Patient was seen and examined at bedside. She had a temperature of 100 last night, other vitals are stable. She does not take medications for diabetes and does not have a PCP. She first noticed an ulcer on her right foot two weeks ago that eventually developed into foul smelling gas gangrene. Podiatry consult was placed as X-rays showed evidence of osteomyelitis and soft tissue gangrene involving the right first metatarsal. Given the emergent nature of the infection, podiatry recommended a first-ray amputation on the same day. However, the patient initially declined the procedure, expressing a desire to first discuss the situation with family members. She also mentioned the possibility of signing AMA but was advised to reconsider if she changes her decision. In the meantime, an orthopedic surgery consult was placed to evaluate for the possibility of a below-knee amputation , given the extent of infection and urge ncy of intervention. 01/20/25 Patient was seen and examined at bedside. She had a TMA done by Dr. Wakefield yesterday with no complications. She is currently on vancomycin and zosyn. We will follow ID recommendations on IV antibiotics and discharge plan whether to send her to SNF or f/u outpatient at [facility] for iv antibiotics. She denies any pain or swelling or tenderness over the surgery site. Her glucose is uncontrolled and will adjust her insulin. 01/21/25 Patient was seen and examined at bedside. She is hemodynamically stable, no acute events overnigt. She reports minimal pain to surgical site. As per Dr. Dewitt patient will stay over the weekend to complete the course of antibiotics. She is working with PT and is progressing towards goals. She denies any pain or swelling or tenderness over the surgery site 01/22/25 Patient seen at bedside. Reports no fevers or chills in the past 24 hours. WBC remains elevated at 23.6 despite ongoing treatment with vancomycin and Zosyn. No acute events overnight. Plan to continue current antibiotic therapy and follow Infectious Disease recommendations on discharge planning. 01/23/25 Patient was seen at bedside and appears to be doing well overall, ambulating with physical therapy without difficulty. White blood cell count remains elevated at 22.8, and she had a low-grade fever of 100.6F this morning. Blood cultures remain negative. Hemoglobin is trending down slowly, though LDH is within normal limits and stool guaiac is negative , possible dilutional effect. BNP is mildly elevated at 119, and CRP has decreased from 311 to 182. She will need to continue IV antibiotics and may require a below-knee amputation in the future given her diabetes and the non-healing wound at the TMA site. A social work consult will be requested, as the patient lacks access to a primary care provider due to financial constraints. 01/24/25 Patient was seen at bedside and appears to be doing well overall, ambulating with physical therapy without difficulty. White blood cell count slowly trending downwards from 22.8 to 21.4, CRP from 182.8 to 161.8. Her vancomycin trough is high at 31.7 and Cr is 1.2. We will hold vancomycin for today and give her fluids and recheck in the morning. She had no temperature in the last 24 hours. Pending ID recommendations on plan of discharge. 01/25/25 Patient was seen at bedside and appears to be doing well overall, ambulating with physical therapy without difficulty. Her vitals are stable. White blood cell count slowly trending downwards from 21.4 to 15.6, CRP from 161.8 to 137. Her vancomycin trough was at 31.7 on 01/24/25 and today vancomycin level is 15.8. Her serum Cr is 1.1 and ca is 8.1. She had no temperature in the last 24 hours. ID has recommended for possible below knee amputation. Case management team anish talked with Dr Wakefield. And Dr. Paiz has been consulted for lower right limb arterial doppler ultrasound. 01/26/25 Patient was seen at bedside and appears to be doing well overall. Her vitals are stable. White blood cell count slowly trending downwards from 15.6 to 14.1 and Hgb is 8.9 today. She has bilateral lower limb edema, more on the right side. Her wound is slightly wet and soaked. Cardiology was consulted due to concern for PAD. The TCOM analysis done yesterday identified insufficient blood flow for wound healing. So, today she will undergo a right lower extremity peripheral angiogram with possible intervention. She will be continued on Vancomycin and IV Zoysn. Arterial ultrasound done yesterday demonstrated monophasic waveforms in proximal artery on left lower extremity and all arteries except common femoral, proximal and mid superficial femoral arteries on right lower extremity. 01/27/25 Patient was seen at bedside and appears to be doing well overall. Her vitals are stable except her blood pressure is 98/51. White blood cell count slowly trending downwards from 14.1 to 12.4 and Hgb is 8.3 today. She has bilateral lower limb edema, more on the right side. She underwent angiogram yesterday which revealed 100% stenosis of Right anterior tibial artery. Dr Wakefield will be consulted for possible below knee amputation. She will be continued on Vancomycin and IV Zoysn along with aggressive wound care, and recommend strict blood glucose control. She will be started on Clopidogrel, Aspirin and statin for the peripheral artery disease. 01/28/25 Patient was seen at bedside and appears to be doing well overall. Her vitals are stable. White blood cell count slowly trending downwards and is 12.3 and Hgb is 8.8 today. Her creatinine is 1.1 and random blood glucose is 156. She has bilateral lower limb edema, more on the right side. As per Dr Wakefield, Dr. Ariza will be consulted as a concrete mason as to whether or not there is any survivable procedure at the level of the foot. She will be continued on Vancomycin and IV Zoysn along with aggressive wound care, and recommend strict blood glucose control. 01/29/25 Patient was taken today for below knee amputation by Dr Wakefield and the team. After completion of the procedure, the drapes were removed, the patient was transferred to a hospital bed, revived, and taken to the recovery room in satisfactory condition. Patient has stable vitals. The dressing is dry and intact. Right lower extremity is elevated and doesn't complain of pain. WBC has been trending down from 12. 3 to 9.8. hemoglobin is 8.9 and creatinine 1.2. 01/30/2025: The patient is currently post-operative day 1 following a right below-knee amputation (BKA). Intraoperative blood loss was estimated at 605788 mL. Morning labs showed hemoglobin of 6.6 g/dL and hematocrit of 21.6%; she was transfused with 1 unit of PRBC. White blood cell count is elevated at 13.2, likely reactive, and creatinine is stable at 1.2. She remains on Zosyn and vancomycin. The patient reports significant pain at the surgical site, rated 8/10. Pain is being managed with oral Adell: 2 tablets every 4 hours for severe pain and 1 tablet for moderate pain. She has expressed a preference to be discharged home rather than going to a rehabilitation facility due to lack of insurance coverage. Case management is currently evaluating the possibility of emergency Medicaid today. Additionally, the patient has not had a bowel movement for the past two days; mineral oil will be ordered to address constipation. Further assessment and management. plan are outlined below. REVIEW OF SYSTEMS CONSTITUTIONAL: No fever, chills, or night sweats. NEUROLOGICAL: Denies headache, motor weakness, sensory deficit. CARDIOVASCULAR: Denies any exertional angina, dyspnea on exertion, orthopnea, palpitations PULMONARY: Denies any shortness of breath, cough, hemoptysis, pleuritic chest pain. GASTROINTESTINAL:Denies nausea, vomiting, abdominal pain, diarrhea, constipation GENITOURINARY: Denies frequency, urgency, nocturia, hematuria or incontinence. PHYSICAL EXAM General: Alert and oriented. Lungs: .No wheezing, rales or rhonchi. Cardio: Regular rate. Normal S1 and S2. +S4. Abdomen: Soft. NT. ND. Normal active bowel sounds x 4 quadrants. Extremities: Dressing dry and intact, s/p Day 1, right below knee amputation Neuro: No focal deficits. Vital Signs (last 8hr) Date Time Temp Pulse Resp B/P (MAP) Pulse Ox O2 Delivery O2 Flow Rate FiO2 01/30/25 12:00 98.1 79 18 112/64 95 Room Air 01/30/25 08:00 97.3 78 18 112/68 95 Room Air LABS: Laboratory: Test 01/30/25 11:07 01/30/25 05:40 01/30/25 04:45 01/29/25 19:38 Range/Units Whole Blood Glucose 218 #H 70-110 MG/DL White Blood Count 13.2 H 4.8-10.8 K/uL Red Blood Count 2.34 L 4.00-5.50 MIL/uL Hemoglobin 6.6 #*L 12.0-16.0 g/dL Hematocrit 21.6 #L 36-48 % Mean Corpuscular Volume 92.3 79-99 fL Mean Corpuscular Hemoglobin 28.2 27.0-33.0 pg Mean Corpuscular Hemoglobin Concent 30.6 L 32.0-36.0 g/dL Red Cell Distribution Width 13.5 11.0-15.5 % Platelet Count 366 130-400 K/uL Mean Platelet Volume 9.6 7.5-10.5 fL Immature Granulocyte % (Auto) 0.9 0-1 % Neutrophils (%) (Auto) 66.3 40.0-77.0 % Lymphocytes (%) (Auto) 22.4 21.0-51.0 % Monocytes (%) (Auto) 8.6 3.0-13.0 % Eosinophils (%) (Auto) 1.5 0.0-8.0 % Basophils (%) (Auto) 0.3 0.0-5.0 % Neutrophils # (Auto) 8.7 H 1.8-7.7 K/uL Lymphocytes # (Auto) 3.0 1.0-4.8 K/uL Monocytes # (Auto) 1.1 H 0.1-1.0 K/uL Eosinophils # (Auto) 0.20 0.00-0.70 K/uL Basophils # (Auto) 0.04 0.00-0.20 K/uL Absolute Immature Granulocyte (auto 0.12 0-1 K/uL Nucleated Red Blood Cells 0.0 0.0-0.19 % Sodium Level 142 136-145 mmol/L Potassium Level 4.2 3.5-5.1 mmol/L Chloride Level 108 101-111 mmol/L Carbon Dioxide Level 29 21-32 mmol/L Blood Urea Nitrogen 9 7-18 mg/dL Creatinine 1.2 H 0.5-1.0 mg/dL Glomerular Filtration Rate Calc 57 >90 mL/min Random Glucose 142 H 70-105 mg/dL Total Calcium 8.0 L 8.5-10.1 mg/dL Bedside Glucose Comment Notified Nurse Test 01/29/25 17:25 01/29/25 05:06 Range/Units Vancomycin Level Trough 17.5 # 10.0-20.0 UG/ML C-Reactive Protein, Quantitative 61.20 H 0.5-3.0 mg/L Current Medications Medications (Trade) Dose Ordered Sig/Padilla Route PRN Reason Start Time Stop Time Status Last Admin Dose Admin Acetaminophen (TYLenol 325MG TAB) 650 mg Q4H PRN PO MILD PAIN (1-3) 01/18/25 20:00 02/17/25 19:59 01/28/25 22:12 650 MG Acetaminophen (TYLenol 325MG TAB) 650 mg Q6H PRN PO TEMPERATURE GREATER THAN 101.5 01/18/25 20:00 02/17/25 19:59 01/23/25 08:36 650 MG Acetaminophen/ Hydrocodone Bitart (NORco 5/325MG) 1 tab Q4H PRN PO MODERATE PAIN (4-6) 01/18/25 20:00 01/23/25 19:59 DC 01/19/25 21:51 1 TAB Acetaminophen/ Hydrocodone Bitart (NORco 5/325MG) 1 tab Q4H PRN PO MODERATE PAIN (4-6) 01/29/25 19:30 02/03/25 19:29 Acetaminophen/ Hydrocodone Bitart (NORco 5/325MG) 2 tab Q4H PRN PO SEVERE PAIN (7-10) 01/18/25 20:00 01/23/25 19:59 DC 01/21/25 23:30 2 TAB Acetaminophen/ Hydrocodone Bitart (NORco 5/325MG) 2 tab Q4H PRN PO SEVERE PAIN (7-10) 01/29/25 19:30 02/03/25 19:29 01/30/25 09:42 2 TAB Aspirin (Aspirin 81mg Chew Tab) 81 mg DAILY PO 01/25/25 12:00 02/24/25 11:59 01/30/25 09:39 81 MG Atorvastatin Calcium (LIPItor 20MG) 20 mg HS PO 01/25/25 21:00 02/24/25 20:59 01/29/25 20:20 20 MG Clindamycin HCl/ Dextrose 50 ml @ 100 mls/hr Q8H IV 01/20/25 00:30 01/20/25 09:36 DC 01/20/25 09:02 100 MLS/HR Clopidogrel Bisulfate (plaVIX 75MG) 75 mg DAILY PO 01/27/25 09:00 02/26/25 08:59 01/30/25 09:39 75 MG Dextrose (D50w) 50 ml AD PRN IV HYPOGLYCEMIA PROTOCOL 01/18/25 20:00 01/26/25 17:16 DC Dextrose (D50w) 50 ml AD PRN IV HYPOGLYCEMIA PROTOCOL 01/26/25 17:00 02/25/25 16:59 Docusate Sodium (COLace 100MG CAP) 100 mg BID PO 01/24/25 09:00 02/23/25 08:59 01/30/25 09:39 100 MG Famotidine (Pepcid 20mg Tab) 20 mg BID PO 01/18/25 21:00 02/17/25 20:59 01/30/25 09:39 20 MG Glucagon (Glucagon 1mg Kit) 1 mg AD PRN IM HYPOGLYCEMIA PROTOCOL 01/18/25 20:00 01/26/25 17:16 DC Glucagon (Glucagon 1mg Kit) 1 mg AD PRN IM HYPOGLYCEMIA PROTOCOL 01/26/25 17:00 02/25/25 16:59 Guaifenesin/ Dextromethorphan (RobiTUSSin DM 200/20MG 10ML) 10 ml Q4H PRN PO COUGH 01/22/25 17:00 02/21/25 16:59 01/27/25 00:25 10 ML Heparin Sodium (Porcine) (HEParin 5,000 UNIT VIAL) 5,000 unit Q12H SQ 01/21/25 09:00 02/20/25 08:59 01/30/25 09:47 5,000 UNIT Hydromorphone HCl (DiLAUDid 0.5MG INJ) 0.5 mg Q3H3 PRN IVP SEVERE PAIN (7-10) 01/29/25 19:30 01/30/25 09:50 DC 01/30/25 03:29 0.5 MG Insulin Glargine (LANtus 100 UNITS/ML 10 ML VIAL) 9 units HS SQ 01/20/25 21:00 01/24/25 12:05 DC 01/23/25 20:35 9 UNITS Insulin Glargine (LANtus 100 UNITS/ML 10 ML VIAL) 12 units HS SQ 01/24/25 21:00 01/27/25 13:50 DC 01/26/25 20:55 12 UNITS Insulin Glargine (LANtus 100 UNITS/ML 10 ML VIAL) 17 units HS SQ 01/27/25 21:00 02/26/25 20:59 01/29/25 20:26 17 UNITS Insulin Human Regular (humuLIN R 100 UNIT/ML 3ML) 3 unit TIDAC SQ 01/21/25 07:30 01/24/25 12:05 DC 01/24/25 05:56 3 UNIT Insulin Human Regular (humuLIN R 100 UNIT/ML 3ML) 5 unit TIDAC SQ 01/24/25 17:00 01/27/25 13:50 DC 01/27/25 11:43 5 UNIT Insulin Human Regular (humuLIN R 100 UNIT/ML 3ML) 7 unit TIDAC SQ 01/27/25 17:00 02/26/25 16:59 01/30/25 12:31 7 UNIT Insulin Human Regular (humuLIN R 100 UNIT/ML 3ML) INSULIN SLIDING SCAL... ACHS SQ 01/18/25 21:00 02/17/25 20:59 01/30/25 12:30 3 UNIT Lactulose (Constulose 20gm/ 30ml Udcup) 20 gm BID PRN PO CONSTIPATION 01/24/25 04:30 02/23/25 04:29 01/28/25 22:15 20 GM Magnesium Sulfate 50 ml @ 0 mls/hr PROTOCOL PRN IV OTHER [SEE ORDER COMMENTS] 01/18/25 20:00 02/17/25 19:59 Ondansetron HCl (zoFRAN 4MG INJ) 4 mg Q6H PRN IV NAUSEA/VOMITING 01/18/25 20:00 02/17/25 19:59 01/29/25 04:45 4 MG Piperacillin Sod/ Tazobactam Sod 50 ml @ 12.5 mls/hr Q8H IV 01/19/25 04:00 01/25/25 16:06 DC 01/25/25 03:20 12.5 MLS/HR Piperacillin Sod/ Tazobactam Sod 50 ml @ 12.5 mls/hr Q8H IV 01/25/25 18:30 01/25/25 18:34 DC Piperacillin Sod/ Tazobactam Sod 50 ml @ 12.5 mls/hr Q8H IV 01/25/25 21:00 02/04/25 20:59 01/30/25 05:07 12.5 MLS/HR Piperacillin Sod/ Tazobactam Sod (Zosyn 3.375gm+NS 50ml) 3.375 gm ONCE STAT IVPB 01/18/25 17:47 01/18/25 17:51 DC 01/18/25 19:34 3.375 GM Polyethylene Glycol (MIRalax 3350 17 GM POWD.PACK) 17 gm DAILY PRN PO CONSTIPATION 01/24/25 09:00 02/23/25 08:59 Potassium Chloride 100 ml @ 100 mls/hr AD PRN IV POTASSIUM PROTOCOL 01/18/25 20:00 02/17/25 19:59 Potassium Chloride (K-Dur/Klor-Con 20meq) 20 meq AD PRN PO POTASSIUM PROTOCOL 01/18/25 20:00 02/17/25 19:59 01/25/25 05:42 20 MEQ Potassium Chloride (KCl 10% Elixir 20meq/15ml) 20 meq AD PRN PO POTASSIUM PROTOCOL 01/18/25 20:00 02/17/25 19:59 Sodium Chloride 1,000 ml @ 100 mls/hr Q10H IV 01/18/25 20:00 01/19/25 15:59 DC 01/19/25 06:15 100 MLS/HR Sodium Chloride 1,000 ml @ 100 mls/hr Q10H IV 01/26/25 17:00 01/26/25 19:59 DC 01/26/25 20:36 100 MLS/HR Sodium Chloride 1,000 ml @ 125 mls/hr Q8H IV 01/24/25 12:00 01/26/25 17:15 DC 01/26/25 05:16 125 MLS/HR Vancomycin HCl 250 ml @ 125 mls/hr ONCE IV 01/18/25 20:00 01/18/25 20:33 DC Vancomycin HCl 250 ml @ 125 mls/hr Q12H IV 01/27/25 06:00 01/27/25 17:46 DC 01/27/25 05:36 125 MLS/HR Vancomycin HCl 250 ml @ 125 mls/hr Q12H IV 01/27/25 18:00 01/29/25 21:33 DC 01/29/25 04:45 125 MLS/HR Vancomycin HCl 250 ml @ 125 mls/hr Q12H IV 01/19/25 08:00 01/23/25 20:28 DC 01/23/25 08:36 125 MLS/HR Vancomycin HCl 250 ml @ 125 mls/hr Q12H IV 01/23/25 20:30 01/24/25 00:19 DC Vancomycin HCl 250 ml @ 166.667 mls/hr Q12H IV 01/24/25 13:00 01/25/25 00:06 DC Vancomycin HCl 250 ml @ 166.667 mls/hr Q12H IV 01/25/25 00:30 01/25/25 00:09 DC Vancomycin HCl 250 ml @ 166.667 mls/hr Q12H IV 01/25/25 01:00 01/25/25 18:38 DC 01/25/25 12:40 166.667 MLS/HR Vancomycin HCl 250 ml @ 166.667 mls/hr Q12H IV 01/26/25 06:00 01/26/25 17:59 DC 01/26/25 05:16 166.667 MLS/HR Vancomycin HCl (Vancomycin 750mg) 750 mg Q12H IVPB 01/29/25 22:00 02/08/25 21:59 01/30/25 09:40 750 MG Vancomycin HCl (Vancomycin Protocol) 1 each AD IV 01/18/25 21:00 02/01/25 20:59 Vancomycin HCl (Vancomycin 1.5 Gm/250 ml Bag) 1.5 gm ONCE STAT IV 01/18/25 19:14 01/18/25 19:36 DC DIAGNOSTICS / RADIOLOGY: [address] [address] IMAGING REPORT Signed PATIENT: BHUMIKA OSWALD MR#: [id number] : 1980 SEX: F AGE: 44 LOCATION: [facility] ORDER 1105 STATUS: ADM IN REPORT#: [id number] SERVICE 1056 REASON: right great toes ulcer/ s/p tma ORDERING PHYSICIAN: SONIA WAKEFIELD DO PROCEDURE: ART B LE - US ARTERIAL BILAT LOW EXT DUPL EXAMINATION: DUPLEX ULTRASOUND EXAMINATION OF THE BILATERAL LOWER EXTREMITY ARTERIES. CLINICAL HISTORY: Right great toe ulcer. COMPARISON: None. FINDINGS: Peak systolic velocities within the right lower arteries are as follows: Common femoral artery: 95 cm/s. Superficial femoral artery: 106 cm/s at proximal, 130 cm/s at mid, and 120 cm/s at distal segments. Popliteal artery: 73 cm/s at proximal and 97 cm/s at distal segments. Posterior tibial artery: 131 cm/s. Anterior tibial artery: 94 cm/s. Dorsalis pedis artery: 75 cm/s. The right lower limb arteries demonstrate monophasic waveforms in all arteries except the common femoral, proximal and mid superficial femoral arteries which demonstrate triphasic waveforms. Peak systolic velocities within the left lower arteries are as follows: Common femoral artery: 105 cm/s. Superficial femoral artery: 97 cm/s at proximal, 79 cm/s at mid, and 67 cm/s at distal segments. Popliteal artery: 87 cm/s at proximal and 78 cm/s at distal segments. Posterior tibial artery: 113 cm/s. Anterior tibial artery: 67 cm/s. Dorsalis pedis artery: 51 cm/s. The left lower limb arteries demonstrate triphasic waveforms in all arteries except the posterior tibial artery which demonstrates monophasic waveforms. There is intimal wall thickening in both the lower limb arteries. There is mild subcutaneous edema in the bilateral legs. IMPRESSION: Mild intimal wall thickening in both the lower limb arteries. The right lower limb arteries demonstrate monophasic waveforms in all arteries except the common femoral, proximal and mid superficial femoral arteries which demonstrate triphasic waveforms The left lower limb arteries demonstrate triphasic waveforms in all arteries except the posterior tibial artery which demonstrates monophasic waveforms. No flow limiting lesions. Mild subcutaneous edema in the bilateral legs. /Kerrick DICTATED BY: KIMBERLY ARTHUR MD DATE: 01/26/25745 ELECTRONICALLY SIGNED BY: KIMBERLY ARTHUR MD DATE: 01/26/25745 [place] [id number] IMAGING REPORT Signed PATIENT: BHUMIKA OSWALD MR#: [id number] : 1980 SEX: F AGE: 44 LOCATION: [facility] ORDER 09 STATUS: ADM IN REPORT#: [id number] SERVICE 56 REASON: right foot pain suspected osteo ORDERING PHYSICIAN: IGOR GÓMEZ RADIOLOGY CLERK PROCEDURE: FT RT WO - MR FOOT RIGHT WO EXAMINATION: NONCONTRAST MRI OF THE RIGHT FOOT. CLINICAL HISTORY: Right foot pain. Suspected osteomyelitis. COMPARISON: None provided. TECHNIQUE: Multiplanar, multisequence MR images of the right foot were obtained. FINDINGS: There is cutaneous and subcutaneous irregularity involving the great toe with multifocal great toe distal phalanx erosions, osseous remodeling and associated mild marrow edema. There is diffuse moderate to marked forefoot cutaneous thickening along the medial aspect with associated moderate to marked subcutaneous edema and associated marked plantar intrinsic foot muscle edema. There is no discrete drainable collection is seen. There is advanced first metatarsophalangeal joint osteoarthrosis with joint fluid. There is small second and third metatarsophalangeal joint fluid. There is small second and third webspace fluid and metatarsal head level. Visualized extensor and flexor tendons are normal in course and morphology without evidence of tenosynovitis. IMPRESSION: 1. Findings concerning for right great toe osteomyelitis with osseous erosions, marrow edema, and associated soft tissue inflammation. 2. Advanced first metatarsophalangeal joint osteoarthrosis with joint effusion. /Kerrick DICTATED BY: CEDRIC ROY Jr., MD DATE: 01/20/25821 ELECTRONICALLY SIGNED BY: CEDRIC ROY Jr., MD DATE: 01/20/25821 RUN DATE: 01/23/25 [facility] PAGE 1 RUN TIME: 1917 [address] [place] [address] Department of Laboratories [facility] # [id number] Clinical Account Manager: Rico Small DO Specimen Report PATIENT: BHUMIAK OSWALD ACCT: [id number] LOC: 3B U: [id number] AGE/SX: 44/F ROOM: 306 RE01/18/[address]: FREDERICK CANO MD : 1980 BED: 1 DIS: STATUS: ADM IN TLOC: SPEC: [id number] LAY: 01/18/25 STATUS: COMP REQ: [id number] RECD: 01/18/25-[address] [facility] [address]: SHARON ZHAO NP SOURCE: BLOOD ENTR: 01/18/25-[address]: SHYLA SPDESC: SELF,REFERRAL ORDERED: BLOOD CULTURE COMMENTS: What is the Source? BLOOD Procedure Result Ricky Date-Time BLOOD CULT Final 01/23/25 NO GROWTH AFTER 5 DAYS RUN DATE: 01/21/25 [facility] PAGE 1 RUN TIME: 7114 [address] [address], [place] [address] Department of Laboratories CLIA # [id number] Clinical Account Manager: Rico Small DO Specimen Report PATIENT: BHUMIKA OSWALD ACCT: [id number] LOC: [facility] U: [id number] AGE/SX: 44/F ROOM: 306 RE01/18/[address]: FREDERICK CANO MD : 1980 BED: 1 DIS: STATUS: ADM IN TLOC: SPEC: [id number] LAY: 01/18/25-143 STATUS: COMP REQ: [id number] RECD: 01/20/[address]: SHARON ZHAO NP SOURCE: [facility] ENTR: 01/20/[address]: SHYLA SPDESC: CLEAN CAT SELF,REFERRAL ORDERED: AERO ID & SENS Procedure Result Ricky Date-Time AEROBIC ID & SENSITIVITIES Final 01/21/25-1109 [facility] DESCRIPTION: DAY 1: COLONY COUNT: 10,000 - 20,000 CFU/ML LACTOBACILLUS SPECIES NO FURTHER WORK-UP DONE LACTOBACILLUS SPECIES Test(s) performed by: [facility] [address] [place] [address] --------- --- @ [facility] Test Performed at: [facility] [address], [place], [place] Medical Staff Radiation Therapist: Reinaldo Gómez D.O. ASSESSMENT: Status Post Right Below knee amputation (Post-op Day 1) Acute blood loss anemia Sepsis due to right great toe osteomyelitis POA Right foot diabetic ulcer with gas gangrene and osteomyelitis, s/p right transmetatarsal amputation on 01/19/2025. Hyperglycemia due to uncontrolled diabetes POA Non healing right sided TMA surgical site YINKA possibly secondary to vancomycin induced nephrotoxicity, not POA Severe leukocytosis POA Medical nonadherence POA Obesity POA Suspected urinary tract infection, ruled out PAD, [place] Category 3 POA PLAN: The patient remains admitted on the medical surgical floor. Status Post Right Below knee amputation (Post-op Day 1) * Continue postoperative wound care and dressing changes as per Orthopedic Surgery recommendations. * Monitor surgical site for signs of infection, bleeding, or dehiscence. * Continue as-needed Adell 5/325 m tablets every 4 hours for severe pain and 1 tablet every 4 hours for moderate pain. * Monitor pain levels and adjust analgesic regimen as needed. * Follow up with Orthopedic Surgery recommendations. Acute blood loss anemia * The patient's hemoglobin dropped to 6.6 from 8.8, likely secondary to blood loss during the surgery. * Patient received 1 unit of PRBC. Monitor CBC closely. * Transfuse if hemoglobin drops below 7 g/dL; avoid unnecessary transfusions to prevent volume overload and other complications. 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 * Continue with IV Zosyn and vancomycin per protocol. * Follow up with Infectious Disease recommendations Hyperglycemia due to uncontrolled diabetes * Continue insulin coverage per protocol sliding scale * Monitor glucose levels * Maintain Consistent carb diet Peripheral arterial disease * Peripheral angiogram showed Right anterior tibial artery 100% stenosis Supportive measures Famotidine 20 mg p.o. bid for GI prophylaxis Replace electrolytes as needed per protocol Continue prn medication for fever,pain,cough, nausea and vomiting Neurovascular check q.4 hours We will request labs in am Further orders to follow depending on above results We are awaiting case managements recommendations regarding emergency Medicaid. The patient is currently on Uninsured and prefers discharge to home rather than rehabilitation. We will coordinate discharge planning with case management and physical therapy based on her postoperative needs. ATTESTATION BY PHYSICIAN I have seen and examined the patient. I reviewed the documentation, medical decision making, and treatment plan as noted by the resident provider above. I agree with the findings and plan of care. Aston Rascon MD, MANALI MD Jan 30, 2025 15:41
[2025-01-30 16:00] VITALS: BP 103/63; PULSE 80; RESP 18; TEMP 98.3
[2025-01-30] MEDS: MINERAL OIL 30 ML UDCUP PO ONE (16:07)
--- NOTE | 2025-01-30 17:15 | NUR ---
BLOOD TRANSFUSION PT RECEIVED 1 UNIT PRBC. PT TOLERATED WELL NO TRANSFUSION REACTION. STABLE VS.
[2025-01-30 19:00] VITALS: BP 104/59; PULSE 89; RESP 20; TEMP 98.4
[2025-01-30] MEDS: ZOSYN 3.375GM+NS 50ML 50 ML IV SCH (20:24)
[2025-01-31] VITALS (8 sets, daily range): BP systolic 92–128; BP diastolic 54–72; PULSE 78–96; RESP 17–20; TEMP 98–98.7; O2SAT 94
--- NOTE | 2025-01-31 04:12 | NUR ---
NO BM PATIENT HAS NOT HAD BM SINCE 01/27/25, CONTINUES ON HYDROCODONE PRN FOR PAIN. PATIENT EDUCATED ON SIDE EFFECTS OF HYDROCODONE AND CONSTIPATION. BOWEL SOUNDS PRESENT AND NORMOACTIVE UPPER QUADRANTS AND HYPOACTIVE IN LOWER QUADRANTS. PATIENT STATED HAS BEEN PASSING GAS. ADMINISTERED MIRALAX AND PRUNE JUICE, STILL NO BM NOTED. PATIENT REFUSING TO TAKE LACTULOSE, STATED LAST TIME LACTULOSE MADE PATIENT NAUSEOUS. PATIENT DENIES PAIN AND DISCOMFORT TO ABDOMEN AT THIS TIME. BEDSIDE COMMODE AT BEDSIDE. PATIENT INSTRUCTED TO USE CALL BUTTON PRIOR TO ATTEMPTING TO GET OUT OF BED TO USE COMMODE. CALL BUTTON PLACED WITHIN REACH.
[2025-01-31 04:50] LABS: NUCLEATED RED BLOOD CELLS 0.0 % (0.0-0.19); PLATELET COUNT (AUTO) 340.0 K/uL (130-400); RED BLOOD CELL COUNT(AUTO) 2.8 MIL/uL (4.00-5.50); RED CELL DISTRIBUTION WIDTH 14.5 % (11.0-15.5); WHITE BLOOD COUNT (AUTO) 10.7 K/uL (4.8-10.8)
[2025-01-31 05:03] LABS: CREATININE 1.3 mg/dL (0.5-1.0); GLOMERULAR FILTR. RATE CALC 52.0 mL/min (>90); GLUCOSE,RANDOM 236.0 mg/dL (70-105); SODIUM SERUM 138.0 mmol/L (136-145); UREA NITROGEN, BLOOD 9.0 mg/dL (7-18)
[2025-01-31] MEDS: VANCOMYCIN 500MG+NS 100ML 100 ML IV SCH (10:08)
--- NOTE | 2025-01-31 12:39 | NUR ---
[facility] Follow-up: Patient re-assessed by wound healing team. See wound assessment. Assessment and recommendations provided to primary nurse. Education provided. Wound care done.
--- NOTE | 2025-01-31 15:54 | PN ---
INFECTIOUS DISEASE PROGRESS NOTE Date of Service: Jan 31, 2025 SUBJECTIVE: Patient was seen and examined at bedside in room 306. Patient is awake, alert and oriented x3. Patient is status post Right [id number] amputation on 01/29/2025. Hemoglobin is 7.9 this morning after the 1 unit of PRBC transfused yesterday. Patient remains afebrile, temperature is 98.6 and the WBC is 10.7. We will discontinue all antibiotics. Patient is being followed by Physical therapy. PHYSICAL EXAM EYES: Anicteric. Pupils equal and reactive. HENT: No oral thrush seen, moist Oral mucosa. NECK: Supple, no JVD or thyromegaly. LUNGS: Good air entry. No rales, no rhonchi. CARDIOVASCULAR: S1, S2 regular. No murmur heard. ABDOMEN: Soft, non tender, bowel sounds present, no organomegaly. CENTRAL NERVOUS SYSTEM: Awake, alert, oriented x 3. SKIN: No rashes, no swelling. LYMPHATICS: No peripheral lymphadenopathy. MUSCULOSKELETAL: No joint swelling, erythema or tenderness. EXTREMITIES: Failed right TMA, s/p right [id number] amputation. BACK: No deformity, no pressure ulcer. GENITOURINARY: No dysuria or hematuria. Vital Sign (Last 12 Hours) 01/31/25 01/31/25 01/31/25 01/31/25 04:00 07:46 08:08 11:15 Temp 98.2 98.8 98.6 Pulse 86 78 88 Resp 20 18 18 B/P (MAP) 113/69 106/70 112/69 Pulse Ox 94 94 94 95 O2 Delivery Room Air Room Air Room Air* Room Air O2 Flow Rate 0 FiO2 21 Intake & Output (last 24hrs) 01/30/25 01/30/25 01/31/25 15:00 23:00 07:00 Intake Total 480 ml 1305.0 ml 50.0 ml Output Total 1000 ml 800 ml 800 ml Balance -520 ml 505.0 ml -750.0 ml LABS: Laboratory: Test 01/31/25 10:44 01/31/25 08:46 01/31/25 04:25 01/30/25 19:30 Range/Units Whole Blood Glucose 248 H 70-110 MG/DL Vancomycin Level Trough 19.7 10.0-20.0 UG/ML White Blood Count 10.7 4.8-10.8 K/uL Red Blood Count 2.80 L 4.00-5.50 MIL/uL Hemoglobin 7.9 L 12.0-16.0 g/dL Hematocrit 25.1 L 36-48 % Mean Corpuscular Volume 89.6 79-99 fL Mean Corpuscular Hemoglobin 28.2 27.0-33.0 pg Mean Corpuscular Hemoglobin Concent 31.5 L 32.0-36.0 g/dL Red Cell Distribution Width 14.5 11.0-15.5 % Platelet Count 340 130-400 K/uL Mean Platelet Volume 9.9 7.5-10.5 fL Nucleated Red Blood Cells 0.0 0.0-0.19 % Sodium Level 138 136-145 mmol/L Potassium Level 4.7 3.5-5.1 mmol/L Chloride Level 106 101-111 mmol/L Carbon Dioxide Level 29 21-32 mmol/L Blood Urea Nitrogen 9 7-18 mg/dL Creatinine 1.3 H 0.5-1.0 mg/dL Glomerular Filtration Rate Calc 52 >90 mL/min Random Glucose 236 #H 70-105 mg/dL Total Calcium 8.0 L 8.5-10.1 mg/dL Bedside Glucose Comment Notified Nurse Test 01/30/25 05:40 Range/Units Immature Granulocyte % (Auto) 0.9 0-1 % Neutrophils (%) (Auto) 66.3 40.0-77.0 % Lymphocytes (%) (Auto) 22.4 21.0-51.0 % Monocytes (%) (Auto) 8.6 3.0-13.0 % Eosinophils (%) (Auto) 1.5 0.0-8.0 % Basophils (%) (Auto) 0.3 0.0-5.0 % Neutrophils # (Auto) 8.7 H 1.8-7.7 K/uL Lymphocytes # (Auto) 3.0 1.0-4.8 K/uL Monocytes # (Auto) 1.1 H 0.1-1.0 K/uL Eosinophils # (Auto) 0.20 0.00-0.70 K/uL Basophils # (Auto) 0.04 0.00-0.20 K/uL Absolute Immature Granulocyte (auto 0.12 0-1 K/uL ASSESSMENT: Failed right TMA and gangrene, status post right [id number]-dhg-cflu amputation on 01/29/2025. Nonhealing right TMA surgical site, s/p peripheral angiogram with abnormal findings on 01/26/2025. 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 Postop anemia requiring blood transfusion. Leukocytosis. Urinary tract infection with lactobacillus species. Uncontrolled diabetes mellitus, hemoglobin A1c 13.9. Medical noncompliance. Obesity. PLAN: Discontinue all antibiotics. Continue pain management. Wound care as recommended by the orthopedic surgeon. Continue GI prophylaxis. Continue antidiabetics. Continue physical therapy. This case was reviewed and discussed with my supervising physician and the above assessment and plan was formulated and agreed upon. ATTESTATION BY PHYSICIAN I have seen and examined the patient. I reviewed the documentation, medical decision making, and treatment plan as noted by the mid-level provider above. I agree with the findings and plan of care. GAUDENCIO SHANKAR MD, [facility] Jan 31, 2025 15:54
--- NOTE | 2025-01-31 17:28 | PN ---
[facility] PROGRESS NOTE Date of Service: Jan 31, 2025 Time of Service: 16:55 SUBJECTIVE: This is a 44-year-old female with past medical history of diabetes and medical noncompliance who presents to the ED for complaints of right great toe wound ulcer and right foot pain.Patient reports on of last week she did not feel good ,she was dizzy,having chills and shortness of breath so she went to a [facility] night clinic were she was told she has Flu and was prescribed with prednisone 10 mg daily,Naproxen and Tamiflu and after taking it the following day she noticed her right great toe has purple and whitish discoloration so she went to [facility] today where she was given an IM injection was told for infection she said and on her way back home she noticed that her right great toe was hurting and her foot was getting swollen and red and her right great toe ulcer was smelling foul odor .Patient states she does not have a PCP and that sheis not taking any medication at home except for those 3 new med prescribed for her Flu she said. Seen and examined patient in the ER awake,alert and coherent,appears comfortable,patient denies sore throat, cough, nausea,vomiting ,abdominal pain,chest pain,palpitation and shortness of breath. Latest vital signs temperature a 100.2, heart rate 86, blood pressure 121/67 saturation 98% room air. WBC 32 with negative left shift of neutrophils 80, hemoglobin 13, hematoc rit 41, platelet count 351. Sodium 124, chloride 97, glucose 327, CRP 338, procalcitonin 0.69. Urinalysis significant for protein, glucose, ketones, urine RBC 11-25, urine WBC 6-10. X-ray of the right foot result revealed soft tissues edema and emphysema of the right great toe there is no radiographic evidence for osteomyelitis however if clinical concern persists recommend contrast enhanced MRI of the right foot for further evaluation. While in the ER patient received fluid resuscitation of NS 30 mL/kilogram over 3 hours, Zosyn IV and vancomycin IV we will admit patient for further medical management. 01/19/25 Patient was seen and examined at bedside. She had a temperature of 100 last night, other vitals are stable. She does not take medications for diabetes and does not have a PCP. She first noticed an ulcer on her right foot two weeks ago that eventually developed into foul smelling gas gangrene. Podiatry consult was placed as X-rays showed evidence of osteomyelitis and soft tissue gangrene involving the right first metatarsal. Given the emergent nature of the infection, podiatry recommended a first-ray amputation on the same day. However, the patient initially declined the procedure, expressing a desire to first discuss the situation with family members. She also mentioned the possibility of signing AMA but was advised to reconsider if she changes her decision. In the meantime, an orthopedic surgery consult was placed to evaluate for the possibility of a below-knee amputation , given the extent of infection and urgency of intervention. 01/20/25 Patient was seen and examined at bedside. She had a TMA done by Dr. Pacheco yesterday with no complications. She is currently on vancomycin and zosyn. We will follow ID recommendations on IV antibiotics and discharge plan whether to send her to SNF or f/u outpatient at [facility] for iv antibiotics. She denies any pain or swelling or tenderness over the surgery site. Her glucose is uncontrolled and will adjust her insulin. 01/21/25 Patient was seen and examined at bedside. She is hemodynamically stable, no acute events overnigt. She reports minimal pain to surgical site. As per Dr. Dewitt patient will stay over the weekend to complete the course of antibiotics. She is working with PT and is progressing towards goals. She denies any pain or swelling or tenderness over the surgery site 01/22/25 Patient seen at bedside. Reports no fevers or chills in the past 24 hours. WBC remains elevated at 23.6 despite ongoing treatment with vancomycin and Zosyn. No acute events overnight. Plan to continue current antibiotic therapy and follow Infectious Disease recommendations on discharge planning. 01/23/25 Patient was seen at bedside and appears to be doing well overall, ambulating with physical therapy without difficulty. White blood cell count remains elevated at 22.8, and she had a low-grade fever of 100.6F this morning. Blood cultures remain negative. Hemoglobin is trending down slowly, though LDH is within normal limits and stool guaiac is negative , possible dilutional effect. BNP is mildly elevated at 119, and CRP has decreased from 311 to 182. She will need to continue IV antibiotics and may require a below-knee amputation in the future given her diabetes and the non-healing wound at the TMA site. A social work consult will be requested, as the patient lacks access to a primary care provider due to financial constraints. 01/24/25 Patient was seen at bedside and appears to be doing well overall, ambulating with physical therapy without difficulty. White blood cell count slowly t rending downwards from 22.8 to 21.4, CRP from 182.8 to 161.8. Her vancomycin trough is high at 31.7 and Cr is 1.2. We will hold vancomycin for today and give her fluids and recheck in the morning. She had no temperature in the last 24 hours. Pending ID recommendations on plan of discharge. 01/25/25 Patient was seen at bedside and appears to be doing well overall, ambulating with physical therapy without difficulty. Her vitals are stable. White blood cell count slowly trending downwards from 21.4 to 15.6, CRP from 161.8 to 137. Her vancomycin trough was at 31.7 on 01/24/25 and today vancomycin level is 15.8. Her serum Cr is 1.1 and ca is 8.1. She had no temperature in the last 24 hours. ID has recommended for possible below knee amputation. Case management team anish talked with Dr Pacheco. And Dr. Paiz has been consulted for lower right limb arterial doppler ultrasound. 01/26/25 Patient was seen at bedside and appears to be doing well overall. Her vitals are stable. White blood cell count slowly trending downwards from 15.6 to 14.1 and Hgb is 8.9 today. She has bilateral lower limb edema, more on the right side. Her wound is slightly wet and soaked. Cardiology was consulted due to concern for PAD. The TCOM analysis done yesterday identified insufficient blood flow for wound healing. So, today she will undergo a right lower extremity peripheral angiogram with possible intervention. She will be continued on Vancomycin and IV Zoysn. Arterial ultrasound done yesterday demonstrated monophasic waveforms in proximal artery on left lower extremity and all arteries except common femoral, proximal and mid superficial femoral arteries on right lower extremity. 01/27/25 Patient was seen at bedside and appears to be doing well overall. Her vitals are stable except her blood pressure is 98/51. White blood cell count slowly trending downwards from 14.1 to 12.4 and Hgb is 8.3 today. She has bilateral lower limb edema, more on the right side. She underwent angiogram yesterday which revealed 100% stenosis of Right anterior tibial artery. Dr Pacheco will be consulted for possible below knee amputation. She will be continued on Vancomycin and IV Zoysn along with aggressive wound care, and recommend strict blood glucose control. She will be started on Clopidogrel, Aspirin and statin for the peripheral artery disease. 01/28/25 Patient was seen at bedside and appears to be doing well overall. Her vitals are stable. White blood cell count slowly trending downwards and is 12.3 and Hgb is 8.8 today. Her creatinine is 1.1 and random blood glucose is 156. She has bilateral lower limb edema, more on the right side. As per Dr Pacheco, Dr. Ariza will be consulted as a outbound sales consultant as to whether or not there is any survivable procedure at the level of the foot. She will be continued on Vanc omycin and IV Zoysn along with aggressive wound care, and recommend strict blood glucose control. 01/29/25 Patient was taken today for below knee amputation by Dr Pacheco and the team. After completion of the procedure, the drapes were removed, the patient was transferred to a hospital bed, revived, and taken to the recovery room in satisfactory condition. Patient has stable vitals. The dressing is dry and intact. Right lower extremity is elevated and doesn't complain of pain. WBC has been trending down from 12. 3 to 9.8. hemoglobin is 8.9 and creatinine 1.2. 01/30/2025: The patient is currently post-operative day 1 following a right below-knee amputation (BKA). Intraoperative blood loss was estimated at 993873 mL. Morning labs showed hemoglobin of 6.6 g/dL and hematocrit of 21.6%; she was transfused with 1 unit of PRBC. White blood cell count is elevated at 13.2, likely reactive, and creatinine is stable at 1.2. She remains on Zosyn and vancomycin. The patient reports significant pain at the surgical site, rated 8/10. Pain is being managed with oral Glenview: 2 tablets every 4 hours for severe pain and 1 tablet for moderate pain. She has expressed a preference to be discharged home rather than going to a rehabilitation facility due to lack of insurance coverage. Case management is currently evaluating the possibility of emergency Medicaid today. Additionally, the patient has not had a bowel movement for the past two days; mineral oil will be ordered to address constipation. Further assessment and management. plan are outlined below. 01/31/25 Patient was seen at bedside and appears to be doing well overall. Her vitals are stable. Her Hgb has increased from 6.6 to 7.9 after the transfusion of PRBC yesterday. White blood cell count slowly trending downwards and is 10.7. Her creatinine is 1.3 and random blood glucose is 236. Her pain has reduced and is communicating well. She is on Glenview for her pain. She has been discontinued on all the antibiotics. She had her bowel movement today morning after she got polyethylene glycol. She is currently on Insulin glargine and regular Insulin. . Case management is currently evaluating the possibility of discharge. REVIEW OF SYSTEMS CONSTITUTIONAL: No fever, chills, or night sweats. NEUROLOGICAL: Denies headache, motor weakness, sensory deficit. CARDIOVASCULAR: Denies any exertional angina, dyspnea on exertion, orthopnea, palpitations PULMONARY: Denies any shortness of breath, cough, hemoptysis, pleuritic chest pain. GASTROINTESTINAL:Denies nausea, vomiting, abdominal pain, diarrhea, constipation GENITOURINARY: Denies frequency, urgency, nocturia, hematuria or incontinence. PHYSICAL EXAM General: Alert and oriented. Lungs: .No wheezing, rales or rhonchi. Cardio: Regular rate. Normal S1 and S2. +S4. Abdomen: Soft. NT. ND. Normal active bowel sounds x 4 quadrants. Extremities: Dressing dry and intact, s/p Day 2 , right below knee amputation Neuro: No focal deficits. Vital Signs (last 8hr) Date Time Temp Pulse Resp B/P (MAP) Pulse Ox O2 Delivery O2 Flow Rate FiO2 01/31/25 15:58 98.6 83 18 111/65 96 Room Air 01/31/25 11:15 98.6 88 18 112/69 95 Room Air LABS: Laboratory: Test 01/31/25 15:51 01/31/25 08:46 01/31/25 04:25 01/30/25 19:30 Range/Units Whole Blood Glucose 198 H 70-110 MG/DL Vancomycin Level Trough 19.7 10.0-20.0 UG/ML White Blood Count 10.7 4.8-10.8 K/uL Red Blood Count 2.80 L 4.00-5.50 MIL/uL Hemoglobin 7.9 L 12.0-16.0 g/dL Hematocrit 25.1 L 36-48 % Mean Corpuscular Volume 89.6 79-99 fL Mean Corpuscular Hemoglobin 28.2 27.0-33.0 pg Mean Corpuscular Hemoglobin Concent 31.5 L 32.0-36.0 g/dL Red Cell Distribution Width 14.5 11.0-15.5 % Platelet Count 340 130-400 K/uL Mean Platelet Volume 9.9 7.5-10.5 fL Nucleated Red Blood Cells 0.0 0.0-0.19 % Sodium Level 138 136-145 mmol/L Potassium Level 4.7 3.5-5.1 mmol/L Chloride Level 106 101-111 mmol/L Carbon Dioxide Level 29 21-32 mmol/L Blood Urea Nitrogen 9 7-18 mg/dL Creatinine 1.3 H 0.5-1.0 mg/dL Glomerular Filtration Rate Calc 52 >90 mL/min Random Glucose 236 #H 70-105 mg/dL Total Calcium 8.0 L 8.5-10.1 mg/dL Bedside Glucose Comment Notified Nurse Test 01/30/25 05:40 Range/Units Immature Granulocyte % (Auto) 0.9 0-1 % Neutrophils (%) (Auto) 66.3 40.0-77.0 % Lymphocytes (%) (Auto) 22.4 21.0-51.0 % Monocytes (%) (Auto) 8.6 3.0-13.0 % Eosinophils (%) (Auto) 1.5 0.0-8.0 % Basophils (%) (Auto) 0.3 0.0-5.0 % Neutrophils # (Auto) 8.7 H 1.8-7.7 K/uL Lymphocytes # (Auto) 3.0 1.0-4.8 K/uL Monocytes # (Auto) 1.1 H 0.1-1.0 K/uL Eosinophils # (Auto) 0.20 0.00-0.70 K/uL Basophils # (Auto) 0.04 0.00-0.20 K/uL Absolute Immature Granulocyte (auto 0.12 0-1 K/uL Current Medications Medications (Trade) Dose Ordered Sig/Padilla Route PRN Reason Start Time Stop Time Status Last Admin Dose Admin Acetaminophen (TYLenol 325MG TAB) 650 mg Q4H PRN PO MILD PAIN (1-3) 01/18/25 20:00 02/17/25 19:59 01/28/25 22:12 650 MG Acetaminophen (TYLenol 325MG TAB) 650 mg Q6H PRN PO TEMPERATURE GREATER THAN 101.5 01/18/25 20:00 02/17/25 19:59 01/23/25 08:36 650 MG Acetaminophen/ Hydrocodone Bitart (NORco 5/325MG) 1 tab Q4H PRN PO MODERATE PAIN (4-6) 01/18/25 20:00 01/23/25 19:59 DC 01/19/25 21:51 1 TAB Acetaminophen/ Hydrocodone Bitart (NORco 5/325MG) 1 tab Q4H PRN PO MODERATE PAIN (4-6) 01/29/25 19:30 02/03/25 19:29 Acetaminophen/ Hydrocodone Bitart (NORco 5/325MG) 2 tab Q4H PRN PO SEVERE PAIN (7-10) 01/18/25 20:00 01/23/25 19:59 DC 01/21/25 23:30 2 TAB Acetaminophen/ Hydrocodone Bitart (NORco 5/325MG) 2 tab Q4H PRN PO SEVERE PAIN (7-10) 01/29/25 19:30 02/03/25 19:29 01/31/25 10:08 2 TAB Aspirin (Aspirin 81mg Chew Tab) 81 mg DAILY PO 01/25/25 12:00 02/24/25 11:59 01/31/25 08:08 81 MG Atorvastatin Calcium (LIPItor 20MG) 20 mg HS PO 01/25/25 21:00 02/24/25 20:59 01/30/25 20:24 20 MG Clindamycin HCl/ Dextrose 50 ml @ 100 mls/hr Q8H IV 01/20/25 00:30 01/20/25 09:36 DC 01/20/25 09:02 100 MLS/HR Clopidogrel Bisulfate (plaVIX 75MG) 75 mg DAILY PO 01/27/25 09:00 02/26/25 08:59 01/31/25 08:08 75 MG Dextrose (D50w) 50 ml AD PRN IV HYPOGLYCEMIA PROTOCOL 01/18/25 20:00 01/26/25 17:16 DC Dextrose (D50w) 50 ml AD PRN IV HYPOGLYCEMIA PROTOCOL 01/26/25 17:00 02/25/25 16:59 Docusate Sodium (COLace 100MG CAP) 100 mg BID PO 01/24/25 09:00 02/23/25 08:59 01/31/25 08:08 100 MG Famotidine (Pepcid 20mg Tab) 20 mg BID PO 01/18/25 21:00 02/17/25 20:59 01/31/25 08:08 20 MG Glucagon (Glucagon 1mg Kit) 1 mg AD PRN IM HYPOGLYCEMIA PROTOCOL 01/18/25 20:00 01/26/25 17:16 DC Glucagon (Glucagon 1mg Kit) 1 mg AD PRN IM HYPOGLYCEMIA PROTOCOL 01/26/25 17:00 02/25/25 16:59 Guaifenesin/ Dextromethorphan (RobiTUSSin DM 200/20MG 10ML) 10 ml Q4H PRN PO COUGH 01/22/25 17:00 02/21/25 16:59 01/27/25 00:25 10 ML Heparin Sodium (Porcine) (HEParin 5,000 UNIT VIAL) 5,000 unit Q12H SQ 01/21/25 09:00 02/20/25 08:59 01/31/25 08:13 5,000 UNIT Hydromorphone HCl (DiLAUDid 0.5MG INJ) 0.5 mg Q3H3 PRN IVP SEVERE PAIN (7-10) 01/29/25 19:30 01/30/25 09:50 DC 01/30/25 03:29 0.5 MG Insulin Glargine (LANtus 100 UNITS/ML 10 ML VIAL) 9 units HS SQ 01/20/25 21:00 01/24/25 12:05 DC 01/23/25 20:35 9 UNITS Insulin Glargine (LANtus 100 UNITS/ML 10 ML VIAL) 12 units HS SQ 01/24/25 21:00 01/27/25 13:50 DC 01/26/25 20:55 12 UNITS Insulin Glargine (LANtus 100 UNITS/ML 10 ML VIAL) 17 units HS SQ 01/27/25 21:00 02/26/25 20:59 01/30/25 20:40 17 UNITS Insulin Human Regular (humuLIN R 100 UNIT/ML 3ML) 3 unit TIDAC SQ 01/21/25 07:30 01/24/25 12:05 DC 01/24/25 05:56 3 UNIT Insulin Human Regular (humuLIN R 100 UNIT/ML 3ML) 5 unit TIDAC SQ 01/24/25 17:00 01/27/25 13:50 DC 01/27/25 11:43 5 UNIT Insulin Human Regular (humuLIN R 100 UNIT/ML 3ML) 7 unit TIDAC SQ 01/27/25 17:00 02/26/25 16:59 01/31/25 16:16 7 UNIT Insulin Human Regular (humuLIN R 100 UNIT/ML 3ML) INSULIN SLIDING SCAL... ACHS SQ 01/18/25 21:00 02/17/25 20:59 01/31/25 16:15 2 UNIT Lactulose (Constulose 20gm/ 30ml Udcup) 20 gm BID PRN PO CONSTIPATION 01/24/25 04:30 02/23/25 04:29 01/28/25 22:15 20 GM Magnesium Sulfate 50 ml @ 0 mls/hr PROTOCOL PRN IV OTHER [SEE ORDER COMMENTS] 01/18/25 20:00 02/17/25 19:59 Ondansetron HCl (zoFRAN 4MG INJ) 4 mg Q6H PRN IV NAUSEA/VOMITING 01/18/25 20:00 02/17/25 19:59 01/29/25 04:45 4 MG Piperacillin Sod/ Tazobactam Sod 50 ml @ 12.5 mls/hr Q8H IV 01/30/25 21:00 01/31/25 12:25 DC 01/31/25 04:05 12.5 MLS/HR Piperacillin Sod/ Tazobactam Sod 50 ml @ 12.5 mls/hr Q8H IV 01/19/25 04:00 01/25/25 16:06 DC 01/25/25 03:20 12.5 MLS/HR Piperacillin Sod/ Tazobactam Sod 50 ml @ 12.5 mls/hr Q8H IV 01/25/25 18:30 01/25/25 18:34 DC Piperacillin Sod/ Tazobactam Sod 50 ml @ 12.5 mls/hr Q8H IV 01/25/25 21:00 01/30/25 17:47 DC 01/30/25 05:07 12.5 MLS/HR Piperacillin Sod/ Tazobactam Sod (Zosyn 3.375gm+NS 50ml) 3.375 gm ONCE STAT IVPB 01/18/25 17:47 01/18/25 17:51 DC 01/18/25 19:34 3.375 GM Polyethylene Glycol (MIRalax 3350 17 GM POWD.PACK) 17 gm DAILY PRN PO CONSTIPATION 01/24/25 09:00 02/23/25 08:59 01/31/25 04:12 17 GM Potassium Chloride 100 ml @ 100 mls/hr AD PRN IV POTASSIUM PROTOCOL 01/18/25 20:00 02/17/25 19:59 Potassium Chloride (K-Dur/Klor-Con 20meq) 20 meq AD PRN PO POTASSIUM PROTOCOL 01/18/25 20:00 02/17/25 19:59 01/25/25 05:42 20 MEQ Potassium Chloride (KCl 10% Elixir 20meq/15ml) 20 meq AD PRN PO POTASSIUM PROTOCOL 01/18/25 20:00 02/17/25 19:59 Sodium Chloride 1,000 ml @ 100 mls/hr Q10H IV 01/18/25 20:00 01/19/25 15:59 DC 01/19/25 06:15 100 MLS/HR Sodium Chloride 1,000 ml @ 100 mls/hr Q10H IV 01/26/25 17:00 01/26/25 19:59 DC 01/26/25 20:36 100 MLS/HR Sodium Chloride 1,000 ml @ 125 mls/hr Q8H IV 01/24/25 12:00 01/26/25 17:15 DC 01/26/25 05:16 125 MLS/HR Vancomycin HCl 100 ml @ 100 mls/hr Q12H IV 01/31/25 10:00 01/31/25 12:25 DC 01/31/25 10:08 100 MLS/HR Vancomycin HCl 250 ml @ 125 mls/hr ONCE IV 01/18/25 20:00 01/18/25 20:33 DC Vancomycin HCl 250 ml @ 125 mls/hr Q12H IV 01/27/25 06:00 01/27/25 17:46 DC 01/27/25 05:36 125 MLS/HR Vancomycin HCl 250 ml @ 125 mls/hr Q12H IV 01/27/25 18:00 01/29/25 21:33 DC 01/29/25 04:45 125 MLS/HR Vancomycin HCl 250 ml @ 125 mls/hr Q12H IV 01/19/25 08:00 01/23/25 20:28 DC 01/23/25 08:36 125 MLS/HR Vancomycin HCl 250 ml @ 125 mls/hr Q12H IV 01/23/25 20:30 01/24/25 00:19 DC Vancomycin HCl 250 ml @ 166.667 mls/hr Q12H IV 01/24/25 13:00 01/25/25 00:06 DC Vancomycin HCl 250 ml @ 166.667 mls/hr Q12H IV 01/25/25 00:30 01/25/25 00:09 DC Vancomycin HCl 250 ml @ 166.667 mls/hr Q12H IV 01/25/25 01:00 01/25/25 18:38 DC 01/25/25 12:40 166.667 MLS/HR Vancomycin HCl 250 ml @ 166.667 mls/hr Q12H IV 01/26/25 06:00 01/26/25 17:59 DC 01/26/25 05:16 166.667 MLS/HR Vancomycin HCl (Vancomycin 750mg) 750 mg Q12H IVPB 01/29/25 22:00 01/31/25 09:29 DC 01/30/25 22:45 750 MG Vancomycin HCl (Vancomycin Protocol) 1 each AD IV 01/18/25 21:00 01/31/25 12:25 DC Vancomycin HCl (Vancomycin 1.5 Gm/250 ml Bag) 1.5 gm ONCE STAT IV 01/18/25 19:14 01/18/25 19:36 DC DIAGNOSTICS / RADIOLOGY: [ ] ASSESSMENT: Status Post Right Below knee amputation (Post-op Day 2) Acute blood loss anemia Sepsis due to right great toe osteomyelitis POA Right foot diabetic ulcer with gas gangrene and osteomyelitis, s/p right transmetatarsal amputation on 01/19/2025. Hyperglycemia due to uncontrolled diabetes POA Non healing right sided TMA surgical site YINKA possibly secondary to vancomycin induced nephrotoxicity, not POA Severe leukocytosis POA Medical nonadherence POA Obesity POA Suspected urinary tract infection, ruled out PAD, Guillermina Category 3 POA PLAN: The patient remains admitted on the medical surgical floor. Status Post Right Below knee amputation (Post-op Day 2) * Continue postoperative wound care and dressing changes as per Orthopedic Surgery recommendations. * Monitor surgical site for signs of infection, bleeding, or dehiscence. * Continue as-needed Glenview 5/325 m tablets every 4 hours for severe pain and 1 tablet every 4 hours for moderate pain. * Monitor pain levels and adjust analgesic regimen as needed. * Follow up with Orthopedic Surgery recommendations. Acute blood loss anemia * The patient's hemoglobin dropped to 6.6 from 8.8, likely secondary to blood loss during the surgery. * Patient received 1 unit of PRBC. Post transfusion hemoglobin is now 7.9 * Monitor CBC and clinical status closely. * Transfuse if hemoglobin drops below 7 g/dL; avoid unnecessary transfusions to prevent volume overload and other complications. Sepsis due to right great toe osteomyelitis POA Right foot diabetic ulcer with gas gangrene and osteomyelitis, s/p right transmetatarsal amputation on 01/19/2025. * Antibiotics have been discontinued today. * Follow up with Infectious Disease recommendations Hyperglycemia due to uncontrolled diabetes * Continue insulin coverage per protocol sliding scale * Monitor glucose levels * Maintain Consistent carb diet Peripheral arterial disease * Peripheral angiogram showed Right anterior tibial artery 100% stenosis Supportive measures Famotidine 20 mg p.o. bid for GI prophylaxis Replace electrolytes as needed per protocol Continue prn medication for fever,pain,cough, nausea and vomiting Neurovascular check q.4 hours We will request labs in am Further orders to follow depending on above results We are awaiting case managements recommendations regarding emergency Medicaid. The patient is currently on Uninsured and prefers discharge to home rather than rehabilitation. We will coordinate discharge planning with case management and physical therapy based on her postoperative needs. ATTESTATION BY PHYSICIAN I have seen and examined the patient. I reviewed the documentation, medical decision making, and treatment plan as noted by the resident provider above. I agree with the findings and plan of care. Levi Johansen MD, SUZIT MD Jan 31, 2025 17:28 RAMA BHATIA MD Jan 31, 2025 20:58
--- NOTE | 2025-01-31 20:00 | NUR ---
NURSING ROUND PATIENT AWAKE AND ALERT, VISITOR AT BEDSIDE. PATIENT STATING HAVING PAIN 7/10, PAIN MEDICATION ADMINISTERED. PATIENT STATED HAS HAD A SEVERAL LARGE BM TODAY AND REFUSING STOOL SOFTENER FOR TONIGHT. DRESSING TO RIGHT LOWER EXTREMITY CLEAN, DRY AND INTACT. MIDLINE TO RIGHT UPPER EXTREMITY INTACT, DRESSING CLEAN AND DRY. PATIENT PROVIDED WITH ICE WATER. CALL LIGHT PLACED WITHIN REACH, BEDSIDE TABLE WITH ITEMS WITHIN REACH.
[2025-02-01 03:50] VITALS: BP 120/69; PULSE 91; RESP 17; TEMP 97.5
[2025-02-01 05:00] LABS: NUCLEATED RED BLOOD CELLS 0.0 % (0.0-0.19); PLATELET COUNT (AUTO) 361.0 K/uL (130-400); RED BLOOD CELL COUNT(AUTO) 2.74 MIL/uL (4.00-5.50); RED CELL DISTRIBUTION WIDTH 14.4 % (11.0-15.5); WHITE BLOOD COUNT (AUTO) 9.4 K/uL (4.8-10.8)
[2025-02-01 05:17] LABS: CREATININE 1.2 mg/dL (0.5-1.0); GLOMERULAR FILTR. RATE CALC 57.0 mL/min (>90); GLUCOSE,RANDOM 131.0 mg/dL (70-105); SODIUM SERUM 140.0 mmol/L (136-145); UREA NITROGEN, BLOOD 10.0 mg/dL (7-18)
[2025-02-01 07:49] VITALS: BP 117/73; PULSE 83; RESP 18; TEMP 99.8
[2025-02-01 08:05] VITALS: O2SAT 92
[2025-02-01 11:29] VITALS: BP 104/53; PULSE 80; RESP 18; TEMP 98.8
--- NOTE | 2025-02-01 12:39 | NUR ---
[facility] Follow-up: Patient re-assessed by wound healing team. See wound assessment. Assessment and recommendations provided to primary nurse. Education provided. Wound care done. Addendum: 02/01/25 at 1536 by CHON RAMÍREZ RN RN/ Amended: Links added.
[2025-02-01] MEDS ORDERED: INSU100V3 SQ ×2 (15:00)
[2025-02-01] MEDS ORDERED: INSLAN SQ (15:00)
[2025-02-01 15:45] VITALS: BP 135/75; PULSE 86; RESP 18; TEMP 98.6
[2025-02-01] MEDS: GABAPENTIN 300 MG CAPSULE PO ONE (18:37)
--- NOTE | 2025-02-01 18:46 | NUR ---
CM NOTE CM spoke to patient regarding d/c planning. Discussed DME needs. CM provided filemon walker for patient. Patient states family will be assisting in care at home. Patient reports she has not been ambulatory to room and has not been able to ambulate to the bathroom. Reports she has only sat in chair. CM updated primary nurse on limited mobility and advised that patient needs more time with physical therapy. Also discussed pain management needs. CM updated Dr. Giuseppe Hooper regarding above. Discharge cancelled for today and patient to be reevaluated tomorrow. Patient was started on Gabapentin for pain this evening by Dr. Pacheco.
--- NOTE | 2025-02-01 18:50 | DS ---
Discharge Summary Hospital Course Summary: The patient is a 44 year-old female presented to ED on 01/18/25 with a history of diabetes mellitus and poor medical compliance presented with right foot pain, foul smelling discharge from an ulcer, generalized weakness and dizziness. She was febrile and tachycardic on arrival, and initial labs revealed leukocytosis, elevated inflammatory markers, and acute kidney injury. Her initial labs showed WBC 32.8 K with negative left shift of neutrophils (80), Hemoglobin was 13. Her glucose level and CRP was 327 and 338 respectively. Imaging showed soft tissue gas and signs of osteomyelitis. Broad spectrum antibiotics Zosyn IV and vancomycin IV were initiated. Urinalysis was significant for protein, glucose, ketones, urine RBC 11-25, urine WBC 6-10. She was admitted for further care. After the admission, Podiatry consult was placed as X-rays showed evidence of osteomyelitis and soft tissue gangrene involving the right first metatarsal. They planned for transmetatarsal amputation (TMA). She initially declined the procedure but later agreed and underwent TMA. She had a TMA done by Dr. Wakefield on 01/20/25. She denied any pain or swelling or tenderness over the surgery site. After the surgery she was doing well overall, ambulating with physical therapy without difficulty. Despite medications, her glucose remained uncontrolled and her insulin was adjusted. The patient was consistently followed by ID and was continued on Vancomycin and Zosyn despite that her WBC was elevated. In the meantime, an orthopedic surgery also evaluated her for the possibility of a below-knee ampu tation , given the extent of infection and urgency of intervention. After a week of antibiotic course her WBC started trending down and came to normal alongside CRP after 12th day. ID recommended her for possible below knee amputation. And Dr. Paiz was consulted for lower right limb arterial Doppler ultrasound. She underwent angiogram which revealed 100% stenosis of Right anterior tibial artery. She was started on Clopidogrel, Aspirin and statin for the peripheral artery disease. Dr Wakefield was consulted for possible below knee amputation. Cardiology was consulted due to concern for PAD. On 01/25/25, the TCOM analysis was done, which revealed insufficient blood flow for wound healing hence she underwent a right lower extremity peripheral angiogram with possible intervention. Arterial ultrasound demonstrated monophasic waveforms in proximal artery on left lower extremity and all arteries except common femoral, proximal and mid superficial femoral arteries on right lower extremity. As per Dr Wakefield, Dr. Ariza was consulted as a fur tailor to asses for below knee amputation and see if there's anything salvageable at the foot. On 01/29/25, after complete discussion patient was taken for below knee amputation by Dr Wakefield and the team. After completion of the procedure, the drapes were removed, the patient was transferred to a hospital bed, revived, and taken to the recovery room in satisfactory condition. Patient had stable vitals. The dressing was dry and intact. Intraoperative blood loss was estimated at 656483 mL. Morning labs showed hemoglobin of 6.6 g/dL and hematocrit of 21.6% for which 1 unit of PRBC was transfused. On Status Post Right Below knee amputation (Post-op Day 3), the patient reported significant pain at the surgical site, rated 8/10. Pain was initially managed with oral Happy [place]. Dr Wakefield assessed the patient and prescribed Neurontin 600 mg for the pain. The surgical site was clean, dry and intact with no signs of infections. The patient continued to receive wound care and pain control and was planned for the discharge. Discharge medications, wound care instructions, and follow up appointments were reviewed with the patient and her family. The patient was discharged in stable condition. Auto Brake Mechanic(s): SONIA WAKEFIELD DO Procedure(s): Transmetatarsal Amputation (TMA) Below Knee Amputation (BKA) Peripheral angiogram RUN DATE: 01/21/25 [facility] PAGE 1 RUN TIME: [id number] [address], [place] [address] Department of Laboratories [facility] # [id number] Web Development Manager: Rico Small DO Specimen Report PATIENT: BHUMIKA OSWALD ACCT: [id number] LOC: [facility] U: [id number] AGE/SX: 44/F ROOM: [address] [place] [address]: 01/18/[address]: FREDERICK CANO MD : 1980 BED: 1 DIS: STATUS: ADM IN TLOC: SPEC: [id number] LAY: 01/18/25-1430 STATUS: COMP REQ: [id number] RECD: 01/20/[address]: SHARON ZHAO NP SOURCE: [facility] ENTR: 01/20/[address]: SHYLA SPDESC: CLEAN CAT SELF,REFERRAL ORDERED: AERO ID & SENS Procedure Result Ircky Date-Time AEROBIC ID & SENSITIVITIES Final 01/21/25-1109 MRL COLONY DESCRIPTION: DAY 1: COLONY COUNT: 10,000 - 20,000 CFU/ML LACTOBACILLUS SPECIES NO FURTHER WORK-UP DONE LACTOBACILLUS SPECIES Test(s) performed by: [facility] [address] [place] [address] @ [facility] Test Performed at: [facility] [address], [place], [place] Medical Road Repairer: Reinaldo Gómez D.O. RUN DATE: 01/23/25 [facility] PAGE 1 RUN TIME: [address] [address] Department of Laboratories CLIA # [id number] Web Development Manager: Rico Small DO Specimen Report PATIENT: BHUMIKA OSWALD ACCT: [id number] LOC: [facility] U: [id number] AGE/SX: 44/F ROOM: [facility] RE01/18/[address]: FREDERICK CANO MD : 1980 BED: 1 DIS: STATUS: ADM IN TLOC: - SPEC: [id number] LAY: 01/18/25 STATUS: COMP REQ: [id number] RECD: 01/18/25-[address]: SHARON ZHAO NP SOURCE: BLOOD ENTR: 01/18/25-[address]: NONE SPDESC: SELF,REFERRAL ORDERED: BLOOD CULTURE COMMENTS: What is the Source? BLOOD Procedure Result Rciky Date-Time BLOOD CULT Final 01/23/25-1916 NO GROWTH AFTER 5 DAYS Assessment/Plan: ASSESSMENT: Status Post Right Below knee amputation Uncontrolled Diabetes Mellitus Acute blood loss, Anemia Sepsis due to right great toe osteomyelitis POA Right foot diabetic ulcer with gas gangrene and osteomyelitis, s/p right transmetatarsal amputation on 01/19/2025. Hyperglycemia due to uncontrolled diabetes POA Non healing right sided TMA surgical site YINKA possibly secondary to vancomycin induced nephrotoxicity, not POA Medical nonadherence POA Obesity POA Suspected urinary tract infection, ruled out PAD, Guillermina Category 3 POA Discharge Instructions: Follow up with PCP in 1-2 weeks Follow up with Dr Wakefield in 1 week Continue medications as prescribed Continue wound care as instructed. Keep surgical site clean and dry Maintain proper glucose control and follow diabetic diet Call 911 or come to ED for any alarming symptoms: Fever more than 100.4, uncontrolled pain, bleeding from the surgical site. Home Medications: No Active Prescriptions or Reported Meds New Medications: Insulin Glargine,Hum.rec.anlog (Lantus) 100 Unit/Ml Inj 17 UNITS SQ HS, #10 ML Insulin Regular, Human (Humulin R) 100 Unit/Ml Vial 0 UNIT SQ ACHS, #15 VIAL SSI based on blood sugar level Insulin Regular, Human (Humulin R) 100 Unit/Ml Vial 7 UNIT SQ TIDAC, #15 VIAL Time spent arranging discharge: 31-60 minutes SOLE TERRY MD Feb 01, 2025 18:50
--- NOTE | 2025-02-01 19:01 | PN ---
[facility] PROGRESS NOTE Date of Service: Feb 01, 2025 Time of Service: 18:50 SUBJECTIVE: This is a 44-year-old female with past medical history of diabetes and medical noncompliance who presents to the ED for complaints of right great toe wound ulcer and right foot pain.Patient reports on of last week she did not feel good ,she was dizzy,having chills and shortness of breath so she went to a [facility] night clinic were she was told she has Flu and was prescribed with prednisone 10 mg daily,Naproxen and Tamiflu and after taking it the following day she noticed her right great toe has purple and whitish discoloration so she went to [place] today where she was given an IM injection was told for infection she said and on her way back home she noticed that her right great toe was hurting and her foot was getting swollen and red and her right great toe ulcer was smelling foul odor .Patient states she does not have a PCP and that sheis not taking any medication at home except for those 3 new med prescribed for her Flu she said. Seen and examined patient in the ER awake,alert and coherent,appears comfortable,patient denies sore throat, cough, nausea,vomiting ,abdominal pain,chest pain,palpitation and shortness of breath. Latest vital signs temperature a 100.2, heart rate 86, blood pressure 121/67 saturation 98% room air. WBC 32 with negative left shift of neutrophils 80, hemoglobin 13, hematoc rit 41, platelet count 351. Sodium 124, chloride 97, glucose 327, CRP 338, procalcitonin 0.69. Urinalysis significant for protein, glucose, ketones, urine RBC 11-25, urine WBC 6-10. X-ray of the right foot result revealed soft tissues edema and emphysema of the right great toe there is no radiographic evidence for osteomyelitis however if clinical concern persists recommend contrast enhanced MRI of the right foot for further evaluation. While in the ER patient received fluid resuscitation of NS 30 mL/kilogram over 3 hours, Zosyn IV and vancomycin IV we will admit patient for further medical management. 01/19/25 Patient was seen and examined at bedside. She had a temperature of 100 last night, other vitals are stable. She does not take medications for diabetes and does not have a PCP. She first noticed an ulcer on her right foot two weeks ago that eventually developed into foul smelling gas gangrene. Podiatry consult was placed as X-rays showed evidence of osteomyelitis and soft tissue gangrene involving the right first metatarsal. Given the emergent nature of the infection, podiatry recommended a first-ray amputation on the same day. However, the patient initially declined the procedure, expressing a desire to first discuss the situation with family members. She also mentioned the possibility of signing AMA but was advised to reconsider if she changes her decision. In the meantime, an orthopedic surgery consult was placed to evaluate for the possibility of a below-knee amputation , given the extent of infection and urgency of intervention. 01/20/25 Patient was seen and examined at bedside. She had a TMA done by Dr. Pacheco yesterday with no complications. She is currently on vancomycin and zosyn. We will follow ID recommendations on IV antibiotics and discharge plan whether to send her to SNF or f/u outpatient at [facility] for iv antibiotics. She denies any pain or swelling or tenderness over the surgery site. Her glucose is uncontrolled and will adjust her insulin. 01/21/25 Patient was seen and examined at bedside. She is hemodynamically stable, no acute events overnigt. She reports minimal pain to surgical site. As per Dr. Dewitt patient will stay over the weekend to complete the course of antibiotics. She is working with PT and is progressing towards goals. She denies any pain or swelling or tenderness over the surgery site 01/22/25 Patient seen at bedside. Reports no fevers or chills in the past 24 hours. WBC remains elevated at 23.6 despite ongoing treatment with vancomycin and Zosyn. No acute events overnight. Plan to continue current antibiotic therapy and follow Infectious Disease recommendations on discharge planning. 01/23/25 Patient was seen at bedside and appears to be doing well overall, ambulating with physical therapy without difficulty. White blood cell count remains elevated at 22.8, and she had a low-grade fever of 100.6F this morning. Blood cultures remain negative. Hemoglobin is trending down slowly, though LDH is within normal limits and stool guaiac is negative , possible dilutional effect. BNP is mildly elevated at 119, and CRP has decreased from 311 to 182. She will need to continue IV antibiotics and may require a below-knee amputation in the future given her diabetes and the non-healing wound at the TMA site. A social work consult will be requested, as the patient lacks access to a primary care provider due to financial constraints. 01/24/25 Patient was seen at bedside and appears to be doing well overall, ambulating with physical therapy without difficulty. White blood cell count slowly t rending downwards from 22.8 to 21.4, CRP from 182.8 to 161.8. Her vancomycin trough is high at 31.7 and Cr is 1.2. We will hold vancomycin for today and give her fluids and recheck in the morning. She had no temperature in the last 24 hours. Pending ID recommendations on plan of discharge. 01/25/25 Patient was seen at bedside and appears to be doing well overall, ambulating with physical therapy without difficulty. Her vitals are stable. White blood cell count slowly trending downwards from 21.4 to 15.6, CRP from 161.8 to 137. Her vancomycin trough was at 31.7 on 01/24/25 and today vancomycin level is 15.8. Her serum Cr is 1.1 and ca is 8.1. She had no temperature in the last 24 hours. ID has recommended for possible below knee amputation. Case management team anish talked with Dr Pacheco. And Dr. Paiz has been consulted for lower right limb arterial doppler ultrasound. 01/26/25 Patient was seen at bedside and appears to be doing well overall. Her vitals are stable. White blood cell count slowly trending downwards from 15.6 to 14.1 and Hgb is 8.9 today. She has bilateral lower limb edema, more on the right side. Her wound is slightly wet and soaked. Cardiology was consulted due to concern for PAD. The TCOM analysis done yesterday identified insufficient blood flow for wound healing. So, today she will undergo a right lower extremity peripheral angiogram with possible intervention. She will be continued on Vancomycin and IV Zoysn. Arterial ultrasound done yesterday demonstrated monophasic waveforms in proximal artery on left lower extremity and all arteries except common femoral, proximal and mid superficial femoral arteries on right lower extremity. 01/27/25 Patient was seen at bedside and appears to be doing well overall. Her vitals are stable except her blood pressure is 98/51. White blood cell count slowly trending downwards from 14.1 to 12.4 and Hgb is 8.3 today. She has bilateral lower limb edema, more on the right side. She underwent angiogram yesterday which revealed 100% stenosis of Right anterior tibial artery. Dr Pacheco will be consulted for possible below knee amputation. She will be continued on Vancomycin and IV Zoysn along with aggressive wound care, and recommend strict blood glucose control. She will be started on Clopidogrel, Aspirin and statin for the peripheral artery disease. 01/28/25 Patient was seen at bedside and appears to be doing well overall. Her vitals are stable. White blood cell count slowly trending downwards and is 12.3 and Hgb is 8.8 today. Her creatinine is 1.1 and random blood glucose is 156. She has bilateral lower limb edema, more on the right side. As per Dr Pacheco, Dr. Ariza will be consulted as a insurance office manager as to whether or not there is any survivable procedure at the level of the foot. She will be continued on Vanc omycin and IV Zoysn along with aggressive wound care, and recommend strict blood glucose control. 01/29/25 Patient was taken today for below knee amputation by Dr Pacheco and the team. After completion of the procedure, the drapes were removed, the patient was transferred to a hospital bed, revived, and taken to the recovery room in satisfactory condition. Patient has stable vitals. The dressing is dry and intact. Right lower extremity is elevated and doesn't complain of pain. WBC has been trending down from 12. 3 to 9.8. hemoglobin is 8.9 and creatinine 1.2. 01/30/2025: The patient is currently post-operative day 1 following a right below-knee amputation (BKA). Intraoperative blood loss was estimated at 112926 mL. Morning labs showed hemoglobin of 6.6 g/dL and hematocrit of 21.6%; she was transfused with 1 unit of PRBC. White blood cell count is elevated at 13.2, likely reactive, and creatinine is stable at 1.2. She remains on Zosyn and vancomycin. The patient reports significant pain at the surgical site, rated 8/10. Pain is being managed with oral Sarcoxie: 2 tablets every 4 hours for severe pain and 1 tablet for moderate pain. She has expressed a preference to be discharged home rather than going to a rehabilitation facility due to lack of insurance coverage. Case management is currently evaluating the possibility of emergency Medicaid today. Additionally, the patient has not had a bowel movement for the past two days; mineral oil will be ordered to address constipation. Further assessment and management. plan are outlined below. 01/31/25 Patient was seen at bedside and appears to be doing well overall. Her vitals are stable. Her Hgb has increased from 6.6 to 7.9 after the transfusion of PRBC yesterday. White blood cell count slowly trending downwards and is 10.7. Her creatinine is 1.3 and random blood glucose is 236. Her pain has reduced and is communicating well. She is on Sarcoxie for her pain. She has been discontinued on all the antibiotics. She had her bowel movement today morning after she got polyethylene glycol. She is currently on Insulin glargine and regular Insulin. . Case management is currently evaluating the possibility of discharge. 02/01/25 Patient was seen at bedside and appears to be doing well overall. Her vitals are stable. Her Hgb improved to 7.8 after the transfusion of PRBC. White blood cell count slowly trending downwards and is 9.4. Her creatinine is 1.2 and random blood glucose is 131. Physical therapy worked with the patient assisting her in the mobility. She was planned for discharged today but late in the evening she developed a neuropathic pain. She was given Sarcoxie for her pain and has been prescribed Neurontin by Dr Pacheco. We will continue monitoring the patients status and plan to discharge once the pain gets reduced. Case management is currently evaluating the possibility of discharge. REVIEW OF SYSTEMS CONSTITUTIONAL: No fever, chills, or night sweats. Developed pain around the operated site. NEUROLOGICAL: Denies headache, motor weakness, sensory deficit. CARDIOVASCULAR: Denies any exertional angina, dyspnea on exertion, orthopnea, palpitations PULMONARY: Denies any shortness of breath, cough, hemoptysis, pleuritic chest pain. GASTROINTESTINAL:Denies nausea, vomiting, abdominal pain, diarrhea, constipation GENITOURINARY: Denies frequency, urgency, nocturia, hematuria or incontinence. PHYSICAL EXAM General: Alert and oriented. Lungs: .No wheezing, rales or rhonchi. Cardio: Regular rate. Normal S1 and S2. +S4. Abdomen: Soft. NT. ND. Normal active bowel sounds x 4 quadrants. Extremities: Dressing dry and intact, s/p Day 3 , right below knee amputation Neuro: No focal deficits. Vital Signs (last 8hr) Date Time Temp Pulse Resp B/P (MAP) Pulse Ox O2 Delivery O2 Flow Rate FiO2 02/01/25 15:45 98.6 86 18 135/75 96 Room Air 02/01/25 11:29 98.8 80 18 104/53 96 Room Air LABS: Laboratory: Test 02/01/25 14:57 02/01/25 04:42 01/31/25 08:46 01/30/25 19:30 Range/Units Whole Blood Glucose 157 H 70-110 MG/DL White Blood Count 9.4 4.8-10.8 K/uL Red Blood Count 2.74 L 4.00-5.50 MIL/uL Hemoglobin 7.8 L 12.0-16.0 g/dL Hematocrit 24.1 L 36-48 % Mean Corpuscular Volume 88.0 79-99 fL Mean Corpuscular Hemoglobin 28.5 27.0-33.0 pg Mean Corpuscular Hemoglobin Concent 32.4 32.0-36.0 g/dL Red Cell Distribution Width 14.4 11.0-15.5 % Platelet Count 361 130-400 K/uL Mean Platelet Volume 9.7 7.5-10.5 fL Nucleated Red Blood Cells 0.0 0.0-0.19 % Sodium Level 140 136-145 mmol/L Potassium Level 4.5 3.5-5.1 mmol/L Chloride Level 105 101-111 mmol/L Carbon Dioxide Level 30 21-32 mmol/L Blood Urea Nitrogen 10 7-18 mg/dL Creatinine 1.2 H 0.5-1.0 mg/dL Glomerular Filtration Rate Calc 57 >90 mL/min Random Glucose 131 H 70-105 mg/dL Total Calcium 8.3 L 8.5-10.1 mg/dL Vancomycin Level Trough 19.7 10.0-20.0 UG/ML Bedside Glucose Comment Notified Nurse Current Medications Medications (Trade) Dose Ordered Sig/Padilla Route PRN Reason Start Time Stop Time Status Last Admin Dose Admin Acetaminophen (TYLenol 325MG TAB) 650 mg Q4H PRN PO MILD PAIN (1-3) 01/18/25 20:00 02/17/25 19:59 01/28/25 22:12 650 MG Acetaminophen (TYLenol 325MG TAB) 650 mg Q6H PRN PO TEMPERATURE GREATER THAN 101.5 01/18/25 20:00 02/17/25 19:59 01/23/25 08:36 650 MG Acetaminophen/ Hydrocodone Bitart (NORco 5/325MG) 1 tab Q4H PRN PO MODERATE PAIN (4-6) 01/18/25 20:00 01/23/25 19:59 DC 01/19/25 21:51 1 TAB Acetaminophen/ Hydrocodone Bitart (NORco 5/325MG) 1 tab Q4H PRN PO MODERATE PAIN (4-6) 01/29/25 19:30 02/03/25 19:29 Acetaminophen/ Hydrocodone Bitart (NORco 5/325MG) 2 tab Q4H PRN PO SEVERE PAIN (7-10) 01/18/25 20:00 01/23/25 19:59 DC 01/21/25 23:30 2 TAB Acetaminophen/ Hydrocodone Bitart (NORco 5/325MG) 2 tab Q4H PRN PO SEVERE PAIN (7-10) 01/29/25 19:30 02/03/25 19:29 02/01/25 15:42 2 TAB Aspirin (Aspirin 81mg Chew Tab) 81 mg DAILY PO 01/25/25 12:00 02/24/25 11:59 02/01/25 08:05 81 MG Atorvastatin Calcium (LIPItor 20MG) 20 mg HS PO 01/25/25 21:00 02/24/25 20:59 01/31/25 19:55 20 MG Clindamycin HCl/ Dextrose 50 ml @ 100 mls/hr Q8H IV 01/20/25 00:30 01/20/25 09:36 DC 01/20/25 09:02 100 MLS/HR Clopidogrel Bisulfate (plaVIX 75MG) 75 mg DAILY PO 01/27/25 09:00 02/26/25 08:59 02/01/25 08:05 75 MG Dextrose (D50w) 50 ml AD PRN IV HYPOGLYCEMIA PROTOCOL 01/18/25 20:00 01/26/25 17:16 DC Dextrose (D50w) 50 ml AD PRN IV HYPOGLYCEMIA PROTOCOL 01/26/25 17:00 02/25/25 16:59 Docusate Sodium (COLace 100MG CAP) 100 mg BID PO 01/24/25 09:00 02/23/25 08:59 02/01/25 08:05 100 MG Famotidine (Pepcid 20mg Tab) 20 mg BID PO 01/18/25 21:00 02/17/25 20:59 02/01/25 08:05 20 MG Gabapentin (NEURontin 300 MG CAP) 600 mg DAILY PO 02/02/25 09:00 03/04/25 08:59 Glucagon (Glucagon 1mg Kit) 1 mg AD PRN IM HYPOGLYCEMIA PROTOCOL 01/18/25 20:00 01/26/25 17:16 DC Glucagon (Glucagon 1mg Kit) 1 mg AD PRN IM HYPOGLYCEMIA PROTOCOL 01/26/25 17:00 02/25/25 16:59 Guaifenesin/ Dextromethorphan (RobiTUSSin DM 200/20MG 10ML) 10 ml Q4H PRN PO COUGH 01/22/25 17:00 02/21/25 16:59 01/27/25 00:25 10 ML Heparin Sodium (Porcine) (HEParin 5,000 UNIT VIAL) 5,000 unit Q12H SQ 01/21/25 09:00 02/20/25 08:59 02/01/25 08:10 5,000 UNIT Hydromorphone HCl (DiLAUDid 0.5MG INJ) 0.5 mg Q3H3 PRN IVP SEVERE PAIN (7-10) 01/29/25 19:30 01/30/25 09:50 DC 01/30/25 03:29 0.5 MG Insulin Glargine (LANtus 100 UNITS/ML 10 ML VIAL) 9 units HS SQ 01/20/25 21:00 01/24/25 12:05 DC 01/23/25 20:35 9 UNITS Insulin Glargine (LANtus 100 UNITS/ML 10 ML VIAL) 12 units HS SQ 01/24/25 21:00 01/27/25 13:50 DC 01/26/25 20:55 12 UNITS Insulin Glargine (LANtus 100 UNITS/ML 10 ML VIAL) 17 units HS SQ 01/27/25 21:00 02/26/25 20:59 01/31/25 20:01 17 UNITS Insulin Human Regular (humuLIN R 100 UNIT/ML 3ML) 3 unit TIDAC SQ 01/21/25 07:30 01/24/25 12:05 DC 01/24/25 05:56 3 UNIT Insulin Human Regular (humuLIN R 100 UNIT/ML 3ML) 5 unit TIDAC SQ 01/24/25 17:00 01/27/25 13:50 DC 01/27/25 11:43 5 UNIT Insulin Human Regular (humuLIN R 100 UNIT/ML 3ML) 7 unit TIDAC SQ 01/27/25 17:00 02/26/25 16:59 02/01/25 15:46 7 UNIT Insulin Human Regular (humuLIN R 100 UNIT/ML 3ML) INSULIN SLIDING SCAL... ACHS SQ 01/18/25 21:00 02/17/25 20:59 01/31/25 16:15 2 UNIT Lactulose (Constulose 20gm/ 30ml Udcup) 20 gm BID PRN PO CONSTIPATION 01/24/25 04:30 02/23/25 04:29 01/28/25 22:15 20 GM Magnesium Sulfate 50 ml @ 0 mls/hr PROTOCOL PRN IV OTHER [SEE ORDER COMMENTS] 01/18/25 20:00 02/17/25 19:59 Ondansetron HCl (zoFRAN 4MG INJ) 4 mg Q6H PRN IV NAUSEA/VOMITING 01/18/25 20:00 02/17/25 19:59 01/29/25 04:45 4 MG Piperacillin Sod/ Tazobactam Sod 50 ml @ 12.5 mls/hr Q8H IV 01/30/25 21:00 01/31/25 12:25 DC 01/31/25 04:05 12.5 MLS/HR Piperacillin Sod/ Tazobactam Sod 50 ml @ 12.5 mls/hr Q8H IV 01/19/25 04:00 01/25/25 16:06 DC 01/25/25 03:20 12.5 MLS/HR Piperacillin Sod/ Tazobactam Sod 50 ml @ 12.5 mls/hr Q8H IV 01/25/25 18:30 01/25/25 18:34 DC Piperacillin Sod/ Tazobactam Sod 50 ml @ 12.5 mls/hr Q8H IV 01/25/25 21:00 01/30/25 17:47 DC 01/30/25 05:07 12.5 MLS/HR Piperacillin Sod/ Tazobactam Sod (Zosyn 3.375gm+NS 50ml) 3.375 gm ONCE STAT IVPB 01/18/25 17:47 01/18/25 17:51 DC 01/18/25 19:34 3.375 GM Polyethylene Glycol (MIRalax 3350 17 GM POWD.PACK) 17 gm DAILY PRN PO CONSTIPATION 01/24/25 09:00 02/23/25 08:59 01/31/25 04:12 17 GM Potassium Chloride 100 ml @ 100 mls/hr AD PRN IV POTASSIUM PROTOCOL 01/18/25 20:00 02/17/25 19:59 Potassium Chloride (K-Dur/Klor-Con 20meq) 20 meq AD PRN PO POTASSIUM PROTOCOL 01/18/25 20:00 02/17/25 19:59 01/25/25 05:42 20 MEQ Potassium Chloride (KCl 10% Elixir 20meq/15ml) 20 meq AD PRN PO POTASSIUM PROTOCOL 01/18/25 20:00 02/17/25 19:59 Sodium Chloride 1,000 ml @ 100 mls/hr Q10H IV 01/18/25 20:00 01/19/25 15:59 DC 01/19/25 06:15 100 MLS/HR Sodium Chloride 1,000 ml @ 100 mls/hr Q10H IV 01/26/25 17:00 01/26/25 19:59 DC 01/26/25 20:36 100 MLS/HR Sodium Chloride 1,000 ml @ 125 mls/hr Q8H IV 01/24/25 12:00 01/26/25 17:15 DC 01/26/25 05:16 125 MLS/HR Vancomycin HCl 100 ml @ 100 mls/hr Q12H IV 01/31/25 10:00 01/31/25 12:25 DC 01/31/25 10:08 100 MLS/HR Vancomycin HCl 250 ml @ 125 mls/hr ONCE IV 01/18/25 20:00 01/18/25 20:33 DC Vancomycin HCl 250 ml @ 125 mls/hr Q12H IV 01/27/25 06:00 01/27/25 17:46 DC 01/27/25 05:36 125 MLS/HR Vancomycin HCl 250 ml @ 125 mls/hr Q12H IV 01/27/25 18:00 01/29/25 21:33 DC 01/29/25 04:45 125 MLS/HR Vancomycin HCl 250 ml @ 125 mls/hr Q12H IV 01/19/25 08:00 01/23/25 20:28 DC 01/23/25 08:36 125 MLS/HR Vancomycin HCl 250 ml @ 125 mls/hr Q12H IV 01/23/25 20:30 01/24/25 00:19 DC Vancomycin HCl 250 ml @ 166.667 mls/hr Q12H IV 01/24/25 13:00 01/25/25 00:06 DC Vancomycin HCl 250 ml @ 166.667 mls/hr Q12H IV 01/25/25 00:30 01/25/25 00:09 DC Vancomycin HCl 250 ml @ 166.667 mls/hr Q12H IV 01/25/25 01:00 01/25/25 18:38 DC 01/25/25 12:40 166.667 MLS/HR Vancomycin HCl 250 ml @ 166.667 mls/hr Q12H IV 01/26/25 06:00 01/26/25 17:59 DC 01/26/25 05:16 166.667 MLS/HR Vancomycin HCl (Vancomycin 750mg) 750 mg Q12H IVPB 01/29/25 22:00 01/31/25 09:29 DC 01/30/25 22:45 750 MG Vancomycin HCl (Vancomycin Protocol) 1 each AD IV 01/18/25 21:00 01/31/25 12:25 DC Vancomycin HCl (Vancomycin 1.5 Gm/250 ml Bag) 1.5 gm ONCE STAT IV 01/18/25 19:14 01/18/25 19:36 DC DIAGNOSTICS / RADIOLOGY: [ ] ASSESSMENT: Status Post Right Below knee amputation (Post-op Day 3) Acute blood loss anemia Sepsis due to right great toe osteomyelitis POA Right foot diabetic ulcer with gas gangrene and osteomyelitis, s/p right transmetatarsal amputation on 01/19/2025. Hyperglycemia due to uncontrolled diabetes POA Non healing right sided TMA surgical site YINKA possibly secondary to vancomycin induced nephrotoxicity, not POA Severe leukocytosis POA Medical nonadherence POA Obesity POA Suspected urinary tract infection, ruled out PAD, [place] Category 3 POA PLAN: The patient remains admitted on the medical surgical floor. Status Post Right Below knee amputation (Post-op Day 3) * Developed neuropathic pain and has been prescribed Neurontin * Continue postoperative wound care and dressing changes as per Orthopedic Surgery recommendations. * Monitor surgical site for signs of infection, bleeding, or dehiscence. * Continue as-needed Sarcoxie * Monitor pain levels and adjust analgesic regimen as needed. * Follow up with Orthopedic Surgery recommendations. Acute blood loss anemia * The patient's hemoglobin improved after the transfusion * Patient received 1 unit of PRBC. Post transfusion hemoglobin is now 7.8 * Monitor CBC and clinical status closely. * Transfuse if hemoglobin drops below 7 g/dL; avoid unnecessary transfusions to prevent volume overload and other complications. Sepsis due to right great toe osteomyelitis POA Right foot diabetic ulcer with gas gangrene and osteomyelitis, s/p right transmetatarsal amputation on 01/19/2025. * Antibiotics have been discontinued today. * Follow up with Infectious Disease recommendations Hyperglycemia due to uncontrolled diabetes * Continue insulin coverage per protocol sliding scale * Monitor glucose levels * Maintain Consistent carb diet Peripheral arterial disease * Peripheral angiogram showed Right anterior tibial artery 100% stenosis Supportive measures Famotidine 20 mg p.o. bid for GI prophylaxis Replace electrolytes as needed per protocol Continue prn medication for fever,pain,cough, nausea and vomiting Neurovascular check q.4 hours We will request labs in am Further orders to follow depending on above results ATTESTATION BY PHYSICIAN I have seen and examined the patient. I reviewed the documentation, medical decision making, and treatment plan as noted by the resident provider above. I agree with the findings and plan of care. Levi Johansen MD, SUZIT MD Feb 01, 2025 19:01
--- NOTE | 2025-02-01 19:13 | PN ---
SUBJECTIVE: The patient is postop day 3 from right BKA. She did have a small episode this afternoon where after she got back in bed, she sustained severe pain, 10/10 right at the end of her stump. PHYSICAL EXAMINATION: We took down her dressing and noted that it is clean and dry without drainage and no discoloration of either of the flap edges. She remains afebrile at 96.8, with a blood pressure of 135/75, respirations of 18, and heart rate of 86. LABORATORY DATA: Her white count today is now down to 9.4, with a hemoglobin of 7.8, hematocrit of 24.1, and 361,000 platelets, a sodium of 140, potassium 4.5, chloride of 105, and a blood sugar of 166. ASSESSMENT: Postop day 3 from a right BKA. PLAN: Again she is ortho stable for discharge. We are going to write her a prescription for Neurontin 600 mg, she can take one daily as well as clindamycin 300 mg one three times a day for 5 days. We would like to see her in 3-4 weeks in our office and she is to call for an appointment. TID: [id number] RECEIPT: [id number]
--- NOTE | 2025-02-01 19:15 | PN ---
INFECTIOUS DISEASE PROGRESS NOTE Date of Service: Feb 01, 2025 SUBJECTIVE: Patient was seen and examined at bedside in room 306. Patient is awake, alert and oriented x3. Patient is status post Right ozopi-mrz-asuz amputation on 01/29/2025. Hemoglobin stable at 7.8. Patient had a low-grade fever of 99.9 this morning. No episodes of emesis reported. From Infectious Disease standpoint patient will not need antibiotics on discharge. PHYSICAL EXAM EYES: Anicteric. Pupils equal and reactive. HENT: No oral thrush seen, moist Oral mucosa. NECK: Supple, no JVD or thyromegaly. LUNGS: Good air entry. No rales, no rhonchi. CARDIOVASCULAR: S1, S2 regular. No murmur heard. ABDOMEN: Soft, non tender, bowel sounds present, no organomegaly. CENTRAL NERVOUS SYSTEM: Awake, alert, oriented x 3. SKIN: No rashes, no swelling. LYMPHATICS: No peripheral lymphadenopathy. MUSCULOSKELETAL: No joint swelling, erythema or tenderness. EXTREMITIES: Failed right TMA, s/p right qzrie-dgz-pqie amputation. BACK: No deformity, no pressure ulcer. GENITOURINARY: No dysuria or hematuria. Vital Sign (Last 12 Hours) 02/01/25 02/01/25 02/01/25 02/01/25 07:49 08:05 11:29 15:45 Temp 99.9 98.8 98.6 Pulse 83 80 86 Resp 18 18 18 B/P (MAP) 117/73 104/53 135/75 Pulse Ox 92 92 96 96 O2 Delivery Room Air Room Air* Room Air Room Air O2 Flow Rate 0 FiO2 21 Intake & Output (last 24hrs) 01/31/25 01/31/25 02/01/25 15:00 23:00 07:00 Intake Total 320 ml Output Total 1000 ml 1200 ml Balance -680 ml -1200 ml LABS: Laboratory: Test 02/01/25 14:57 02/01/25 04:42 01/31/25 08:46 01/30/25 19:30 Range/Units Whole Blood Glucose 157 H 70-110 MG/DL White Blood Count 9.4 4.8-10.8 K/uL Red Blood Count 2.74 L 4.00-5.50 MIL/uL Hemoglobin 7.8 L 12.0-16.0 g/dL Hematocrit 24.1 L 36-48 % Mean Corpuscular Volume 88.0 79-99 fL Mean Corpuscular Hemoglobin 28.5 27.0-33.0 pg Mean Corpuscular Hemoglobin Concent 32.4 32.0-36.0 g/dL Red Cell Distribution Width 14.4 11.0-15.5 % Platelet Count 361 130-400 K/uL Mean Platelet Volume 9.7 7.5-10.5 fL Nucleated Red Blood Cells 0.0 0.0-0.19 % Sodium Level 140 136-145 mmol/L Potassium Level 4.5 3.5-5.1 mmol/L Chloride Level 105 101-111 mmol/L Carbon Dioxide Level 30 21-32 mmol/L Blood Urea Nitrogen 10 7-18 mg/dL Creatinine 1.2 H 0.5-1.0 mg/dL Glomerular Filtration Rate Calc 57 >90 mL/min Random Glucose 131 H 70-105 mg/dL Total Calcium 8.3 L 8.5-10.1 mg/dL Vancomycin Level Trough 19.7 10.0-20.0 UG/ML Bedside Glucose Comment Notified Nurse ASSESSMENT: Failed right TMA and gangrene, status post right gyxyk-sps-yhfs amputation on 01/29/2025. Nonhealing right TMA surgical site, s/p peripheral angiogram with abnormal findings on 01/26/2025. 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 Postop anemia requiring blood transfusion. Leukocytosis. Urinary tract infection with lactobacillus species. Uncontrolled diabetes mellitus, hemoglobin A1c 13.9. Medical noncompliance. Obesity. PLAN: Continue pain management. Continue GI prophylaxis. Continue antidiabetics. Continue physical therapy. From Infectious Disease standpoint patient will not need antibiotics on discharge. This case was reviewed and discussed with my supervising physician and the above assessment and plan was formulated and agreed upon. ATTESTATION BY PHYSICIAN I have seen and examined the patient. I reviewed the documentation, medical decision making, and treatment plan as noted by the mid-level provider above. I agree with the findings and plan of care. GAUDENCIO SHANKAR MD, MIRTA L [facility] Feb 01, 2025 19:15
[2025-02-01 20:00] VITALS: BP 114/67; PULSE 87; RESP 17; TEMP 98.1
[2025-02-02] VITALS: BP 121/71; PULSE 89; RESP 17; TEMP 98.1
[2025-02-02 03:54] VITALS: BP 127/76; PULSE 86; RESP 16; TEMP 98.2
[2025-02-02 05:05] LABS: NUCLEATED RED BLOOD CELLS 0.0 % (0.0-0.19); PLATELET COUNT (AUTO) 345.0 K/uL (130-400); RED BLOOD CELL COUNT(AUTO) 3.0 MIL/uL (4.00-5.50); RED CELL DISTRIBUTION WIDTH 14.2 % (11.0-15.5); WHITE BLOOD COUNT (AUTO) 7.8 K/uL (4.8-10.8)
[2025-02-02 05:23] LABS: CREATININE 1.2 mg/dL (0.5-1.0); GLOMERULAR FILTR. RATE CALC 57.0 mL/min (>90); GLUCOSE,RANDOM 204.0 mg/dL (70-105); SODIUM SERUM 141.0 mmol/L (136-145); UREA NITROGEN, BLOOD 13.0 mg/dL (7-18)
[2025-02-02 07:55] VITALS: BP 126/77; PULSE 84; RESP 18; TEMP 97.9
[2025-02-02] MEDS: DIPHTH,PERTUSS(ACELL),TET VAC 0.5 ML SYG IM ONE (08:25)
--- NOTE | 2025-02-02 08:27 | NUR ---
TDAP TDAP VACCINE WAS SHOWN PENDING ON THE EMAR. PATIENT STATES THAT SHE RECEIVED THE VACCINE WHILE IN THE ER AND THAT IT WAS ADMINISTERED ON HER LEFT ARM. I SPOKE WITH PHARMACIST ALLISON WHO IS AWARE OF THE SITUATION AND THUS THE CONCLUSION WAS MADE TO REMOVE THE PENDING ORDER SINCE THE PATIENT STATES SHE ALREADY RECEIVED IT.
[2025-02-02 08:57] VITALS: O2SAT 94
[2025-02-02] MEDS: GABAPENTIN 300 MG CAPSULE PO SCH (08:57)
[2025-02-02 11:46] VITALS: BP 117/73; PULSE 94; RESP 18; TEMP 98.1
--- NOTE | 2025-02-02 15:47 | PN ---
INFECTIOUS DISEASE PROGRESS NOTE Date of Service: Feb 02, 2025 SUBJECTIVE: Patient is awake, alert and oriented x3. Patient is status post Right ksqvd-aff-gzmv amputation on 01/29/2025 and per report patient is not performing well with physical therapy and will need more days of physical therapy prior to clearing for discharge. Patient remains afebrile, temperature is 98.1. Patient will not need antibiotics on discharge. We will sign off at this time. PHYSICAL EXAM EYES: Anicteric. Pupils equal and reactive. HENT: No oral thrush seen, moist Oral mucosa. NECK: Supple, no JVD or thyromegaly. LUNGS: Good air entry. No rales, no rhonchi. CARDIOVASCULAR: S1, S2 regular. No murmur heard. ABDOMEN: Soft, non tender, bowel sounds present, no organomegaly. CENTRAL NERVOUS SYSTEM: Awake, alert, oriented x 3. SKIN: No rashes, no swelling. LYMPHATICS: No peripheral lymphadenopathy. MUSCULOSKELETAL: No joint swelling, erythema or tenderness. EXTREMITIES: Failed right TMA, s/p right qhzvc-zoz-tqbn amputation. BACK: No deformity, no pressure ulcer. GENITOURINARY: No dysuria or hematuria. Vital Sign (Last 12 Hours) 02/02/25 02/02/25 02/02/25 02/02/25 03:54 07:55 08:57 11:46 Temp 98.2 97.9 98.1 Pulse 86 84 94 Resp 16 18 18 B/P (MAP) 127/76 126/77 117/73 Pulse Ox 93 94 94 94 O2 Delivery Room Air Room Air Room Air* Room Air O2 Flow Rate 0 FiO2 21 Intake & Output (last 24hrs) 02/01/25 02/01/25 02/02/25 15:00 23:00 07:00 Intake Total 640 ml Output Total 800 ml 1200 ml Balance -160 ml -1200 ml LABS: Laboratory: Test 02/02/25 11:27 02/02/25 05:00 Range/Units Whole Blood Glucose 307 H 70-110 MG/DL White Blood Count 7.8 4.8-10.8 K/uL Red Blood Count 3.00 L 4.00-5.50 MIL/uL Hemoglobin 8.4 L 12.0-16.0 g/dL Hematocrit 26.9 L 36-48 % Mean Corpuscular Volume 89.7 79-99 fL Mean Corpuscular Hemoglobin 28.0 27.0-33.0 pg Mean Corpuscular Hemoglobin Concent 31.2 L 32.0-36.0 g/dL Red Cell Distribution Width 14.2 11.0-15.5 % Platelet Count 345 130-400 K/uL Mean Platelet Volume 9.0 7.5-10.5 fL Nucleated Red Blood Cells 0.0 0.0-0.19 % Sodium Level 141 136-145 mmol/L Potassium Level 4.7 3.5-5.1 mmol/L Chloride Level 104 101-111 mmol/L Carbon Dioxide Level 31 21-32 mmol/L Blood Urea Nitrogen 13 7-18 mg/dL Creatinine 1.2 H 0.5-1.0 mg/dL Glomerular Filtration Rate Calc 57 >90 mL/min Random Glucose 204 H 70-105 mg/dL Total Calcium 8.6 8.5-10.1 mg/dL ASSESSMENT: Failed right TMA and gangrene, status post right qgdye-qxf-mzng amputation on 01/29/2025. Nonhealing right TMA surgical site, s/p peripheral angiogram with abnormal findings on 01/26/2025. 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 Postop anemia requiring blood transfusion. Leukocytosis. Urinary tract infection with lactobacillus species. Uncontrolled diabetes mellitus, hemoglobin A1c 13.9. Medical noncompliance. Obesity. PLAN: Continue pain management. Continue GI prophylaxis. Continue antidiabetics. Continue physical therapy. Patient will not need antibiotics on discharge. Signing off at this time, reconsult if needed. This case was reviewed and discussed with my supervising physician and the above assessment and plan was formulated and agreed upon. ATTESTATION BY PHYSICIAN I have seen and examined the patient. I reviewed the documentation, medical decision making, and treatment plan as noted by the mid-level provider above. I agree with the findings and plan of care. GAUDENCIO SHANKAR MD, MIRTA L [facility] Feb 02, 2025 15:47
--- NOTE | 2025-02-02 16:39 | NUR ---
EDUCATION PATIENT AND HER DAUGHTER, GIANCARLO OSWALD, WERE BOTH TAUGHT HOW TO PERFORM WOUND CARE AND HOW TO SAFELY TRANSFER. PATIENT WAS ABLE TO HOP A FEE TIMES ON HER LEFT FOOT WELL. THEY BOTH VERBALIZED UNDERSTANDING. ALL QUESTIONS ANSWERED PRIOR TO DISCHARGE.
--- NOTE | 2025-02-02 17:06 | NUR ---
DISCHARGE PATIENT INFORMED OF FOLLOW UP APPOINTMENT WITH DR. WAKEFIELD. QUESTIONS ANSWERED PRIOR TO DISCHARGE
== END 2025-02-02 17:08 | disposition home or self-care (01) | DRG 853 ==
LOC: EDH 15:43 → EDHIP 15:44 → 3BH 01-19 18:30
PROVIDERS: ADMIT Internal Medicine; ATTEND Internal Medicine
PROC: 0Y6M0Z4 Detachment at Right Foot, Complete 1st Ray, Open Approach (ICD-10-PCS; 2025-01-19)
PROC: 0Y6M0Z5 Detachment at Right Foot, Complete 2nd Ray, Open Approach (ICD-10-PCS; 2025-01-19)
PROC: 0Y6M0Z6 Detachment at Right Foot, Complete 3rd Ray, Open Approach (ICD-10-PCS; 2025-01-19)
PROC: 0Y6M0Z7 Detachment at Right Foot, Complete 4th Ray, Open Approach (ICD-10-PCS; 2025-01-19)
PROC: 0Y6M0Z8 Detachment at Right Foot, Complete 5th Ray, Open Approach (ICD-10-PCS; 2025-01-19)
PROC: 05HB33Z Insertion of Infusion Device into Right Basilic Vein, Percutaneous Approach (ICD-10-PCS; 2025-01-25)
PROC: B54MZZA Ultrasonography of Right Upper Extremity Veins, Guidance (ICD-10-PCS; 2025-01-25)
PROC: 047P3ZZ Dilation of Right Anterior Tibial Artery, Percutaneous Approach (ICD-10-PCS; 2025-01-26)
PROC: 047V3ZZ Dilation of Right Foot Artery, Percutaneous Approach (ICD-10-PCS; 2025-01-26)
PROC: B41G1ZZ Fluoroscopy of Left Lower Extremity Arteries using Low Osmolar Contrast (ICD-10-PCS; 2025-01-26)
PROC: B41F1ZZ Fluoroscopy of Right Lower Extremity Arteries using Low Osmolar Contrast (ICD-10-PCS; 2025-01-26)
PROC: B4101ZZ Fluoroscopy of Abdominal Aorta using Low Osmolar Contrast (ICD-10-PCS; 2025-01-26)
PROC: 0Y6H0Z1 Detachment at Right Lower Leg, High, Open Approach (ICD-10-PCS; principal; 2025-01-29 07:30)
PROC: 30233N1 Transfusion of Nonautologous Red Blood Cells into Peripheral Vein, Percutaneous Approach (ICD-10-PCS; 2025-01-30)
DX: A41.9 Sepsis, unspecified organism (principal); A48.0 Gas gangrene; E11.52 Type 2 diabetes mellitus with diabetic peripheral angiopathy with gangrene; L03.115 Cellulitis of right lower limb; D62 Acute posthemorrhagic anemia; N17.9 Acute kidney failure, unspecified; M86.8X7 Other osteomyelitis, ankle and foot; E11.42 Type 2 diabetes mellitus with diabetic polyneuropathy; E11.628 Type 2 diabetes mellitus with other skin complications; E11.65 Type 2 diabetes mellitus with hyperglycemia; E11.69 Type 2 diabetes mellitus with other specified complication; E66.9 Obesity, unspecified; E11.621 Type 2 diabetes mellitus with foot ulcer; E78.00 Pure hypercholesterolemia, unspecified; L97.519 Non-pressure chronic ulcer of other part of right foot with unspecified severity; I10 Essential (primary) hypertension; I70.201 Unspecified atherosclerosis of native arteries of extremities, right leg; Z59.71 Insufficient health insurance coverage; Z68.36 Body mass index [BMI] 36.0-36.9, adult; Z91.199 Patient's noncompliance with other medical treatment and regimen due to unspecified reason; Z79.899 Other long term (current) drug therapy
CPT/HCPCS: 36415; 36556; 37229; 73630; 73718; 75716; 80048; 80053; 80061; 80202; 81001; 82247; 82248; 82270; 82550; 82948; 83036; 83605; 83615; 83735; 83880; 84145; 84484; 85025; 85027; 85347; 85610; 85651; 85730; 86140; 86850; 86900; 86901; 86923; 87040; 87086; 88305; 88311; 90715; 93923; 93925; 96365; 99156; 99157; 99285; C1724; C1760; C1769; C1893; C1894; G0378; J1171; J1644; J1815; J2003; J2250; J2405; J2543; J2704; J2795; J3010; J3373; J3475; J3490; J7030; P9016; Q9967; A4215; A4649; A4930; A6223; C1713; C1725; C1750; C1887; J3370